=== PATIENT | female | born 1970 | race American Indian/Alaskan Native ===

== ENCOUNTER 2016-09-26 23:04 | Inpatient (IN) | payer SELFPAY ==
[2016-09-26] MEDS ORDERED: NITRO-BID 2% TP ONE ×3 (23:29→23:36)
[2016-09-26] MEDS ORDERED: CATAPRES ONE (23:29)
[2016-09-26] MEDS ORDERED: CATAPRES PO ONE (23:36)
[2016-09-26 23:49] LABS: Basophils % (Auto) 2.1 % (0.0-1.8); Eosinophils % (Auto) 1.7 % (0.0-4.3); Hematocrit 32.4 % (30.3-42.9); Hemoglobin 10.2 gm/dl (10.1-14.3); Mean Corpuscular HGB Conc 32 % (30-34); Platelet Count 264 K/mm3 (140-440); Red Blood Count 4.93 M/mm3 (3.65-5.03); White Blood Count 5.8 K/mm3 (4.5-11.0)
[2016-09-26 23:51] LABS: Mean Corpuscular Volume 66 fl (79-97)
[2016-09-26 23:52] LABS: Mean Corpuscular Hemoglobin 21 pg (28-32); Red Cell Distribution Width 24.7 % (13.2-15.2)
[2016-09-27 00:03] LABS: INR 1.64 (0.87-1.13); Partial Thromboplastin Time 31.9 Sec. (24.2-36.6)
[2016-09-27 00:04] LABS: BUN/Creatinine Ratio 17.14; Blood Urea Nitrogen 12 mg/dL (7-17); Calcium 8.7 mg/dL (8.4-10.2); Carbon Dioxide 22 mmol/L (22-30); Glucose 104 mg/dL (65-100); Potassium 3.5 mmol/L (3.6-5.0); Sodium 136 mmol/L (137-145)
[2016-09-27 00:05] LABS: Anion Gap 19 mmol/L
--- NOTE | 2016-09-27 06:41 | Emergency Department Report ---
HPI - General Chief Complaint: Chest Pain Time Seen by Provider: 09/27/16 06:15 - HPI HPI: Chief complaint: Chest pain and shortness of breath on exertion HPI: Patient is a 46-year-old female with a history of hypertension, elevated cholesterol, diabetes, pulmonary embolism, CVA who ran out of all of her medications on Wednesday. Patient states she's been having pressure-like chest pain since 9:00 last night. Since the patient has been here she has had clonidine and nitroglycerin with some improvement of her blood pressure. Patient states her nitroglycerin helped her chest pain. Patient had one episode of vomiting yesterday but denies coughing, fever or diarrhea. Mode of arrival: [EMS] Source: [Patient] [old chart] Began: Pain started at 9:00 last night Duration: Continuous Context: See above Quality: Pressure Severity: 6 out of 10 Improved with: Nitroglycerin Worsened with: Exertion worsened and shortness of breath Associated signs and symptoms: See above, increased pedal edema ED Past Medical Hx - Past Medical History Previous Medical History?: Yes Hx Hypertension: Yes Hx CVA: Yes (2014) Hx Congestive Heart Failure: Yes Hx Diabetes: Yes Hx Pulmonary Embolism: Yes (January 2015) Hx Kidney Stones: Yes Hx Asthma: Yes Additional medical history: murmur. blood clot removal from brain, hx of CVA ( june,) - Surgical History Past Surgical History?: Yes Hx Cholecystectomy: Yes Additional Surgical History: tubal ligation - Social History Smoking Status: Never Smoker Substance Use Type: None - Medications Home Medications: Home Medications Medication Instructions Recorded Confirmed Last Taken Type Warfarin [Coumadin] 7.5 mg PO DAILY@1700 #30 tablet 08/24/15 09/04/16 06/28/16 Rx traMADol [Ultram 50 MG tab] 50 mg PO Q8HR PRN #12 tablet 01/30/16 09/04/16 Unknown Rx Albuterol Sulfate [Ventolin HFA] 2 puff IH Q4H PRN #1 hfa.aer.ad 06/29/16 Unknown Rx HYDROcodone/APAP 5-325 [[place] 1 each PO Q6H PRN #20 tablet 06/29/16 09/04/16 Unknown Rx 5-325 mg TAB] Lisinopril [Zestril TAB] 40 mg PO QDAY #30 tablet 06/29/16 09/04/16 Unknown Rx Lovastatin [Altoprev] 20 mg PO QPM #30 tab.er.24h 06/29/16 09/04/16 Unknown Rx Metoprolol [Lopressor TAB] 75 mg PO BID #60 tablet 06/29/16 09/04/16 Unknown Rx Ondansetron [Zofran ODT TAB] 4 mg PO Q8HR #20 tab.rapdis 06/29/16 09/04/16 Unknown Rx hydrALAZINE [Apresoline TAB] 50 mg PO BID #60 tablet 06/29/16 09/04/16 Unknown Rx metFORMIN [Glucophage] 500 mg PO BIDDIAB #60 tablet 06/29/16 09/04/16 Unknown Rx Cyclobenzaprine HCl [Flexeril 5 MG 5 mg PO Q8HR PRN #10 tab 07/27/16 09/04/16 Unknown Rx TAB] Torsemide [Demadex] 40 mg PO DAILY 30 Days 09/09/16 Unknown Rx ED Review of Systems ROS: Stated complaint: CHEST PAIN Other details as noted in HPI ROS Constitutional: No fever ENT: No uri symptoms Cardiovascular: chest pain Respiratory: No cough GI: No nausea vomiting or diarrhea : No dysuria frequency or urgency, Skin: No rash Neuro: No focal weakness or numbness Psych: No depression Sahil/lymph: He is pedal edema edema Physical Exam - Physical Exam Vital Signs: Vital Signs 09/26/16 09/26/16 09/27/16 23:14 23:40 02:23 Temperature 98.3 F 98.0 F Pulse Rate 97 H 97 H 79 Respiratory 20 18 Rate Blood Pressure 168/115 168/113 154/111 Blood Pressure [Left] O2 Sat by Pulse 100 100 Oximetry 09/27/16 06:19 Temperature Pulse Rate 80 Respiratory 20 Rate Blood Pressure Blood Pressure 160/110 [Left] O2 Sat by Pulse 100 Oximetry Physical Exam: GENERAL: The patient is well-developed well-nourished . HEENT: Normocephalic. Atraumatic. Extraocular motions are intact. Patient has moist mucous membranes. NECK: Supple. No meningitic signs are noted. There is no adenopathy noted. CHEST/LUNGS: Clear to auscultation. There is no respiratory distress noted. HEART/CARDIOVASCULAR: Regular. There is no tachycardia. There is no gallop rub or murmur. ABDOMEN: Abdomen is soft, nontender. Patient has normal bowel sounds. There is no abdominal distention. SKIN: There is no rash. There is 1+ bilateral pedal edema. There is no diaphoresis. NEURO: The patient is awake, alert, and oriented. The patient is cooperative. The patient has no focal neurologic deficits. The patient has normal speech. MUSCULOSKELETAL: There is no tenderness or deformity. There is no limitation range of motion. There is no evidence of acute injury. ED Course Vital Signs 09/26/16 09/26/16 09/27/16 23:14 23:40 02:23 Temperature 98.3 F 98.0 F Pulse Rate 97 H 97 H 79 Respiratory 20 18 Rate Blood Pressure 168/115 168/113 154/111 Blood Pressure [Left] O2 Sat by Pulse 100 100 Oximetry 09/27/16 06:19 Temperature Pulse Rate 80 Respiratory 20 Rate Blood Pressure Blood Pressure 160/110 [Left] O2 Sat by Pulse 100 Oximetry - Reevaluation(s) Reevaluation #1: 09/27/16 07:11 Patient will be admitted to the hospitalist for persistent chest pain and hypertensive urgency. ED Medical Decision Making - Lab Data Result diagrams: 09/26/16 23:29 09/26/16 23:29 Laboratory Tests 09/26/16 09/26/16 09/27/16 23:29 23:29 02:41 PT 19.4 H INR 1.64 H APTT 31.9 Troponin T < 0.010 < 0.010 HCG, Qual 09/27/16 09/27/16 04:31 04:31 PT INR APTT Troponin T < 0.010 HCG, Qual Negative - EKG Data -: EKG Interpreted by Nv EKG shows normal: sinus rhythm Rate: normal - EKG Data When compared to previous EKG there are: no significant change Interpretation: other (her initial anterior forces.) - Radiology Data interpreted by me: Chest x-ray shows cardiomegaly. Critical care attestation.: If time is entered above; I have spent that time in minutes in the direct care of this critically ill patient, excluding procedure time. ED Disposition Clinical Impression: Hypertensive urgency, Noncompliance w/medication treatment due to intermit use of medication, Acute chest pain Disposition: OP ADMITTED IP TO THIS HOSP Is pt being admited?: Yes Does the pt Need Aspirin: Yes Condition: Fair Instructions: Chest Pain (ED) Time of Disposition: 07:12 (admit to the hospitalist)
[2016-09-27] MEDS ORDERED: SODIUM CHLORIDE FLUSH SYRINGE 10 ML IV PRN (08:00)
[2016-09-27] MEDS ORDERED: NORCO 5/325 PO PRN (08:00)
[2016-09-27] MEDS ORDERED: NON-FORMULARY (Cyclobenzaprine Hcl [Flexeril 5 Mg Tab] 5 MG) PO PRN (08:00)
[2016-09-27] MEDS ORDERED: MORPHINE IV PRN (08:00)
[2016-09-27] MEDS ORDERED: PROAIR IH PRN (08:00)
[2016-09-27] MEDS ORDERED: ULTRAM PO PRN (08:00)
[2016-09-27] MEDS ORDERED: K-DUR PO ONE (08:00)
[2016-09-27] MEDS ORDERED: NITROSTAT SL PRN (08:00)
[2016-09-27] MEDS ORDERED: ZESTRIL ONE (08:05)
[2016-09-27] MEDS ORDERED: PROVENTIL IH PRN (08:11)
[2016-09-27] MEDS: ZOFRAN ODT PO SCH ×3 (08:27→22:50)
[2016-09-27] MEDS: LOPRESSOR PO SCH ×3 (08:27→22:50)
[2016-09-27] MEDS: GLUCOPHAGE PO SCH ×2 (08:27→17:01)
[2016-09-27] MEDS: APRESOLINE PO SCH ×3 (08:27→22:51)
[2016-09-27] MEDS: LOVENOX SUB-Q SCH ×3 (08:28→22:51)
[2016-09-27] MEDS: ZESTRIL PO SCH ×2 (08:28→09:39)
[2016-09-27] MEDS: PEPCID PO SCH ×3 (08:28→22:49)
--- NOTE | 2016-09-27 09:50 | XRay Report ---
AP CHEST History: Shortness of breath. Findings: Moderate cardiomegaly is unchanged since 09/04/16. Normal pulmonary vascularity. Left lower lobe opacity and/or left pleural effusion has resolved. The lungs are clear. No pneumothorax. Normal thoracic cage. Impression: Stable cardiomegaly. Lungs clear.
--- NOTE | 2016-09-27 10:06 | History and Physical Report ---
History of Present Illness Date of examination: 09/27/16 Date of admission: 09/27/16 07:13 Chief complaint: chest pain and sob last night History of present illness: Miss Lyman is a 46 yo F with CHF and known non compliance with medications who presented with chest pain which started last night, central, pressing in nature lasted for about 2 hours. No radiation, no aggravating or relieving factors. She denies cough or fever. She also had some palpitations. She reported that she ran out of medications and Wednesday. At the time of evaluation she had no chest pain. She was noted to have elevated blood pressure in the emergency room. No history of acute [place] in the past. Past History Past Medical History: heart failure, hypertension, other (pulmonary embolism; nonischemic cardiomyopathy; nonobstructive CAD) Past Surgical History: No surgical history Social history: full code. denies: smoking, alcohol abuse, prescription drug abuse Family history: hypertension Medications and Allergies Allergies Allergy/AdvReac Type Severity Reaction Status Date / Time aspirin Allergy Swelling Verified 01/30/16 08:48 Home Medications Medication Instructions Recorded Confirmed Last Taken Type Warfarin [Coumadin] 7.5 mg PO DAILY@1700 #30 tablet 08/24/15 09/27/16 06/28/16 Rx traMADol [Ultram 50 MG tab] 50 mg PO Q8HR PRN #12 tablet 01/30/16 09/27/16 Unknown Rx Albuterol Sulfate [Ventolin HFA] 2 puff IH Q4H PRN #1 hfa.aer.ad 06/29/16 Unknown Rx HYDROcodone/APAP 5-325 [[place] 1 each PO Q6H PRN #20 tablet 06/29/16 09/27/16 Unknown Rx 5-325 mg TAB] Lisinopril [Zestril TAB] 40 mg PO QDAY #30 tablet 06/29/16 09/27/16 Unknown Rx Lovastatin [Altoprev] 20 mg PO QPM #30 tab.er.24h 06/29/16 09/27/16 Unknown Rx Metoprolol [Lopressor TAB] 75 mg PO BID #60 tablet 06/29/16 09/27/16 Unknown Rx Ondansetron [Zofran ODT TAB] 4 mg PO Q8HR #20 tab.rapdis 06/29/16 09/27/16 Unknown Rx hydrALAZINE [Apresoline TAB] 50 mg PO BID #60 tablet 06/29/16 09/27/16 Unknown Rx metFORMIN [Glucophage] 500 mg PO BIDDIAB #60 tablet 06/29/16 09/27/16 Unknown Rx Cyclobenzaprine HCl [Flexeril 5 MG 5 mg PO Q8HR PRN #10 tab 07/27/16 09/27/16 Unknown Rx TAB] Torsemide [Demadex] 40 mg PO DAILY 30 Days 09/09/16 09/27/16 Unknown Rx Active Meds: Active Medications Acetaminophen/Hydrocodone Bitart ([place] 5/325) 1 each PO Q6H PRN PRN Reason: Pain, Moderate (4-6) Albuterol (Proventil) 2.5 mg IH Q4HRT PRN PRN Reason: Shortness Of Breath Cyclobenzaprine HCl (Flexeril) 5 mg PO Q8H PRN PRN Reason: Pain Enoxaparin Sodium (Lovenox) 90 mg SUB-Q Q12HR [facility] Last Admin: 09/27/16 09:39 Dose: Not Given Famotidine (Pepcid) 20 mg PO BID [facility] Last Admin: 09/27/16 09:39 Dose: Not Given Hydralazine HCl (Apresoline) 50 mg PO BID [facility] Last Admin: 09/27/16 09:38 Dose: Not Given Lisinopril (Zestril) 40 mg PO QDAY [facility] Last Admin: 09/27/16 09:39 Dose: Not Given Metformin HCl (Glucophage) 500 mg PO BIDDIAB [facility] Last Admin: 09/27/16 08:27 Dose: 500 mg Metoprolol Tartrate (Lopressor) 75 mg PO BID [facility] Last Admin: 09/27/16 09:39 Dose: Not Given Morphine Sulfate (Morphine) 2 mg IV Q5MIN PRN PRN Reason: Chest Pain Nitroglycerin (Nitrostat) 0.4 mg SL Q5M PRN PRN Reason: Chest Pain Ondansetron HCl (Zofran Odt) 4 mg PO Q8HR [facility] Last Admin: 09/27/16 08:27 Dose: 4 mg Simvastatin (Zocor) 10 mg PO QHS [facility] Sodium Chloride (Sodium Chloride Flush Syringe 10 Ml) 10 ml IV PRN PRN PRN Reason: LINE FLUSH Torsemide (Demadex) 40 mg PO DAILY [facility] Tramadol HCl (Ultram) 50 mg PO Q8HR PRN PRN Reason: Pain Warfarin Sodium (Coumadin) 7.5 mg PO DAILY@1700 [place] PRN Reason: Protocol Review of Systems All systems: negative Constitutional: no weight loss, no weight gain, no fever, no chills Breasts: normal Cardiovascular: other (as in the history of presenting complaint) Respiratory: shortness of breath, no cough, no cough with sputum, no excessive sputum Gastrointestinal: no abdominal pain, no nausea, no vomiting, no diarrhea, no constipation Genitourinary Female: no dyspareunia, no dysmenorrhea, no pelvic pain, no flank pain, no menorrhagia, no urinary frequency Rectal: no pain, no incontinence, no bleeding Musculoskeletal: no neck stiffness, no neck pain, no shooting arm pain Integumentary: no rash, no pruritis, no redness Neurological: no head injury, no transient paralysis, no paralysis, no weakness Psychiatric: no anxiety, no change in sleep habits, no sleep disturbances Endocrine: no cold intolerance, no heat intolerance, no polyphagia, no excessive thirst, no weight change Hematologic/Lymphatic: no easy bruising, no easy bleeding Allergic/Immunologic: no urticaria Exam - Constitutional Vitals: Temp Pulse Resp BP Pulse Ox 98.0 F 74 18 156/104 98 09/27/16 02:23 09/27/16 08:00 09/27/16 09:01 09/27/16 08:00 09/27/16 09:01 General appearance: Present: no acute distress, well-nourished - EENT Eyes: Present: PERRL, EOM intact. Absent: scleral icterus, conjunctival injection ENT: hearing intact, clear oral mucosa, no oropharyngeal erythema, no poor dentition - Neck Neck: Present: supple - Respiratory Respiratory effort: normal Respiratory: bilateral: diminished, negative: rales, rhonchi, wheezing - Cardiovascular Rhythm: regular Heart Sounds: Present: S1 & S2. Absent: gallop - Extremities Extremities: no ischemia, pulses intact, pulses symmetrical, No edema Peripheral Pulses: within normal limits - Abdominal General gastrointestinal: Present: soft, non-tender, non-distended, normal bowel sounds Female genitourinary: Present: deferred - Rectal Rectal Exam: deferred - Integumentary Integumentary: Present: clear - Musculoskeletal Musculoskeletal: strength equal bilaterally - Psychiatric Psychiatric: appropriate mood/affect, intact judgment & insight, cooperative - Neurologic Neurologic: CNII-XII intact, moves all extremities Results - Labs CBC & Chem 7: 09/26/16 23:29 09/26/16 23:29 - Imaging and Cardiology Chest x-ray: report reviewed (Chest [id number] cardiomegaly. Lungs clear) Assessment and Plan 1. Acute exacerbation of chronic systolic heart failure with a background history of nonischemic cardiomyopathy-we'll admit as an inpatient as more than 2 midnights are quite for treatment. We'll start diuresis with IV Lasix. Restart home medications with lisinopril and metoprolol. Troponins are negative 3. We'll consult cardiology. Supplemental oxygen as needed 2. Hypertension with urgency-start antihypertensive medications as per home meds and adjust as needed. Cardiac diet 3. Moderate severe MR/TR-restart home medications as discussed in one above 4. Old pulmonary embolism-INR was subtherapeutic. Will restart Coumadin with Lovenox bridge 5. DVT prophylaxispatient is on full dose Lovenox Patient has been counseled about the need to be compliant with treatment
[2016-09-27] MEDS: FLEXERIL PO PRN (15:05)
[2016-09-27] MEDS ORDERED: COUMADIN PO SCH (17:00)
[2016-09-27] MEDS ORDERED: NON-FORMULARY (Lovastatin [Altoprev] 20 MG) PO SCH (18:00)
[2016-09-27] MEDS: DEMADEX PO SCH (19:53)
[2016-09-27] MEDS ORDERED: ZOCOR PO SCH (22:00)
[2016-09-28] MEDS: FLEXERIL PO PRN (04:37)
[2016-09-28 06:21] LABS: INR 1.53 (0.87-1.13)
[2016-09-28] MEDS: ZOFRAN ODT PO SCH ×2 (06:31→14:01)
--- NOTE | 2016-09-28 09:29 | Discharge Summary ---
Providers - Providers Date of Admission: 09/27/16 07:13 Date of discharge: 09/28/16 Attending physician: KATHLEEN DARLING 09/27/16 08:00 Consult to Cardiac Rehabilitation [CONS] Routine Reason For Exam: Phase I 09/27/16 10:00 Consult to Physician [CONS] Routine Consulting Provider: REYNALDO COYLE Reason For Exam: chest pain; chf Place consult to:: [facility] Notified:: a service Phone number called:: [phone] Was contact made?: Yes If yes, spoke with:: patience Time called:: 10:28 Primary care physician: DETHISTLER OPERATOR Hospitalization Reason for admission: chf exacerbation Condition: Fair Hospital course: Miss Lyman is a 46-year-old female who presented to the emergency room with acute exacerbation of congestive heart failure secondary to noncompliance with medication. She was admitted and started on IV Lasix for diuresis. Her symptoms improved and she returned to baseline prior to discharge. She was counseled about the need to be compliant with treatment. She was also placed on Lovenox bridge as her INR was subtherapeutic and she has history of PE. She was seen by the fitness coach while she was here. Condition at discharge-stable 32 minutes spent preparing discharge Disposition: DISCHARGED TO HOME OR SELFCARE - Discharge Diagnoses (1) Acute systolic CHF (congestive heart failure), NYHA class 3 Status: Acute (2) Hypertensive urgency Status: Acute (3) Diabetes mellitus Status: Chronic Qualifiers: Diabetes mellitus type: type 2 Diabetes mellitus complication status: without complication Qualified Code(s): E11.9 - Type 2 diabetes mellitus without complications Core Measure Documentation - Palliative Care Palliative Care/ Comfort Measures: Not Applicable - Core Measures Any of the following diagnoses?: heart failure - Heart Failure Discharge Requirements OLGA LIDIA/ARB for LVSD if EF <40%: Yes Beta ashley at discharge: Yes Exam - Constitutional Vitals: Temp Pulse Resp BP Pulse Ox 98.3 F 66 20 118/79 98 09/28/16 07:46 09/28/16 07:46 09/28/16 07:46 09/28/16 07:46 09/28/16 07:46 General appearance: Present: no acute distress - EENT Eyes: Present: PERRL, EOM intact. Absent: scleral icterus, conjunctival injection ENT: hearing intact, clear oral mucosa, no oropharyngeal erythema, no poor dentition - Neck Neck: Present: supple, normal ROM. Absent: enlarged thyroid, masses or JVD - Respiratory Respiratory effort: normal Respiratory: negative: diminished, rales, rhonchi, wheezing - Cardiovascular Rhythm: regular Heart Sounds: Present: S1 & S2. Absent: gallop - Extremities Extremities: no ischemia, pulses intact, pulses symmetrical, No edema Peripheral Pulses: within normal limits - Abdominal General gastrointestinal: Present: soft, non-tender, non-distended Female genitourinary: Present: deferred - Rectal Rectal Exam: deferred - Integumentary Integumentary: Present: clear - Musculoskeletal Musculoskeletal: strength equal bilaterally - Psychiatric Psychiatric: appropriate mood/affect, intact judgment & insight - Neurologic Neurologic: CNII-XII intact Plan Activity: advance as tolerated Diet: low salt Additional Instructions: F/U [facility] for INR check in 3 days Follow up with: PRIMARY CARE, [Primary Care Provider] - 3-5 Days Forms: Warfarin Discharge Instruction Prescriptions: Enoxaparin [Lovenox] 90 mg SQ Q12HR 5 Days
[2016-09-28] MEDS: DEMADEX PO SCH (09:43)
[2016-09-28] MEDS: GLUCOPHAGE PO SCH (09:44)
[2016-09-28] MEDS: LOPRESSOR PO SCH (09:44)
[2016-09-28] MEDS: PEPCID PO SCH (09:45)
[2016-09-28] MEDS: ZESTRIL PO SCH (09:45)
[2016-09-28] MEDS: APRESOLINE PO SCH (09:46)
[2016-09-28] MEDS: LOVENOX SUB-Q SCH (09:51)
--- NOTE | 2016-09-28 10:41 | Consultation ---
History of Present Illness Consult date: 09/28/16 Consult reason: chest pain, congestive heart failure History of present illness: This is a 46yr old woman who presented with chest pain and shortness of breath. Noted hypertensive on presentation with CP 168/115. Patient admits to running out of her medications. She has a history multiple medical problems. She is on warfarin therapy for prior history of pulmonary embolus. She has a dilated nonischemic cardiomyopathy. A cardiac catheterization done 2014 reports no significant obstructive coronary disease and a severe dilated cardiomyopathy, ejection fraction 15-20%. Subsequently, she has been poorly compliant with medical therapy for her nonischemic cardiomyopathy and outpatient follow ups. Her presenting ECG shows a sinus rhythm with nonspecific twave abnormality. Patient currently reports chest pain has resolved and her breathing is better. Blood pressure stable at 118/79. Past History Past Medical History: heart failure, hypertension, other (pulmonary embolism; nonischemic cardiomyopathy; nonobstructive CAD) Past Surgical History: No surgical history Social history: full code. denies: smoking, alcohol abuse, prescription drug abuse Family history: hypertension Medications and Allergies Allergies Allergy/AdvReac Type Severity Reaction Status Date / Time aspirin Allergy Swelling Verified 01/30/16 08:48 Home Medications Medication Instructions Recorded Confirmed Last Taken Type Warfarin [Coumadin] 7.5 mg PO DAILY@1700 #30 tablet 08/24/15 09/27/16 06/28/16 Rx traMADol [Ultram 50 MG tab] 50 mg PO Q8HR PRN #12 tablet 01/30/16 09/27/16 Unknown Rx Albuterol Sulfate [Ventolin HFA] 2 puff IH Q4H PRN #1 hfa.aer.ad 06/29/16 Unknown Rx HYDROcodone/APAP 5-325 [[place] 1 each PO Q6H PRN #20 tablet 06/29/16 09/27/16 Unknown Rx 5-325 mg TAB] Lisinopril [Zestril TAB] 40 mg PO QDAY #30 tablet 06/29/16 09/27/16 Unknown Rx Lovastatin [Altoprev] 20 mg PO QPM #30 tab.er.24h 06/29/16 09/27/16 Unknown Rx Metoprolol [Lopressor TAB] 75 mg PO BID #60 tablet 06/29/16 09/27/16 Unknown Rx Ondansetron [Zofran ODT TAB] 4 mg PO Q8HR #20 tab.rapdis 06/29/16 09/27/16 Unknown Rx hydrALAZINE [Apresoline TAB] 50 mg PO BID #60 tablet 06/29/16 09/27/16 Unknown Rx metFORMIN [Glucophage] 500 mg PO BIDDIAB #60 tablet 06/29/16 09/27/16 Unknown Rx Cyclobenzaprine HCl [Flexeril 5 MG 5 mg PO Q8HR PRN #10 tab 07/27/16 09/27/16 Unknown Rx TAB] Torsemide [Demadex] 40 mg PO DAILY 30 Days 09/09/16 09/27/16 Unknown Rx Enoxaparin [Lovenox] 90 mg SQ Q12HR 5 Days 09/28/16 Unknown Rx Active Meds: Active Medications Acetaminophen/Hydrocodone Bitart ([place] 5/325) 1 each PO Q6H PRN PRN Reason: Pain, Moderate (4-6) Albuterol (Proventil) 2.5 mg IH Q4HRT PRN PRN Reason: Shortness Of Breath Cyclobenzaprine HCl (Flexeril) 5 mg PO Q8H PRN PRN Reason: Pain Last Admin: 09/28/16 04:37 Dose: 5 mg Enoxaparin Sodium (Lovenox) 90 mg SUB-Q Q12HR [facility] Last Admin: 09/28/16 09:51 Dose: 90 mg Famotidine (Pepcid) 20 mg PO BID [facility] Last Admin: 09/28/16 09:45 Dose: 20 mg Hydralazine HCl (Apresoline) 50 mg PO BID [facility] Last Admin: 09/28/16 09:46 Dose: 50 mg Lisinopril (Zestril) 40 mg PO QDAY [facility] Last Admin: 09/28/16 09:45 Dose: 40 mg Metformin HCl (Glucophage) 500 mg PO BIDDIAB [facility] Last Admin: 09/28/16 09:44 Dose: 500 mg Metoprolol Tartrate (Lopressor) 75 mg PO BID [facility] Last Admin: 09/28/16 09:44 Dose: 75 mg Morphine Sulfate (Morphine) 2 mg IV Q5MIN PRN PRN Reason: Chest Pain Nitroglycerin (Nitrostat) 0.4 mg SL Q5M PRN PRN Reason: Chest Pain Ondansetron HCl (Zofran Odt) 4 mg PO Q8HR [facility] Last Admin: 09/28/16 06:31 Dose: 4 mg Simvastatin (Zocor) 10 mg PO QHS [facility] Last Admin: 09/27/16 22:50 Dose: 10 mg Sodium Chloride (Sodium Chloride Flush Syringe 10 Ml) 10 ml IV PRN PRN PRN Reason: LINE FLUSH Torsemide (Demadex) 40 mg PO DAILY [facility] Last Admin: 09/28/16 09:43 Dose: 40 mg Tramadol HCl (Ultram) 50 mg PO Q8HR PRN PRN Reason: Pain Warfarin Sodium (Coumadin) 7.5 mg PO DAILY@1700 [facility] PRN Reason: Protocol Last Admin: 09/27/16 17:01 Dose: 7.5 mg Physical Examination Vital Signs Temp Pulse Resp BP Pulse Ox 98.3 F 97 H 20 168/115 100 09/26/16 23:14 09/26/16 23:14 09/26/16 23:14 09/26/16 23:14 09/26/16 23:14 General appearance: no acute distress HEENT: Positive: PERRL Neck: Positive: trachea midline Cardiac: Positive: Reg Rate and Rhythm Lungs: Positive: Decreased Breath Sounds Extremities: Present: +1 Edema Results 09/26/16 23:29 09/26/16 23:29 Coagulation 09/28/16 Range/Units 05:09 PT 18.4 H (12.2-14.9) Sec. INR 1.53 H (0.87-1.13) EKG interpretations - Telemetry EKG Rhythm: Sinus Rhythm Assessment and Plan Chest pain, atypical Chronic systolic heart failure Non-ischemic cardiomyopathy, LVEF 15-20% non-obstructive CAD by [facility] 11/2014 Moderate to severe MR Severe TR Systemic Hypertension History of PE on coumadin therapy Non-compliance with meds, fluid restriction and outpatient follow-ups Recommendations: Medical therapy for chronic systolic heart failure. Advised compliance with salt and fluid restriction. No further cardiac workup indicated. Stable cardiac jean.
--- NOTE | 2016-09-28 13:03 | Progress Note ---
Assessment and Plan Assessment and plan: 1. Acute exacerbation of chronic systolic heart failure with a background history of nonischemic cardiomyopathy-improving; cont current medical manx; cotn diuresis with IV Lasix. Cont lisinopril and metoprolol. Troponins are negative 3. F/U cardiology for further recommendations; Supplemental oxygen as needed 2. Hypertension with urgency-now BP controlled; cont current meds. Cardiac diet 3. Moderate severe MR/TR-manx as discussed in one above 4. 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 Cont Coumadin with Lovenox bridge 5. DVT prophylaxispatient is on full dose Lovenox D/Wed with CM about financial issues and her inability to get medications Will d/c home if cleared by cardiology and social issues sorted out History Interval history: f/u chf exacerbation PAtient seen at the bedside; sob improving; unable to get medications due to financial issues Hospitalist Physical - Constitutional Vitals: Temp Pulse Resp BP Pulse Ox 98.3 F 66 20 118/79 98 09/28/16 07:46 09/28/16 10:05 09/28/16 10:05 09/28/16 07:46 09/28/16 10:05 General appearance: Present: no acute distress - EENT Eyes: Present: PERRL, EOM intact. Absent: scleral icterus, conjunctival injection ENT: hearing intact, clear oral mucosa, no oropharyngeal erythema, no poor dentition - Neck Neck: Present: supple, normal ROM. Absent: enlarged thyroid, masses or JVD - Respiratory Respiratory effort: normal Respiratory: bilateral: diminished, negative: rales, rhonchi, wheezing - Cardiovascular Rhythm: regular Heart Sounds: Present: S1 & S2. Absent: gallop - Extremities Extremities: no ischemia, pulses intact, pulses symmetrical, No edema Peripheral Pulses: within normal limits - Abdominal General gastrointestinal: soft, non-tender, non-distended, normal bowel sounds - Integumentary Integumentary: Present: clear - Psychiatric Psychiatric: appropriate mood/affect, intact judgment & insight, cooperative - Neurologic Neurologic: CNII-XII intact, moves all extremities Results - Labs CBC & Chem 7: 09/26/16 23:29 09/26/16 23:29 Labs: Laboratory Last Values WBC 5.8 K/mm3 (4.5-11.0) 09/26/16 23:29 RBC 4.93 M/mm3 (3.65-5.03) 09/26/16 23: Hgb 10.2 gm/dl (10.1-14.3) 09/26/16 23: Hct 32.4 % (30.3-42.9) 09/26/16 23: MCV 66 fl (79-97) L 09/26/16 23: MCH 21 pg (28-32) L 09/26/16 23: MCHC 32 % (30-34) 09/26/16 23: RDW 24.7 % (13.2-15.2) H 09/26/16 23: Plt Count 264 K/mm3 (140-440) 09/26/16 23: Lymph % (Auto) 39.3 % (13.4-35.0) H 09/26/16 23: [place] % (Auto) 8.3 % (0.0-7.3) H 09/26/16: Eos % (Auto) 1.7 % (0.0-4.3) 09/26/16 23: Baso % (Auto) 2.1 % (0.0-1.8) H 09/26/16 23: Lymph # 2.3 K/mm3 (1.2-5.4) 09/26/16 23: [place] # 0.5 K/mm3 (0.0-0.8) 09/26/16 23: Eos # 0.1 K/mm3 (0.0-0.4) 09/26/16 23: Baso # 0.1 K/mm3 (0.0-0.1) 09/26/16 23: Seg Neutrophils % 48.6 % (40.0-70.0) 09/26/16 23: Seg Neutrophils # 2.8 K/mm3 (1.8-7.7) 09/26/16 23: PT 18.4 Sec. (12.2-14.9) H 09/28/16 05:09 INR 1.53 (0.87-1.13) H 09/28/16 05:09 APTT 31.9 Sec. (24.2-36.6) 09/26/16 23: Sodium 136 mmol/L (137-145) L 01/07/17 23:29 Potassium 3.5 mmol/L (3.6-5.0) L 09/26/16 23:29 Chloride 99.0 mmol/L (98-107) 09/26/16 23:29 Carbon Dioxide 22 mmol/L (22-30) 09/26/16 23:29 Anion Gap 19 mmol/L 09/26/16 23:29 BUN 12 mg/dL (7-17) 09/26/16 23:29 Creatinine 0.7 mg/dL (0.7-1.2) 09/26/16 23:29 Estimated GFR > 60 ml/min 09/26/16 23:29 BUN/Creatinine Ratio 17.14 % 09/26/16 23:29 Glucose 104 mg/dL (65-100) H 09/26/16 23:29 Calcium 8.7 mg/dL (8.4-10.2) 09/26/16 23:29 Troponin T < 0.010 ng/mL (0.00-0.029) 09/27/16 04:31 Triglycerides 56 mg/dL (2-149) 09/27/16 04:31 Cholesterol 84 mg/dL (50-199) 09/27/16 04:31 LDL Cholesterol Direct 52 mg/dL (50-130) 09/27/16 04:31 HDL Cholesterol 21 mg/dL (40-59) L 09/27/16 04:31 Cholesterol/HDL Ratio 4.00 % 09/27/16 04:31 HCG, Qual Negative (Negative) 09/27/16 04:31
[2016-09-28 13:50] VITALS: BP 106/61
== END 2016-09-28 14:53 | disposition home or self-care (01) | DRG 293 ==
LOC: ED 23:04 → 4A 09-27 07:13
PROVIDERS: ADMIT Hospitalist; ATTEND Hospitalist
DX: I11.0 Hypertensive heart disease with heart failure (principal); I50.23 Acute on chronic systolic (congestive) heart failure; I16.0 Hypertensive urgency; I25.10 Atherosclerotic heart disease of native coronary artery without angina pectoris; E11.9 Type 2 diabetes mellitus without complications; I42.0 Dilated cardiomyopathy; I34.0 Nonrheumatic mitral (valve) insufficiency; Z91.14 Patient's other noncompliance with medication regimen; Z88.6 Allergy status to analgesic agent; Z86.711 Personal history of pulmonary embolism; Z87.442 Personal history of urinary calculi; Z98.51 Tubal ligation status; Z82.49 Family history of ischemic heart disease and other diseases of the circulatory system
CPT/HCPCS: 36415; 71010; 80048; 80061; 84484; 84703; 85025; 85610; 85730; 93005; 93010; J1650; Q0162

== ENCOUNTER 2016-10-29 10:03 | Inpatient (IN) | payer OTHER ==
[2016-10-29 10:45] LABS: Hematocrit 34.8 % (30.3-42.9); Hemoglobin 10.7 gm/dl (10.1-14.3); Mean Corpuscular HGB Conc 31 % (30-34); Platelet Count 227 K/mm3 (140-440); White Blood Count 6.3 K/mm3 (4.5-11.0)
[2016-10-29 10:58] LABS: Mean Corpuscular Hemoglobin 21 pg (28-32); Mean Corpuscular Volume 68 fl (79-97); Red Cell Distribution Width 24.7 % (13.2-15.2)
[2016-10-29 11:01] LABS: INR 1.88 (0.87-1.13)
[2016-10-29 11:02] LABS: Partial Thromboplastin Time 31.3 Sec. (24.2-36.6)
[2016-10-29 11:04] LABS: Anion Gap 23 mmol/L; BUN/Creatinine Ratio 16.25; Blood Urea Nitrogen 13 mg/dL (7-17); Calcium 8.6 mg/dL (8.4-10.2); Carbon Dioxide 21 mmol/L (22-30); Chloride 103.1 mmol/L (98-107); Glucose 144 mg/dL (65-100); Potassium 3.6 mmol/L (3.6-5.0); Sodium 143 mmol/L (137-145)
[2016-10-29 11:30] LABS: Albumin/Globulin Ratio 1.1 %; Bilirubin,Direct 1.4 mg/dL (0-0.2); Bilirubin,Indirect 1.7 mg/dL; Bilirubin,Total 3.1 mg/dL (0.1-1.2); Total Protein 7.5 g/dL (6.3-8.2)
[2016-10-29] MEDS ORDERED: CATAPRES PO ONE (17:21)
[2016-10-29] MEDS ORDERED: LASIX IV ONE (17:37)
--- NOTE | 2016-10-29 17:51 | Emergency Department Report ---
ED Neuro Deficit HPI - General Chief Complaint: Pain General Stated Complaint: LT SIDE PAIN Time Seen by Provider: 10/29/16 17:19 Source: patient, old records reviewed Mode of arrival: Ambulatory Limitations: No Limitations - History of Present Illness Initial Comments: 46-year-old female with a past medical history CHF, CVA with residual left- sided deficits, diabetes, hypertension, and pulmonary embolism presents to the hospital complains of left-sided numbness since this morning, left-sided pain since this morning, and shortness of breath with leg edema. Dyspnea primarily with exertion. Patient ran out of all her medications yesterday. She has been compliant with her Lovenox. Patient had a PE diagnosed in January 2015. Patient also had a CVA and a clot removed from her brain in June 2015. Patient denies chest pain, headache, nausea, vomiting, or diaphoresis. She states her left side has been weak since her stroke in the strength is unchanged from her baseline. PMD: None Previous medical record review. Patient has a history of frequent ER visits with a ER visit at least monthly since July 2016. Admissions typically related to CHF exacerbation and medication noncompliance - Related Data Home Medications: Previous Rx's Medication Instructions Recorded Last Taken Type Warfarin [Coumadin] 7.5 mg PO DAILY@1700 #30 tablet 08/24/15 06/28/16 Rx traMADol [Ultram 50 MG tab] 50 mg PO Q8HR PRN #12 tablet 01/30/16 Unknown Rx Albuterol Sulfate [Ventolin HFA] 2 puff IH Q4H PRN #1 hfa.aer.ad 06/29/16 Unknown Rx HYDROcodone/APAP 5-325 [[place] 1 each PO Q6H PRN #20 tablet 06/29/16 Unknown Rx 5-325 mg TAB] Lisinopril [Zestril TAB] 40 mg PO QDAY #30 tablet 06/29/16 Unknown Rx Lovastatin [Altoprev] 20 mg PO QPM #30 tab.er.24h 06/29/16 Unknown Rx Metoprolol [Lopressor TAB] 75 mg PO BID #60 tablet 06/29/16 Unknown Rx Ondansetron [Zofran ODT TAB] 4 mg PO Q8HR #20 tab.rapdis 06/29/16 Unknown Rx hydrALAZINE [Apresoline TAB] 50 mg PO BID #60 tablet 06/29/16 Unknown Rx metFORMIN [Glucophage] 500 mg PO BIDDIAB #60 tablet 06/29/16 Unknown Rx Cyclobenzaprine HCl [Flexeril 5 MG 5 mg PO Q8HR PRN #10 tab 07/27/16 Unknown Rx TAB] Torsemide [Demadex] 40 mg PO DAILY 30 Days 09/09/16 Unknown Rx Enoxaparin [Lovenox] 90 mg SQ Q12HR 5 Days 09/28/16 Unknown Rx Allergies/Adverse Reactions: Allergies Allergy/AdvReac Type Severity Reaction Status Date / Time aspirin Allergy Swelling Verified 01/30/16 08:48 ED Review of Systems ROS: Stated complaint: LT SIDE PAIN Other details as noted in HPI Comment: All other systems reviewed and negative Other: Constitutional: No fevers chills Eyes: No eye pain visual changes ENT: No ear pain or throat pain Neck: Denies pain Respiratory: Denies cough wheezing Cardiovascular: Denies chest pain, palpitations, syncope GI: Denies abdominal pain, nausea, vomiting, diarrhea : Denies dysuria Musculoskeletal: Denies back pain Skin: Denies rash, lesions, erythema Neurologic: Denies headache Psychiatric: Denies suicidal ideation, hallucinations ED Past Medical Hx - Past Medical History Previous Medical History?: Yes Hx Hypertension: Yes Hx CVA: Yes (2014) Hx Heart Attack/AMI: No Hx Congestive Heart Failure: Yes Hx Diabetes: Yes Hx Deep Vein Thrombosis: No Hx Pulmonary Embolism: Yes (January 2015) Hx GERD: No Hx Liver Disease: No Hx Renal Disease: No Hx Sickle Cell Disease: No Hx Arthritis: No Hx Headaches / Migraines: No Hx Seizures: No Hx Kidney Stones: Yes Hx Psychiatric Treatment: No Hx Asthma: Yes Hx COPD: No Hx Tuberculosis: No Hx Dementia: No Hx HIV: No Additional medical history: murmur. blood clot removal from brain, hx of CVA ( june,) - Surgical History Past Surgical History?: Yes Hx Coronary Stent: No Hx Open Heart Surgery: No Hx Pacemaker: No Hx Internal Defibrillator: No Hx Cholecystectomy: Yes Hx Appendectomy: No Hx Breast Surgery: No Additional Surgical History: tubal ligation - Social History Smoking Status: Former Smoker Substance Use Type: None - Medications Home Medications: Home Medications Medication Instructions Recorded Confirmed Last Taken Type Warfarin [Coumadin] 7.5 mg PO DAILY@1700 #30 tablet 08/24/15 10/29/1606/28/16 Rx traMADol [Ultram 50 MG tab] 50 mg PO Q8HR PRN #12 tablet 01/30/16 10/29/16 Unknown Rx Albuterol Sulfate [Ventolin HFA] 2 puff IH Q4H PRN #1 hfa.aer.ad 06/29/16 Unknown Rx HYDROcodone/APAP 5-325 [[place] 1 each PO Q6H PRN #20 tablet 06/29/16 10/29/16 Unknown Rx 5-325 mg TAB] Lisinopril [Zestril TAB] 40 mg PO QDAY #30 tablet 06/29/16 10/29/16 Unknown Rx Lovastatin [Altoprev] 20 mg PO QPM #30 tab.er.24h 06/29/16 10/29/16 Unknown Rx Metoprolol [Lopressor TAB] 75 mg PO BID #60 tablet 06/29/16 10/29/16 Unknown Rx Ondansetron [Zofran ODT TAB] 4 mg PO Q8HR #20 tab.rapdis 06/29/16 10/29/16 Unknown Rx hydrALAZINE [Apresoline TAB] 50 mg PO BID #60 tablet 06/29/16 10/29/16 Unknown Rx metFORMIN [Glucophage] 500 mg PO BIDDIAB #60 tablet 06/29/16 10/29/16 Unknown Rx Cyclobenzaprine HCl [Flexeril 5 MG 5 mg PO Q8HR PRN #10 tab 07/27/16 10/29/16 Unknown Rx TAB] Torsemide [Demadex] 40 mg PO DAILY 30 Days 09/09/16 10/29/16 Unknown Rx Enoxaparin [Lovenox] 90 mg SQ Q12HR 5 Days 09/28/16 10/29/16 Unknown Rx ED Neuro Physical Exam - General Limitations: No Limitations Suspected Stroke: Yes - NIHSS Assessment Interval: Baseline 1a. Level of Consciousness: alert 1b. LOC Questions: answers correctly 1c. LOC Commands: performs tasks correctly 2. Best Gaze: normal 3. Visual: bilateral hemianopia 4. Facial Palsy: normal symmetrical movement 5b. Motor Arm Right: no drift 5a. Motor Arm Left: drift 6a. Motor Leg Left: drift 6b. Motor Leg Right: no drift 7. Limb Ataxia: absent 8. Sensory: mild/moderate sensory loss (left arm and leg) 9. Best Language: no aphasia 10. Dysarthria: normal 11. Extinction/Inattention: no abnormality Total Score: 6 Stroke Severity: Moderate Stroke - Other Other exam information: General: No limitations, patient is alert in no acute distress Head exam: Atraumatic, normocephalic Eyes exam: Icteric sclera ENT: Moist mucous membrane, normal oropharynx Neck exam: Normal inspection Respiratory exam: Clear to auscultation bilateral, no wheezes, rales, crackles Cardiovascular: Normal rate and rhythm, normal heart sounds Abdomen: Soft, nondistended, and nontender, with normal bowel sounds, no rebound, or guarding Extremity: Full range of motion normal inspection no deformity, 1+ lower extremity edema, no leg asymmetry or calf tenderness Back: Normal Inspection, full range of motion, no tenderness Neurologic: Alert, oriented x3, see NIHSS Psychiatric: normal affect, normal mood Skin: Warm, dry, intact ED Course Vital Signs 10/29/16 10/29/16 10/29/16 10:14 17:41 18:05 Temperature 98.5 F 97.5 F L Pulse Rate 117 H 115 H 115 H Respiratory 16 Rate Blood Pressure 161/116 179/123 Blood Pressure 179/123 [Left] O2 Sat by Pulse 100 100 Oximetry 10/29/16 10/29/16 18:35 19:25 Temperature Pulse Rate 107 H Respiratory 16 Rate Blood Pressure 179/123 Blood Pressure 153/110 [Left] O2 Sat by Pulse 100 Oximetry - Reevaluation(s) Reevaluation #1: 10/29/16 20:58 HR and BP improving with ed tx - Consultations Consultation #1: 10/29/16 20:00 case d/w dr. Valentino tele neurologist. Pt needs MRI to r/o new deficit - Lab Data Result diagrams: 10/29/16 10:32 10/29/16 10:32 Lab Results 10/29/16 10/29/16 10/29/16 Range/Units 10:32 10:32 10:32 WBC 6.3 (4.5-11.0) K/mm3 RBC 5.10 H (3.65-5.03) M/mm3 Hgb 10.7 (10.1-14.3) gm/dl Hct 34.8 (30.3-42.9) % MCV 68 L (79-97) fl MCH 21 L (28-32) pg MCHC 31 (30-34) % RDW 24.7 H (13.2-15.2) % Plt Count 227 (140-440) K/mm3 PT 21.6 H (12.2-14.9) Sec. INR 1.88 H (0.87-1.13) APTT 31.3 (24.2-36.6) Sec. Sodium 143 (137-145) mmol/L Potassium 3.6 (3.6-5.0) mmol/L Chloride 103.1 (98-107) mmol/L Carbon Dioxide 21 L (22-30) mmol/L Anion Gap 23 mmol/L BUN 13 (7-17) mg/dL Creatinine 0.8 (0.7-1.2) mg/dL Estimated GFR > 60 ml/min BUN/Creatinine Ratio 16.25 % Glucose 144 H (65-100) mg/dL Calcium 8.6 (8.4-10.2) mg/dL Total Bilirubin (0.1-1.2) mg/dL Direct Bilirubin (0-0.2) mg/dL Indirect Bilirubin mg/dL AST (5-40) units/L ALT (7-56) units/L Alkaline Phosphatase (35-129) units/L Total Protein (6.3-8.2) g/dL Albumin (3.9-5) g/dL Albumin/Globulin Ratio % 10/29/16 Range/Units 10:32 WBC (4.5-11.0) K/mm3 RBC (3.65-5.03) M/mm3 Hgb (10.1-14.3) gm/dl Hct (30.3-42.9) % MCV (79-97) fl MCH (28-32) pg MCHC (30-34) % RDW (13.2-15.2) % Plt Count (140-440) K/mm3 PT (12.2-14.9) Sec. INR (0.87-1.13) APTT (24.2-36.6) Sec. Sodium (137-145) mmol/L Potassium (3.6-5.0) mmol/L Chloride (98-107) mmol/L Carbon Dioxide (22-30) mmol/L Anion Gap mmol/L BUN (7-17) mg/dL Creatinine (0.7-1.2) mg/dL Estimated GFR ml/min BUN/Creatinine Ratio % Glucose (65-100) mg/dL Calcium (8.4-10.2) mg/dL Total Bilirubin 3.1 H (0.1-1.2) mg/dL Direct Bilirubin 1.4 H (0-0.2) mg/dL Indirect Bilirubin 1.7 mg/dL AST 18 (5-40) units/L ALT 15 (7-56) units/L Alkaline Phosphatase 93 (35-129) units/L Total Protein 7.5 (6.3-8.2) g/dL Albumin 4.0 (3.9-5) g/dL Albumin/Globulin Ratio 1.1 % - EKG Data -: EKG Interpreted by Me (sinus 114, lae, lat t wave inv) When compared to previous EKG there are: no significant change - Radiology Data Radiology results: report reviewed (ct head: remote r MCA infarct), image reviewed (cxr: naf, cmg) ct c spine: degenerative disc changes - Medical Decision Making Plan to admit pt for further workup of new neuro deficit - Differential Diagnosis CHF, CVA, TIA, chronic neuro deficit, Critical Care Time: No Critical care attestation.: If time is entered above; I have spent that time in minutes in the direct care of this critically ill patient, excluding procedure time. ED Disposition Clinical Impression: Shortness of breath, Hypertension, Noncompliance w/medication treatment due to intermit use of medication, Left sided numbness, Anticoagulant long-term use, Hx of pulmonary embolus, Diabetes mellitus, Elevated bilirubin Disposition: OP ADMITTED IP TO THIS HOSP Is pt being admited?: Yes Condition: Stable Instructions: Diabetes Mellitus Type 2 in Adults (ED) Time of Disposition: 21:01 (DR Baeza/hosp)
[2016-10-29] MEDS ORDERED: LOPRESSOR PO ONE (18:14)
--- NOTE | 2016-10-29 18:41 | Cat Scan Report ---
FINAL REPORT EXAM: CT HEAD/BRAIN WO CON HISTORY: left sided numbness, chronic weakness TECHNIQUE: CT head without contrast PRIORS: None. FINDINGS: There is encephalomalacia in the MCA distribution right temporal lobe with ex vacuo dilatation of the right lateral ventricle the sylvian fissure No acute intra or extra-axial hemorrhage identified. No acute parenchymal abnormalities are seen. No evidence for midline shift or mass effect. IMPRESSION: Remote right MCA distribution infarct No acute abnormality identified
--- NOTE | 2016-10-29 18:48 | Cat Scan Report ---
FINAL REPORT EXAM: CT CERVICAL SPINE WO CON HISTORY: left arm and leg numbness TECHNIQUE: CT cervical spine with reconstructions PRIORS: None. FINDINGS: Vertebral bodies demonstrate normal height and alignment. Degenerative disc space changes are present C4-C5-C5-C6 there is posterior osteophyte and calcification of the disc at C5-C6. The facet joints demonstrate normal alignment. The spinous processes are intact. Craniocervical junction is unremarkable. C1 and C2 are intact. IMPRESSION: Degenerative disc changes as noted above no acute abnormality seen.
--- NOTE | 2016-10-29 23:15 | History and Physical Report ---
History of Present Illness Date of examination: 10/29/16 Date of admission: 10/29/16 22:05 Chief complaint: Left-sided pain History of present illness: 46-year-old female with a past medical history CHF, CVA with residual minimal left-sided deficits, PE on 2014, diabetes, hypertension presents to the hospital with complains of worsening shortness of breath with leg edema. Patient states that she ran out of all her medications yesterday. Patient denies chest pain, headache, nausea, vomiting, or diaphoresis. She states her left side has been weak since her last CVA, and her weakness is unchanged from her baseline. But since this morning she also had left-sided pain. In the ER her blood pressure noted to be 179/124. Ct head showed old right MCA infract, CT cervical spine showed degenerative change. Past medical History: h/o Hypertension, CVA: 2014, congestive heart failure EF 15% on July 2016, diabetes mellitus type 2, history of pulmonary embolism, history of asthma. Past surgical History: s/p Cholecystectomy and tubal ligation Social History: Lives with family, denies any smoking, drinking and elicit drug abuse. Family History: Denies any hypertension or coronary artery disease Review of System: Constitutional: no fever, no chills, no weight loss Ears, eyes, nose, mouth and throat: no nasal congestion, no nasal discharge, no sinus pressure, no vision change, no red eye. Neck: No neck pain or rigidity. Cardiovascular: No chest pain, no orthopnea, no palpitations, + leg swelling Respiratory: + shortness of breath, no cough, no congestion, no wheezing Gastrointestinal: no abdominal pain, no nausea, no vomiting Genitourinary : no dysuria, no hematuria Musculoskeletal: no joint swelling or muscle ache Integumentary: no rash, no pruritis Neurological: + left sided weakness, Endocrine: no cold or heat intolerance, no polyuria or polydipsia Hematologic/Lymphatic: no easy bruising, no easy bleeding, no gland swelling Allergic/Immunologic: no urticaria, no angioedema. Medications and Allergies Allergies Allergy/AdvReac Type Severity Reaction Status Date / Time aspirin Allergy Swelling Verified 01/30/16 08:48 Home Medications Medication Instructions Recorded Confirmed Last Taken Type Warfarin [Coumadin] 7.5 mg PO DAILY@1700 #30 tablet 08/24/15 10/29/16 06/28/16 Rx traMADol [Ultram 50 MG tab] 50 mg PO Q8HR PRN #12 tablet 01/30/16 10/29/16 Unknown Rx Albuterol Sulfate [Ventolin HFA] 2 puff IH Q4H PRN #1 hfa.aer.ad 06/29/16 Unknown Rx HYDROcodone/APAP 5-325 [[place] 1 each PO Q6H PRN #20 tablet 06/29/16 10/29/16 Unknown Rx 5-325 mg TAB] Lisinopril [Zestril TAB] 40 mg PO QDAY #30 tablet 06/29/16 10/29/16 Unknown Rx Lovastatin [Altoprev] 20 mg PO QPM #30 tab.er.24h 06/29/16 10/29/16 Unknown Rx Metoprolol [Lopressor TAB] 75 mg PO BID #60 tablet 06/29/16 10/29/16 Unknown Rx Ondansetron [Zofran ODT TAB] 4 mg PO Q8HR #20 tab.rapdis 06/29/16 10/29/16 Unknown Rx hydrALAZINE [Apresoline TAB] 50 mg PO BID #60 tablet 06/29/16 10/29/16 Unknown Rx metFORMIN [Glucophage] 500 mg PO BIDDIAB #60 tablet 06/29/16 10/29/16 Unknown Rx Cyclobenzaprine HCl [Flexeril 5 MG 5 mg PO Q8HR PRN #10 tab 07/27/16 10/29/16 Unknown Rx TAB] Torsemide [Demadex] 40 mg PO DAILY 30 Days 09/09/16 10/29/16 Unknown Rx Enoxaparin [Lovenox] 90 mg SQ Q12HR 5 Days 09/28/16 10/29/16 Unknown Rx Exam - Physical Exam Narrative exam: GENERAL: This is elderly female lying on bed appeared to be in no discomfort. HEENT: Normocephalic. Atraumatic. Extraocular motions are intact. No conjunctival congestion or icterus. Patient has moist mucous membranes. External auditory canal and nares patent bilaterally. NECK: Supple. Trachea midline. No JVD, thyromagaly or lymphadenopathy. CHEST/LUNGS: Clear to auscultated bilaterally. There is no respiratory distress noted, breathing nonlabored. No wheezes crackles or rhonchi. HEART/CARDIOVASCULAR: Regular in rate and rhythm. PMI at the apex. There is no gallop rub or murmur. ABDOMEN: Abdomen is soft, nontender. Patient has normal bowel sounds. There is no abdominal distention. No organomagaly or rigidity. SKIN: There is no rash, no erythrema. There is no diaphoresis. Warm and dry. NEUROLOGY: The patient is awake, alert, and oriented. The patient is cooperative. The patient has normal speech. left sided muscle strength 4/5 MUSCULOSKELETAL: No joint effusion or tenderness. Muscle strength equal bilaterally. No muscle wasting. EXTRIMITY: 3+ pedal edema, cyanosis or clubbing. PSYCH: No depression or anxiety noted. Cooperative. - Constitutional Vitals: Temp Pulse Resp BP Pulse Ox 97.5 F L 80 16 127/90 100 10/29/16 17:41 10/29/16 21:57 10/29/16 21:57 10/29/16 21:57 10/29/16 21:57 Results - Labs CBC & Chem 7: 10/29/16 10:32 10/29/16 23:47 Labs: Laboratory Last Values WBC 6.3 K/mm3 (4.5-11.0) 10/29/16 10:32 RBC 5.10 M/mm3 (3.65-5.03) H 10/29/16 10:32 Hgb 10.7 gm/dl (10.1-14.3) 10/29/16 10:32 Hct 34.8 % (30.3-42.9) 10/29/16 10:32 MCV 68 fl (79-97) L 10/29/16 10:32 MCH 21 pg (28-32) L 10/29/16 10:32 MCHC 31 % (30-34) 10/29/16 10:32 RDW 24.7 % (13.2-15.2) H 10/29/16 10:32 Plt Count 227 K/mm3 (140-440) 10/29/16 10:32 PT 21.6 Sec. (12.2-14.9) H 10/29/16 10:32 INR 1.88 (0.87-1.13) H 10/29/16 10:32 APTT 31.3 Sec. (24.2-36.6) 10/29/16 10:32 Sodium 143 mmol/L (137-145) 10/29/16 10:32 Potassium 3.6 mmol/L (3.6-5.0) 10/29/16 10:32 Chloride 103.1 mmol/L (98-107) 10/29/16 10:32 Carbon Dioxide 21 mmol/L (22-30) L 10/29/16 10:32 Anion Gap 23 mmol/L 10/29/16 10:32 BUN 13 mg/dL (7-17) 10/29/16 10:32 Creatinine 0.8 mg/dL (0.7-1.2) 10/29/16 10:32 Estimated GFR > 60 ml/min 10/29/16 10:32 BUN/Creatinine Ratio 16.25 % 10/29/16 10:32 Glucose 144 mg/dL (65-100) H 10/29/16 10:32 Calcium 8.6 mg/dL (8.4-10.2) 10/29/16 10:32 Total Bilirubin 3.1 mg/dL (0.1-1.2) H 10/29/16 10:32 Direct Bilirubin 1.4 mg/dL (0-0.2) H 10/29/16 10:32 Indirect Bilirubin 1.7 mg/dL 10/29/16 10:32 AST 18 units/L (5-40) 10/29/16 10:32 ALT 15 units/L (7-56) 10/29/16 10:32 Alkaline Phosphatase 93 units/L (35-129) 10/29/16 10:32 Total Protein 7.5 g/dL (6.3-8.2) 10/29/16 10:32 Albumin 4.0 g/dL (3.9-5) 10/29/16 10:32 Albumin/Globulin Ratio 1.1 % 10/29/16 10:32 - Imaging and Cardiology EKG: report reviewed Chest x-ray: pending CT Scan - head: report reviewed (remote right MCA infarct) Imaging and Cardiology: CT scan of the cervical spine showed degenerative disease. Assessment and Plan Assessment and plan: Acute exacerbation of chronic systolic heart failure Hypertension with urgency Diabetes mellitus type 2 History of pulmonary embolism History of right MCA infarct with left sided weakness Subtherapeutic INR Noncompliance Chronically Elevated billirubin Left sided pain, without any new deficit h/o asthma, not on any exacerbation Plan: Admit to medicine 2-D echo on 08/05 showed ejection fraction 15% with nonischemic cardiomyopathy We'll start diuresis with IV Lasix. Continue home med torsemide by mouth Restart home medications with lisinopril and metoprolol. Supplemental oxygen as needed INR was subtherapeutic. Will restart Coumadin with Lovenox bridge ADA diet with insulin sliding scale coverage CT head showed no new finding, and CT cervical spine showed only degenerative change Her left sided symptom now at baseline GI prophylaxis Advance Directives: Yes VTE prophylaxis?: Chemical Plan of care discussed with patient/family: Yes
[2016-10-29] MEDS ORDERED: PROAIR IH PRN (23:30)
[2016-10-29] MEDS ORDERED: ULTRAM PO PRN (23:30)
[2016-10-29] MEDS ORDERED: FLEXERIL PO PRN (23:30)
[2016-10-29] MEDS ORDERED: PROVENTIL IH PRN (23:43)
[2016-10-30 00:32] LABS: Anion Gap 19 mmol/L; Blood Urea Nitrogen 12 mg/dL (7-17); Calcium 8.5 mg/dL (8.4-10.2); Carbon Dioxide 23 mmol/L (22-30); Chloride 100.8 mmol/L (98-107); Glucose 143 mg/dL (65-100); Potassium 4.2 mmol/L (3.6-5.0); Sodium 139 mmol/L (137-145)
[2016-10-30] MEDS: NORCO 5/325 PO PRN ×2 (03:19→22:36)
[2016-10-30] MEDS: ZOFRAN ODT PO SCH ×3 (05:54→21:22)
--- NOTE | 2016-10-30 08:50 | Admit Criteria Form ---
Admission Criteria Documentation: HEART FAILURE: COMMON COMPLICATIONS Clinical Indications for Inpatient Care (Place 'X' for any and all applicable criteria): Ongoing inpatient care may be indicated for heart failure with ANY ONE of the following (1)(2)(3)(4)(5): [ ]I. Ongoing need for care for primary condition requiring frequent therapy adjustments because of changes in cardiac function (eg, drug dosage changes for drugs that are renally metabolized) [ ]II. New-onset heart failure [ ]III. Heart failure with decreased urine output not responsive to attempts to optimize volume status [ ]IV. Acute cardiac ischemia causing or associated with failure [X ]V. Complications of heart failure, including ANY ONE of the following: [ ]a) Pericardial effusion [ ]b) Symptomatic pleural effusion [ ]c) O2 saturation <90% or PO2 < 60 mm Hg (8.0 kPa) on room air or require baseline supplemental O2 [ ]d) Tachypnea [X ]e) Dyspnea [ ]f) Syncope [ ]g) Change in mental status [ ]h) Acute renal insufficiency that is severe (reduction of more than 50% in estimated glomerular filtration rate from baseline) or progressive reduction of more than 25% in estimated glomerular filtration rate from baseline, with creatinine continuing to rise) [ ]i) Hemodynamic instability [ ]j) Anasarca [ ]k) Clinically significant metabolic abnormalities due to heart failure (eg, new-onset metabolic acidosis) Extended stay beyond goal length of stay for primary condition may be needed until ALL of the following are present(1)(3): [ ]a) Stable and effective diuretic regimen established (or patient on stable dialysis regimen if in chronic renal failure) [ ]b) Breathing comfortably at rest [ ]c) Saturation of arterial oxygen greater than 90% or at acceptable baseline [ ]d) Pulmonary edema absent or improved [ ]e) Hemodynamic stability [ ]f) Volume status acceptable on oral medication [ ]g) Peripheral or sacral edema absent or improved [ ]h) Renal function stable and manageable at a lower level of care [ ]i) Complications (eg, pleural effusion) resolved or manageable at a lower level of care [ ]j) Patient or caregiver has received written discharge instructions or educational material addressing activity level, diet, discharge medications, follow-up appointment, weight monitoring, and what to do if symptoms worsen The original [facility] content created by [employer] has been revised. The portions of the content which have been revised are identified through the use of italic text or in bold, and [facility] has neither reviewed nor approved the modified material.All other unmodified content is copyright [facility]. Please see references footnoted in the original [facility] edition 2016 Admission Criteria Met: Yes
[2016-10-30] MEDS: GLUCOPHAGE PO SCH ×2 (09:24→16:58)
[2016-10-30] MEDS: LOVENOX SUB-Q SCH ×2 (09:25→21:23)
[2016-10-30] MEDS: ZESTRIL PO SCH (09:25)
[2016-10-30] MEDS ORDERED: DEMADEX PO SCH (10:00)
[2016-10-30] MEDS ORDERED: LOPRESSOR PO SCH ×2 (10:00)
[2016-10-30] MEDS ORDERED: APRESOLINE PO SCH (10:00)
[2016-10-30 10:24] LABS: INR 1.88 (0.87-1.13)
--- NOTE | 2016-10-30 10:32 | XRay Report ---
CHEST 2 VIEWS: Compared to 09/27/16. HISTORY: Shortness of breath. FINDINGS: Marked cardiomegaly. Trachea is midline. No consolidation, pneumothorax or pleural effusion. IMPRESSION: Marked cardiomegaly. No acute lung changes.
--- NOTE | 2016-10-30 11:17 | Consultation ---
History of Present Illness Consult date: 10/30/16 Requesting physician: SANDRA BRANHAM Reason for Consult: ? stroke Chief complaint: left sided pain and headache History of present illness: 46-year-old female with a past medical history CHF, stroke in Jun 2013 with residual left-sided weakness, PE in 2014 on Coumadin, DM2, HTN who p/w L sided pain that started 10/29 @ 8:30. Duration of sx is unclear. There are no clear aggravating factors. sx were relieved by pain meds in the ED and BP reduction. Temporally sx have begun since she ran out of home meds and assoc w/ elevated BP. Severtiy was such to cause her discomfort and concern. She also c/o worsening shortness of breath with leg edema. Her weakness is unchanged from her baseline. In the ER her blood pressure noted to be 179/124. Ct head showed old right MCA infract, CT cervical spine showed degenerative change. Past History Past Medical History: diabetes, hypertension, stroke, other (PE) Past Surgical History: No surgical history Social history: single, lives with family. denies: smoking, alcohol abuse, IV drug use Family history: diabetes Medications and Allergies Allergies Allergy/AdvReac Type Severity Reaction Status Date / Time aspirin Allergy Swelling Verified 01/30/16 08:48 Home Medications Medication Instructions Recorded Confirmed Last Taken Type Warfarin [Coumadin] 7.5 mg PO DAILY@1700 #30 tablet 08/24/15 10/29/16 06/28/16 Rx traMADol [Ultram 50 MG tab] 50 mg PO Q8HR PRN #12 tablet 01/30/16 10/29/16 Unknown Rx Albuterol Sulfate [Ventolin HFA] 2 puff IH Q4H PRN #1 hfa.aer.ad 06/29/16 Unknown Rx HYDROcodone/APAP 5-325 [[place] 1 each PO Q6H PRN #20 tablet 06/29/16 10/29/16 Unknown Rx 5-325 mg TAB] Lisinopril [Zestril TAB] 40 mg PO QDAY #30 tablet 06/29/16 10/29/16 Unknown Rx Lovastatin [Altoprev] 20 mg PO QPM #30 tab.er.24h 06/29/16 10/29/16 Unknown Rx Metoprolol [Lopressor TAB] 75 mg PO BID #60 tablet 06/29/16 10/29/16 Unknown Rx Ondansetron [Zofran ODT TAB] 4 mg PO Q8HR #20 tab.rapdis 06/29/16 10/29/16 Unknown Rx hydrALAZINE [Apresoline TAB] 50 mg PO BID #60 tablet 06/29/16 10/29/16 Unknown Rx metFORMIN [Glucophage] 500 mg PO BIDDIAB #60 tablet 06/29/16 10/29/16 Unknown Rx Cyclobenzaprine HCl [Flexeril 5 MG 5 mg PO Q8HR PRN #10 tab 07/27/16 10/29/16 Unknown Rx TAB] Torsemide [Demadex] 40 mg PO DAILY 30 Days 09/09/16 10/29/16 Unknown Rx Enoxaparin [Lovenox] 90 mg SQ Q12HR 5 Days 09/28/16 10/29/16 Unknown Rx Active Meds: Active Medications Acetaminophen/Hydrocodone Bitart ([place]ison 5/325) 1 each PO Q6H PRN PRN Reason: Pain, Moderate (4-6) Last Admin: 10/30/16 03:19 Dose: 1 each Albuterol (Proventil) 2.5 mg IH Q4HRT PRN PRN Reason: Shortness Of Breath Cyclobenzaprine HCl (Flexeril) 5 mg PO Q8H PRN PRN Reason: Pain Enoxaparin Sodium (Lovenox) 90 mg SUB-Q Q12HR [facility] Last Admin: 10/30/16 09:25 Dose: 90 mg Furosemide (Lasix) 40 mg IV 0600,1800 [facility] Hydralazine HCl (Apresoline) 50 mg PO BID [facility] Last Admin: 10/30/16 09:25 Dose: 50 mg Insulin Human Regular (Novolin R) 0 units SUB-Q ACHS [facility] PRN Reason: Protocol Last Admin: 10/30/16 08:46 Dose: Not Given Lisinopril (Zestril) 40 mg PO QDAY [facility] Last Admin: 10/30/16 09:25 Dose: 40 mg Metformin HCl (Glucophage) 500 mg PO BIDDIAB [facility] Last Admin: 10/30/16 09:24 Dose: 500 mg Metoprolol Tartrate (Lopressor) 50 mg PO BID [facility] Last Admin: 10/30/16 09:24 Dose: 50 mg Ondansetron HCl (Zofran Odt) 4 mg PO Q8HR [facility] Last Admin: 10/30/16 05:54 Dose: 4 mg Simvastatin (Zocor) 10 mg PO QHS [facility] Torsemide (Demadex) 40 mg PO DAILY [facility] Last Admin: 10/30/16 09:24 Dose: 40 mg Tramadol HCl (Ultram) 50 mg PO Q8H PRN PRN Reason: Pain Warfarin Sodium (Coumadin) 7.5 mg PO DAILY@1700 [facility] PRN Reason: Protocol Review of Systems All systems: negative Constitutional: fatigue, weakness, malaise, lethargy Respiratory: shortness of breath Neurological: weakness, headaches, motor disturbance Physical Examination - Vital Signs Vital Signs: Vital Signs Temp Pulse BP Pulse Ox 98.5 F 117 H 161/116 100 10/29/16 10:14 10/29/16 10:14 10/29/16 10:14 10/29/16 10:14 - Constitutional General appearance: comfortable - EENT EENT: Present: ATNC, PERRL, mucous membranes moist, hearing intact, vision intact - Respiratory Respiratory: Present: chest non-tender, normal breath sounds, no respiratory distress - Cardiovascular Cardiovascular: Present: regular rate Extremities: Present: no peripheral edema bilatateraly, no clubbing, cyanosis, no inflammation, no ischemia or petechiae - Gastrointestinal Gastrointestinal: Present: non-tender, non-distended - Integumentary Integumentary: Present: normal - Neurologic Cranial nerve examination: PERRL, EOMI, VFF, V1/V2/V3 grossly intact, tongue midline, intact shoulder shrug, intact cough reflex, Intact Vestibulo-ocular r, intact corneal reflex, facial droop (on L) Speech examination: intact Sensorimotor examination: pronator drift, hemiparesis (on L) Motor examination - right side: 5/5: biceps, triceps, wrist flexion, wrist extension, grinder set up operator thread, hip flexors, knee extensors, dorsiflexion, toe extension (EHL) , plantarflexion Motor examination - left side: 4/5: biceps, triceps, wrist flexion, wrist extension, grinder set up operator thread, hip flexors, knee extensors, dorsiflexion, toe extension (EHL) , plantarflexion Detailed sensory examination: light touch (dec on L), two-point discrimination, temperature, stereognosia, other (decr all on L) Reflex and gait examination: Babinski's sign (on L) Reflexes: 3+: ankle, bicep, knee, tricep - Musculoskeletal Musculoskeletal: Present: no fluid collection, no pain, normal range of motion - Psychiatric Psychiatric: Present: mood/affect appropriate, cooperative Results - Laboratory Findings CBC and BMP: 10/29/16 10:32 10/29/16 23:47 Abnormal Lab Findings: Abnormal Labs 10/29/16 10/30/16 10/30/16 23:47 06:20 08:56 PT 21.6 H INR 1.88 H Creatinine 0.6 L Glucose 143 H POC Glucose 147 H - Diagnostic Findings Additional findings: CTH R MCA stroke chronic Assessment and Plan 46 YO F Hx CHF, R MCA stroke in Jun 2013 with residual left-sided weakness, PE in 2014 on Coumadin INR 1.88, DM2, HTN who p/w L sided pain and KANG denying worsened weakness or numbness assoc w/ elevated BP as pt ran out of home meds. I suspect HTN emergency as etiology but will undertake stroke rule out work up. Plan and Recommendation: 1. No indication for pharmacologic thrombolysis with IV tPA or mechanical thrombectomy due to last known normal > 6 hrs from presentation. Current NIHSS 5 -chronic deficits. 2. Telemetry bed w/ Q4 hour neuro checks 3. Brain imaging: MRI Brain w/o Mathew Stroke Protocol 4. If MRI Brain confirms infarct: A. Vascular Imaging: MRA Head w/o Mathew & MRA Neck w/ Mathew Stroke Protocol OR CTA Head/Neck w/ Contrast OR Bilateral Carotid Duplex U/S B. TTE to eval for possible cardiac source of embolism C. Serum Labs: HgA1c, LDL 5. Permissive HTN for first 24-48 hours: HOB < 30 degrees, isotonic IVF prn and refrain from active Tx of HTN unless BP > 185/105 or pt develops malignant HTN if MRI confirms infarct. Can lower MAPs by 10-15% daily to reach goal SBP 120-160 after permissive HTN period or if MRI neg for infarction. 6. Secondary stroke prevention: Cont Coumadin for goal INR 2-3. Upgrade to full dose statin therapy (Crestor 20mg or 40mg OR Lipitor 40mg or 80mg Daily OR Zocor 40mg QDay) for goal LDL < 70. 7. F/E/N: isotonic IVF prn, prn replete, oral diet as pt passed bedside speech/ swallow eval 8. DVT Prophylaxis 9. Stroke education, PT/OT/Speech Therapy consults, CM evaluation 10. For any changes in neurologic status, pls obtain STAT CTH w/o contrast and call neurology
--- NOTE | 2016-10-30 11:40 | Magnetic Resonance Report ---
MRI scan of brain: History: CVA. Technique: Multiplanar, multisequence images were obtained with and without contrast injection. Findings: Small focal areas of restricted diffusion at the right basal ganglia. Associated chronic ischemia distribution right middle cerebral artery. Hemosiderin staining in the right basal ganglia may be related to hemorrhagic transformation or hemorrhage associated with previous ischemia. Normal brainstem and cerebellum. No extra-axial fluid collection. Normal sinuses and mastoid air cells. Subcortical and periventricular areas of hyperintensity with restricted diffusion. Impression: Chronic ischemia right middle cerebral artery distribution. Acute ischemia right basal ganglia. Small vessel ischemic changes.
--- NOTE | 2016-10-30 12:11 | Consultation ---
History of Present Illness Consult date: 10/30/16 Consult reason: congestive heart failure History of present illness: This is a46yr old woman with a history multiple medical problems. She is on warfarin therapy for prior history of pulmonary embolus. She has a dilated nonischemic cardiomyopathy. A cardiac catheterization done 2014 reports no significant obstructive coronary disease and a severe dilated cardiomyopathy, ejection fraction 15-20%. Subsequently, she has been poorly compliant with medical therapy for her nonischemic cardiomyopathy and outpatient follow ups. She presented with left sided pain. Noted hypertensive in the ED, BP 179/123. Chest x-ray reports cardiomegaly but no acute cardiopulmonary process. Her presenting ECG shows a sinus rhythm with nonspecific twave abnormality. Cardiac consultation requested for CHF. Past History Past Medical History: diabetes, hypertension, stroke, other (PE) Past Surgical History: No surgical history Social history: single, lives with family. denies: smoking, alcohol abuse, IV drug use Family history: diabetes Medications and Allergies Allergies Allergy/AdvReac Type Severity Reaction Status Date / Time aspirin Allergy Swelling Verified 01/30/16 08:48 Home Medications Medication Instructions Recorded Confirmed Last Taken Type Warfarin [Coumadin] 7.5 mg PO DAILY@1700 #30 tablet 08/24/15 10/29/16 06/28/16 Rx traMADol [Ultram 50 MG tab] 50 mg PO Q8HR PRN #12 tablet 01/30/16 10/29/16 Unknown Rx Albuterol Sulfate [Ventolin HFA] 2 puff IH Q4H PRN #1 hfa.aer.ad 06/29/16 Unknown Rx HYDROcodone/APAP 5-325 [[place] 1 each PO Q6H PRN #20 tablet 06/29/16 10/29/16 Unknown Rx 5-325 mg TAB] Lisinopril [Zestril TAB] 40 mg PO QDAY #30 tablet 06/29/16 10/29/16 Unknown Rx Lovastatin [Altoprev] 20 mg PO QPM #30 tab.er.24h 06/29/16 10/29/16 Unknown Rx Metoprolol [Lopressor TAB] 75 mg PO BID #60 tablet 06/29/16 10/29/16 Unknown Rx Ondansetron [Zofran ODT TAB] 4 mg PO Q8HR #20 tab.rapdis 06/29/16 10/29/16 Unknown Rx hydrALAZINE [Apresoline TAB] 50 mg PO BID #60 tablet 06/29/16 10/29/16 Unknown Rx metFORMIN [Glucophage] 500 mg PO BIDDIAB #60 tablet 06/29/16 10/29/16 Unknown Rx Cyclobenzaprine HCl [Flexeril 5 MG 5 mg PO Q8HR PRN #10 tab 07/27/16 10/29/16 Unknown Rx TAB] Torsemide [Demadex] 40 mg PO DAILY 30 Days 09/09/16 10/29/16 Unknown Rx Enoxaparin [Lovenox] 90 mg SQ Q12HR 5 Days 09/28/16 10/29/16 Unknown Rx Active Meds: Active Medications Acetaminophen/Hydrocodone Bitart ([place] 5/325) 1 each PO Q6H PRN PRN Reason: Pain, Moderate (4-6) Last Admin: 10/30/16 03:19 Dose: 1 each Albuterol (Proventil) 2.5 mg IH Q4HRT PRN PRN Reason: Shortness Of Breath Cyclobenzaprine HCl (Flexeril) 5 mg PO Q8H PRN PRN Reason: Pain Enoxaparin Sodium (Lovenox) 90 mg SUB-Q Q12HR [facility] Last Admin: 10/30/16 09:25 Dose: 90 mg Furosemide (Lasix) 40 mg IV 0600,1800 [facility] Hydralazine HCl (Apresoline) 50 mg PO BID [facility] Last Admin: 10/30/16 09:25 Dose: 50 mg Insulin Human Regular (Novolin R) 0 units SUB-Q ACHS [facility] PRN Reason: Protocol Last Admin: 10/30/16 08:46 Dose: Not Given Lisinopril (Zestril) 40 mg PO QDAY [facility] Last Admin: 10/30/16 09:25 Dose: 40 mg Metformin HCl (Glucophage) 500 mg PO BIDDIAB [facility] Last Admin: 10/30/16 09:24 Dose: 500 mg Metoprolol Tartrate (Lopressor) 50 mg PO BID [facility] Last Admin: 10/30/16 09:24 Dose: 50 mg Ondansetron HCl (Zofran Odt) 4 mg PO Q8HR [facility] Last Admin: 10/30/16 05:54 Dose: 4 mg Simvastatin (Zocor) 10 mg PO QHS [facility] Torsemide (Demadex) 40 mg PO DAILY [facility] Last Admin: 10/30/16 09:24 Dose: 40 mg Tramadol HCl (Ultram) 50 mg PO Q8H PRN PRN Reason: Pain Warfarin Sodium (Coumadin) 7.5 mg PO DAILY@1700 [facility] PRN Reason: Protocol Physical Examination Vital Signs Temp Pulse BP Pulse Ox 98.5 F 117 H 161/116 100 10/29/16 10:14 10/29/16 10:14 10/29/16 10:14 10/29/16 10:14 General appearance: no acute distress HEENT: Positive: PERRL Neck: Positive: trachea midline Cardiac: Positive: Reg Rate and Rhythm Lungs: Positive: Decreased Breath Sounds Neuro: Positive: Grossly Intact Extremities: Present: edema Results 10/29/16 10:32 10/29/16 23:47 Coagulation 10/30/16 Range/Units 08:56 PT 21.6 H (12.2-14.9) Sec. INR 1.88 H (0.87-1.13) Comprehensive Metabolic Panel 10/29/16 Range/Units 23:47 Sodium 139 (137-145) mmol/L Potassium 4.2 (3.6-5.0) mmol/L Chloride 100.8 (98-107) mmol/L Carbon Dioxide 23 (22-30) mmol/L BUN 12 (7-17) mg/dL Creatinine 0.6 L (0.7-1.2) mg/dL Glucose 143 H (65-100) mg/dL Calcium 8.5 (8.4-10.2) mg/dL EKG interpretations - EKG Sinus rhythms and dysrhythmias: sinus rhythm Assessment and Plan Left sided pain Chronic systolic heart failure Non-ischemic cardiomyopathy, LVEF 15-20% non-obstructive CAD by [facility] 11/2014 Moderate to severe MR Severe TR Systemic Hypertension History of PE on coumadin therapy Non-compliance with meds, fluid restriction and outpatient follow-ups Recommendations: Medical therapy for chronic systolic heart failure. Advised compliance with salt and fluid restriction.
[2016-10-30] MEDS ORDERED: SODIUM CHLORIDE FLUSH SYRINGE 10 ML IV PRN (15:10)
[2016-10-30] MEDS ORDERED: APRESOLINE IV PRN (15:16)
--- NOTE | 2016-10-30 15:17 | Progress Note ---
Assessment and Plan Assessment and plan: 46-year-old female with a past medical history CHF, CVA with residual minimal left-sided deficits, PE on 2014, diabetes, hypertension presents to the hospital with complains of worsening shortness of breath with leg edema. Patient states that she ran out of all her medications yesterday. Patient denies chest pain, headache, nausea, vomiting, or diaphoresis. She states her left side has been weak since her last CVA, although she informed my colleague that her weakness is unchanged from her baseline. She informs me that she had a sudden onset of left sided weakness and pain the morning of admission. But since this morning she also had left-sided pain. In the ER her blood pressure noted to be 179/124. Ct head showed old right MCA infract, CT cervical spine showed degenerative change. A recommended MRI shows an acute right sided basal ganglia CVA. Patient unfortunately has been remarkably on noncompliance with medications and with follow-ups. She has a significantly nonischemic cardiomyopathy with an EF of 15% on 2-D echo done 2015 * Acute exacerbation of chronic systolic heart failure * Left sided hemiplegia * Right basal ganglia CVA acute-on admission * Hypertensive urgency * Diabetes mellitus type 2 * Subtherapeutic INR * Chronically elevated bilirubin * Asthma * Left shoulder pain * Non-ischemic cardiomyopathy, LVEF 15-20% * non-obstructive CAD by [facility] 11/2014 * Moderate to severe MR * Severe TR * History of PE on coumadin therapy * Non-compliance with meds, fluid restriction and outpatient follow-ups Plan: * Cardiology and neurology input appreciated * Proceed with holding all antihypertensives and allowing for permissive hypertension first 24-48 hours * We'll change Zocor to 40 mg daily * We'll check lipid profile * Request for repeat TTE to rule out cardiac embolic source * Obtain carotid ultrasound * Patient was not a candidate for pharmacologic thrombolysis with IV tPA or mechanical thrombectomy due to last known normal > 6 hrs from presentation. Current NIHSS 5-chronic deficits. * I had extensive discussion with the patient on compliance both follow-up and medication. Case management is also assisting with suction up appointments for the patient. * INR was subtherapeutic. Continue Coumadin, will hold the Lovenox bridge to prevent conversion hemorrhagic stroke * PT OT and rehabilitation assessment * ADA diet with insulin sliding scale coverage * Change Lasix to by mouth * Stroke education * Low salt, daily weights, strict fluids * DVT and GI prophylaxis * Case discussed in detail with the patient and with cardiology group History Interval history: Follow-up left sided hemiplegia with pain shortness of breath Patient seen and examined this morning in no acute distress, although reports persistent left upper extremity weakness and shoulder pain. Also reports dizziness, which she states is chronic and unchanged. Denies any chest pain, nausea, vomiting, diarrhea No fever noted blood pressure controlled No adverse events reported to me by nursing staff Hospitalist Physical - Physical exam Narrative exam: VITAL SIGNS: Reviewed. GENERAL: The patient appeared well nourished and normally developed. In no acute distress Vital signs as documented. HEAD: No signs of head trauma. EYES: Pupils are equal. Extraocular motions intact. EARS: Hearing grossly intact. MOUTH: Mild Left facial droop NECK: No adenopathy, no JVD. CHEST: Chest with clear breath sounds bilaterally. No wheezes, rales, or rhonchi. CARDIAC: Regular rate and rhythm. S1 and S2, without murmurs, gallops, or rubs. VASCULAR: No Edema. Peripheral pulses normal and equal in all extremities. ABDOMEN: Soft, without detectable tenderness. No sign of distention. No rebound or guarding, and no masses palpated. Bowel Sounds normal. MUSCULOSKELETAL: Good range of motion of all major joints except left shoulder joint. Tender at the left joints on palpation. Extremities without clubbing, cyanosis or edema. NEUROLOGIC EXAM: Alert and oriented x 3. 3 over 5 strength left upper extremity. Speech normal. Follows commands. PSYCHIATRIC: Mood normal. SKIN: No rash or lesions. - Constitutional Vitals: Temp Pulse Resp BP Pulse Ox 97.8 F 76 16 136/90 99 10/30/16 07:18 10/30/16 07:18 10/30/16 07:18 10/30/16 09:25 10/30/16 07:18 General appearance: Present: no acute distress Results - Labs CBC & Chem 7: 10/29/16 10:32 10/29/16 23:47 Labs: Laboratory Last Values WBC 6.3 K/mm3 (4.5-11.0) 10/29/16 10:32 RBC 5.10 M/mm3 (3.65-5.03) H 10/29/16 10:32 Hgb 10.7 gm/dl (10.1-14.3) 10/29/16 10:32 Hct 34.8 % (30.3-42.9) 10/29/16 10:32 MCV 68 fl (79-97) L 10/29/16 10:32 MCH 21 pg (28-32) L 10/29/16 10:32 MCHC 31 % (30-34) 10/29/16 10:32 RDW 24.7 % (13.2-15.2) H 10/29/16 10:32 Plt Count 227 K/mm3 (140-440) 10/29/16 10:32 PT 21.6 Sec. (12.2-14.9) H 10/30/16 08:56 INR 1.88 (0.87-1.13) H 10/30/16 08:56 APTT 31.3 Sec. (24.2-36.6) 10/29/16 10:32 Sodium 139 mmol/L (137-145) 10/29/16 23:47 Potassium 4.2 mmol/L (3.6-5.0) 10/29/16 23:47 Chloride 100.8 mmol/L (98-107) 10/29/16 23:47 Carbon Dioxide 23 mmol/L (22-30) 10/29/16 23:47 Anion Gap 19 mmol/L 10/29/16 23:47 BUN 12 mg/dL (7-17) 10/29/16 23:47 Creatinine 0.6 mg/dL (0.7-1.2) L 10/29/16 23:47 Estimated GFR > 60 ml/min 10/29/16 23:47 BUN/Creatinine Ratio 20.00 % 10/29/16 23:47 Glucose 143 mg/dL (65-100) H 10/29/16 23:47 POC Glucose 110 (70-105) H 10/30/16 11:00 Calcium 8.5 mg/dL (8.4-10.2) 10/29/16 23:47 Total Bilirubin 3.1 mg/dL (0.1-1.2) H 10/29/16 10:32 Direct Bilirubin 1.4 mg/dL (0-0.2) H 10/29/16 10:32 Indirect Bilirubin 1.7 mg/dL 10/29/16 10:32 AST 18 units/L (5-40) 10/29/16 10:32 ALT 15 units/L (7-56) 10/29/16 10:32 Alkaline Phosphatase 93 units/L (35-129) 10/29/16 10:32 Total Protein 7.5 g/dL (6.3-8.2) 10/29/16 10:32 Albumin 4.0 g/dL (3.9-5) 10/29/16 10:32 Albumin/Globulin Ratio 1.1 % 10/29/16 10:32 - Imaging and Cardiology MRI - head: image reviewed (right basal ganglia acute CVA, chronic right MCA stroke)
--- NOTE | 2016-10-30 16:10 | XRay Report ---
Left shoulder 2 views: History: Shoulder pain. Findings: No articular abnormality. No fracture or dislocation. Faint calcification near the humeral tuberosity probably related to tendinitis. Impression: Findings as described.
[2016-10-30] MEDS ORDERED: COUMADIN PO SCH (17:00)
[2016-10-30] MEDS: LASIX PO SCH (17:06)
[2016-10-30] MEDS ORDERED: LASIX IV SCH (18:00)
[2016-10-30] MEDS ORDERED: ZOCOR PO SCH ×2 (22:00)
[2016-10-31] MEDS: LASIX PO SCH (06:24)
[2016-10-31] MEDS: ZOFRAN ODT PO SCH (06:24)
[2016-10-31 07:01] LABS: INR 1.78 (0.87-1.13)
[2016-10-31 07:19] LABS: Alanine Aminotransferase 13 units/L (7-56); Albumin 3.6 g/dL (3.9-5); Albumin/Globulin Ratio 1.2 %; Alkaline Phosphatase 75 units/L (35-129); Anion Gap 16 mmol/L; BUN/Creatinine Ratio 12.22; Bilirubin,Total 2.4 mg/dL (0.1-1.2); Blood Urea Nitrogen 11 mg/dL (7-17); Calcium 8.5 mg/dL (8.4-10.2); Carbon Dioxide 27 mmol/L (22-30); Chloride 97.1 mmol/L (98-107); Cholesterol 53 mg/dL (50-199); Glucose 88 mg/dL (65-100); HDL Cholesterol 16 mg/dL (40-59); LDL Cholesterol,Direct 30 mg/dL (50-130); Potassium 3.4 mmol/L (3.6-5.0); Sodium 137 mmol/L (137-145); Total Protein 6.5 g/dL (6.3-8.2)
[2016-10-31 08:15] LABS: Triglycerides 161 mg/dL (2-149)
[2016-10-31] MEDS ORDERED: COUMADIN PO SCH ×2 (08:46→17:00)
--- NOTE | 2016-10-31 09:33 | Progress Note ---
Subjective Date of service: 10/31/16 Interval history: No changes to cardiac care today, no further w/u intended HPI This is a46yr old woman with a history multiple medical problems. She is on warfarin therapy for prior history of pulmonary embolus. She has a dilated nonischemic cardiomyopathy. A cardiac catheterization done 2014 reports no significant obstructive coronary disease and a severe dilated cardiomyopathy, ejection fraction 15-20%. Subsequently, she has been poorly compliant with medical therapy for her nonischemic cardiomyopathy and outpatient follow ups. She presented with left sided pain. Noted hypertensive in the ED, BP 179/123. Chest x-ray reports cardiomegaly but no acute cardiopulmonary process. Her presenting ECG shows a sinus rhythm with nonspecific twave abnormality. Objective Vital Signs Temp Pulse Pulse Resp BP Pulse Ox 10/31/16 04:32 98.6 F 70 18 118/77 98 10/31/16 01:22 98.6 F 70 18 120/77 98 10/30/16 22:00 20 98 10/30/16 20:00 98.5 F 64 18 116/73 98 - Physical Examination General: No Apparent Distress HEENT: Positive: PERRL Neck: Positive: trachea midline Cardiac: Positive: Reg Rate and Rhythm, S1/S2 Lungs: Positive: Normal Exam Neuro: Positive: Grossly Intact Extremities: Present: edema - Labs and Meds Cardiac Enzymes 10/31/16 Range/Units 06:07 AST 17 (5-40) units/L Coagulation 10/30/16 10/31/16 Range/Units 08:56 06:07 PT 21.6 H 20.7 H (12.2-14.9) Sec. INR 1.88 H 1.78 H (0.87-1.13) Lipids 10/31/16 Range/Units 06:07 Triglycerides 161 H (2-149) mg/dL Cholesterol 53 (50-199) mg/dL HDL Cholesterol 16 L (40-59) mg/dL Cholesterol/HDL Ratio 3.31 % Comprehensive Metabolic Panel 10/31/16 Range/Units 06:07 Sodium 137 (137-145) mmol/L Potassium 3.4 L (3.6-5.0) mmol/L Chloride 97.1 L (98-107) mmol/L Carbon Dioxide 27 (22-30) mmol/L BUN 11 (7-17) mg/dL Creatinine 0.9 (0.7-1.2) mg/dL Glucose 88 (65-100) mg/dL Calcium 8.5 (8.4-10.2) mg/dL AST 17 (5-40) units/L ALT 13 (7-56) units/L Alkaline Phosphatase 75 (35-129) units/L Total Protein 6.5 (6.3-8.2) g/dL Albumin 3.6 L (3.9-5) g/dL - Imaging and Cardiology EKG: report reviewed - EKG Sinus rhythms and dysrhythmias: sinus rhythm
[2016-10-31] MEDS: ZESTRIL PO SCH (10:43)
[2016-10-31] MEDS: GLUCOPHAGE PO SCH (10:44)
--- NOTE | 2016-10-31 12:01 | Discharge Summary ---
Providers - Providers Date of Admission: 10/29/16 22:05 Date of discharge: 10/31/16 Attending physician: JENARO ORTIZ MD 10/30/16 08:14 Consult to Physician [CONS] Routine Consulting Provider: JOSEMANUEL ALMEIDA Reason For Exam: left sided numbness Place consult to:: DR. ALMEIDA Notified:: OFFICE Phone number called:: [phone] Was contact made?: Yes If yes, spoke with:: DR. ALMEIDA Time called:: 09:19 Comment:: LAKIA NOTIFIED 10/30/16 08:16 Consult to Physician [CONS] Routine Consulting Provider: REYNALDO COYLE Reason For Exam: chf Place consult to:: Lenka Haskins Notified:: Lenka Lopez Phone number called:: in house Was contact made?: Yes If yes, spoke with:: Lenka Time called:: 08:35 10/30/16 15:10 Occupational Therapy Evaluate and Treat [CONS] Routine Comment: Reason For Exam: Neuro deficits Physical Therapy Evaluation and Treat [CONS] Routine Comment: Reason For Exam: Neuro deficits Speech Therapy Evaluation and Treat [CONS] Routine Reason For Exam: swallow eval 10/30/16 15:11 Consult to Dietitian/Nutrition [CONS] Routine Physician Instructions: Reason For Exam: Reason for Consult: Nutrition Recommendations Reason for Consult: Poor oral intake Primary care physician: FINISH[facility] Hospitalization Reason for admission: shortness of breath, cva Condition: Stable Hospital course: 46-year-old female with a past medical history CHF, CVA with residual minimal left-sided deficits, PE on 2014, diabetes, hypertension presents to the hospital with complains of worsening shortness of breath with leg edema. Patient states that she ran out of all her medications yesterday. Patient denies chest pain, headache, nausea, vomiting, or diaphoresis. She states her left side has been weak since her last CVA, although she informed my colleague that her weakness is unchanged from her baseline. She informs me that she had a sudden onset of left sided weakness and pain the morning of admission. But since this morning she also had left-sided pain. In the ER her blood pressure noted to be 179/124. Ct head showed old right MCA infract, CT cervical spine showed degenerative change. A recommended MRI shows an acute right sided basal ganglia CVA. Patient unfortunately has been remarkably on noncompliance with medications and with follow-ups. She has a significantly nonischemic cardiomyopathy with an EF of 15% on 2-D echo done 2015 patient on admission was started on CHF protocol pathway with good improvement. Cardiology to see the patient and documented on noncompliance. No additional recommendations at this time. He did have extensive discussion with the patient about compliance with medication of follow-ups. She also due to her complaining of left sided pain and worsening hemiplegia she did get a CT of the brain which was unremarkable except for old stroke. An MRI did confirm a basal ganglia CVA. Her INR was nontherapeutic she continued on her bridge. We did increase her INR Coumadin level to 10 mg daily. I did instruct her to make sure she is followed up to ensure good compliance. Patient verbalized understanding. She is unfortunately unable to take aspirin due to allergy. She is on warfarin which therapeutic INR should be enough to prevent CVA. A carotid ultrasound was done was negative. Her statin was increased to 40 mg daily she is to be ambulated with no difficulty. Her left upper and lower extremity about baseline. She still has some decreased strength of that area. Discharge diagnosis * Acute exacerbation of chronic systolic heart failure * Left sided hemiplegia * Right basal ganglia CVA acute-on admission * Hypertensive urgency * Diabetes mellitus type 2 * Subtherapeutic INR * Chronically elevated bilirubin * Asthma * Left shoulder pain * Non-ischemic cardiomyopathy, LVEF 15-20% * non-obstructive CAD by [facility] 11/2014 * Moderate to severe MR * Severe TR * History of PE on coumadin therapy * Non-compliance with meds, fluid restriction and outpatient follow-ups Disposition: DISCHARGED TO HOME OR SELFCARE Time spent for discharge: 35 Core Measure Documentation - Palliative Care Palliative Care/ Comfort Measures: Not Applicable - Core Measures Any of the following diagnoses?: stroke - VTE Discharge Requirements Deep Vein Thrombosis/Pulmonary Embolism Present on Admission: No - Stroke Discharge Requirements Statin for LDL = or >70 mg/dl on DC: Yes Anticoag for atrial fib/atrial flutter: Yes Antithrombotic for ischemic stroke: Yes Exam - Physical Exam Narrative exam: VITAL SIGNS: Reviewed. GENERAL: The patient appeared well nourished and normally developed. In no acute distress Vital signs as documented. HEAD: No signs of head trauma. EYES: Pupils are equal. Extraocular motions intact. EARS: Hearing grossly intact. MOUTH: Mild Left facial droop NECK: No adenopathy, no JVD. CHEST: Chest with clear breath sounds bilaterally. No wheezes, rales, or rhonchi. CARDIAC: Regular rate and rhythm. S1 and S2, without murmurs, gallops, or rubs. VASCULAR: No Edema. Peripheral pulses normal and equal in all extremities. ABDOMEN: Soft, without detectable tenderness. No sign of distention. No rebound or guarding, and no masses palpated. Bowel Sounds normal. MUSCULOSKELETAL: Good range of motion of all major joints except left shoulder joint. Tender at the left joints on palpation. Extremities without clubbing, cyanosis or edema. NEUROLOGIC EXAM: Alert and oriented x 3. 4 over 5 strength left upper extremity. Speech normal. Follows commands. PSYCHIATRIC: Mood normal. SKIN: No rash or lesions. - Constitutional Vitals: Temp Pulse Resp BP Pulse Ox 98.7 F 63 16 124/77 98 10/31/16 08:25 10/31/16 08:25 10/31/16 08:25 10/31/16 08:25 10/31/16 08:25 Plan Diet: low cholesterol Special Instructions: record daily BP diary, record blood sugar diary Additional Instructions: Needs to follow at the [facility]. Must be compliant with meds, including Warfarin. Next INR check 11/02/16 with pcp Follow up with: PRIMARY CAREMD [Primary Care Provider] - 3-5 Days Forms: Warfarin Discharge Instruction Prescriptions: Enoxaparin [Lovenox] 90 mg SQ Q12HR 5 Days HYDROcodone/APAP 5-325 [[place] 5-325 mg TAB] 1 each PO Q6H PRN #20 tablet PRN Reason: Pain, Moderate (4-6) Lovastatin [Altoprev] 40 mg PO QPM #30 tab.er.24h Torsemide [Demadex] 40 mg PO DAILY 30 Days Warfarin [Coumadin] 10 mg PO DAILY@1700 #30 tablet
[2016-10-31 18:50] VITALS: BP 115/79
== END 2016-10-31 18:30 | disposition home or self-care (01) | DRG 64 ==
LOC: ED 10:03 → 3A 22:05
PROVIDERS: ADMIT Internal Medicine; ATTEND Internal Medicine
DX: I63.9 Cerebral infarction, unspecified (principal); I50.23 Acute on chronic systolic (congestive) heart failure; G81.94 Hemiplegia, unspecified affecting left nondominant side; I42.0 Dilated cardiomyopathy; I11.0 Hypertensive heart disease with heart failure; Z91.14 Patient's other noncompliance with medication regimen; Z79.01 Long term (current) use of anticoagulants; I08.1 Rheumatic disorders of both mitral and tricuspid valves; E11.9 Type 2 diabetes mellitus without complications; Z88.8 Allergy status to other drugs, medicaments and biological substances; Z87.442 Personal history of urinary calculi; J45.909 Unspecified asthma, uncomplicated; Z90.49 Acquired absence of other specified parts of digestive tract; Z98.51 Tubal ligation status; I16.0 Hypertensive urgency; Z83.3 Family history of diabetes mellitus; I25.10 Atherosclerotic heart disease of native coronary artery without angina pectoris; Z86.711 Personal history of pulmonary embolism
CPT/HCPCS: 36415; 70450; 70553; 71020; 72125; 80048; 80053; 80061; 80074; 82962; 85027; 85610; 85730; 93005; 93010; 93880; 96374; A9577; J1650; J1940; Q0162

== ENCOUNTER 2017-01-01 14:47 | Inpatient (IN) | payer SELFPAY ==
[2017-01-01 16:00] LABS: Basophils % (Auto) 0.5 % (0.0-1.8); Eosinophils % (Auto) 1.5 % (0.0-4.3); Hematocrit 32.2 % (30.3-42.9); Hemoglobin 10.3 gm/dl (10.1-14.3); Mean Corpuscular HGB Conc 32 % (30-34); Platelet Count 274 K/mm3 (140-440); Red Blood Count 4.87 M/mm3 (3.65-5.03); White Blood Count 6.3 K/mm3 (4.5-11.0)
[2017-01-01 16:01] LABS: Mean Corpuscular Hemoglobin 21 pg (28-32); Mean Corpuscular Volume 66 fl (79-97); Red Cell Distribution Width 21.8 % (13.2-15.2)
[2017-01-01 16:29] LABS: BUN/Creatinine Ratio 13.33; Blood Urea Nitrogen 12 mg/dL (7-17); Calcium 8.7 mg/dL (8.4-10.2); Carbon Dioxide 23 mmol/L (22-30); Glucose 110 mg/dL (65-100)
[2017-01-01 16:30] LABS: Anion Gap 18 mmol/L; Chloride 103.6 mmol/L (98-107); Potassium 4.3 mmol/L (3.6-5.0); Sodium 140 mmol/L (137-145)
[2017-01-01] MEDS ORDERED: LASIX IV ONE (22:35)
[2017-01-01] MEDS ORDERED: LOVENOX SUB-Q ONE (22:41)
--- NOTE | 2017-01-01 22:41 | Emergency Department Report ---
ED Shortness of Breath HPI - General Chief Complaint: Chest Pain Stated Complaint: CHEST PAINS/LEGS ARE SWELLING Time Seen by Provider: 01/01/17 22:08 Source: patient Mode of arrival: Ambulatory Limitations: No Limitations - History of Present Illness Initial Comments: 46 yo female with a past medical history CHF EF 15%, CVA with residual minimal left-sided deficits, PE, diabetes, hypertension since the hospital complaining of worsening shortness of breath, edema, and chest discomfort. Symptoms ongoing for 3 weeks and progressively worsening. Patient also complains of intermittent sternal chest numbness radiating to the right neck also aren't warranted 3 weeks. Positive orthopnea PND reported assault is pitting exertion. Patient has been noncompliant with all medications including diaphoretic and Coumadin for 3 weeks. Patient has a history of noncompliance requiring repeated and frequent hospitalizations. Last admission was from October. Patient recently returned from a trip from [facility]. PMD: none - Related Data Previous Rx's Medication Instructions Recorded Last Taken Type Albuterol Sulfate [Ventolin HFA] 2 puff IH Q4H PRN #1 hfa.aer.ad 06/29/16 Unknown Rx Lisinopril [Zestril TAB] 40 mg PO QDAY #30 tablet 06/29/16 Unknown Rx Metoprolol [Lopressor TAB] 75 mg PO BID #60 tablet 06/29/16 Unknown Rx Ondansetron [Zofran ODT TAB] 4 mg PO Q8HR #20 tab.rapdis 06/29/16 Unknown Rx metFORMIN [Glucophage] 500 mg PO BIDDIAB #60 tablet 06/29/16 Unknown Rx Cyclobenzaprine HCl [Flexeril 5 MG 5 mg PO Q8HR PRN #10 tab 07/27/16 Unknown Rx TAB] Enoxaparin [Lovenox] 90 mg SQ Q12HR 5 Days 10/31/16 Unknown Rx HYDROcodone/APAP 5-325 [[place] 1 each PO Q6H PRN #20 tablet 10/31/16 Unknown Rx 5-325 mg TAB] Lovastatin [Altoprev] 40 mg PO QPM #30 tab.er.24h 10/31/16 Unknown Rx Torsemide [Demadex] 40 mg PO DAILY 30 Days 10/31/16 Unknown Rx Warfarin [Coumadin] 10 mg PO DAILY@1700 #30 tablet 10/31/16 Unknown Rx Allergies Allergy/AdvReac Type Severity Reaction Status Date / Time aspirin Allergy Swelling Verified 01/01/17 15:09 ED Review of Systems ROS: Stated complaint: CHEST PAINS/LEGS ARE SWELLING Other details as noted in HPI Comment: All other systems reviewed and negative Other: Constitutional: No fevers chills Eyes: No eye pain visual changes ENT: No ear pain or throat pain Neck: Denies pain Respiratory: Denies cough wheezing Cardiovascular: Denies chest pain, palpitations GI: Denies a nausea, vomiting, diarrhea : decreased urine output Musculoskeletal: edema Skin: Denies rash, lesions, erythema Neurologic: Denies headache, numbness, weakness Psychiatric: Denies suicidal ideation, hallucinations ED Past Medical Hx - Past Medical History Previous Medical History?: Yes Hx Hypertension: Yes Hx CVA: Yes (2014, acute basal ganglia stroke on mri 10/2016) Hx Heart Attack/AMI: No Hx Congestive Heart Failure: Yes (EF 15% on echo 07/2016) Hx Diabetes: Yes Hx Deep Vein Thrombosis: No Hx Pulmonary Embolism: Yes (January 2015) Hx GERD: No Hx Liver Disease: No Hx Renal Disease: No Hx Sickle Cell Disease: No Hx Arthritis: No Hx Headaches / Migraines: No Hx Seizures: No Hx Kidney Stones: Yes Hx Psychiatric Treatment: No Hx Asthma: Yes Hx COPD: No Hx Tuberculosis: No Hx Dementia: No Hx HIV: No Additional medical history: murmur. blood clot removal from brain, hx of CVA ( june,) - Surgical History Past Surgical History?: Yes Hx Coronary Stent: No Hx Open Heart Surgery: No Hx Pacemaker: No Hx Internal Defibrillator: No Hx Cholecystectomy: Yes Hx Appendectomy: No Hx Breast Surgery: No Additional Surgical History: tubal ligation - Social History Smoking Status: Current Every Day Smoker Substance Use Type: Alcohol - Medications Home Medications: Home Medications Medication Instructions Recorded Confirmed Last Taken Type Albuterol Sulfate [Ventolin HFA] 2 puff IH Q4H PRN #1 hfa.aer.ad 06/29/16 Unknown Rx Lisinopril [Zestril TAB] 40 mg PO QDAY #30 tablet 06/29/16 10/29/16 Unknown Rx Metoprolol [Lopressor TAB] 75 mg PO BID #60 tablet 06/29/16 10/29/16 Unknown Rx Ondansetron [Zofran ODT TAB] 4 mg PO Q8HR #20 tab.rapdis 06/29/16 10/29/16 Unknown Rx metFORMIN [Glucophage] 500 mg PO BIDDIAB #60 tablet 06/29/16 10/29/16 Unknown Rx Cyclobenzaprine HCl [Flexeril 5 MG 5 mg PO Q8HR PRN #10 tab 07/27/16 10/29/16 Unknown Rx TAB] Enoxaparin [Lovenox] 90 mg SQ Q12HR 5 Days 10/31/16 Unknown Rx HYDROcodone/APAP 5-325 [[place] 1 each PO Q6H PRN #20 tablet 10/31/16 Unknown Rx 5-325 mg TAB] Lovastatin [Altoprev] 40 mg PO QPM #30 tab.er.24h 10/31/16 Unknown Rx Torsemide [Demadex] 40 mg PO DAILY 30 Days 10/31/16 Unknown Rx Warfarin [Coumadin] 10 mg PO DAILY@1700 #30 tablet 10/31/16 Unknown Rx ED Physical Exam - General Limitations: No Limitations - Other Other exam information: General: No limitations, patient is alert in no acute distress Head exam: Atraumatic, normocephalic Eyes exam: Normal appearance ENT: Moist mucous membrane, normal oropharynx Neck exam: Normal inspection, full range of motion Respiratory exam: Clear to auscultation bilateral, no wheezes, rales, crackles Cardiovascular: Normal rate and rhythm, normal heart sounds Abdomen: Soft, abdominal wall swelling in the lower abdomen soft tissue, and nontender, with normal bowel sounds, no rebound, or guarding Extremity: Full range of motion normal inspection no deformity, bilateral leg edema extending to the thighs 2+ pitting equal bilaterally no cellulitis, no asymmetry Back: Normal Inspection, full range of motion, no tenderness Neurologic: Alert, oriented x3, cranial nerves intact, no motor or sensory deficit Psychiatric: normal affect, normal mood Skin: Warm, dry, intactam ED Course Vital Signs 01/01/17 15:05 Temperature 98.1 F Pulse Rate 104 H Respiratory 16 Rate Blood Pressure 141/101 O2 Sat by Pulse 100 Oximetry - Reevaluation(s) Reevaluation #1: 01/01/17 22:44 Lasix 60 mg and Lovenox ordered ED Medical Decision Making - Lab Data Result diagrams: 01/01/17 15:32 01/01/17 15:32 Lab Results 01/01/17 01/01/17 01/01/17 Range/Units 15:32 15:32 17:54 WBC 6.3 (4.5-11.0) K/mm3 RBC 4.87 (3.65-5.03) M/mm3 Hgb 10.3 (10.1-14.3) gm/dl Hct 32.2 (30.3-42.9) % MCV 66 L (79-97) fl MCH 21 L (28-32) pg MCHC 32 (30-34) % RDW 21.8 H (13.2-15.2) % Plt Count 274 (140-440) K/mm3 Lymph % (Auto) 25.9 (13.4-35.0) % [place] % (Auto) 12.8 H (0.0-7.3) % Eos % (Auto) 1.5 (0.0-4.3) % Baso % (Auto) 0.5 (0.0-1.8) % Lymph # 1.6 (1.2-5.4) K/mm3 [place] # 0.8 (0.0-0.8) K/mm3 Eos # 0.1 (0.0-0.4) K/mm3 Baso # 0.0 (0.0-0.1) K/mm3 Seg Neutrophils % 59.3 (40.0-70.0) % Seg Neutrophils # 3.8 (1.8-7.7) K/mm3 Sodium 140 (137-145) mmol/L Potassium 4.3 (3.6-5.0) mmol/L Chloride 103.6 (98-107) mmol/L Carbon Dioxide 23 (22-30) mmol/L Anion Gap 18 mmol/L BUN 12 (7-17) mg/dL Creatinine 0.9 (0.7-1.2) mg/dL Estimated GFR > 60 ml/min BUN/Creatinine Ratio 13.33 % Glucose 110 H (65-100) mg/dL Calcium 8.7 (8.4-10.2) mg/dL Troponin T < 0.010 < 0.010 (0.00-0.029) ng/mL 01/01/17 Range/Units 20:55 WBC (4.5-11.0) K/mm3 RBC (3.65-5.03) M/mm3 Hgb (10.1-14.3) gm/dl Hct (30.3-42.9) % MCV (79-97) fl MCH (28-32) pg MCHC (30-34) % RDW (13.2-15.2) % Plt Count (140-440) K/mm3 Lymph % (Auto) (13.4-35.0) % [place] % (Auto) (0.0-7.3) % Eos % (Auto) (0.0-4.3) % Baso % (Auto) (0.0-1.8) % Lymph # (1.2-5.4) K/mm3 [place] # (0.0-0.8) K/mm3 Eos # (0.0-0.4) K/mm3 Baso # (0.0-0.1) K/mm3 Seg Neutrophils % (40.0-70.0) % Seg Neutrophils # (1.8-7.7) K/mm3 Sodium (137-145) mmol/L Potassium (3.6-5.0) mmol/L Chloride (98-107) mmol/L Carbon Dioxide (22-30) mmol/L Anion Gap mmol/L BUN (7-17) mg/dL Creatinine (0.7-1.2) mg/dL Estimated GFR ml/min BUN/Creatinine Ratio % Glucose (65-100) mg/dL Calcium (8.4-10.2) mg/dL Troponin T < 0.010 (0.00-0.029) ng/mL - EKG Data -: EKG Interpreted by Me (nsr rate 104, lae, septal infarct, no stemi) - EKG Data When compared to previous EKG there are: no significant change - Radiology Data Radiology results: image reviewed (cxr: cmg) - Medical Decision Making Plan to admit patient to the hospital for CHF exacerbation likely secondary to medication noncompliance. Patient is also been noncompliant with her Coumadin which has been prescribed secondary to her previous CVA and PE. She has a history of similar admissions in the past - Differential Diagnosis chf, mi, noncompliance, PE, volume overload Critical Care Time: No Critical care attestation.: If time is entered above; I have spent that time in minutes in the direct care of this critically ill patient, excluding procedure time. ED Disposition Clinical Impression: CHF exacerbation, Noncompliance with medication regimen, Anticoagulant long- term use, Hx of pulmonary embolus, History of CVA (cerebrovascular accident), Chest pain at rest Disposition: OP ADMITTED IP TO THIS HOSP Is pt being admited?: Yes Condition: Stable Time of Disposition: 22:47 (Dr Snyder/hosp)
[2017-01-01] MEDS ORDERED: NITROSTAT SL PRN (23:27)
[2017-01-01] MEDS ORDERED: ZOFRAN IV PRN (23:34)
[2017-01-01] MEDS ORDERED: TYLENOL PO PRN (23:35)
[2017-01-01] MEDS ORDERED: PROAIR IH PRN (23:38)
[2017-01-01] MEDS ORDERED: NON-FORMULARY (Cyclobenzaprine Hcl [Flexeril 5 Mg Tab] 5 MG) PO PRN (23:38)
[2017-01-01] MEDS ORDERED: D50W (25GM) IV PRN (23:55)
[2017-01-01] MEDS ORDERED: FLEXERIL PO PRN (23:59)
[2017-01-02] MEDS ORDERED: PROVENTIL IH PRN (00:05)
[2017-01-02] MEDS ORDERED: NITRO-BID 2% TP ONE (00:36)
--- NOTE | 2017-01-02 01:04 | History and Physical Report ---
CHIEF COMPLAINT: Shortness of breath. Other complaint includes chest discomfort. HISTORY OF PRESENT ILLNESS: The patient is a 46-year-old female who said she has been having shortness of breath going on for some days associated with swelling in the lower extremities and some chest discomfort. The patient denied history of fever and chills and denied history of nausea or vomiting and said that she has been out of some of her medications recently and that the chest discomfort did not radiate to any part of the arms or neck also the chest discomfort is intermittent in nature. The patient admitted to having more shortness of breath when she lies down and the patient is known to be noncompliant with home medication. PAST MEDICAL HISTORY: Pertinent for hypertension, cerebrovascular accident, also the patient has past history of congestive heart failure, diabetes mellitus, pulmonary embolism, and kidney stones with asthma. PAST SURGICAL HISTORY: The patient has cholecystectomy, tubal ligation, and removal of blood clots from the brain. FAMILY HISTORY: Noncontributory. SOCIAL HISTORY: The patient smokes cigarettes, drinks alcohol, and does not use illicit drugs. MEDICATIONS: The patient is on albuterol 2 puffs every 4 hours, lisinopril 40 mg by mouth daily, Lopressor 75 mg by mouth twice daily, Zofran 4 mg by mouth every 8 hours for nausea and vomiting, Glucophage 500 mg b.i.d., cyanocobalamin 5 mg p.o. q.8h., Lovenox 90 mg subQ q. 12 hours, [place] 5/325 mg every 6 hours as needed for pain, lovastatin 40 mg every evening, torsemide 40 mg p.o. daily, warfarin 10 mg p.o. daily. ALLERGIES: The patient is allergic to ASPIRIN. REVIEW OF SYSTEMS: CONSTITUTIONAL: There is no fever, no chills, no diaphoresis. HEENT: There is no headache or sore throat. CARDIOVASCULAR SYSTEM: Chest pain present, orthopnea present. RESPIRATORY SYSTEM: Shortness of breath present. No cough. GASTROINTESTINAL: No nausea, no vomiting, no abdominal pain, diarrhea or constipation. NEUROLOGICAL SYSTEM: There is no numbness, no dizziness, no altered mental status. MUSCULOSKELETAL SYSTEM: There is no joint pain or swelling. DERMATOLOGICAL SYSTEM: There is no skin rash or itching. GENITOURINARY SYSTEM: There is no dysuria, hematuria, or flank pain. Rest of system review is normal. PHYSICAL EXAMINATION: GENERAL: At the time of exam, the patient was found to be alert and oriented x 3 and not in acute distress. VITAL SIGNS: Shows temperature of 98.1, pulse of 104, respirations 16, blood pressure 141/101, O2 sat of 100% on room air. HEENT: Show pupils to be equal, round, reactive to light and accommodating. Extraocular muscles are intact. NECK: Supple with no JVD or carotid bruit. CARDIOVASCULAR SYSTEM: Show first and second heart sounds with no gallops or murmur. EXTREMITIES: The patient has 2+ pitting edema. RESPIRATORY SYSTEM: Showed good air entry on both sides of the lung with bibasilar rales. GASTROINTESTINAL SYSTEM: Show abdomen to be full, soft, nontender with no organomegaly or rigidity. NEUROLOGIC: Showed no focal deficit. MUSCULOSKELETAL SYSTEM: Show swelling in the ankles with no joint tenderness. DERMATOLOGICAL SYSTEM: Show no skin rash. GENITOURINARY: Shows no costovertebral angle tenderness. PERTINENT LABORATORY DATA AND IMAGING STUDIES: The patient had chest x-ray done that showed mild pulmonary congestion. The patient's lab results show CBC with normal white count, normal hemoglobin and normal hematocrit with unremarkable CBC differential. The patient's chemistry was unremarkable. Cardiac enzymes came back normal. DIAGNOSES: 1. Congestive heart failure exacerbation. 2. Chest pain. PLAN: The patient will be admitted to medical floor on telemetry and will have cardiac enzymes checked q. 6 hours x 2 more levels. The patient will have PT/INR checked every morning for about 4 days and the patient will have complete echocardiogram in the morning that will be on Lasix 40 mg IV daily. The patient will also be on a cardiac diet as well as consistent carbohydrate diet. They will have Accu-Chek at bedtime. We will have sliding scale coverage using low-dose sliding scale coverage using regular insulin for coverage. The patient will be on nitro paste half inch to anterior chest wall q. 6 hours and will be on IV Zofran 4 mg every 6 hours as needed for nausea and vomiting and Tylenol 650 mg every 4 hours for fever and headache. The patient will be on subQ Lovenox 90 mg q.12h. and will have her home medications that includes warfarin 10 mg daily started to get patient's INR to 2-3. The patient will also be on oxygen by nasal cannula at 2 liter per minute and will be on fluid restriction according to CHF pathway and will have cardiology consult as ordered. JOB# [id number] OCN/NTS MJ
[2017-01-02 01:15] LABS: Creatine Kinase MB 1.2 ng/mL (0.0-4.0)
[2017-01-02 01:17] LABS: Creatine Kinase 52 units/L (30-135)
[2017-01-02] MEDS: NITRO-BID 2% TP SCH ×5 (01:33→19:04)
[2017-01-02 06:42] LABS: Creatine Kinase 43 units/L (30-135)
[2017-01-02] MEDS: GLUCOPHAGE PO SCH ×2 (09:07→17:10)
[2017-01-02] MEDS: LOVENOX SUB-Q SCH ×2 (09:36→20:59)
[2017-01-02] MEDS: LOPRESSOR PO SCH ×2 (09:36→21:00)
[2017-01-02] MEDS: NORCO 5/325 PO PRN ×2 (09:37→21:21)
[2017-01-02] MEDS: ZESTRIL PO SCH (09:38)
[2017-01-02] MEDS ORDERED: LASIX IV SCH (10:00)
--- NOTE | 2017-01-02 10:05 | XRay Report ---
CHEST TWO VIEWS: 01/01/17 22:45 CLINICAL: Shortness of breath. COMPARISON: 10/29/16 FINDINGS: Cardiomegaly and mild redistribution of pulmonary blood flow are unchanged compared to the prior exam. The lungs are normally expanded and clear. The bones and soft tissues are normal. IMPRESSION: Cardiomegaly and pulmonary venous hypertension.No pulmonary edema.
[2017-01-02 11:49] LABS: INR 1.57 (0.87-1.13)
--- NOTE | 2017-01-02 13:45 | Progress Note ---
Assessment and Plan Assessment and plan: CHF exacerbation History Interval history: shortness of breath Hospitalist Physical - Physical exam Narrative exam: Gen: Not in acute distress HEENT: Normocephalic, atraumatic Neck: supple, no JVD Lungs: Bibasilar crackles, no wheeze Heart S1-S2 regular, no murmurs rubs or gallop, Abdomen: soft, non tender,non-distended, normal bowel sounds Ext: Bilateral edema of legs,no clubbing, no cyanosis Neuro: Awake, alert.oriented x 3, no focal neurological signs, Psych: normal mood - Constitutional Vitals: Temp Pulse Resp BP Pulse Ox 98.8 F 99 H 18 147/97 100 01/02/17 09:33 01/02/17 09:38 01/02/17 09:33 01/02/17 09:38 01/02/17 09:33 Results - Labs CBC & Chem 7: 01/01/17 15:32 04 15:32 Labs: Laboratory Last Values WBC 6.3 K/mm3 (4.5-11.0) 01/01/17 15:32 RBC 4.87 M/mm3 (3.65-5.03) 01/01/17 15:32 Hgb 10.3 gm/dl (10.1-14.3) 01/01/17 15:32 Hct 32.2 % (30.3-42.9) 01/01/17 15:32 MCV 66 fl (79-97) L 01/01/17 15:32 MCH 21 pg (28-32) L 01/01/17 15:32 MCHC 32 % (30-34) 01/01/17 15:32 RDW 21.8 % (13.2-15.2) H 01/01/17 15:32 Plt Count 274 K/mm3 (140-440) 01/01/17 15:32 Lymph % (Auto) 25.9 % (13.4-35.0) 01/01/17 15:32 Branch % (Auto) 12.8 % (0.0-7.3) H 01/01/17 15:32 Eos % (Auto) 1.5 % (0.0-4.3) 01/01/17 15:32 Baso % (Auto) 0.5 % (0.0-1.8) 01/01/17 15:32 Lymph # 1.6 K/mm3 (1.2-5.4) 01/01/17 15:32 Branch # 0.8 K/mm3 (0.0-0.8) 01/01/17 15:32 Eos # 0.1 K/mm3 (0.0-0.4) 01/01/17 15:32 Baso # 0.0 K/mm3 (0.0-0.1) 01/01/17 15:32 Seg Neutrophils % 59.3 % (40.0-70.0) 01/01/17 15:32 Seg Neutrophils # 3.8 K/mm3 (1.8-7.7) 01/01/17 15:32 PT 18.7 Sec. (12.2-14.9) H 01/02/17 10:51 INR 1.57 (0.87-1.13) H 01/02/17 10:51 Sodium 140 mmol/L (137-145) 01/01/17 15:32 Potassium 4.3 mmol/L (3.6-5.0) 01/01/17 15:32 Chloride 103.6 mmol/L (98-107) 01/01/17 15:32 Carbon Dioxide 23 mmol/L (22-30) 01/01/17 15:32 Anion Gap 18 mmol/L 01/01/17 15:32 BUN 12 mg/dL (7-17) 01/01/17 15:32 Creatinine 0.9 mg/dL (0.7-1.2) 01/01/17 15:32 Estimated GFR > 60 ml/min 01/01/17 15:32 BUN/Creatinine Ratio 13.33 % 01/01/17 15:32 Glucose 110 mg/dL (65-100) H 01/01/17 15:32 POC Glucose 115 (70-105) H 01/02/17 12:18 Calcium 8.7 mg/dL (8.4-10.2) 01/01/17 15:32 Total Creatine Kinase 43 units/L (30-135) 01/02/17 06:02 CK-MB (CK-2) 1.0 ng/mL (0.0-4.0) 01/02/17 06:02 CK-MB (CK-2) Rel Index 2.3 (0-4) 01/02/17 06:02 Troponin T < 0.010 ng/mL (0.00-0.029) 01/02/17 06:02
[2017-01-02] MEDS ORDERED: COUMADIN PO SCH (17:00)
[2017-01-02] MEDS ORDERED: NON-FORMULARY (Lovastatin [Altoprev] 40 MG) PO SCH (18:00)
[2017-01-02] MEDS: LASIX IV SCH (20:59)
[2017-01-02] MEDS ORDERED: ZOCOR PO SCH (22:00)
--- NOTE | 2017-01-03 01:47 | Admit Criteria Form ---
Admission Criteria Documentation: HEART FAILURE: COMMON COMPLICATIONS Clinical Indications for Inpatient Care (Place 'X' for any and all applicable criteria): Ongoing inpatient care may be indicated for heart failure with ANY ONE of the following (1)(2)(3)(4)(5): [ ]I. Ongoing need for care for primary condition requiring frequent therapy adjustments because of changes in cardiac function (eg, drug dosage changes for drugs that are renally metabolized) [ ]II. New-onset heart failure [ ]III. Heart failure with decreased urine output not responsive to attempts to optimize volume status [ ]IV. Acute cardiac ischemia causing or associated with failure [ X]V. Complications of heart failure, including ANY ONE of the following: [ ]a) Pericardial effusion [ ]b) Symptomatic pleural effusion [ ]c) O2 saturation <90% or PO2 < 60 mm Hg (8.0 kPa) on room air or require baseline supplemental O2 [ ]d) Tachypnea [ X]e) Dyspnea [ ]f) Syncope [ ]g) Change in mental status [ ]h) Acute renal insufficiency that is severe (reduction of more than 50% in estimated glomerular filtration rate from baseline) or progressive reduction of more than 25% in estimated glomerular filtration rate from baseline, with creatinine continuing to rise) [ ]i) Hemodynamic instability [ ]j) Anasarca [ ]k) Clinically significant metabolic abnormalities due to heart failure (eg, new-onset metabolic acidosis) Extended stay beyond goal length of stay for primary condition may be needed until ALL of the following are present(1)(3): [ ]a) Stable and effective diuretic regimen established (or patient on stable dialysis regimen if in chronic renal failure) [ ]b) Breathing comfortably at rest [ ]c) Saturation of arterial oxygen greater than 90% or at acceptable baseline [ ]d) Pulmonary edema absent or improved [ ]e) Hemodynamic stability [ ]f) Volume status acceptable on oral medication [ ]g) Peripheral or sacral edema absent or improved [ ]h) Renal function stable and manageable at a lower level of care [ ]i) Complications (eg, pleural effusion) resolved or manageable at a lower level of care [ ]j) Patient or caregiver has received written discharge instructions or educational material addressing activity level, diet, discharge medications, follow-up appointment, weight monitoring, and what to do if symptoms worsen The original [facility] content created by [employer] has been revised. The portions of the content which have been revised are identified through the use of italic text or in bold, and [facility] has neither reviewed nor approved the modified material.All other unmodified content is copyright [facility]. Please see references footnoted in the original [facility] edition 2016 Admission Criteria Met: Yes
[2017-01-03] MEDS: NITRO-BID 2% TP SCH ×3 (05:07→14:18)
[2017-01-03 06:59] LABS: INR 1.73 (0.87-1.13)
[2017-01-03] MEDS: GLUCOPHAGE PO SCH (08:32)
[2017-01-03] MEDS: LASIX IV SCH (08:36)
--- NOTE | 2017-01-03 10:16 | Discharge Summary ---
Providers - Providers Date of Admission: 01/01/17 23:24 Date of discharge: 01/03/17 Attending physician: BONIFACIO HAMLIN 01/02/17 06:36 Consult to Physician [CONS] Routine Consulting Provider: ERIC HERRON Reason For Exam: chf with chest pain Place consult to:: [facility] Notified:: a service Phone number called:: [phone] Was contact made?: Yes If yes, spoke with:: kuldeep Time called:: 17:03 Comment:: [facility] pt per Dr Reynolds Primary care physician: GUM MIXER Hospitalization Condition: Stable Exam - Constitutional Vitals: Temp Pulse Resp BP Pulse Ox 97.8 F 52 L 20 105/68 99 01/03/17 07:26 01/03/17 07:26 01/03/17 07:26 01/03/17 07:26 01/03/17 07:26 Plan Activity: advance as tolerated Diet: low fat, low cholesterol, low salt Additional Instructions: 1.Follow up with PCP or [facility] in 1 week. 2.Follow up with Dr. Herron, cardiology in 1 week. 3.Check PT/INR on Wednesday01/06/17 at [facility] or PCP Follow up with: PRIMARY CARE, [Primary Care Provider] - 7 Days Forms: Warfarin Discharge Instruction Prescriptions: Enoxaparin [Lovenox] 100 mg SQ Q12HR #10 syringe Lisinopril [Zestril TAB] 40 mg PO QDAY #30 tablet Lovastatin [Altoprev] 40 mg PO QPM #30 tab.er.24h metFORMIN [Glucophage] 500 mg PO BIDDIAB #60 tablet Metoprolol [Lopressor TAB] 75 mg PO BID #60 tablet Torsemide [Demadex] 40 mg PO DAILY 30 Days Warfarin [Coumadin] 10 mg PO DAILY@1700 #30 tablet
[2017-01-03] MEDS: LOVENOX SUB-Q SCH (10:33)
[2017-01-03] MEDS: LOPRESSOR PO SCH (10:34)
[2017-01-03] MEDS: ZESTRIL PO SCH (10:34)
--- NOTE | 2017-01-03 11:38 | Consultation ---
History of Present Illness Consult date: 01/03/17 Consult reason: congestive heart failure History of present illness: This is a 46 year old -[place] female who is well known to us on the original hospital presented with shortness of breath. Patient was admitted for further evaluation and management. Past History Past Medical History: hypertension, pulmonary embolism, stroke Past Surgical History: No surgical history Social history: lives with family, smoking. denies: alcohol abuse Family history: no significant family history Medications and Allergies Allergies Allergy/AdvReac Type Severity Reaction Status Date / Time aspirin Allergy Swelling Verified 01/01/17 15:09 Home Medications Medication Instructions Recorded Confirmed Last Taken Type Albuterol Sulfate [Ventolin HFA] 2 puff IH Q4H PRN #1 hfa.aer.ad 06/29/16 Unknown Rx Ondansetron [Zofran ODT TAB] 4 mg PO Q8HR #20 tab.rapdis 06/29/16 10/29/16 Unknown Rx Cyclobenzaprine HCl [Flexeril 5 MG 5 mg PO Q8HR PRN #10 tab 07/27/16 10/29/16 Unknown Rx TAB] HYDROcodone/APAP 5-325 [Volant 1 each PO Q6H PRN #20 tablet 10/31/16 Unknown Rx 5-325 mg TAB] Enoxaparin [Lovenox] 100 mg SQ Q12HR #10 syringe 01/03/17 Unknown Rx Lisinopril [Zestril TAB] 40 mg PO QDAY #30 tablet 01/03/17 Unknown Rx Lovastatin [Altoprev] 40 mg PO QPM #30 tab.er.24h 01/03/17 Unknown Rx Metoprolol [Lopressor TAB] 75 mg PO BID #60 tablet 01/03/17 Unknown Rx Torsemide [Demadex] 40 mg PO DAILY 30 Days 01/03/17 Unknown Rx Warfarin [Coumadin] 10 mg PO DAILY@1700 #30 tablet 01/03/17 Unknown Rx metFORMIN [Glucophage] 500 mg PO BIDDIAB #60 tablet 01/03/17 Unknown Rx Active Meds: Active Medications Acetaminophen (Tylenol) 650 mg PO Q4H PRN PRN Reason: For Pain/Fever/Headache Acetaminophen/Hydrocodone Bitart (Volant 5/325) 1 each PO Q6H PRN PRN Reason: Pain, Moderate (4-6) Last Admin: 01/02/17 21:21 Dose: 1 each Albuterol (Proventil) 2.5 mg IH Q4HRT PRN PRN Reason: Shortness Of Breath Cyclobenzaprine HCl (Flexeril) 5 mg PO Q8H PRN PRN Reason: Pain Dextrose (D50w (25gm)) 50 ml IV PRN PRN PRN Reason: Hypoglycemia Enoxaparin Sodium (Lovenox) 90 mg 1 mg/kg (90 mg) SUB-Q Q12HR [facility] Last Admin: 01/03/17 10:33 Dose: 90 mg Furosemide (Lasix) 40 mg IV Q12H [facility] Last Admin: 01/03/17 08:36 Dose: 40 mg Insulin Human Regular (Novolin R) 0 units SUB-Q [facility] PRN Reason: Protocol Last Admin: 01/02/17 17:02 Dose: Not Given Insulin Human Regular (Novolin R) 0 units SUB-Q QHS [facility] PRN Reason: Protocol Last Admin: 01/02/17 21:22 Dose: Not Given Lisinopril (Zestril) 40 mg PO QDAY [facility] Last Admin: 01/03/17 10:34 Dose: 40 mg Metformin HCl (Glucophage) 500 mg PO BIDDIAB [facility] Last Admin: 01/03/17 08:32 Dose: 500 mg Metoprolol Tartrate (Lopressor) 75 mg PO BID [facility] Last Admin: 01/03/17 10:34 Dose: 75 mg Nitroglycerin (Nitrostat) 0.4 mg SL .Q5MIN PRN PRN Reason: Chest Pain Nitroglycerin (Nitro-Bid 2%) 0.5 inch TP QIDNTG [facility] PRN Reason: Protocol Last Admin: 01/03/17 10:36 Dose: Not Given Ondansetron HCl (Zofran) 4 mg IV Q6H PRN PRN Reason: Nausea And Vomiting Simvastatin (Zocor) 20 mg PO QHS [facility] Last Admin: 01/02/17 21:00 Dose: 20 mg Warfarin Sodium (Coumadin) 10 mg PO DAILY@1700 [facility] PRN Reason: Protocol Last Admin: 01/02/17 17:10 Dose: 10 mg Review of Systems Constitutional: fatigue, weakness, no weight loss, no weight gain Cardiovascular: palpitations, shortness of breath, dyspnea on exertion Respiratory: dyspnea on exertion, no cough, no wheezing Gastrointestinal: no abdominal pain, no nausea Musculoskeletal: no neck stiffness, no neck pain, no low back pain Integumentary: no rash Neurological: paralysis, weakness, no head injury Endocrine: no cold intolerance, no polyphagia, no excessive thirst Physical Examination Vital Signs Temp Pulse Resp BP Pulse Ox 98.1 F 104 H 16 141/101 100 01/01/17 15:05 01/01/17 15:05 01/01/17 15:05 01/01/17 15:05 01/01/17 15:05 General appearance: no acute distress, well-nourished HEENT: Positive: PERRL, Normocephaly, Sinus Tenderness Neck: Positive: neck supple, trachea midline. Negative: JVD/HJR Cardiac: Positive: Regular Rate, S1/S2, S3, Gallop, PMI, Laterally Displaced Lungs: Positive: clear to auscultation, No Wheeze, Rales, Rhonchi Neuro: Positive: Grossly Intact Abdomen: Positive: Unremarkable, Soft Skin: Positive: Clear Extremities: Absent: edema Results 01/01/17 15:32 01/01/17 15:32 Coagulation 01/02/17 01/03/17 Range/Units 10:51 06:31 PT 18.7 H 20.2 H (12.2-14.9) Sec. INR 1.57 H 1.73 H (0.87-1.13) EKG interpretations - Telemetry EKG Rhythm: Sinus Rhythm Assessment and Plan 1. Chronic combined systolic and diastolic heart failure 2. Dilated nonischemic cardiomyopathy with ejection fraction 15% 3. Hypertension 4. Type 2 Diabetes mellitus. Chest x-ray does not show any overt signs of pulmonary edema. Patient does not have any significant pedal edema I'll recommend resuming medication for patient as she was on at home and follow-up with a sales representative printing paper on discharge Plan. Continue home medication currently stable and okay to discharge
[2017-01-03 13:20] VITALS: BP 123/75
== END 2017-01-03 14:37 | disposition home or self-care (01) | DRG 293 ==
LOC: ED 14:47 → 4A 23:24
PROVIDERS: ADMIT Internal Medicine; ATTEND Internal Medicine
DX: I11.0 Hypertensive heart disease with heart failure (principal); I50.43 Acute on chronic combined systolic (congestive) and diastolic (congestive) heart failure; E11.9 Type 2 diabetes mellitus without complications; F17.210 Nicotine dependence, cigarettes, uncomplicated; I42.0 Dilated cardiomyopathy; Z86.73 Personal history of transient ischemic attack (TIA), and cerebral infarction without residual deficits; Z88.6 Allergy status to analgesic agent; Z86.711 Personal history of pulmonary embolism; Z87.442 Personal history of urinary calculi; Z90.49 Acquired absence of other specified parts of digestive tract; Z98.51 Tubal ligation status; Z91.14 Patient's other noncompliance with medication regimen
CPT/HCPCS: 36415; 71020; 80048; 82550; 82553; 82962; 84484; 85025; 85610; 93005; 93010; 93306; 96372; 96374; 99406; J1650; J1940

== ENCOUNTER 2017-02-27 06:01 | Emergency (ER) | payer SELFPAY ==
[2017-02-27 06:50] LABS: Basophils % (Auto) 0.5 % (0.0-1.8); Eosinophils % (Auto) 0.8 % (0.0-4.3); Hematocrit 33.1 % (30.3-42.9); Hemoglobin 10.7 gm/dl (10.1-14.3); Mean Corpuscular HGB Conc 32 % (30-34); Platelet Count 253 K/mm3 (140-440); Red Blood Count 4.77 M/mm3 (3.65-5.03)
[2017-02-27 06:56] LABS: Mean Corpuscular Hemoglobin 22 pg (28-32); Mean Corpuscular Volume 69 fl (79-97); Red Cell Distribution Width 24.8 % (13.2-15.2)
[2017-02-27 07:02] LABS: INR 1.61 (0.87-1.13); Partial Thromboplastin Time 32.7 Sec. (24.2-36.6)
[2017-02-27 07:10] LABS: Anion Gap 18 mmol/L; BUN/Creatinine Ratio 18.57; Blood Urea Nitrogen 13 mg/dL (7-17); Carbon Dioxide 26 mmol/L (22-30); Chloride 100.7 mmol/L (98-107); Glucose 110 mg/dL (65-100); Potassium 4.6 mmol/L (3.6-5.0); Sodium 140 mmol/L (137-145)
[2017-02-27 08:48] VITALS: BP 155/100
--- NOTE | 2017-02-27 09:51 | XRay Report ---
CHEST TWO VIEWS: 02/27/17 06:01:00 CLINICAL: Shortness of breath. COMPARISON: 01/01/17 FINDINGS: Stable cardiomegaly. Mild redistribution of pulmonary blood flow to the upper lobes. The lungs are normally expanded and clear. The bones and soft tissues are normal. IMPRESSION: Cardiomegaly and pulmonary venous hypertension.No pulmonary edema.
== END 2017-02-27 16:23 | disposition left against medical advice (07) ==
LOC: ED 06:01
DX: R07.9 Chest pain, unspecified (principal); R11.11 Vomiting without nausea; Z53.21 Procedure and treatment not carried out due to patient leaving prior to being seen by health care provider
CPT/HCPCS: 36415; 71020; 80048; 84484; 85025; 85379; 85610; 85730; 93005; 93010

== ENCOUNTER 2017-04-09 03:17 | Emergency (ER) | payer SELFPAY ==
[2017-04-09 04:11] LABS: Basophils % (Auto) 0.4 % (0.0-1.8); Eosinophils % (Auto) 0.9 % (0.0-4.3); Hematocrit 32.3 % (30.3-42.9); Hemoglobin 10.4 gm/dl (10.1-14.3); Mean Corpuscular HGB Conc 32 % (30-34); Platelet Count 222 K/mm3 (140-440); Red Blood Count 4.74 M/mm3 (3.65-5.03); White Blood Count 5.5 K/mm3 (4.5-11.0)
[2017-04-09 04:13] LABS: Mean Corpuscular Hemoglobin 22 pg (28-32); Mean Corpuscular Volume 68 fl (79-97); Red Cell Distribution Width 21.7 % (13.2-15.2)
[2017-04-09 04:18] LABS: Anion Gap 17 mmol/L; BUN/Creatinine Ratio 18.57; Blood Urea Nitrogen 13 mg/dL (7-17); Calcium 8.5 mg/dL (8.4-10.2); Carbon Dioxide 22 mmol/L (22-30); Chloride 100.4 mmol/L (98-107); Glucose 121 mg/dL (65-100); Potassium 3.7 mmol/L (3.6-5.0); Sodium 136 mmol/L (137-145)
[2017-04-09] MEDS ORDERED: DUONEB *Not for PRN Use IH ONE (08:18)
[2017-04-09] MEDS ORDERED: MORPHINE IV ONE (08:18)
--- NOTE | 2017-04-09 08:21 | Emergency Department Report ---
ED Chest Pain HPI - General Chief Complaint: Chest Pain Stated Complaint: LOW BLOOD GLUCOSE/CHEST PAIN Time Seen by Provider: 04/09/17 08:01 Source: patient Mode of arrival: Ambulatory Limitations: No Limitations - History of Present Illness Initial Comments: This is a 47-year-old Afro-Maur[place] female presents to the emergency department , dropped off by her nephew to be seen, with complaint of left-sided chest pain , nausea and vomiting and shortness of breath at been going on since last night. She has a past medical history of asthma, congestive heart failure, CVA 2, diabetes, hypertension, PE. She recently had an echocardiogram that showed dilated nonischemic cardiomyopathy with an ejection fraction 30%. She does not have a primary care physician or oncology nurse. She has not taken anything specifically to treat her symptoms prior to presentation. She allegedly is on Coumadin and compliant with her medication. She has a past surgical history of cholecystectomy and tubal ligation. - Related Data Home Medications Medication Instructions Recorded Confirmed Last Taken Furosemide [Lasix] 20 mg PO QDAY 04/09/17 04/09/17 04/08/17 Metoprolol [Lopressor TAB] 50 mg PO BID 04/09/17 04/09/17 04/08/17 Warfarin [Coumadin] 10 mg PO DAILY 04/09/17 04/09/17 04/08/17 Previous Rx's Medication Instructions Recorded Last Taken Type Lisinopril [Zestril TAB] 40 mg PO QDAY #30 tablet 01/03/17 04/08/17 Rx Lovastatin [Altoprev] 40 mg PO QPM #30 tab.er.24h 01/03/17 04/08/17 Rx metFORMIN [Glucophage] 500 mg PO BIDDIAB #60 tablet 01/03/17 04/08/17 Rx Allergies Allergy/AdvReac Type Severity Reaction Status Date / Time aspirin Allergy Swelling Verified 01/01/17 15:09 Heart Score - HEART Score History: Moderately suspicious EKG: Non-specific Age: 45-65 Risk factors: > 3 risk factors or hx of atherosclerotic disease Troponin: < normal limit HEART Score: 5 - Critical Actions Critical Actions: 4-6 pts:12-16.6% risk of adverse cardiac event. Should be admitted ED Review of Systems ROS: Stated complaint: LOW BLOOD GLUCOSE/CHEST PAIN Other details as noted in HPI Comment: All other systems reviewed and negative Constitutional: denies: chills, fever Eyes: denies: eye pain, eye discharge, vision change ENT: denies: ear pain, throat pain Respiratory: shortness of breath. denies: cough Cardiovascular: chest pain. denies: palpitations Gastrointestinal: nausea, vomiting Genitourinary: denies: urgency, dysuria, discharge Musculoskeletal: denies: back pain, joint swelling, arthralgia Skin: denies: rash, lesions Neurological: denies: headache, weakness, paresthesias ED Past Medical Hx - Past Medical History Previous Medical History?: Yes Hx Hypertension: Yes Hx CVA: Yes (2014, acute basal ganglia stroke on mri 10/2016) Hx Heart Attack/AMI: No Hx Congestive Heart Failure: Yes (EF 15% on echo 07/2016) Hx Diabetes: Yes Hx Deep Vein Thrombosis: No Hx Pulmonary Embolism: Yes (January 2015) Hx GERD: No Hx Liver Disease: No Hx Renal Disease: No Hx Sickle Cell Disease: No Hx Arthritis: No Hx Headaches / Migraines: No Hx Seizures: No Hx Kidney Stones: Yes Hx Psychiatric Treatment: No Hx Asthma: Yes Hx COPD: No Hx Tuberculosis: No Hx Dementia: No Hx HIV: No Additional medical history: murmur. blood clot removal from brain, hx of CVA ( june,) - Surgical History Past Surgical History?: Yes Hx Coronary Stent: No Hx Open Heart Surgery: No Hx Pacemaker: No Hx Internal Defibrillator: No Hx Cholecystectomy: Yes Hx Appendectomy: No Hx Breast Surgery: No Additional Surgical History: tubal ligation - Social History Smoking Status: Never Smoker Substance Use Type: None - Medications Home Medications: Home Medications Medication Instructions Recorded Confirmed Last Taken Type Lisinopril [Zestril TAB] 40 mg PO QDAY #30 tablet 01/03/17 04/09/17 04/08/17 Rx Lovastatin [Altoprev] 40 mg PO QPM #30 tab.er.24h 01/03/17 04/09/17 04/08/17 Rx metFORMIN [Glucophage] 500 mg PO BIDDIAB #60 tablet 01/03/17 04/09/17 04/08/17 Rx Furosemide [Lasix] 20 mg PO QDAY 04/09/17 04/09/17 04/08/17 History Metoprolol [Lopressor TAB] 50 mg PO BID 04/09/17 04/09/1717 History Warfarin [Coumadin] 10 mg PO DAILY 04/09/17 04/09/17 04/08/17 History ED Physical Exam - General Limitations: No Limitations - Other Other exam information: GENERAL: The patient is well-developed well-nourished. HEENT: Normocephalic. Atraumatic. Extraocular motions are intact. Patient has moist mucous membranes. Pupils equal reactive to light bilaterally. NECK: Supple. Trachea is midline. CHEST/LUNGS: Coarse breath sounds throughout the chest. There is tachypnea but no accessory muscle use. There is no respiratory distress noted. HEART/CARDIOVASCULAR: Regular. There is mild tachycardia. There is no gallop rub or murmur. ABDOMEN: Abdomen is soft, nontender. Patient has normal bowel sounds. There is no abdominal distention. SKIN: Skin is warm and dry. Mild pitting edema of the bilateral lower extremity. NEURO: The patient is awake, alert, and oriented. The patient is cooperative. The patient has no focal neurologic deficits. The patient has normal speech. MUSCULOSKELETAL: There is no tenderness or deformity. There is no limitation range of motion. There is no evidence of acute injury. ED Course Vital Signs 04/09/17 04/09/17 04/09/17 03:25 08:46 09:36 Temperature 97.6 F 97.4 F L Pulse Rate 114 H 102 H Pulse Rate [ 95 H Bilateral Upper Lobe] Respiratory 24 24 Rate Respiratory 18 Rate [Bilateral Upper Lobe] Blood Pressure 164/114 Blood Pressure 159/113 [Left] O2 Sat by Pulse 100 100 Oximetry 04/09/17 04/09/17 09:42 11:20 Temperature 97.7 F Pulse Rate 94 H Pulse Rate [ 94 H Bilateral Upper Lobe] Respiratory 20 Rate Respiratory 18 Rate [Bilateral Upper Lobe] Blood Pressure Blood Pressure 171/110 [Left] O2 Sat by Pulse 100 Oximetry SAMANTA score - Samanta Score Age > 65: (0) No Aspirin use within the Past 7 Days: (0) No 3 or more CAD Risk Factors: (1) Yes 2 or more Angina events in past 24 hrs: (1) Yes Known CAD with more than 50% Stenosis: (0) No Elevated Cardiac Markers: (0) No ST Deviation Greater than 0.5mm: (0) No SAMANTA Score: 2 ED Medical Decision Making - Lab Data Result diagrams: 04/09/17 03:41 04/09/17 03:41 - EKG Data -: EKG Interpreted by Me EKG shows normal: sinus rhythm, axis, intervals, QRS complexes (Q waves to the septal leads), ST-T waves Rate: tachycardia (100 bpm) - EKG Data When compared to previous EKG there are: previous EKG unavailable Interpretation: other (sinus rhythm, nonspecific ST-T changes, Q waves in the septal leads) - Radiology Data Radiology results: report reviewed, image reviewed interpreted by me: Chest x-ray shows some mild cardiomegaly and some pulmonary vascular congestion. No obvious pneumonia, overt pleural effusions and no pneumothorax. CT angiography of the chest does not show any pulmonary embolism. There is discoid atelectasis of the left lower lobe. Incidentally noted abdominal ascites. - Medical Decision Making 47-year-old female presents with chest pain and shortness of breath. She has a history of dilated nonischemic cardiomyopathy, CHF. She has elevated d-dimer so CT angiography. Was done that did not show any pulmonary embolism. There is incidentally noted ascites. EKG does not show any ST elevation SC. Negative troponins 3. Patient had a echocardiogram done back in December but does not appear to have had a stress test and a while and continues to have chest discomfort. She's got a elevated SAMANTA score and a elevated heart score. For these reasons the patient will be admitted to the hospital for further evaluation and will be presented for admission to the hospitalist, Dr. Smith. - Differential Diagnosis CHF, pneumonia, PE, SC Critical Care Time: No Critical care attestation.: If time is entered above; I have spent that time in minutes in the direct care of this critically ill patient, excluding procedure time. ED Disposition Clinical Impression: Shortness of breath, Hypertensive urgency, Chest pain, Systolic and diastolic CHF, acute on chronic, Nonischemic cardiomyopathy Disposition: OP ADMIT IP TO THIS HOSP Is pt being admited?: Yes Does the pt Need Aspirin: No Condition: Stable Instructions: Chest Pain (ED) Referrals: PRIMARY CARE, [Primary Care Provider] - 3-5 Days Time of Disposition: 12:51
--- NOTE | 2017-04-09 08:46 | XRay Report ---
Single view chest: Compared to 02/27/17. History: Chest pain. Findings: Marked cardiomegaly. Trachea is midline. No consolidation, pneumothorax or pleural effusion. Impression: Megaly. No acute lung changes.
[2017-04-09 09:08] LABS: INR 1.76 (0.87-1.13)
[2017-04-09 09:09] LABS: Partial Thromboplastin Time 34.3 Sec. (24.2-36.6)
--- NOTE | 2017-04-09 11:45 | Cat Scan Report ---
CTA chest: History: Shortness of breath and elevated d-dimer. Findings: No evidence of aortic aneurysm or pulmonary embolism. No obvious mediastinal mass or adenopathy. No pleural or pericardial effusion. Minimal pleural thickening left lower chest. Linear densities left lower lobe suggestive of discoid atelectasis. Impression: No evidence of acute pulmonary embolism. Discoid atelectasis left lower lobe. Incidentally noted ascitic fluid in the abdomen.
--- NOTE | 2017-04-09 11:51 | Admit Criteria Form ---
Admission Criteria Documentation: CHEST PAIN Clinical Indications for Admission to Inpatient Care (Place 'X' for any and all applicable criteria): Admission is indicated for chest pain and ANY ONE of the following(1)(2)(3)(4)(5 ): [ ]I. Angina with acute coronary syndrome (Also use Myocardial Infarction or Angina guideline) [ ]II. Hemodynamic instability [ X]III. Angina needing acute intervention as indicated by ALL of the following (11)(12): [ X]a) Unstable angina is present as indicated by angina that is ANY ONE of the following: [ ]i) New onset [ X]ii) Nocturnal [ ]iii) Prolonged at rest [ ]iv) Progressive [X ]b) Angina warrants acute intervention as indicated by ANY ONE of the following: [ ]i) Recurrent angina (e.g, not responding as previously to treatment) [ ]ii) Angina at rest or with low-level activities despite initial medical therapy [ ]iii) New or presumably new ST-segment depression on ECG [ ]iv) Signs or symptoms of heart failure (eg, dyspnea, pulmonary edema) [ ]v) New or worsening mitral regurgitation [ ]vi) Hemodynamic instability [ ]vii) Dangerous arrhythmia (eg, sustained ventricular tachycardia) [ ]viii) History of percutaneous coronary intervention within 6 months [ ]ix) History of coronary artery bypass graft surgery [X ]x) SAMANTA risk score of 2 or greater[A] [ ]xi) History of Diabetes(14) [ ]xii) High-risk cardiac ischemia findings on noninvasive testing (e.g, echocardiogram, treadmill testing, nuclear scan) [ ]xiii) Chronic renal insufficiency (ie, estimated GFR less than 60 mL/min/1.732m) [ ]xiv) Left ventricular ejection fraction less than 40% [ ]IV. Evidence of [place] (eg, cardiac biomarkers positive, ST-segment elevation on ECG) also use Myocardial Infarction Criteria Form. [ ]V. Pulmonary edema [ ]. Respiratory distress [ ]VII. Chest pain indicative of serious diagnosis other than coronary artery disease (eg, aortic dissection) [ ]VIII. Contraindications and/or Inappropriate clinical situations for Observational Care in patients with Chest Pain, when ANY ONE of the following is required: [ ]a) Patient with risk factor for pulmonary embolism, acute coronary syndrome and myocardial infarction (18) [ ]b) Patient with Pulmonary embolism require an average LOS of 4.3 days, therefore emergency department observation management is inappropriate 18,23 [ ]c) Painful condition/s in the elderly, have the highest rate of recidivism after emergency department observation management (10.8%) 20,21,22 [ ]d) Elevated cardiac biomarker requires intensive and exhaustive care (19) [ ]IX. General contraindications and/or Inappropriate clinical situations for Observational Care in patients with Chest Pain, when ANY ONE of the following is required: [ ]a) Prediction of prolongation of LOS based on ANY ONE of the following may be considered as a contraindication for observational care 2, 3, 4, 5, 6, 7, 8, 9, 10, 11 [ ]i) Age > 65 yrs. [ ]ii) Patient arriving by ambulance [ ]iii) Patient with high acuity [ ]iv) Patient requiring vital sign monitoring [ ]v) Patient on IV medication [ ]b) Systolic blood pressures 180mmHg 3,12 [ ]c) Patient with altered mental status including delirium and other alteration of consciousness, (3) [ ]d) Patient whose discharge disposition will be to a halfway home or rehabilitation home should not be managed in Emergency Department Observation Unit. CMS rule requires 3 days hospital stay before such placement. 3,13 [ ]e) Patient with failure to thrive due to broad array of etiologies 3,16,17 [ ]f) Inability to ambulate 3,14 Extended stay beyond goal length of stay may be needed for (1)(28): [ ]a) Specific condition diagnosed after evaluation (eg, pulmonary embolism, aortic dissection) [ ]b) Unstable angina [ ]c) Continued suspicion of acute coronary syndrome with inability to complete needed cardiac evaluation (eg, patient clinically unable to undergo stress testing) [ ]d) Myocardial infarction (Contents from ANGINA and CHEST PAIN clinical indications for admission to inpatient care have been integrated in this form) The original [employer] content created by [employer] has been revised. The portions of the content which have been revised are identified through the use of italic text or in bold, and [facility] [employer] has neither reviewed nor approved the modified material. All other unmodified content is copyright [employer]. Please see references footnoted in the original [facility] edition 2016 Admission Criteria Met: Yes
--- NOTE | 2017-04-09 13:09 | History and Physical Report ---
Medications and Allergies Allergies Allergy/AdvReac Type Severity Reaction Status Date / Time aspirin Allergy Swelling Verified 01/01/17 15:09 Home Medications Medication Instructions Recorded Confirmed Last Taken Type Lisinopril [Zestril TAB] 40 mg PO QDAY #30 tablet 01/03/17 04/09/17 04/08/17 Rx Lovastatin [Altoprev] 40 mg PO QPM #30 tab.er.24h 01/03/17 04/09/17 04/08/17 Rx metFORMIN [Glucophage] 500 mg PO BIDDIAB #60 tablet 01/03/17 04/09/17 04/08/17 Rx Furosemide [Lasix] 20 mg PO QDAY 04/09/17 04/09/17 04/08/17 History Metoprolol [Lopressor TAB] 50 mg PO BID 04/09/17 04/09/17 04/08/17 History Warfarin [Coumadin] 10 mg PO DAILY 04/09/17 04/09/17 04/08/17 History Exam - Constitutional Vitals: Temp Pulse Resp BP Pulse Ox 97.7 F 94 H 20 171/110 100 04/09/17 11:20 04/09/17 11:20 04/09/17 11:20 04/09/17 11:20 04/09/17 11:20 Results - Labs CBC & Chem 7: 04/09/17 03:41 04/09/17 03:41 Labs: Abnormal lab results 04/09/17 04/09/17 04/09/17 Range/Units 03:30 03:41 03:41 MCV 68 L (79-97) fl MCH 22 L (28-32) pg RDW 21.7 H (13.2-15.2) % [place] % (Auto) 11.5 H (0.0-7.3) % PT (12.2-14.9) Sec. INR (0.87-1.13) D-Dimer (0-234) ng/mlDDU Sodium 136 L (137-145) mmol/L Glucose 121 H (65-100) mg/dL POC Glucose 131 H (70-105) NT-Pro-B Natriuret Pep (0-450) pg/mL 04/09/17 04/09/17 Range/Units 08:33 08:33 MCV (79-97) fl MCH (28-32) pg RDW (13.2-15.2) % [place] % (Auto) (0.0-7.3) % PT 21.5 H (12.2-14.9) Sec. INR 1.76 H (0.87-1.13) D-Dimer 2332.13 H (0-234) ng/mlDDU Sodium (137-145) mmol/L Glucose (65-100) mg/dL POC Glucose (70-105) NT-Pro-B Natriuret Pep 2019 H (0-450) pg/mL
[2017-04-09] MEDS ORDERED: APRESOLINE IV ONE (14:00)
[2017-04-10 05:30] VITALS: BP 166/113
== END 2017-04-10 06:18 | disposition admitted as inpatient to this hospital (09) ==
LOC: ED 03:17
DX: I10 Essential (primary) hypertension (principal); I50.9 Heart failure, unspecified; I42.9 Cardiomyopathy, unspecified; E11.9 Type 2 diabetes mellitus without complications; J45.909 Unspecified asthma, uncomplicated
CPT/HCPCS: 36415; 71010; 71275; 80048; 82962; 83880; 84484; 85025; 85379; 85610; 85730; 93005; 93010; 94640; 96374; 96375; 99285; J0360; J2270; Q9967

== ENCOUNTER 2017-06-23 14:34 | Inpatient (IN) | payer SELFPAY ==
[2017-06-23 15:50] LABS: Basophils % (Auto) 0.5 % (0.0-1.8); Eosinophils % (Auto) 0.6 % (0.0-4.3); Hematocrit 35.4 % (30.3-42.9); Hemoglobin 11.2 gm/dl (10.1-14.3); Mean Corpuscular HGB Conc 32 % (30-34); Platelet Count 252 K/mm3 (140-440); Red Blood Count 5.06 M/mm3 (3.65-5.03)
[2017-06-23 15:51] LABS: Mean Corpuscular Hemoglobin 22 pg (28-32); Mean Corpuscular Volume 70 fl (79-97); Red Cell Distribution Width 24.8 % (13.2-15.2)
--- NOTE | 2017-06-23 15:51 | XRay Report ---
Chest 2 views. History: Shortness of breath. Findings: Stable cardiomegaly is present. The pulmonary vessels are normal. The lungs are clear. There is no pleural fluid. Impression: Cardiomegaly with no acute findings or interval changes since April 09, 2017.
[2017-06-23 19:23] LABS: Alanine Aminotransferase 8 units/L (7-56); Albumin 3.9 g/dL (3.9-5); Albumin/Globulin Ratio 1.3 %; Alkaline Phosphatase 97 units/L (35-129); Anion Gap 16 mmol/L; BUN/Creatinine Ratio 17; Blood Urea Nitrogen 12 mg/dL (7-17); Calcium 8.9 mg/dL (8.4-10.2); Carbon Dioxide 25 mmol/L (22-30); Chloride 99.8 mmol/L (98-107); Glucose 105 mg/dL (65-100); Potassium 4.2 mmol/L (3.6-5.0); Sodium 137 mmol/L (137-145)
[2017-06-23] MEDS ORDERED: MORPHINE IV ONE (20:18)
[2017-06-23] MEDS ORDERED: ZOFRAN IV ONE (20:18)
--- NOTE | 2017-06-23 20:28 | Emergency Department Report ---
HPI - General Chief Complaint: Chest Pain Time Seen by Provider: 06/23/17 20:10 - HPI HPI: Room 25 The patient is a 47-year-old female presenting with chief complaint chest pain and vaginal bleeding. The patient states she is nausea and vomiting for one week. The patient states yesterday she felt as though her abdomen began swelling. Patient states this morning she developed constant left-sided chest pain described as pushing in nature. The patient states the pain associated with shortness of breath, nausea/vomiting and diaphoresis. The patient currently gives her pain score of 9/10. The patient states she's never had a stress test or cardiac catheterization. Of note the patient states she had vaginal bleeding 4 days ago which required 3 pads but then she developed vaginal spotting for the days following up until yesterday when all bleeding stopped. The patient states she ran out of her Coumadin 5 days ago Location: Left chest, pelvis Duration: [see above] Quality: Pushing Severity: 9/10 Modifying factors: [see above] Context: [see above] Mode of transportation: Unknown ED Past Medical Hx - Past Medical History Previous Medical History?: Yes Hx Hypertension: Yes Hx CVA: Yes (2014, acute basal ganglia stroke on mri 10/2016) Hx Congestive Heart Failure: Yes (EF 15% on echo 07/2016) Hx Diabetes: Yes Hx Pulmonary Embolism: Yes (January 2015) Hx Kidney Stones: Yes Hx Asthma: Yes Additional medical history: murmur. blood clot removal from brain, hx of CVA ( june,) - Surgical History Hx Cholecystectomy: Yes Additional Surgical History: tubal ligation - Family History Family history: no significant - Social History Smoking Status: Never Smoker Substance Use Type: None - Medications Home Medications: Home Medications Medication Instructions Recorded Confirmed Last Taken Type Furosemide [Lasix] 20 mg PO BID #60 tablet 04/09/17 Unknown Rx Lisinopril [Zestril TAB] 40 mg PO QDAY #30 tablet 04/09/17 Unknown Rx Lovastatin [Altoprev] 40 mg PO QPM #30 tab.er.24h 04/09/17 Unknown Rx Metoprolol [Lopressor TAB] 50 mg PO BID #60 tablet 04/09/17 Unknown Rx Warfarin [Coumadin] 10 mg PO DAILY #30 tablet 04/09/17 Unknown Rx Warfarin [Coumadin] 10 mg PO QDAY #30 tablet 04/09/17 Unknown Rx metFORMIN [Glucophage] 500 mg PO BIDDIAB #60 tablet 04/09/17 Unknown Rx ED Review of Systems ROS: Stated complaint: CP & ABD. PAIN, VAG BLEED Other details as noted in HPI Comment: All other systems reviewed and negative Constitutional: diaphoresis Eyes: denies: eye pain, eye discharge, vision change ENT: denies: ear pain, throat pain Respiratory: shortness of breath Cardiovascular: chest pain Endocrine: no symptoms reported Gastrointestinal: nausea, vomiting Genitourinary: abnormal menses. denies: urgency, dysuria, discharge Musculoskeletal: denies: back pain, joint swelling, arthralgia Skin: denies: rash, lesions Neurological: denies: headache, weakness, paresthesias Psychiatric: denies: anxiety, depression Hematological/Lymphatic: denies: easy bleeding, easy bruising Physical Exam - Physical Exam Vital Signs: Vital Signs 06/23/17 06/23/17 15:06 18:43 Temperature 98.2 F 97.7 F Pulse Rate 116 H 113 H Respiratory 16 18 Rate Blood Pressure 155/106 Blood Pressure 157/123 [Right] O2 Sat by Pulse 98 100 Oximetry Physical Exam: GENERAL: The patient is well-developed well-nourished female lying on stretcher not appearing to be in acute distress. [] HEENT: Normocephalic. Atraumatic. Extraocular motions are intact. Patient has moist mucous membranes. NECK: Supple. Trachea midline CHEST/LUNGS: Clear to auscultation. There is no respiratory distress noted. HEART/CARDIOVASCULAR: Regular. There is no tachycardia. There is no gallop rub or murmur. ABDOMEN: Abdomen is soft, nontender. Patient has normal bowel sounds. There is no abdominal distention. SKIN: There is no rash. There is no edema. There is no diaphoresis. NEURO: The patient is awake, alert, and oriented. The patient is cooperative. The patient has normal speech MUSCULOSKELETAL: There is no evidence of acute injury. ED Course Vital Signs 06/23/17 06/23/17 15:06 18:43 Temperature 98.2 F 97.7 F Pulse Rate 116 H 113 H Respiratory 16 18 Rate Blood Pressure 155/106 Blood Pressure 157/123 [Right] O2 Sat by Pulse 98 100 Oximetry ED Medical Decision Making - Lab Data Result diagrams: 06/23/17 15:20 06/23/17 15:20 Laboratory Tests 06/23/17 06/23/17 06/23/17 15:20 15:20 15:20 WBC 6.0 RBC 5.06 H Hgb 11.2 Hct 35.4 MCV 70 L MCH 22 L MCHC 32 RDW 24.8 H Plt Count 252 Lymph % (Auto) 30.9 [place] % (Auto) 13.8 H Eos % (Auto) 0.6 Baso % (Auto) 0.5 Lymph # 1.8 [place] # 0.8 Eos # 0.0 Baso # 0.0 Seg Neutrophils % 54.2 Seg Neutrophils # 3.2 PT INR APTT Sodium 137 Potassium 4.2 Chloride 99.8 Carbon Dioxide 25 Anion Gap 16 BUN 12 Creatinine 0.7 Estimated GFR > 60 BUN/Creatinine Ratio 17 Glucose 105 H Calcium 8.9 Total Bilirubin 2.90 H AST 14 ALT 8 Alkaline Phosphatase 97 Troponin T < 0.010 NT-Pro-B Natriuret Pep 2281 H Total Protein 7.0 Albumin 3.9 Albumin/Globulin Ratio 1.3 HCG, Qual 06/23/17 06/23/17 20:18 20:18 WBC RBC Hgb Hct MCV MCH MCHC RDW Plt Count Lymph % (Auto) [place] % (Auto) Eos % (Auto) Baso % (Auto) Lymph # [place] # Eos # Baso # Seg Neutrophils % Seg Neutrophils # PT 19.9 H INR 1.61 H APTT 33.1 Sodium Potassium Chloride Carbon Dioxide Anion Gap BUN Creatinine Estimated GFR BUN/Creatinine Ratio Glucose Calcium Total Bilirubin AST ALT Alkaline Phosphatase Troponin T NT-Pro-B Natriuret Pep Total Protein Albumin Albumin/Globulin Ratio HCG, Qual Negative - EKG Data -: EKG Interpreted by Me EKG shows normal: sinus rhythm Rate: tachycardia (112 bpm) - EKG Data When compared to previous EKG there are: no significant change Interpretation: unchanged when compared t (04/09/2017), nonspecific ST-T wave vy (T-wave inversions in leads V5, V6) - Radiology Data Radiology results: pending (pelvic ultrasound), report reviewed (CT chest), image reviewed (chest x-ray, CT chest) interpreted by me: Chest x-ray- cardiomegaly. No focal infiltrate, no pneumothorax CT chest (read by radiologist)-no definite acute pulmonary embolism is identified. Moderate left-sided pleural effusion. Cardiomegaly. There is reflux of contrast into the hepatic veins. This is a nonspecific finding. It may be related to relative contrast injection that can be seen associated with right heart failure. Low-density ascites is seen in the visualized portion of the abdomen. There is body wall edema. This may indicate anasarca - Differential Diagnosis ACS, GERD, pericarditis, postmenopausal bleeding, uterine cancer Critical care attestation.: If time is entered above; I have spent that time in minutes in the direct care of this critically ill patient, excluding procedure time. ED Disposition Clinical Impression: Chest pain, Postmenopausal vaginal bleeding, Shortness of breath Disposition: OP ADMIT IP TO THIS HOSP Is pt being admited?: Yes Does the pt Need Aspirin: No Condition: Fair Instructions: Chest Pain (ED) Referrals: PRIMARY CARE, [Primary Care Provider] - 3-5 Days Time of Disposition: 23:30 (hospitalist notified)
[2017-06-23 20:42] LABS: INR 1.61 (0.87-1.13)
[2017-06-23 20:43] LABS: Partial Thromboplastin Time 33.1 Sec. (24.2-36.6)
--- NOTE | 2017-06-23 21:30 | Cat Scan Report ---
FINAL REPORT EXAM: CT ANGIO CHEST HISTORY: chest pain, shortness of breath TECHNIQUE: Serial axial images through the chest during intravenous administration of 100 milliliters Omni 350 contrast with coronal, sagittal and oblique MIP reconstruction PRIORS: CT scan of the chest from 04/09/2017 FINDINGS: There is atelectasis in left lung base. No pleural effusion is seen. There is a moderate size left pleural effusion. The heart measures approximately 17.4 centimeters in length. No mediastinal adenopathy is identified. No abnormal filling defects are identified in the pulmonary arteries. There is reflux of contrast into the hepatic veins. There is low-density ascites in the upper abdomen. There is stranding in the subcutaneous fat of the body wall suggesting edema. No acute osseous abnormality is identified. There are degenerative changes in the spine. IMPRESSION: 1. No definite acute pulmonary embolism is identified. 2. Moderate size left pleural effusion. 3. Cardiomegaly. 4. There is reflux of contrast into the hepatic veins. This is a nonspecific finding. It may be related to rate of contrast injection, but can be seen associated with right heart failure. 5. Low-density ascites is seen in the visualized portion of the abdomen. There is body wall edema noted. This may indicate anasarca.
--- NOTE | 2017-06-23 23:43 | History and Physical Report ---
History of Present Illness Date of examination: 06/23/17 History of present illness: 45 -year-old woman in a history of hypertension, CHF, hyperlipidemia, history of PE on Coumadin comes emergency room with complaints of chest pain. She has been having chest pain which she stated as a sharp pain, intermittent for an hour t, intensity 7/10, no radiation. Patient states she ran out of her medication one week ago. Denies nausea vomiting, shortness of breath, diaphoresis palpitation Review Of Systems: Constitutional: no weight loss Ears, eyes, nose, mouth and throat: no nasal congestion, no nasal discharge, no sinus pressure, blurry vision, diplopia Neck: No neck pain or rigidity. Cardiovascular: no orthopnea, palpitations Respiratory: No shortness of breath, cough Gastrointestinal: abdominal pain, hematochezia Genitourinary : no dysuria, frequency , hematuria Musculoskeletal: no muscle ache Integumentary: no rash, no pruritis Neurological: no parathesias, focal weakness Endocrine: no cold or heat intolerance, no polyuria or polydipsia Hematologic/Lymphatic: no easy bruising, no easy bleeding, no gland swelling Allergic/Immunologic: no urticaria, no angioedema. PAST SURGICAL HISTORY: Tubal ligation SOCIAL HISTORY: Denies alcohol, tobacco, drugs FAMILY HISTORY: Coronary artery disease Medications and Allergies Allergies Allergy/AdvReac Type Severity Reaction Status Date / Time aspirin Allergy Swelling Verified 01/01/17 15:09 Home Medications Medication Instructions Recorded Confirmed Last Taken Type Furosemide [Lasix] 20 mg PO BID #60 tablet 04/09/17 Unknown Rx Lisinopril [Zestril TAB] 40 mg PO QDAY #30 tablet 04/09/17 Unknown Rx Lovastatin [Altoprev] 40 mg PO QPM #30 tab.er.24h 04/09/17 Unknown Rx Metoprolol [Lopressor TAB] 50 mg PO BID #60 tablet 04/09/17 Unknown Rx Warfarin [Coumadin] 10 mg PO DAILY #30 tablet 04/09/17 Unknown Rx Warfarin [Coumadin] 10 mg PO QDAY #30 tablet 04/09/17 Unknown Rx metFORMIN [Glucophage] 500 mg PO BIDDIAB #60 tablet 04/09/17 Unknown Rx Exam - Physical Exam Narrative exam: Gen. appearance: Patient lying in bed in no acute distress HEENT: Normocephalic/atraumatic, pupils equal round reactive to light, extra alkaline movement intact, no scleral icterus, no JVD or thyromegaly or nodule, neck is supple, mucous membrane moist, no erythema or exudate Heart: S1-S2, regular rate and rhythm Lungs: Clear to auscultation bilateral breathing comfortable Abdomen: Positive bowel sounds, nontender, nondistended, no organomegaly Extremities: +edema, cyanosis, clubbing Neuro:: Oriented 3 , cranial nerves II-12 intact, speech, motor intact Skin: No rash, nodules, warm dry - Constitutional Vitals: Temp Pulse Resp BP Pulse Ox 97.7 F 91 H 18 161/112 100 06/23/17 18:43 06/23/17 20:47 06/23/17 20:48 06/23/17 20:47 06/23/17 20:47 Results - Labs CBC & Chem 7: 06/23/17 15:20 06/23/17 15:20 Labs: Abnormal lab results 06/23/17 06/23/17 06/23/17 Range/Units 15:20 15:20 20:18 RBC 5.06 H (3.65-5.03) M/mm3 MCV 70 L (79-97) fl MCH 22 L (28-32) pg RDW 24.8 H (13.2-15.2) % [place] % (Auto) 13.8 H (0.0-7.3) % PT 19.9 H (12.2-14.9) Sec. INR 1.61 H (0.87-1.13) Glucose 105 H (65-100) mg/dL Total Bilirubin 2.90 H (0.1-1.2) mg/dL NT-Pro-B Natriuret Pep 2281 H (0-450) pg/mL - Imaging and Cardiology EKG: image reviewed Chest x-ray: image reviewed CT scan - chest: report reviewed Assessment and Plan Assessment Hypertensive urgency Chest pain, rule out ACS History of PE with subtherapeutic INR CHF, stable Diabetes type 2 Hyperlipidemia Plan Admit to medicine Check cardiac enzymes, obtain stress test Restart outpatient medications, give a dose of IV Lasix for lower extremity edema Check fingersticks and initiate insulin sliding scale DVT prophylaxis initiated
--- NOTE | 2017-06-24 00:12 | Ultrasound Report ---
FINAL REPORT EXAM: US PELVIC COMPLETE HISTORY: postmenopausal vaginal bleeding TECHNIQUE: Transabdominal pelvic ultrasound was performed in multiple grayscale sonographic images were obtained of the uterus and adnexa PRIORS: Transabdominal pelvic ultrasound from 06/23/2017 FINDINGS: Uterus measures approximately 9.4 x 5.3 x 4.8 centimeters. Endometrial stripe thickness is estimated at 3.4 millimeters. Right ovary is not well seen. Left ovary measures approximately 2.9 x 2.6 x 2.8 centimeters. There is a 2.2 centimeter cyst in the left ovary. Large volume ascites is noted. IMPRESSION: 1. Nonvisualization of the right ovary. 2. Endometrial stripe thickness appears within normal limits. The patient can be further assessed with MRI or sonohysterography if indicated. 3. Ascites is noted. This can be further assessed with percutaneous sampling if indicated.
--- NOTE | 2017-06-24 00:14 | Ultrasound Report ---
FINAL REPORT EXAM: US TRANSVAGINAL HISTORY: postmenopausal vaginal bleeding TECHNIQUE: Endovaginal ultrasound was performed in multiple grayscale sonographic images were obtained of uterus and adnexa PRIORS: Transabdominal pelvic ultrasound from 06/23/2017 FINDINGS: Uterus measures approximately 8 x 4.5 x 4.9 centimeters. Endometrial stripe thickness is estimated at 8.8 millimeters. Ovaries are not well seen. IMPRESSION: 1. Ovaries are incompletely evaluated in this study. 2. Endometrial stripe thickness is estimated 8.8 millimeters. In the endovaginal exam, endometrial stripe thickness appears within normal limits. The patient can be further assessed with MRI or sonohysterography. 3. Large volume ascites. This can be further characterized with percutaneous sampling.
[2017-06-24] MEDS ORDERED: COUMADIN PO ONE ×2 (01:00→02:00)
[2017-06-24] MEDS ORDERED: ZOFRAN IV PRN (05:50)
[2017-06-24] MEDS ORDERED: TYLENOL PO PRN (05:50)
[2017-06-24] MEDS ORDERED: MORPHINE IV PRN (05:50)
[2017-06-24] MEDS ORDERED: MILK OF MAGNESIA PO PRN (05:50)
[2017-06-24] MEDS ORDERED: DULCOLAX PR PRN (05:50)
[2017-06-24] MEDS ORDERED: LASIX IV ONE (05:59)
[2017-06-24 07:03] LABS: Creatine Kinase MB 1.1 ng/mL (0.0-4.0)
[2017-06-24 07:07] LABS: Creatine Kinase 41 units/L (30-135)
[2017-06-24] MEDS ORDERED: APRESOLINE IV PRN (08:30)
[2017-06-24] MEDS ORDERED: LEXISCAN IV ONE ×2 (09:08→09:18)
[2017-06-24] MEDS ORDERED: LOPRESSOR PO SCH (10:00)
[2017-06-24] MEDS ORDERED: LASIX PO SCH (10:00)
[2017-06-24] MEDS ORDERED: ZESTRIL PO SCH (10:00)
--- NOTE | 2017-06-24 11:28 | Discharge Summary ---
Providers - Providers Date of Admission: 06/23/17 23:52 Attending physician: JENARO ORTIZ MD 06/24/17 11:23 Consult to Physician [CONS] Routine Reason For Exam: chest pain Consulting Provider: REYNALDO COYLE Primary care physician: AUTUMN MANN MD Hospitalization Condition: Stable Disposition: DC-01 TO HOME OR SELFCARE Time spent for discharge: 35 mins Core Measure Documentation - Core Measures Any of the following diagnoses?: heart failure - Heart Failure Discharge Requirements OLGA LIDIA/ARB for LVSD if EF <40%: Yes Beta ashley at discharge: Yes Exam - Constitutional Vitals: Temp Pulse Resp BP Pulse Ox 97.7 F 127 H 18 165/118 100 06/24/17 01:38 06/24/17 04:43 06/24/17 04:43 06/24/17 04:43 06/24/17 04:43 Plan Activity: advance as tolerated, fall precautions Diet: low cholesterol Special Instructions: record daily weights, record daily BP diary, record blood sugar diary Follow up with: AUTUMN MANN MD [Primary Care Provider] - 3-5 Days REYNALDO COYLE MD [Staff Physician] - 7 Days Forms: Warfarin Discharge Instruction Prescriptions: Furosemide [Lasix TAB] 20 mg PO BID #30 tablet Lisinopril [Zestril TAB] 40 mg PO QDAY #15 tablet Lovastatin [Altoprev] 40 mg PO QPM #30 tab.er.24h Metoprolol [Lopressor TAB] 50 mg PO BID #30 tablet Warfarin [Coumadin] 10 mg PO DAILY #30 tablet Warfarin [Coumadin] 5 mg PO DAILY@1700 #30 tablet
[2017-06-24 11:42] LABS: Creatine Kinase MB 1.5 ng/mL (0.0-4.0)
[2017-06-24 11:45] LABS: Creatine Kinase 64 units/L (30-135)
[2017-06-24 13:41] VITALS: BP 122/86
--- NOTE | 2017-06-24 16:01 | Treadmill Report ---
NUCLEAR PERFUSION SCAN STRESS TEST REFERRING PHYSICIAN: Evy Wiggins MD. PROTOCOL: The patient was brought to the stress lab in a postabsorptive state, given 10 mCi of technetium 99m at rest. The patient underwent rest imaging. The patient underwent Lexiscan stress test. At peak stress, the patient was given 28 mCi of technetium 99m. Shortly thereafter, the patient underwent stress imaging. Raw imaging reveals mild GI artifact. No significant motion artifact. SPECT imaging examined carefully in the horizontal long axis, vertical long axis, and short axis views. Technically somewhat difficult study, but grossly no significant fixed or reversible perfusion defects suggestive of prior infarction or ischemia. Gated wall motion revealed severe global left ventricular hypokinesis with a calculated ejection fraction of 31%. CONCLUSIONS: 1. Normal myocardial perfusion scan without evidence of active ischemia or prior infarction. 2. Severe global left ventricular dysfunction with a calculated ejection fraction of 31%. JOB# [id number] LEONARDO/DAVID
[2017-06-24] MEDS ORDERED: COUMADIN PO SCH (17:00)
[2017-06-24] MEDS ORDERED: ZOCOR PO SCH (22:00)
== END 2017-06-24 17:00 | disposition home or self-care (01) | DRG 305 ==
LOC: ED 14:34 → 4A 23:52
PROVIDERS: ADMIT Internal Medicine; ATTEND Internal Medicine
DX: I16.0 Hypertensive urgency (principal); I50.9 Heart failure, unspecified; N95.0 Postmenopausal bleeding; E78.5 Hyperlipidemia, unspecified; J45.909 Unspecified asthma, uncomplicated; I11.0 Hypertensive heart disease with heart failure; E11.9 Type 2 diabetes mellitus without complications; Z86.73 Personal history of transient ischemic attack (TIA), and cerebral infarction without residual deficits; Z86.711 Personal history of pulmonary embolism; Z87.442 Personal history of urinary calculi; Z98.51 Tubal ligation status; Z90.49 Acquired absence of other specified parts of digestive tract; Z79.01 Long term (current) use of anticoagulants; Z82.49 Family history of ischemic heart disease and other diseases of the circulatory system; Z88.6 Allergy status to analgesic agent; Z79.84 Long term (current) use of oral hypoglycemic drugs; Z79.899 Other long term (current) drug therapy
CPT/HCPCS: 36415; 71020; 71275; 76830; 76856; 78452; 80053; 82550; 82553; 83880; 84484; 84703; 85025; 85610; 85730; 93005; 93010; 93017; 96374; 96375; A9502; J1940; J2270; J2405; J2785; Q9967

== ENCOUNTER 2017-06-26 01:42 | Inpatient (IN) | payer OTHER ==
--- NOTE | 2017-06-26 01:49 | Emergency Department Report ---
ED Neuro Deficit HPI - General Chief Complaint: Neuro Symptoms/Deficit Stated Complaint: POSSIBLE STROKE Time Seen by Provider: 06/26/17 01:48 Source: family, EMS Mode of arrival: Stretcher Limitations: Altered Mental Status - History of Present Illness Initial Comments: Patient is a 47-year-old female past medical history of stroke, hypertension and diabetes who presents with left-sided weakness. Patient history is limited due to patient not able to verbalize. History obtained by the patient's son patient's son noticed patient was having difficulty moving her left side of her body and have left facial droop. He states that he noticed that at 11 PM however he doesn't know the exact time this occurred. Patient has had a history of a stroke before. Patient is on warfarin for her PE. - Related Data Home Medications: Previous Rx's Medication Instructions Recorded Last Taken Type metFORMIN [Glucophage] 500 mg PO BIDDIAB #60 tablet 04/09/17 1 Day Ago Rx Furosemide [Lasix TAB] 20 mg PO BID #30 tablet 06/24/17 Unknown Rx Lisinopril [Zestril TAB] 40 mg PO QDAY #15 tablet 06/24/17 Unknown Rx Lovastatin [Altoprev] 40 mg PO QPM #30 tab.er.24h 06/24/17 Unknown Rx Metoprolol [Lopressor TAB] 50 mg PO BID #30 tablet 06/24/17 Unknown Rx Warfarin [Coumadin] 5 mg PO DAILY@1700 #30 tablet 06/24/17 Unknown Rx Warfarin [Coumadin] 10 mg PO DAILY #30 tablet 06/24/17 Unknown Rx Allergies/Adverse Reactions: Allergies Allergy/AdvReac Type Severity Reaction Status Date / Time aspirin Allergy Swelling Verified 01/01/17 15:09 ED Review of Systems ROS: Stated complaint: POSSIBLE STROKE Other details as noted in HPI ED Past Medical Hx - Past Medical History Hx Hypertension: Yes Hx CVA: Yes (2014, acute basal ganglia stroke on mri 10/2016) Hx Heart Attack/AMI: No Hx Congestive Heart Failure: Yes (EF 15% on echo 07/2016) Hx Diabetes: Yes Hx Deep Vein Thrombosis: No Hx Pulmonary Embolism: Yes (January 2015) Hx GERD: No Hx Liver Disease: No Hx Renal Disease: No Hx Sickle Cell Disease: No Hx Arthritis: No Hx Headaches / Migraines: No Hx Seizures: No Hx Kidney Stones: Yes Hx Psychiatric Treatment: No Hx Asthma: Yes Hx COPD: No Hx Tuberculosis: No Hx Dementia: No Hx HIV: No Additional medical history: murmur. blood clot removal from brain, hx of CVA ( june,) - Surgical History Hx Coronary Stent: No Hx Open Heart Surgery: No Hx Pacemaker: No Hx Internal Defibrillator: No Hx Cholecystectomy: Yes Hx Appendectomy: No Hx Breast Surgery: No Additional Surgical History: tubal ligation - Social History Smoking Status: Former Smoker - Medications Home Medications: Home Medications Medication Instructions Recorded Confirmed Last Taken Type metFORMIN [Glucophage] 500 mg PO BIDDIAB #60 tablet 04/09/17 06/24/17 1 Day Ago Rx Furosemide [Lasix TAB] 20 mg PO BID #30 tablet 06/24/17 Unknown Rx Lisinopril [Zestril TAB] 40 mg PO QDAY #15 tablet 06/24/17 Unknown Rx Lovastatin [Altoprev] 40 mg PO QPM #30 tab.er.24h 06/24/17 Unknown Rx Metoprolol [Lopressor TAB] 50 mg PO BID #30 tablet 06/24/17 Unknown Rx Warfarin [Coumadin] 5 mg PO DAILY@1700 #30 tablet 06/24/17 Unknown Rx Warfarin [Coumadin] 10 mg PO DAILY #30 tablet 06/24/17 Unknown Rx ED Neuro Physical Exam - General Limitations: Altered Mental Status General appearance: alert Suspected Stroke: Yes - Head Head exam: Present: atraumatic - Eye Eye exam: Present: EOMI, other (left sided facial droop ) - ENT ENT exam: Present: other (right lymphadenopathy ttp ) - Neck Neck exam: Present: tenderness, lymphadenopathy - Respiratory Respiratory exam: Present: rhonchi - Cardiovascular Cardiovascular Exam: Present: regular rate, normal rhythm. Absent: systolic murmur, diastolic murmur, rubs, gallop - GI/Abdominal GI/Abdominal exam: Present: soft, normal bowel sounds - Extremities Exam Extremities exam: Present: other (patient is not moving her left arm and leg ) - Neurological Exam Neurological exam: Present: alert - NIHSS Assessment Interval: 24 hours post onset of symptoms +-20 minutes 1a. Level of Consciousness: alert 1b. LOC Questions: answers 1 question correctly 1c. LOC Commands: performs 1 task correctly 2. Best Gaze: normal 3. Visual: no visual loss 4. Facial Palsy: minor paralysis 5b. Motor Arm Right: no drift 5a. Motor Arm Left: no drift 6a. Motor Leg Left: no movement 6b. Motor Leg Right: no movement 7. Limb Ataxia: absent 8. Sensory: mild/moderate sensory loss 9. Best Language: mild/moderate aphasia 10. Dysarthria: mild/moderate dysarthria 11. Extinction/Inattention: no abnormality Total Score: 14 Stroke Severity: Moderate Stroke - Psychiatric Psychiatric exam: Present: normal affect - Skin Skin exam: Present: warm ED Course Vital Signs 06/26/17 06/26/17 06/26/17 03:06 03:15 03:43 Pulse Rate 76 Respiratory 24 Rate Blood Pressure 149/100 149/100 O2 Sat by Pulse 100 100 100 Oximetry 06/26/17 06/26/17 06/26/17 03:45 03:58 03:59 Pulse Rate 82 79 Respiratory 15 18 Rate Blood Pressure 155/114 O2 Sat by Pulse 99 100 Oximetry 06/26/17 06/26/17 04:00 04:15 Pulse Rate 80 82 Respiratory 16 32 H Rate Blood Pressure 161/107 157/109 O2 Sat by Pulse 100 95 Oximetry - Consultations Consultation #1: 06/26/17 05:10 Consulted on tele neurology. Due to patient not having a known onset of symptoms patient is not a TPA candidate as she falls outside the window. I will order a CT angiogram and patient will be admitted to the hospitalist service. - Lab Data Result diagrams: 06/26/17 01:50 06/26/17 01:50 Lab Results 06/26/17 06/26/17 06/26/17 Range/Units 01:50 01:50 01:50 WBC 6.6 (4.5-11.0) K/mm3 RBC 4.83 (3.65-5.03) M/mm3 Hgb 11.0 (10.1-14.3) gm/dl Hct 33.0 (30.3-42.9) % MCV 69 L (79-97) fl MCH 23 L (28-32) pg MCHC 33 (30-34) % RDW 24.2 H (13.2-15.2) % Plt Count 235 (140-440) K/mm3 Lymph % (Auto) 25.8 (13.4-35.0) % [place] % (Auto) 9.1 H (0.0-7.3) % Eos % (Auto) 0.7 (0.0-4.3) % Baso % (Auto) 0.4 (0.0-1.8) % Lymph # 1.7 (1.2-5.4) K/mm3 [place] # 0.6 (0.0-0.8) K/mm3 Eos # 0.0 (0.0-0.4) K/mm3 Baso # 0.0 (0.0-0.1) K/mm3 Seg Neutrophils % 64.0 (40.0-70.0) % Seg Neutrophils # 4.2 (1.8-7.7) K/mm3 PT (12.2-14.9) Sec. INR (0.87-1.13) Sodium 139 (137-145) mmol/L Potassium 3.9 (3.6-5.0) mmol/L Chloride 99.9 (98-107) mmol/L Carbon Dioxide 26 (22-30) mmol/L Anion Gap 17 mmol/L BUN 15 (7-17) mg/dL Creatinine 0.7 (0.7-1.2) mg/dL Estimated GFR > 60 ml/min BUN/Creatinine Ratio 21 % Glucose 181 H (65-100) mg/dL Lactic Acid (0.7-2.0) mmol/L Calcium 8.7 (8.4-10.2) mg/dL Magnesium 1.60 L (1.7-2.3) mg/dL Total Bilirubin 2.20 H (0.1-1.2) mg/dL AST 15 (5-40) units/L ALT 10 (7-56) units/L Alkaline Phosphatase 98 (35-129) units/L Total Protein 7.0 (6.3-8.2) g/dL Albumin 3.6 L (3.9-5) g/dL Albumin/Globulin Ratio 1.1 % TSH 7.600 H (0.270-4.200) mlU/mL Urine Color (Yellow) Urine Turbidity (Clear) Urine pH (5.0-7.0) Ur Specific [place] (1.003-1.030) Urine Protein (Negative) mg/dL Urine Glucose (UA) (Negative) mg/dL Urine Ketones (Negative) mg/dL Urine Blood (Negative) Urine Nitrite (Negative) Urine Bilirubin (Negative) Urine Urobilinogen (<2.0) mg/dL Ur Leukocyte Esterase (Negative) Urine WBC (Auto) (0.0-6.0) /HPF Urine RBC (Auto) (0.0-6.0) /HPF U Epithel Cells (Auto) (0-13.0) /HPF Urine Bacteria (Auto) (Negative) /HPF Hyaline Casts /LPF Urine Mucus /HPF Salicylates (2.8-20.0) mg/dL Urine Opiates Screen Urine Methadone Screen Acetaminophen (10.0-30.0) ug/mL Ur Barbiturates Screen Ur Phencyclidine Scrn Ur Amphetamines Screen U Benzodiazepines Scrn Urine Cocaine Screen U Marijuana (THC) Screen Drugs of Abuse Note Plasma/Serum Alcohol (0-0.07) gm% 06/26/17 06/26/17 06/26/17 Range/Units 01:50 01:50 01:50 WBC (4.5-11.0) K/mm3 RBC (3.65-5.03) M/mm3 Hgb (10.1-14.3) gm/dl Hct (30.3-42.9) % MCV (79-97) fl MCH (28-32) pg MCHC (30-34) % RDW (13.2-15.2) % Plt Count (140-440) K/mm3 Lymph % (Auto) (13.4-35.0) % [place] % (Auto) (0.0-7.3) % Eos % (Auto) (0.0-4.3) % Baso % (Auto) (0.0-1.8) % Lymph # (1.2-5.4) K/mm3 [place] # (0.0-0.8) K/mm3 Eos # (0.0-0.4) K/mm3 Baso # (0.0-0.1) K/mm3 Seg Neutrophils % (40.0-70.0) % Seg Neutrophils # (1.8-7.7) K/mm3 PT (12.2-14.9) Sec. INR (0.87-1.13) Sodium (137-145) mmol/L Potassium (3.6-5.0) mmol/L Chloride (98-107) mmol/L Carbon Dioxide (22-30) mmol/L Anion Gap mmol/L BUN (7-17) mg/dL Creatinine (0.7-1.2) mg/dL Estimated GFR ml/min BUN/Creatinine Ratio % Glucose (65-100) mg/dL Lactic Acid (0.7-2.0) mmol/L Calcium (8.4-10.2) mg/dL Magnesium (1.7-2.3) mg/dL Total Bilirubin (0.1-1.2) mg/dL AST (5-40) units/L ALT (7-56) units/L Alkaline Phosphatase (35-129) units/L Total Protein (6.3-8.2) g/dL Albumin (3.9-5) g/dL Albumin/Globulin Ratio % TSH (0.270-4.200) mlU/mL Urine Color (Yellow) Urine Turbidity (Clear) Urine pH (5.0-7.0) Ur Specific [place] (1.003-1.030) Urine Protein (Negative) mg/dL Urine Glucose (UA) (Negative) mg/dL Urine Ketones (Negative) mg/dL Urine Blood (Negative) Urine Nitrite (Negative) Urine Bilirubin (Negative) Urine Urobilinogen (<2.0) mg/dL Ur Leukocyte Esterase (Negative) Urine WBC (Auto) (0.0-6.0) /HPF Urine RBC (Auto) (0.0-6.0) /HPF U Epithel Cells (Auto) (0-13.0) /HPF Urine Bacteria (Auto) (Negative) /HPF Hyaline Casts /LPF Urine Mucus /HPF Salicylates < 0.3 L (2.8-20.0) mg/dL Urine Opiates Screen Urine Methadone Screen Acetaminophen < 15.0 (10.0-30.0) ug/mL Ur Barbiturates Screen Ur Phencyclidine Scrn Ur Amphetamines Screen U Benzodiazepines Scrn Urine Cocaine Screen U Marijuana (THC) Screen Drugs of Abuse Note Plasma/Serum Alcohol < 0.01 (0-0.07) gm% 06/26/17 06/26/17 06/26/17 Range/Units 02:09 02:59 Unknown WBC (4.5-11.0) K/mm3 RBC (3.65-5.03) M/mm3 Hgb (10.1-14.3) gm/dl Hct (30.3-42.9) % MCV (79-97) fl MCH (28-32) pg MCHC (30-34) % RDW (13.2-15.2) % Plt Count (140-440) K/mm3 Lymph % (Auto) (13.4-35.0) % [place] % (Auto) (0.0-7.3) % Eos % (Auto) (0.0-4.3) % Baso % (Auto) (0.0-1.8) % Lymph # (1.2-5.4) K/mm3 [place] # (0.0-0.8) K/mm3 Eos # (0.0-0.4) K/mm3 Baso # (0.0-0.1) K/mm3 Seg Neutrophils % (40.0-70.0) % Seg Neutrophils # (1.8-7.7) K/mm3 PT 27.0 H (12.2-14.9) Sec. INR 2.37 H (0.87-1.13) Sodium (137-145) mmol/L Potassium (3.6-5.0) mmol/L Chloride (98-107) mmol/L Carbon Dioxide (22-30) mmol/L Anion Gap mmol/L BUN (7-17) mg/dL Creatinine (0.7-1.2) mg/dL Estimated GFR ml/min BUN/Creatinine Ratio % Glucose (65-100) mg/dL Lactic Acid 1.50 (0.7-2.0) mmol/L Calcium (8.4-10.2) mg/dL Magnesium (1.7-2.3) mg/dL Total Bilirubin (0.1-1.2) mg/dL AST (5-40) units/L ALT (7-56) units/L Alkaline Phosphatase (35-129) units/L Total Protein (6.3-8.2) g/dL Albumin (3.9-5) g/dL Albumin/Globulin Ratio % TSH (0.270-4.200) mlU/mL Urine Color [place] (Yellow) Urine Turbidity Clear (Clear) Urine pH 5.0 (5.0-7.0) Ur Specific [place] 1.018 (1.003-1.030) Urine Protein 100 mg/dl (Negative) mg/dL Urine Glucose (UA) Neg (Negative) mg/dL Urine Ketones Neg (Negative) mg/dL Urine Blood Sm (Negative) Urine Nitrite Pos (Negative) Urine Bilirubin Neg (Negative) Urine Urobilinogen 4.0 (<2.0) mg/dL Ur Leukocyte Esterase Lg (Negative) Urine WBC (Auto) 12.0 H (0.0-6.0) /HPF Urine RBC (Auto) 3.0 (0.0-6.0) /HPF U Epithel Cells (Auto) 6.0 (0-13.0) /HPF Urine Bacteria (Auto) 2+ (Negative) /HPF Hyaline Casts 1 /LPF Urine Mucus 1+ /HPF Salicylates (2.8-20.0) mg/dL Urine Opiates Screen Urine Methadone Screen Acetaminophen (10.0-30.0) ug/mL Ur Barbiturates Screen Ur Phencyclidine Scrn Ur Amphetamines Screen U Benzodiazepines Scrn Urine Cocaine Screen U Marijuana (THC) Screen Drugs of Abuse Note Plasma/Serum Alcohol (0-0.07) gm% 06/26/17 Range/Units Unknown WBC (4.5-11.0) K/mm3 RBC (3.65-5.03) M/mm3 Hgb (10.1-14.3) gm/dl Hct (30.3-42.9) % MCV (79-97) fl MCH (28-32) pg MCHC (30-34) % RDW (13.2-15.2) % Plt Count (140-440) K/mm3 Lymph % (Auto) (13.4-35.0) % [place] % (Auto) (0.0-7.3) % Eos % (Auto) (0.0-4.3) % Baso % (Auto) (0.0-1.8) % Lymph # (1.2-5.4) K/mm3 [place] # (0.0-0.8) K/mm3 Eos # (0.0-0.4) K/mm3 Baso # (0.0-0.1) K/mm3 Seg Neutrophils % (40.0-70.0) % Seg Neutrophils # (1.8-7.7) K/mm3 PT (12.2-14.9) Sec. INR (0.87-1.13) Sodium (137-145) mmol/L Potassium (3.6-5.0) mmol/L Chloride (98-107) mmol/L Carbon Dioxide (22-30) mmol/L Anion Gap mmol/L BUN (7-17) mg/dL Creatinine (0.7-1.2) mg/dL Estimated GFR ml/min BUN/Creatinine Ratio % Glucose (65-100) mg/dL Lactic Acid (0.7-2.0) mmol/L Calcium (8.4-10.2) mg/dL Magnesium (1.7-2.3) mg/dL Total Bilirubin (0.1-1.2) mg/dL AST (5-40) units/L ALT (7-56) units/L Alkaline Phosphatase (35-129) units/L Total Protein (6.3-8.2) g/dL Albumin (3.9-5) g/dL Albumin/Globulin Ratio % TSH (0.270-4.200) mlU/mL Urine Color (Yellow) Urine Turbidity (Clear) Urine pH (5.0-7.0) Ur Specific [place] (1.003-1.030) Urine Protein (Negative) mg/dL Urine Glucose (UA) (Negative) mg/dL Urine Ketones (Negative) mg/dL Urine Blood (Negative) Urine Nitrite (Negative) Urine Bilirubin (Negative) Urine Urobilinogen (<2.0) mg/dL Ur Leukocyte Esterase (Negative) Urine WBC (Auto) (0.0-6.0) /HPF Urine RBC (Auto) (0.0-6.0) /HPF U Epithel Cells (Auto) (0-13.0) /HPF Urine Bacteria (Auto) (Negative) /HPF Hyaline Casts /LPF Urine Mucus /HPF Salicylates (2.8-20.0) mg/dL Urine Opiates Screen Presumptive negative Urine Methadone Screen Presumptive negative Acetaminophen (10.0-30.0) ug/mL Ur Barbiturates Screen Presumptive negative Ur Phencyclidine Scrn Presumptive negative Ur Amphetamines Screen Presumptive negative U Benzodiazepines Scrn Presumptive negative Urine Cocaine Screen Presumptive negative U Marijuana (THC) Screen Presumptive negative Drugs of Abuse Note Disclamer Plasma/Serum Alcohol (0-0.07) gm% - EKG Data -: EKG Interpreted by Me 06/26/17 05:12 EKG shows sinus rhythm atrial premature complexes prolonged QT interval no ST segment elevation. - Radiology Data Radiology results: report reviewed, image reviewed CT head: No evidence of any acute ischemic stroke or hemorrhage CT angiogram head: Failed study no acute process. - Medical Decision Making Medical diagnosis: Stroke Differential medical diagnosis: Hemorrhagic stroke, hypoglycemia, UTI CBC, CMP, EKG, chest x-ray, troponin, CT head, neurology consult and iv pain medication Due to patient's the having left-sided weakness patient will be admitted to hospital service patient is outside the window for TPA per daniel and Dr. Valentino medical judgment. Discussed plan with patient's son he refused the plan for admission. Critical care attestation.: If time is entered above; I have spent that time in minutes in the direct care of this critically ill patient, excluding procedure time. ED Disposition Clinical Impression: Left-sided weakness CVA (cerebral vascular accident) Qualifiers: CVA mechanism: unspecified Qualified Code(s): I63.9 - Cerebral infarction, unspecified Disposition: DC-09 OP ADMIT IP TO THIS HOSP Is pt being admited?: Yes Does the pt Need Aspirin: No Condition: Stable
[2017-06-26 02:04] LABS: Basophils % (Auto) 0.4 % (0.0-1.8); Eosinophils % (Auto) 0.7 % (0.0-4.3); Mean Corpuscular HGB Conc 33 % (30-34); Platelet Count 235 K/mm3 (140-440); Red Blood Count 4.83 M/mm3 (3.65-5.03); White Blood Count 6.6 K/mm3 (4.5-11.0)
[2017-06-26 02:11] LABS: Mean Corpuscular Hemoglobin 23 pg (28-32); Mean Corpuscular Volume 69 fl (79-97); Red Cell Distribution Width 24.2 % (13.2-15.2)
[2017-06-26] MEDS ORDERED: SUBLIMAZE IV ONE (02:15)
--- NOTE | 2017-06-26 02:26 | Cat Scan Report ---
FINAL REPORT PROCEDURE: CT HEAD/BRAIN WO CON TECHNIQUE: Computerized tomography of the head was performed without contrast material. HISTORY: code stroke COMPARISON: 10/29/2016 FINDINGS: Skull and scalp: Normal. Paranasal sinuses: There is mucosal thickening in the left maxillary sinus.. Ventricles and subarachnoid spaces: There is central and cortical atrophy. There is ex vacuo dilatation of the right lateral ventricle.. Cerebrum: No evidence of hemorrhage, acute infarction or mass. There is encephalomalacia in the right frontal and temporal lobes unchanged from prior study consistent with old infarction. There is chronic periventricular deep white matter ischemic gliosis. Cerebellum and brainstem: No evidence of hemorrhage, acute infarction or mass. Vasculature: Normal. Comments: None. IMPRESSION: There are chronic changes as described. There is no evidence of acute ischemic event or hemorrhage. Nurse Cari was notified by telephone at 1:24 a[place]. [email or web address]
[2017-06-26 02:33] LABS: Alanine Aminotransferase 10 units/L (7-56); Albumin 3.6 g/dL (3.9-5); Albumin/Globulin Ratio 1.1 %; Alkaline Phosphatase 98 units/L (35-129); Anion Gap 17 mmol/L; BUN/Creatinine Ratio 21; Blood Urea Nitrogen 15 mg/dL (7-17); Calcium 8.7 mg/dL (8.4-10.2); Carbon Dioxide 26 mmol/L (22-30); Chloride 99.9 mmol/L (98-107); Glucose 181 mg/dL (65-100); Potassium 3.9 mmol/L (3.6-5.0); Sodium 139 mmol/L (137-145)
[2017-06-26] MEDS ORDERED: NACL ONE (03:01)
[2017-06-26 03:38] LABS: Urine Drugs of Abuse Note Disclamer
[2017-06-26 03:51] LABS: Bacteria,Urine 2+ /HPF (Negative); Bilirubin,Urine NEG (Negative); Blood,Urine SM (Negative); Ketones,Urine NEG (Negative); Leukocyte Esterase,Urine LG (Negative); Mucus,Urine 1+ /HPF; Nitrite,Urine POS (Negative)
[2017-06-26 03:58] LABS: INR 2.37 (0.87-1.13)
[2017-06-26] MEDS ORDERED: SUBLIMAZE ONE (04:18)
--- NOTE | 2017-06-26 04:42 | Cat Scan Report ---
FINAL REPORT PROCEDURE: CT ANGIO HEAD TECHNIQUE: Computerized tomography of the head was performed following the IV injection of iodinated nonionic contrast. HISTORY: stroke symptoms left sided droop COMPARISON: No prior studies are available for comparison. TECHNICAL QUALITY: Failed attempted CT angiogram.. FINDINGS: Skull base, calvarium, and scalp: Normal . Paranasal sinuses: There is mucosal thickening in the left maxillary sinus. Paranasal sinuses are otherwise clear.. Cerebellum and brainstem: No evidence of hemorrhage, ischemia or mass . Cerebrum: There is focal encephalomalacia in the right temporal lobe. There is no acute infarction. There is no hemorrhage, edema, mass, mass effect or midline shift.. Ventricles: Normal in size and morphology for the patient's age . Vasculature: There is faint contrast enhanced opacification of the intracranial arteries and dural sinuses. No thrombosis is identified.. Other: None . IMPRESSION: Failed attempted CT angiogram. Examination is not diagnostic for aneurysm. There is faint intravascular contrast enhancement. There is no specific evidence of acute thrombosis. There is an old right hemispheric infarct. No acute infarction is identified..
[2017-06-26] MEDS ORDERED: DULCOLAX PR PRN (06:24)
[2017-06-26] MEDS ORDERED: SODIUM CHLORIDE FLUSH SYRINGE 10 ML IV PRN (06:24)
[2017-06-26] MEDS ORDERED: MILK OF MAGNESIA PO PRN (06:24)
--- NOTE | 2017-06-26 06:28 | History and Physical Report ---
History of Present Illness Date of examination: 06/26/17 History of present illness: 45 -year-old woman in a history of hypertension, CHF, hyperlipidemia, history of PE on Coumadin comes emergency room with complaints of chest pain. She has been having chest pain which she stated as a sharp pain, intermittent for an hour t, intensity 7/10, no radiation. Patient states she ran out of her medication one week ago. Denies nausea vomiting, shortness of breath, diaphoresis palpitation Review Of Systems: Constitutional: no weight loss Ears, eyes, nose, mouth and throat: no nasal congestion, no nasal discharge, no sinus pressure, blurry vision, diplopia Neck: No neck pain or rigidity. Cardiovascular: no orthopnea, palpitations Respiratory: No shortness of breath, cough Gastrointestinal: abdominal pain, hematochezia Genitourinary : no dysuria, frequency , hematuria Musculoskeletal: no muscle ache Integumentary: no rash, no pruritis Neurological: no parathesias, focal weakness Endocrine: no cold or heat intolerance, no polyuria or polydipsia Hematologic/Lymphatic: no easy bruising, no easy bleeding, no gland swelling Allergic/Immunologic: no urticaria, no angioedema. PAST SURGICAL HISTORY: Tubal ligation SOCIAL HISTORY: Denies alcohol, tobacco, drugs FAMILY HISTORY: Coronary artery disease Medications and Allergies Allergies Allergy/AdvReac Type Severity Reaction Status Date / Time aspirin Allergy Swelling Verified 01/01/17 15:09 Home Medications Medication Instructions Recorded Confirmed Last Taken Type metFORMIN [Glucophage] 500 mg PO BIDDIAB #60 tablet 04/09/17 06/24/17 1 Day Ago Rx Furosemide [Lasix TAB] 20 mg PO BID #30 tablet 06/24/17 Unknown Rx Lisinopril [Zestril TAB] 40 mg PO QDAY #15 tablet 06/24/17 Unknown Rx Lovastatin [Altoprev] 40 mg PO QPM #30 tab.er.24h 06/24/17 Unknown Rx Metoprolol [Lopressor TAB] 50 mg PO BID #30 tablet 06/24/17 Unknown Rx Warfarin [Coumadin] 5 mg PO DAILY@1700 #30 tablet 06/24/17 Unknown Rx Warfarin [Coumadin] 10 mg PO DAILY #30 tablet 06/24/17 Unknown Rx Exam - Physical Exam Narrative exam: Gen. appearance: Patient lying in bed in no acute distress HEENT: Normocephalic/atraumatic, pupils equal round reactive to light, extra alkaline movement intact, no scleral icterus, no JVD or thyromegaly or nodule, neck is supple, mucous membrane moist, no erythema or exudate Heart: S1-S2, regular rate and rhythm Lungs: Clear to auscultation bilateral breathing comfortable Abdomen: Positive bowel sounds, nontender, nondistended, no organomegaly Extremities: +edema, cyanosis, clubbing Neuro:: Oriented 3 , cranial nerves II-12 intact,slurred speech, left hemiparesis Skin: No rash, nodules, warm dry - Constitutional Vitals: Temp Pulse Resp BP Pulse Ox 82 32 H 157/109 95 06/26/17 04:15 06/26/17 04:15 06/26/17 04:15 06/26/17 04:15 Results - Labs CBC & Chem 7: 06/27/17 03:40 06/27/17 03:40 Labs: Abnormal lab results 06/26/17 06/26/17 06/26/17 Range/Units 01:50 01:50 01:50 MCV 69 L (79-97) fl MCH 23 L (28-32) pg RDW 24.2 H (13.2-15.2) % [place] % (Auto) 9.1 H (0.0-7.3) % PT (12.2-14.9) Sec. INR (0.87-1.13) Glucose 181 H (65-100) mg/dL Magnesium 1.60 L (1.7-2.3) mg/dL Total Bilirubin 2.20 H (0.1-1.2) mg/dL Albumin 3.6 L (3.9-5) g/dL TSH 7.600 H (0.270-4.200) mlU/mL Urine WBC (Auto) (0.0-6.0) /HPF Salicylates (2.8-20.0) mg/dL 06/26/17 06/26/17 06/26/17 Range/Units 01:50 02:59 Unknown MCV (79-97) fl MCH (28-32) pg RDW (13.2-15.2) % [place] % (Auto) (0.0-7.3) % PT 27.0 H (12.2-14.9) Sec. INR 2.37 H (0.87-1.13) Glucose (65-100) mg/dL Magnesium (1.7-2.3) mg/dL Total Bilirubin (0.1-1.2) mg/dL Albumin (3.9-5) g/dL TSH (0.270-4.200) mlU/mL Urine WBC (Auto) 12.0 H (0.0-6.0) /HPF Salicylates < 0.3 L (2.8-20.0) mg/dL - Imaging and Cardiology CT Scan - head: report reviewed Assessment and Plan CTA reviewed Assessment Acute CVA Hypertension History of PE with therapeutic INR CHF, stable Diabetes type 2 Hyperlipidemia Plan Admit to medicine Check MR head, echo Do neuro checks, swallow screen Consult physical, occupational therapy, and urology Restart outpatient medications Check fingersticks and initiate insulin sliding scale DVT prophylaxis initiated Replete magnesium
[2017-06-26] MEDS ORDERED: MAGNESIUM SULFATE 1 GM in NACL 0.9% 50 ML IV ONE (08:00)
[2017-06-26] MEDS: MORPHINE IV PRN ×2 (09:07→13:22)
[2017-06-26] MEDS ORDERED: LOVENOX SUB-Q SCH (10:00)
[2017-06-26] MEDS: PLAVIX PO SCH (10:34)
--- NOTE | 2017-06-26 12:10 | Consultation ---
History of Present Illness - Reason for Consult Consult date: 06/26/17 stroke - History of Present Illness I have checked the CT of the head from this AM and there is large old stroke in the right MCA territory noyed very/ large/ chronic doubt she has had new stroke but await the MRI as this is the telling matter on the diffusion weighted images patient is fully alert/ with dense left sided weakness limited speech she could be aphasic or have had " seizure" Medications and Allergies Allergies Allergy/AdvReac Type Severity Reaction Status Date / Time aspirin Allergy Swelling Verified 01/01/17 15:09 Home Medications Medication Instructions Recorded Confirmed Last Taken Type metFORMIN [Glucophage] 500 mg PO BIDDIAB #60 tablet 04/09/17 06/24/17 1 Day Ago Rx Furosemide [Lasix TAB] 20 mg PO BID #30 tablet 06/24/17 Unknown Rx Lisinopril [Zestril TAB] 40 mg PO QDAY #15 tablet 06/24/17 Unknown Rx Lovastatin [Altoprev] 40 mg PO QPM #30 tab.er.24h 06/24/17 Unknown Rx Metoprolol [Lopressor TAB] 50 mg PO BID #30 tablet 06/24/17 Unknown Rx Warfarin [Coumadin] 5 mg PO DAILY@1700 #30 tablet 06/24/17 Unknown Rx Warfarin [Coumadin] 10 mg PO DAILY #30 tablet 06/24/17 Unknown Rx Active Meds: Active Medications Acetaminophen (Tylenol) 650 mg PO Q4H PRN PRN Reason: Pain, Mild (1-3) Bisacodyl (Dulcolax) 10 mg SD QDAY PRN PRN Reason: Constipation Clopidogrel Bisulfate (Plavix) 75 mg PO DAILY [facility] Last Admin: 06/26/17 10:34 Dose: Not Given Magnesium Hydroxide (Milk Of Magnesia) 30 ml PO Q4H PRN PRN Reason: Constipation Morphine Sulfate (Morphine) 2 mg IV Q4H PRN PRN Reason: Pain, Moderate (4-6) Last Admin: 06/26/17 09:07 Dose: 2 mg Ondansetron HCl (Zofran) 4 mg IV Q8H PRN PRN Reason: N/V unrelieved by Reglan Simvastatin (Zocor) 20 mg PO QHS [facility] Sodium Chloride (Sodium Chloride Flush Syringe 10 Ml) 10 ml IV PRN PRN PRN Reason: LINE FLUSH Exam - Constitutional Vitals: Temp Pulse Resp BP Pulse Ox 83 22 154/108 99 06/26/17 10:30 06/26/17 10:30 06/26/17 10:30 06/26/17 10:30 Results - Labs CBC & Chem 7: 06/26/17 01:50 06/26/17 01:50 Labs: Abnormal lab results 06/26/17 Range/Units Unknown Urine WBC (Auto) 12.0 H (0.0-6.0) /HPF
--- NOTE | 2017-06-26 12:26 | Event Note ---
Date: 06/26/17 Patient with left sided weakness. I have seen and examined him. For MRI Brain. Dr. Chen consulted.
[2017-06-26] MEDS: LEVAQUIN 500MG/100ML 500 MG/100 ML BAG IV SCH ×2 (17:56→20:40)
[2017-06-26] MEDS: LASIX IV SCH (17:56)
[2017-06-26] MEDS ORDERED: NON-FORMULARY (Lovastatin [Altoprev] 40 MG) PO SCH (18:00)
[2017-06-26] MEDS: LOPRESSOR PO SCH (23:33)
[2017-06-26] MEDS: ZOCOR PO SCH (23:33)
[2017-06-26] MEDS: ZESTRIL PO SCH (23:33)
[2017-06-27 04:33] LABS: Hematocrit 35.2 % (30.3-42.9); Hemoglobin 11.5 gm/dl (10.1-14.3); Mean Corpuscular HGB Conc 33 % (30-34); Platelet Count 216 K/mm3 (140-440); Red Blood Count 5.08 M/mm3 (3.65-5.03); White Blood Count 6.8 K/mm3 (4.5-11.0)
[2017-06-27 04:34] LABS: Mean Corpuscular Hemoglobin 23 pg (28-32); Mean Corpuscular Volume 69 fl (79-97); Red Cell Distribution Width 23.9 % (13.2-15.2)
[2017-06-27 04:36] LABS: Alanine Aminotransferase 8 units/L (7-56); Albumin 3.2 g/dL (3.9-5); Albumin/Globulin Ratio 1.1 %; Alkaline Phosphatase 77 units/L (35-129); Anion Gap 18 mmol/L; BUN/Creatinine Ratio 22; Blood Urea Nitrogen 13 mg/dL (7-17); Calcium 8.3 mg/dL (8.4-10.2); Carbon Dioxide 25 mmol/L (22-30); Chloride 103.6 mmol/L (98-107); Glucose 78 mg/dL (65-100); Potassium 4.1 mmol/L (3.6-5.0); Sodium 142 mmol/L (137-145); Total Protein 6.2 g/dL (6.3-8.2)
[2017-06-27 04:39] LABS: INR 3.63 (0.87-1.13)
[2017-06-27] MEDS: MORPHINE IV PRN (05:21)
[2017-06-27] MEDS ORDERED: GLUCOPHAGE PO SCH (08:00)
--- NOTE | 2017-06-27 11:33 | Progress Note ---
Assessment and Plan - Patient Problems (1) CVA (cerebral vascular accident) Current Visit: Yes Status: Acute Qualifiers: CVA mechanism: unspecified Precerebral and cerebral artery: P Laterality of affected vessel: L Qualified Code(s): I63.9 - Cerebral infarction, unspecified Plan to address problem: Agree with neurology unlikely new CVA. Patient still has some left sided weakness. I do agree patient needs further workup to rule out stroke. Could not obtain MRI today secondary to inability to contact family and get clearance. O2 sat to contact family. Until then we'll treat as if underlying CVA with anticoagulation. Think we can be a little more aggressive with blood pressure controlled today. (2) Left-sided weakness Current Visit: Yes Status: Acute Plan to address problem: See above. MRI pending. (3) Accelerated hypertension with NYHA class 4 systolic heart failure Current Visit: No Status: Acute Plan to address problem: Patient blood pressure remains elevated. We'll be more aggressive and add 5 of amlodipine today. History Interval history: Patient hospital course complicated today by inability to get MRI. Unable to contact family for clearance for MRI. Hospitalist Physical - Constitutional Vitals: Temp Pulse Resp BP Pulse Ox 97.7 F 65 18 155/98 100 06/27/17 09:03 06/27/17 09:03 06/27/17 09:03 06/27/17 09:03 06/27/17 09:03 General appearance: Present: no acute distress - EENT Eyes: Present: PERRL, EOM intact ENT: hearing intact - Neck Neck: Present: supple, normal ROM - Respiratory Respiratory: bilateral: CTA - Cardiovascular Rhythm: regular Heart Sounds: Present: S1 & S2 - Extremities Extremities: no ischemia, pulses intact, pulses symmetrical, No edema, normal temperature Extremity abnormal: other ( left-sided weakness.) Peripheral Pulses: within normal limits - Abdominal General gastrointestinal: soft, non-tender, non-distended - Psychiatric Psychiatric: appropriate mood/affect - Neurologic Neurologic: focal deficits Results - Labs CBC & Chem 7: 06/27/17 03:40 06/27/17 03:40 Labs: Laboratory Last Values WBC 6.8 K/mm3 (4.5-11.0) 06/27/17 03:40 RBC 5.08 M/mm3 (3.65-5.03) H 06/27/17 03:40 Hgb 11.5 gm/dl (10.1-14.3) 06/27/17 03:40 Hct 35.2 % (30.3-42.9) 06/27/17 03:40 MCV 69 fl (79-97) L 06/27/17 03:40 MCH 23 pg (28-32) L 06/27/17 03:40 MCHC 33 % (30-34) 06/27/17 03:40 RDW 23.9 % (13.2-15.2) H 06/27/17 03:40 Plt Count 216 K/mm3 (140-440) 06/27/17 03:40 Lymph % (Auto) 25.8 % (13.4-35.0) 06/26/17 01:50 [place] % (Auto) 9.1 % (0.0-7.3) H 06/26/17 01:50 Eos % (Auto) 0.7 % (0.0-4.3) 06/26/17 01:50 Baso % (Auto) 0.4 % (0.0-1.8) 06/26/17 01:50 Lymph # 1.7 K/mm3 (1.2-5.4) 06/26/17 01:50 [place] # 0.6 K/mm3 (0.0-0.8) 06/26/17 01:50 Eos # 0.0 K/mm3 (0.0-0.4) 06/26/17 01:50 Baso # 0.0 K/mm3 (0.0-0.1) 06/26/17 01:50 Seg Neutrophils % 64.0 % (40.0-70.0) 06/26/17 01:50 Seg Neutrophils # 4.2 K/mm3 (1.8-7.7) 06/26/17 01:50 PT 37.8 Sec. (12.2-14.9) H 06/27/17 03:40 INR 3.63 (0.87-1.13) H 06/27/17 03:40 Sodium 142 mmol/L (137-145) 06/27/17 03:40 Potassium 4.1 mmol/L (3.6-5.0) 06/27/17 03:40 Chloride 103.6 mmol/L (98-107) 06/27/17 03:40 Carbon Dioxide 25 mmol/L (22-30) 06/27/17 03:40 Anion Gap 18 mmol/L 06/27/17 03:40 BUN 13 mg/dL (7-17) 06/27/17 03:40 Creatinine 0.6 mg/dL (0.7-1.2) L 06/27/17 03:40 Estimated GFR > 60 ml/min 06/27/17 03:40 BUN/Creatinine Ratio 22 % 06/27/17 03:40 Glucose 78 mg/dL (65-100) 06/27/17 03:40 POC Glucose 84 (70-105) 06/26/17 23:27 Lactic Acid 1.40 mmol/L (0.7-2.0) 06/26/17 04:41 Calcium 8.3 mg/dL (8.4-10.2) L 06/27/17 03:40 Magnesium 1.60 mg/dL (1.7-2.3) L 06/26/17 01:50 Total Bilirubin 2.40 mg/dL (0.1-1.2) H 06/27/17 03:40 AST 14 units/L (5-40) 06/27/17 03:40 ALT 8 units/L (7-56) 06/27/17 03:40 Alkaline Phosphatase 77 units/L (35-129) 06/27/17 03:40 NT-Pro-B Natriuret Pep 2505 pg/mL (0-450) H 06/26/17 17:32 Total Protein 6.2 g/dL (6.3-8.2) L 06/27/17 03:40 Albumin 3.2 g/dL (3.9-5) L 06/27/17 03:40 Albumin/Globulin Ratio 1.1 % 06/27/17 03:40 Triglycerides 52 mg/dL (2-149) 06/27/17 03:40 Cholesterol 58 mg/dL (50-199) 06/27/17 03:40 LDL Cholesterol Direct 33 mg/dL (50-130) L 06/27/17 03:40 HDL Cholesterol 15 mg/dL (40-59) L 06/27/17 03:40 Cholesterol/HDL Ratio 3.86 % 06/27/17 03:40 TSH 7.600 mlU/mL (0.270-4.200) H 06/26/17 01:50 Urine Color [place]ora (Yellow) 06/26/17 Unknown Urine Turbidity Clear (Clear) 06/26/17 Unknown Urine pH 5.0 (5.0-7.0) 06/26/17 Unknown Ur Specific [place] 1.018 (1.003-1.030) 06/26/17 Unknown Urine Protein 100 mg/dl mg/dL (Negative) 06/26/17 Unknown Urine Glucose (UA) Neg mg/dL (Negative) 06/26/17 Unknown Urine Ketones Neg mg/dL (Negative) 06/26/17 Unknown Urine Blood Sm (Negative) 06/26/17 Unknown Urine Nitrite Pos (Negative) 06/26/17 Unknown Urine Bilirubin Neg (Negative) 06/26/17 Unknown Urine Urobilinogen 4.0 mg/dL (<2.0) 06/26/17 Unknown Ur Leukocyte Esterase Lg (Negative) 06/26/17 Unknown Urine WBC (Auto) 12.0 /HPF (0.0-6.0) H 06/26/17 Unknown Urine RBC (Auto) 3.0 /HPF (0.0-6.0) 06/26/17 Unknown U Epithel Cells (Auto) 6.0 /HPF (0-13.0) 06/26/17 Unknown Urine Bacteria (Auto) 2+ /HPF (Negative) 06/26/17 Unknown Hyaline Casts 1 /LPF 06/26/17 Unknown Urine Mucus 1+ /HPF 06/26/17 Unknown Salicylates < 0.3 mg/dL (2.8-20.0) L 06/26/17 01:50 Urine Opiates Screen Presumptive negative 06/26/17 Unknown Urine Methadone Screen Presumptive negative 06/26/17 Unknown Acetaminophen < 15.0 ug/mL (10.0-30.0) 06/26/17 01:50 Ur Barbiturates Screen Presumptive negative 06/26/17 Unknown Ur Phencyclidine Scrn Presumptive negative 06/26/17 Unknown Ur Amphetamines Screen Presumptive negative 06/26/17 Unknown U Benzodiazepines Scrn Presumptive negative 06/26/17 Unknown Urine Cocaine Screen Presumptive negative 06/26/17 Unknown U Marijuana (THC) Screen Presumptive negative 06/26/17 Unknown Drugs of Abuse Note Disclamer 06/26/17 Unknown Plasma/Serum Alcohol < 0.01 gm% (0-0.07) 06/26/17 01:50
[2017-06-27] MEDS ORDERED: PNEUMOVAX 23 IM ONE (12:00)
[2017-06-27] MEDS ORDERED: NORVASC PO ONE (12:33)
[2017-06-27] MEDS: LASIX IV SCH (12:59)
[2017-06-27] MEDS: ZESTRIL PO SCH (13:00)
[2017-06-27] MEDS: PLAVIX PO SCH (13:00)
[2017-06-27] MEDS: LOPRESSOR PO SCH (13:00)
[2017-06-27] MEDS ORDERED: D50W (25GM) Syringe IV ONE ×2 (14:39→16:17)
--- NOTE | 2017-06-27 16:43 | Event Note ---
Date: 06/27/17 Pt also no longer tolerate po will change bp meds to IV
[2017-06-27] MEDS ORDERED: COUMADIN PO SCH (17:00)
[2017-06-27] MEDS ORDERED: VASOTEC IV ONE (17:00)
[2017-06-27] MEDS: APRESOLINE IV SCH (17:42)
[2017-06-27] MEDS: ZOCOR PO SCH (22:00)
[2017-06-28] MEDS: APRESOLINE IV SCH ×4 (05:00→17:29)
[2017-06-28] MEDS: LEVAQUIN 500MG/100ML 500 MG/100 ML BAG IV SCH ×2 (09:06→18:04)
[2017-06-28 11:38] LABS: INR 2.58 (0.87-1.13)
[2017-06-28] MEDS: PLAVIX PO SCH (12:16)
[2017-06-28] MEDS: LASIX IV SCH (12:16)
--- NOTE | 2017-06-28 17:21 | Progress Note ---
Assessment and Plan - Patient Problems (1) CVA (cerebral vascular accident) Current Visit: Yes Status: Acute Qualifiers: CVA mechanism: unspecified Precerebral and cerebral artery: P Laterality of affected vessel: L Plan to address problem: CT head is significant for right-sided old infarction MRI still pending because we couldn't get family consent Continue the current management (2) Left-sided weakness Current Visit: Yes Status: Acute Plan to address problem: Likely to stroke new versus old Physical therapy (3) Cardiomyopathy Current Visit: No Status: Chronic Qualifiers: Cardiomyopathy type: C Plan to address problem: Patient is asymptomatic Infection fraction is 15-20% Has been evaluated by [place] [facility]ology before and recommended to continue the medical management Continue current management (4) Diabetes mellitus Current Visit: No Status: Chronic Qualifiers: Diabetes mellitus type: D Diabetes mellitus complication status: D Diabetes mellitus complication detail: D Diabetic retinopathy severity: D Proliferative retinopathy type: P Diabetes mellitus macular edema: D Diabetes mellitus supervisor intermediates insulin use: D Laterality: L Chronic kidney disease stage: C Plan to address problem: Blood glucose level is not very high Will do Accu-Chek and start sliding scale insulin as needed (5) Hypertension Current Visit: No Status: Chronic Qualifiers: Hypertension type: H (6) Pulmonary embolus Current Visit: No Status: Chronic Qualifiers: Pulmonary embolism type: P Chronicity: C Acute cor pulmonale presence: A Plan to address problem: History of pulmonary embolism, and patient is on warfarin and INR is therapeutic. History Interval history: She was seen and evaluated this morning, she has left-sided weakness, patient has difficulty of speaking. He gave us the name for next of kin to contact for MRI consent, but couldn't get in contact with her. Hospitalist Physical - Physical exam Narrative exam: Not in cardiopulmonary distress. The patient appeared well nourished and normally developed. Vital signs as documented. Head exam is unremarkable. No scleral icterus . Neck is without jugular venous distension, thyromegaly, or carotid bruits. Lungs are clear to auscultation. Cardiac exam reveals regular rate and Rhythm. First and second heart sounds normal. No murmurs, rubs or gallops. Abdominal exam reveals normal bowel sounds, no masses, no organomegaly and no aortic enlargement. Extremities are nonedematous and both femoral and pedal pulses are normal. 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 - Constitutional Vitals: Temp Pulse Resp BP Pulse Ox 97.2 F L 108 H 20 150/102 99 06/28/17 15:35 06/28/17 15:38 06/28/17 15:35 06/28/17 15:35 06/28/17 15:38 General appearance: Present: no acute distress Results - Labs CBC & Chem 7: 06/27/17 03:40 06/27/17 03:40 Labs: Laboratory Last Values WBC 6.8 K/mm3 (4.5-11.0) 06/27/17 03:40 RBC 5.08 M/mm3 (3.65-5.03) H 06/27/17 03:40 Hgb 11.5 gm/dl (10.1-14.3) 06/27/17 03:40 Hct 35.2 % (30.3-42.9) 06/27/17 03:40 MCV 69 fl (79-97) L 06/27/17 03:40 MCH 23 pg (28-32) L 06/27/17 03:40 MCHC 33 % (30-34) 06/27/17 03:40 RDW 23.9 % (13.2-15.2) H 06/27/17 03:40 Plt Count 216 K/mm3 (140-440) 06/27/17 03:40 Lymph % (Auto) 25.8 % (13.4-35.0) 06/26/17 01:50 [place] % (Auto) 9.1 % (0.0-7.3) H 06/26/17 01:50 Eos % (Auto) 0.7 % (0.0-4.3) 06/26/17 01:50 Baso % (Auto) 0.4 % (0.0-1.8) 06/26/17 01:50 Lymph # 1.7 K/mm3 (1.2-5.4) 06/26/17 01:50 [place] # 0.6 K/mm3 (0.0-0.8) 06/26/17 01:50 Eos # 0.0 K/mm3 (0.0-0.4) 06/26/17 01:50 Baso # 0.0 K/mm3 (0.0-0.1) 06/26/17 01:50 Seg Neutrophils % 64.0 % (40.0-70.0) 06/26/17 01:50 Seg Neutrophils # 4.2 K/mm3 (1.8-7.7) 06/26/17 01:50 PT 28.9 Sec. (12.2-14.9) H 06/28/17 11:07 INR 2.58 (0.87-1.13) H 06/28/17 11:07 Sodium 142 mmol/L (137-145) 06/27/17 03:40 Potassium 4.1 mmol/L (3.6-5.0) 06/27/17 03:40 Chloride 103.6 mmol/L (98-107) 06/27/17 03:40 Carbon Dioxide 25 mmol/L (22-30) 06/27/17 03:40 Anion Gap 18 mmol/L 06/27/17 03:40 BUN 13 mg/dL (7-17) 06/27/17 03:40 Creatinine 0.6 mg/dL (0.7-1.2) L 06/27/17 03:40 Estimated GFR > 60 ml/min 06/27/17 03:40 BUN/Creatinine Ratio 22 % 06/27/17 03:40 Glucose 78 mg/dL (65-100) 06/27/17 03:40 POC Glucose 154 (70-105) H 06/28/17 16:51 Lactic Acid 1.40 mmol/L (0.7-2.0) 06/26/17 04:41 Calcium 8.3 mg/dL (8.4-10.2) L 06/27/17 03:40 Magnesium 1.60 mg/dL (1.7-2.3) L 06/26/17 01:50 Total Bilirubin 2.40 mg/dL (0.1-1.2) H 06/27/17 03:40 AST 14 units/L (5-40) 06/27/17 03:40 ALT 8 units/L (7-56) 06/27/17 03:40 Alkaline Phosphatase 77 units/L (35-129) 06/27/17 03:40 NT-Pro-B Natriuret Pep 2505 pg/mL (0-450) H 06/26/17 17:32 Total Protein 6.2 g/dL (6.3-8.2) L 06/27/17 03:40 Albumin 3.2 g/dL (3.9-5) L 06/27/17 03:40 Albumin/Globulin Ratio 1.1 % 06/27/17 03:40 Triglycerides 52 mg/dL (2-149) 06/27/17 03:40 Cholesterol 58 mg/dL (50-199) 06/27/17 03:40 LDL Cholesterol Direct 33 mg/dL (50-130) L 06/27/17 03:40 HDL Cholesterol 15 mg/dL (40-59) L 06/27/17 03:40 Cholesterol/HDL Ratio 3.86 % 06/27/17 03:40 TSH 7.600 mlU/mL (0.270-4.200) H 06/26/17 01:50 Urine Color [place] (Yellow) 06/26/17 Unknown Urine Turbidity Clear (Clear) 06/26/17 Unknown Urine pH 5.0 (5.0-7.0) 06/26/17 Unknown Ur Specific [place] 1.018 (1.003-1.030) 06/26/17 Unknown Urine Protein 100 mg/dl mg/dL (Negative) 06/26/17 Unknown Urine Glucose (UA) Neg mg/dL (Negative) 06/26/17 Unknown Urine Ketones Neg mg/dL (Negative) 06/26/17 Unknown Urine Blood Sm (Negative) 06/26/17 Unknown Urine Nitrite Pos (Negative) 06/26/17 Unknown Urine Bilirubin Neg (Negative) 06/26/17 Unknown Urine Urobilinogen 4.0 mg/dL (<2.0) 06/26/17 Unknown Ur Leukocyte Esterase Lg (Negative) 06/26/17 Unknown Urine WBC (Auto) 12.0 /HPF (0.0-6.0) H 06/26/17 Unknown Urine RBC (Auto) 3.0 /HPF (0.0-6.0) 06/26/17 Unknown U Epithel Cells (Auto) 6.0 /HPF (0-13.0) 06/26/17 Unknown Urine Bacteria (Auto) 2+ /HPF (Negative) 06/26/17 Unknown Hyaline Casts 1 /LPF 06/26/17 Unknown Urine Mucus 1+ /HPF 06/26/17 Unknown Salicylates < 0.3 mg/dL (2.8-20.0) L 06/26/17 01:50 Urine Opiates Screen Presumptive negative 06/26/17 Unknown Urine Methadone Screen Presumptive negative 06/26/17 Unknown Acetaminophen < 15.0 ug/mL (10.0-30.0) 06/26/17 01:50 Ur Barbiturates Screen Presumptive negative 06/26/17 Unknown Ur Phencyclidine Scrn Presumptive negative 06/26/17 Unknown Ur Amphetamines Screen Presumptive negative 06/26/17 Unknown U Benzodiazepines Scrn Presumptive negative 06/26/17 Unknown Urine Cocaine Screen Presumptive negative 06/26/17 Unknown U Marijuana (THC) Screen Presumptive negative 06/26/17 Unknown Drugs of Abuse Note Disclamer 06/26/17 Unknown Plasma/Serum Alcohol < 0.01 gm% (0-0.07) 06/26/17 01:50
[2017-06-28] MEDS: ZOCOR PO SCH (21:19)
[2017-06-28] MEDS: TYLENOL PO PRN (21:20)
[2017-06-28] MEDS: MORPHINE IV PRN (22:31)
[2017-06-29] MEDS: APRESOLINE IV SCH ×4 (06:00→18:50)
[2017-06-29 07:06] LABS: Basophils % (Auto) 0.5 % (0.0-1.8); Eosinophils % (Auto) 1.2 % (0.0-4.3); Hematocrit 34.3 % (30.3-42.9); Hemoglobin 11.3 gm/dl (10.1-14.3); Mean Corpuscular HGB Conc 33 % (30-34); Platelet Count 230 K/mm3 (140-440); Red Blood Count 5.04 M/mm3 (3.65-5.03); White Blood Count 5.4 K/mm3 (4.5-11.0)
[2017-06-29 07:11] LABS: Mean Corpuscular Hemoglobin 23 pg (28-32); Mean Corpuscular Volume 68 fl (79-97)
[2017-06-29 07:12] LABS: Red Cell Distribution Width 23.5 % (13.2-15.2)
[2017-06-29 07:14] LABS: INR 2.68 (0.87-1.13)
[2017-06-29 07:24] LABS: Anion Gap 18 mmol/L; BUN/Creatinine Ratio 15; Blood Urea Nitrogen 9 mg/dL (7-17); Calcium 8.2 mg/dL (8.4-10.2); Carbon Dioxide 25 mmol/L (22-30); Chloride 97.7 mmol/L (98-107); Glucose 89 mg/dL (65-100); Potassium 3.5 mmol/L (3.6-5.0); Sodium 137 mmol/L (137-145)
[2017-06-29] MEDS: LASIX IV SCH (11:12)
[2017-06-29] MEDS: PLAVIX PO SCH (11:12)
--- NOTE | 2017-06-29 13:26 | Magnetic Resonance Report ---
MRI of the brain without contrast. History: Stroke. Procedure: Routine brain protocol without contrast. Findings: Comparison is made to the previous MRI of the brain on October 30, 2016 and the recent cranial CT performed on June 26, 2017. Findings: Multiple areas of restricted diffusion are seen surrounding the previously described right MCA territory infarct. These extend over a distance of approximately 7.5 cm in the AP plane and are patchy in distribution. There is ventriculomegaly ex vacuo of the right lateral ventricle related to chronic infarcts as previously noted. The posterior fossa is unremarkable. There are no masses or extra-axial collections. There is no shift of the midline structures. Scattered areas of hyperintense T2 and flair signal in the periventricular white matter are consistent with microangiopathic ischemic changes. There is evidence of chronic left maxillary and ethmoid sinusitis. Impression: Acute extension of right MCA territory infarct with associated chronic changes as detailed above. The acute infarct involves the right parietal and frontal lobes. 2. Chronic sinus disease. Comment: Code purple. These findings were given by telephone to the patient's nurse Kaitlynn at 1:25 PM on June 29, 2017.
--- NOTE | 2017-06-29 13:32 | Magnetic Resonance Report ---
MRA of the [place]. History: Stroke. Procedure: 3-D [id number] technique was used. Findings: The visualized distal internal carotid arteries are normal. In the left middle cerebral and both anterior cerebral arteries appear normal. There is irregularity and high grade stenosis of the distal M2 segment of the right MCA with patent but diminished distal branches compared to the left as expected. The distal branches also could represent collateral reconstitution. The left vertebral artery is patent. The right vertebral is atretic or occluded. The basilar artery and posterior cerebral arteries are unremarkable. Both superior cerebellar arteries are visualized. Impression: High-grade stenosis versus occlusion of the distal M2 segment of the right MCA.
--- NOTE | 2017-06-29 16:51 | Progress Note ---
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 (2) Left-sided weakness Current Visit: Yes Status: Acute (3) Cardiomyopathy Current Visit: No Status: Chronic Qualifiers: Cardiomyopathy type: C Plan to address problem: Patient is asymptomatic Infection fraction is 15-20% Has been evaluated by [place] [facility]ology before and recommended to continue the medical management Continue current medical management (4) Diabetes mellitus Current Visit: No Status: Chronic Qualifiers: Diabetes mellitus type: D Diabetes mellitus complication status: D Diabetes mellitus complication detail: D Diabetic retinopathy severity: D Proliferative retinopathy type: P Diabetes mellitus macular edema: D Diabetes mellitus prison insulin use: D Laterality: L Chronic kidney disease stage: C Plan to address problem: Blood glucose level is not very high Will do Accu-Chek and start sliding scale insulin as needed (5) Hypertension Current Visit: No Status: Chronic Qualifiers: Hypertension type: H Plan to address problem: permissive hypertension (6) Pulmonary embolus Current Visit: No Status: Chronic Qualifiers: Pulmonary embolism type: P Chronicity: C Acute cor pulmonale presence: A Plan to address problem: History of pulmonary embolism, and patient was on warfarin and INR is therapeutic. I have called neurology because of the acute extension of the middle cerebral artery infarction, he recommended to hold the warfarin History Interval history: She was seen and evaluated this morning, she has left-sided weakness, patient has difficulty of speaking. MRI was done this morning. Hospitalist Physical - Physical exam Narrative exam: Not in cardiopulmonary distress. The patient appeared well nourished and normally developed. Vital signs as documented. Head exam is unremarkable. No scleral icterus . Neck is without jugular venous distension, thyromegaly, or carotid bruits. Lungs are clear to auscultation. Cardiac exam reveals regular rate and Rhythm. First and second heart sounds normal. No murmurs, rubs or gallops. Abdominal exam reveals normal bowel sounds, no masses, no organomegaly and no aortic enlargement. Extremities are nonedematous and both femoral and pedal pulses are normal. 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 - Constitutional Vitals: Temp Pulse Resp BP Pulse Ox 98.6 F 108 H 20 165/102 95 06/29/17 16:00 06/29/17 16:00 06/29/17 16:00 06/29/17 16:00 06/29/17 16:00 General appearance: Present: no acute distress Results - Labs CBC & Chem 7: 06/29/17 06:42 06/29/17 06:42 Labs: Laboratory Last Values WBC 5.4 K/mm3 (4.5-11.0) 06/29/17 06:42 RBC 5.04 M/mm3 (3.65-5.03) H 06/29/17 06:42 Hgb 11.3 gm/dl (10.1-14.3) 06/29/17 06:42 Hct 34.3 % (30.3-42.9) 06/29/17 06:42 MCV 68 fl (79-97) L 06/29/17 06:42 MCH 23 pg (28-32) L 06/29/17 06:42 MCHC 33 % (30-34) 06/29/17 06:42 RDW 23.5 % (13.2-15.2) H 06/29/17 06:42 Plt Count 230 K/mm3 (140-440) 06/29/17 06:42 Lymph % (Auto) 32.5 % (13.4-35.0) 06/29/17 06:42 [place] % (Auto) 11.6 % (0.0-7.3) H 06/29/17 06:42 Eos % (Auto) 1.2 % (0.0-4.3) 06/29/17 06:42 Baso % (Auto) 0.5 % (0.0-1.8) 06/29/17 06:42 Lymph # 1.8 K/mm3 (1.2-5.4) 06/29/17 06:42 [place] # 0.6 K/mm3 (0.0-0.8) 06/29/17 06:42 Eos # 0.1 K/mm3 (0.0-0.4) 06/29/17 06:42 Baso # 0.0 K/mm3 (0.0-0.1) 06/29/17 06:42 Seg Neutrophils % 54.2 % (40.0-70.0) 06/29/17 06:42 Seg Neutrophils # 2.9 K/mm3 (1.8-7.7) 06/29/17 06:42 PT 29.8 Sec. (12.2-14.9) H 06/29/17 06:42 INR 2.68 (0.87-1.13) H 06/29/17 06:42 Sodium 137 mmol/L (137-145) 06/29/17 06:42 Potassium 3.5 mmol/L (3.6-5.0) L 06/29/17 06:42 Chloride 97.7 mmol/L (98-107) L 06/29/17 06:42 Carbon Dioxide 25 mmol/L (22-30) 06/29/17 06:42 Anion Gap 18 mmol/L 06/29/17 06:42 BUN 9 mg/dL (7-17) 06/29/17 06:42 Creatinine 0.6 mg/dL (0.7-1.2) L 06/29/17 06:42 Estimated GFR > 60 ml/min 06/29/17 06:42 BUN/Creatinine Ratio 15 % 06/29/17 06:42 Glucose 89 mg/dL (65-100) 06/29/17 06:42 POC Glucose 140 (70-105) H 06/28/17 21:10 Lactic Acid 1.40 mmol/L (0.7-2.0) 06/26/17 04:41 Calcium 8.2 mg/dL (8.4-10.2) L 06/29/17 06:42 Magnesium 1.60 mg/dL (1.7-2.3) L 06/26/17 01:50 Total Bilirubin 2.40 mg/dL (0.1-1.2) H 06/27/17 03:40 AST 14 units/L (5-40) 06/27/17 03:40 ALT 8 units/L (7-56) 06/27/17 03:40 Alkaline Phosphatase 77 units/L (35-129) 06/27/17 03:40 NT-Pro-B Natriuret Pep 2505 pg/mL (0-450) H 06/26/17 17:32 Total Protein 6.2 g/dL (6.3-8.2) L 06/27/17 03:40 Albumin 3.2 g/dL (3.9-5) L 06/27/17 03:40 Albumin/Globulin Ratio 1.1 % 06/27/17 03:40 Triglycerides 52 mg/dL (2-149) 06/27/17 03:40 Cholesterol 58 mg/dL (50-199) 06/27/17 03:40 LDL Cholesterol Direct 33 mg/dL (50-130) L 06/27/17 03:40 HDL Cholesterol 15 mg/dL (40-59) L 06/27/17 03:40 Cholesterol/HDL Ratio 3.86 % 06/27/17 03:40 TSH 7.600 mlU/mL (0.270-4.200) H 06/26/17 01:50 Urine Color [place] (Yellow) 06/26/17 Unknown Urine Turbidity Clear (Clear) 06/26/17 Unknown Urine pH 5.0 (5.0-7.0) 06/26/17 Unknown Ur Specific [place] 1.018 (1.003-1.030) 06/26/17 Unknown Urine Protein 100 mg/dl mg/dL (Negative) 06/26/17 Unknown Urine Glucose (UA) Neg mg/dL (Negative) 06/26/17 Unknown Urine Ketones Neg mg/dL (Negative) 06/26/17 Unknown Urine Blood Sm (Negative) 06/26/17 Unknown Urine Nitrite Pos (Negative) 06/26/17 Unknown Urine Bilirubin Neg (Negative) 06/26/17 Unknown Urine Urobilinogen 4.0 mg/dL (<2.0) 06/26/17 Unknown Ur Leukocyte Esterase Lg (Negative) 06/26/17 Unknown Urine WBC (Auto) 12.0 /HPF (0.0-6.0) H 06/26/17 Unknown Urine RBC (Auto) 3.0 /HPF (0.0-6.0) 06/26/17 Unknown U Epithel Cells (Auto) 6.0 /HPF (0-13.0) 06/26/17 Unknown Urine Bacteria (Auto) 2+ /HPF (Negative) 06/26/17 Unknown Hyaline Casts 1 /LPF 06/26/17 Unknown Urine Mucus 1+ /HPF 06/26/17 Unknown Salicylates < 0.3 mg/dL (2.8-20.0) L 06/26/17 01:50 Urine Opiates Screen Presumptive negative 06/26/17 Unknown Urine Methadone Screen Presumptive negative 06/26/17 Unknown Acetaminophen < 15.0 ug/mL (10.0-30.0) 06/26/17 01:50 Ur Barbiturates Screen Presumptive negative 06/26/17 Unknown Ur Phencyclidine Scrn Presumptive negative 06/26/17 Unknown Ur Amphetamines Screen Presumptive negative 06/26/17 Unknown U Benzodiazepines Scrn Presumptive negative 06/26/17 Unknown Urine Cocaine Screen Presumptive negative 06/26/17 Unknown U Marijuana (THC) Screen Presumptive negative 06/26/17 Unknown Drugs of Abuse Note Disclamer 06/26/17 Unknown Plasma/Serum Alcohol < 0.01 gm% (0-0.07) 06/26/17 01:50
[2017-06-29] MEDS: LEVAQUIN PO SCH (21:30)
[2017-06-29] MEDS: ZOCOR PO SCH (21:30)
[2017-06-29] MEDS: MORPHINE IV PRN (21:30)
[2017-06-30] MEDS: APRESOLINE IV SCH ×4 (00:38→18:13)
[2017-06-30] MEDS: MORPHINE IV PRN (01:10)
[2017-06-30 06:37] LABS: INR 2.42 (0.87-1.13)
[2017-06-30 06:51] LABS: Anion Gap 18 mmol/L; BUN/Creatinine Ratio 15; Blood Urea Nitrogen 9 mg/dL (7-17); Calcium 8.1 mg/dL (8.4-10.2); Carbon Dioxide 25 mmol/L (22-30); Chloride 99.4 mmol/L (98-107); Glucose 101 mg/dL (65-100); Potassium 3.8 mmol/L (3.6-5.0); Sodium 139 mmol/L (137-145)
[2017-06-30] MEDS ORDERED: MORPHINE IV ONE (09:30)
[2017-06-30] MEDS: LASIX IV SCH (11:09)
[2017-06-30] MEDS: PLAVIX PO SCH (11:18)
--- NOTE | 2017-06-30 15:40 | Progress Note ---
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 Physical Therapy was consulted 4 days ago and didn't saw him, i put repeat consult. (2) Left-sided weakness Current Visit: Yes Status: Acute Plan to address problem: Likely to stroke new versus old Physical therapy didn't saw him and repeat consult placed. (3) Cardiomyopathy Current Visit: No Status: Chronic Qualifiers: Cardiomyopathy type: C Plan to address problem: Patient is asymptomatic Ejection fraction is 15-20% Has been evaluated by [place] cardiology on the previous admission and recommended to continue the medical management Continue current medical management (4) Diabetes mellitus Current Visit: No Status: Chronic Qualifiers: Diabetes mellitus type: D Diabetes mellitus complication status: D Diabetes mellitus complication detail: D Diabetic retinopathy severity: D Proliferative retinopathy type: P Diabetes mellitus macular edema: D Diabetes mellitus senior living insulin use: D Laterality: L Chronic kidney disease stage: C Plan to address problem: Blood glucose level is not very high Will do Accu-Chek and start sliding scale insulin as needed (5) Hypertension Current Visit: No Status: Chronic Qualifiers: Hypertension type: H Plan to address problem: will monitor and control blood pressure. (6) Pulmonary embolus Current Visit: No Status: Chronic Qualifiers: Pulmonary embolism type: P Chronicity: C Acute cor pulmonale presence: A Plan to address problem: History of pulmonary embolism, and patient was on warfarin and INR is therapeutic. I have called neurology because of the acute extension of the middle cerebral artery infarction, he recommended to hold the warfarin History Interval history: She was seen and evaluated this morning, she has left-sided weakness, patient has difficulty of speaking. Hospitalist Physical - Constitutional Vitals: Temp Pulse Resp BP Pulse Ox 98.1 F 115 H 18 160/107 93 06/30/17 03:40 06/30/17 06:14 06/30/17 03:40 06/30/17 06:14 06/30/17 03:40 General appearance: Present: no acute distress Results - Labs CBC & Chem 7: 06/29/17 06:42 06/30/17 05:56 Labs: Laboratory Last Values WBC 5.4 K/mm3 (4.5-11.0) 06/29/17 06:42 RBC 5.04 M/mm3 (3.65-5.03) H 06/29/17 06:42 Hgb 11.3 gm/dl (10.1-14.3) 06/29/17 06:42 Hct 34.3 % (30.3-42.9) 06/29/17 06:42 MCV 68 fl (79-97) L 06/29/17 06:42 MCH 23 pg (28-32) L 06/29/17 06:42 MCHC 33 % (30-34) 06/29/17 06:42 RDW 23.5 % (13.2-15.2) H 06/29/17 06:42 Plt Count 230 K/mm3 (140-440) 06/29/17 06:42 Lymph % (Auto) 32.5 % (13.4-35.0) 06/29/17 06:42 [place] % (Auto) 11.6 % (0.0-7.3) H 06/29/17 06:42 Eos % (Auto) 1.2 % (0.0-4.3) 06/29/17 06:42 Baso % (Auto) 0.5 % (0.0-1.8) 06/29/17 06:42 Lymph # 1.8 K/mm3 (1.2-5.4) 06/29/17 06:42 [place] # 0.6 K/mm3 (0.0-0.8) 06/29/17 06:42 Eos # 0.1 K/mm3 (0.0-0.4) 06/29/17 06:42 Baso # 0.0 K/mm3 (0.0-0.1) 06/29/17 06:42 Seg Neutrophils % 54.2 % (40.0-70.0) 06/29/17 06:42 Seg Neutrophils # 2.9 K/mm3 (1.8-7.7) 06/29/17 06:42 PT 27.5 Sec. (12.2-14.9) H 06/30/17 05:56 INR 2.42 (0.87-1.13) H 06/30/17 05:56 Sodium 139 mmol/L (137-145) 06/30/17 05:56 Potassium 3.8 mmol/L (3.6-5.0) 06/30/17 05:56 Chloride 99.4 mmol/L (98-107) 06/30/17 05:56 Carbon Dioxide 25 mmol/L (22-30) 06/30/17 05:56 Anion Gap 18 mmol/L 06/30/17 05:56 BUN 9 mg/dL (7-17) 06/30/17 05:56 Creatinine 0.6 mg/dL (0.7-1.2) L 06/30/17 05:56 Estimated GFR > 60 ml/min 06/30/17 05:56 BUN/Creatinine Ratio 15 % 06/30/17 05:56 Glucose 101 mg/dL (65-100) H 06/30/17 05:56 POC Glucose 145 (70-105) H 06/29/17 21:23 Lactic Acid 1.40 mmol/L (0.7-2.0) 06/26/17 04:41 Calcium 8.1 mg/dL (8.4-10.2) L 06/30/17 05:56 Magnesium 1.60 mg/dL (1.7-2.3) L 06/26/17 01:50 Total Bilirubin 2.40 mg/dL (0.1-1.2) H 06/27/17 03:40 AST 14 units/L (5-40) 06/27/17 03:40 ALT 8 units/L (7-56) 06/27/17 03:40 Alkaline Phosphatase 77 units/L (35-129) 06/27/17 03:40 NT-Pro-B Natriuret Pep 2505 pg/mL (0-450) H 06/26/17 17:32 Total Protein 6.2 g/dL (6.3-8.2) L 06/27/17 03:40 Albumin 3.2 g/dL (3.9-5) L 06/27/17 03:40 Albumin/Globulin Ratio 1.1 % 06/27/17 03:40 Triglycerides 52 mg/dL (2-149) 06/27/17 03:40 Cholesterol 58 mg/dL (50-199) 06/27/17 03:40 LDL Cholesterol Direct 33 mg/dL (50-130) L 06/27/17 03:40 HDL Cholesterol 15 mg/dL (40-59) L 06/27/17 03:40 Cholesterol/HDL Ratio 3.86 % 06/27/17 03:40 TSH 7.600 mlU/mL (0.270-4.200) H 06/26/17 01:50 Urine Color Lora (Yellow) 06/26/17 Unknown Urine Turbidity Clear (Clear) 06/26/17 Unknown Urine pH 5.0 (5.0-7.0) 06/26/17 Unknown Ur Specific [place] 1.018 (1.003-1.030) 06/26/17 Unknown Urine Protein 100 mg/dl mg/dL (Negative) 06/26/17 Unknown Urine Glucose (UA) Neg mg/dL (Negative) 06/26/17 Unknown Urine Ketones Neg mg/dL (Negative) 06/26/17 Unknown Urine Blood Sm (Negative) 06/26/17 Unknown Urine Nitrite Pos (Negative) 06/26/17 Unknown Urine Bilirubin Neg (Negative) 06/26/17 Unknown Urine Urobilinogen 4.0 mg/dL (<2.0) 06/26/17 Unknown Ur Leukocyte Esterase Lg (Negative) 06/26/17 Unknown Urine WBC (Auto) 12.0 /HPF (0.0-6.0) H 06/26/17 Unknown Urine RBC (Auto) 3.0 /HPF (0.0-6.0) 06/26/17 Unknown U Epithel Cells (Auto) 6.0 /HPF (0-13.0) 06/26/17 Unknown Urine Bacteria (Auto) 2+ /HPF (Negative) 06/26/17 Unknown Hyaline Casts 1 /LPF 06/26/17 Unknown Urine Mucus 1+ /HPF 06/26/17 Unknown Salicylates < 0.3 mg/dL (2.8-20.0) L 06/26/17 01:50 Urine Opiates Screen Presumptive negative 06/26/17 Unknown Urine Methadone Screen Presumptive negative 06/26/17 Unknown Acetaminophen < 15.0 ug/mL (10.0-30.0) 06/26/17 01:50 Ur Barbiturates Screen Presumptive negative 06/26/17 Unknown Ur Phencyclidine Scrn Presumptive negative 06/26/17 Unknown Ur Amphetamines Screen Presumptive negative 06/26/17 Unknown U Benzodiazepines Scrn Presumptive negative 06/26/17 Unknown Urine Cocaine Screen Presumptive negative 06/26/17 Unknown U Marijuana (THC) Screen Presumptive negative 06/26/17 Unknown Drugs of Abuse Note Disclamer 06/26/17 Unknown Plasma/Serum Alcohol < 0.01 gm% (0-0.07) 06/26/17 01:50
[2017-06-30] MEDS ORDERED: NORVASC PO SCH (17:00)
[2017-06-30] MEDS: ZESTRIL PO SCH (19:43)
[2017-06-30] MEDS: LOPRESSOR PO SCH (22:03)
[2017-06-30] MEDS: LEVAQUIN PO SCH (22:05)
[2017-07-01] MEDS: APRESOLINE IV SCH ×3 (00:42→13:52)
[2017-07-01 05:52] LABS: INR 1.95 (0.87-1.13)
[2017-07-01] MEDS: PLAVIX PO SCH (09:34)
[2017-07-01] MEDS: TYLENOL PO PRN (09:34)
[2017-07-01] MEDS: ZESTRIL PO SCH (09:35)
[2017-07-01] MEDS: LOPRESSOR PO SCH ×2 (09:35→22:46)
[2017-07-01] MEDS: LASIX IV SCH (09:36)
--- NOTE | 2017-07-01 12:53 | Progress Note ---
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 Physical Therapy was consulted 4 days ago and didn't saw him, i put repeat consult. (2) Left-sided weakness Current Visit: Yes Status: Acute Plan to address problem: Likely to stroke new versus old Physical therapy didn't saw him and repeat consult placed. (3) Cardiomyopathy Current Visit: No Status: Chronic Qualifiers: Cardiomyopathy type: C Plan to address problem: Patient is asymptomatic Ejection fraction is 15-20% Has been evaluated by [place] cardiology on the previous admission and recommended to continue the medical management Continue current medical management (4) Diabetes mellitus Current Visit: No Status: Chronic Qualifiers: Diabetes mellitus type: D Diabetes mellitus complication status: D Diabetes mellitus complication detail: D Diabetic retinopathy severity: D Proliferative retinopathy type: P Diabetes mellitus macular edema: D Diabetes mellitus halfway insulin use: D Laterality: L Chronic kidney disease stage: C Plan to address problem: Blood glucose level is not very high Will do Accu-Chek and start sliding scale insulin as needed (5) Hypertension Current Visit: No Status: Chronic Qualifiers: Hypertension type: H Plan to address problem: will monitor and control blood pressure. (6) Pulmonary embolus Current Visit: No Status: Chronic Qualifiers: Pulmonary embolism type: P Chronicity: C Acute cor pulmonale presence: A Plan to address problem: History of pulmonary embolism, and patient was on warfarin and INR is therapeutic. I have called neurology because of the acute extension of the middle cerebral artery infarction, he recommended to hold the warfarin History Interval history: She was seen and evaluated this morning, she has left-sided weakness, patient has difficulty of speaking. Hospitalist Physical - Physical exam Narrative exam: Not in cardiopulmonary distress. The patient appeared well nourished and normally developed. Vital signs as documented. Head exam is unremarkable. No scleral icterus . Neck is without jugular venous distension, thyromegaly, or carotid bruits. Lungs are clear to auscultation. Cardiac exam reveals regular rate and Rhythm. First and second heart sounds normal. No murmurs, rubs or gallops. Abdominal exam reveals normal bowel sounds, no masses, no organomegaly and no aortic enlargement. Extremities are nonedematous and both femoral and pedal pulses are normal. [employer]: Left-sided hemiparesis and aphasia. - Constitutional Vitals: Temp Pulse Resp BP Pulse Ox 97.5 F L 76 18 123/80 96 07/01/17 00:18 07/01/17 10:00 07/01/17 05:11 07/01/17 09:35 07/01/17 05:11 General appearance: Present: no acute distress Results - Labs CBC & Chem 7: 06/29/17 06:42 06/30/17 05:56 Labs: Laboratory Last Values WBC 5.4 K/mm3 (4.5-11.0) 06/29/17 06:42 RBC 5.04 M/mm3 (3.65-5.03) H 06/29/17 06:42 Hgb 11.3 gm/dl (10.1-14.3) 06/29/17 06:42 Hct 34.3 % (30.3-42.9) 06/29/17 06:42 MCV 68 fl (79-97) L 06/29/17 06:42 MCH 23 pg (28-32) L 06/29/17 06:42 MCHC 33 % (30-34) 06/29/17 06:42 RDW 23.5 % (13.2-15.2) H 06/29/17 06:42 Plt Count 230 K/mm3 (140-440) 06/29/17 06:42 Lymph % (Auto) 32.5 % (13.4-35.0) 06/29/17 06:42 [place] % (Auto) 11.6 % (0.0-7.3) H 06/29/17 06:42 Eos % (Auto) 1.2 % (0.0-4.3) 06/29/17 06:42 Baso % (Auto) 0.5 % (0.0-1.8) 06/29/17 06:42 Lymph # 1.8 K/mm3 (1.2-5.4) 06/29/17 06:42 [place] # 0.6 K/mm3 (0.0-0.8) 06/29/17 06:42 Eos # 0.1 K/mm3 (0.0-0.4) 06/29/17 06:42 Baso # 0.0 K/mm3 (0.0-0.1) 06/29/17 06:42 Seg Neutrophils % 54.2 % (40.0-70.0) 06/29/17 06:42 Seg Neutrophils # 2.9 K/mm3 (1.8-7.7) 06/29/17 06:42 PT 23.2 Sec. (12.2-14.9) H 07/01/17 05:23 INR 1.95 (0.87-1.13) H 07/01/17 05:23 Sodium 139 mmol/L (137-145) 06/30/17 05:56 Potassium 3.8 mmol/L (3.6-5.0) 06/30/17 05:56 Chloride 99.4 mmol/L (98-107) 06/30/17 05:56 Carbon Dioxide 25 mmol/L (22-30) 06/30/17 05:56 Anion Gap 18 mmol/L 06/30/17 05:56 BUN 9 mg/dL (7-17) 06/30/17 05:56 Creatinine 0.6 mg/dL (0.7-1.2) L 06/30/17 05:56 Estimated GFR > 60 ml/min 06/30/17 05:56 BUN/Creatinine Ratio 15 % 06/30/17 05:56 Glucose 101 mg/dL (65-100) H 06/30/17 05:56 POC Glucose 139 (70-105) H 07/01/17 11:54 Lactic Acid 1.40 mmol/L (0.7-2.0) 06/26/17 04:41 Calcium 8.1 mg/dL (8.4-10.2) L 06/30/17 05:56 Magnesium 1.60 mg/dL (1.7-2.3) L 06/26/17 01:50 Total Bilirubin 2.40 mg/dL (0.1-1.2) H 06/27/17 03:40 AST 14 units/L (5-40) 06/27/17 03:40 ALT 8 units/L (7-56) 06/27/17 03:40 Alkaline Phosphatase 77 units/L (35-129) 06/27/17 03:40 NT-Pro-B Natriuret Pep 2505 pg/mL (0-450) H 06/26/17 17:32 Total Protein 6.2 g/dL (6.3-8.2) L 06/27/17 03:40 Albumin 3.2 g/dL (3.9-5) L 06/27/17 03:40 Albumin/Globulin Ratio 1.1 % 06/27/17 03:40 Triglycerides 52 mg/dL (2-149) 06/27/17 03:40 Cholesterol 58 mg/dL (50-199) 06/27/17 03:40 LDL Cholesterol Direct 33 mg/dL (50-130) L 06/27/17 03:40 HDL Cholesterol 15 mg/dL (40-59) L 06/27/17 03:40 Cholesterol/HDL Ratio 3.86 % 06/27/17 03:40 TSH 7.600 mlU/mL (0.270-4.200) H 06/26/17 01:50 Urine Color [place]ora (Yellow) 06/26/17 Unknown Urine Turbidity Clear (Clear) 06/26/17 Unknown Urine pH 5.0 (5.0-7.0) 06/26/17 Unknown Ur Specific [place] 1.018 (1.003-1.030) 06/26/17 Unknown Urine Protein 100 mg/dl mg/dL (Negative) 06/26/17 Unknown Urine Glucose (UA) Neg mg/dL (Negative) 06/26/17 Unknown Urine Ketones Neg mg/dL (Negative) 06/26/17 Unknown Urine Blood Sm (Negative) 06/26/17 Unknown Urine Nitrite Pos (Negative) 06/26/17 Unknown Urine Bilirubin Neg (Negative) 06/26/17 Unknown Urine Urobilinogen 4.0 mg/dL (<2.0) 06/26/17 Unknown Ur Leukocyte Esterase Lg (Negative) 06/26/17 Unknown Urine WBC (Auto) 12.0 /HPF (0.0-6.0) H 06/26/17 Unknown Urine RBC (Auto) 3.0 /HPF (0.0-6.0) 06/26/17 Unknown U Epithel Cells (Auto) 6.0 /HPF (0-13.0) 06/26/17 Unknown Urine Bacteria (Auto) 2+ /HPF (Negative) 06/26/17 Unknown Hyaline Casts 1 /LPF 06/26/17 Unknown Urine Mucus 1+ /HPF 06/26/17 Unknown Salicylates < 0.3 mg/dL (2.8-20.0) L 06/26/17 01:50 Urine Opiates Screen Presumptive negative 06/26/17 Unknown Urine Methadone Screen Presumptive negative 06/26/17 Unknown Acetaminophen < 15.0 ug/mL (10.0-30.0) 06/26/17 01:50 Ur Barbiturates Screen Presumptive negative 06/26/17 Unknown Ur Phencyclidine Scrn Presumptive negative 06/26/17 Unknown Ur Amphetamines Screen Presumptive negative 06/26/17 Unknown U Benzodiazepines Scrn Presumptive negative 06/26/17 Unknown Urine Cocaine Screen Presumptive negative 06/26/17 Unknown U Marijuana (THC) Screen Presumptive negative 06/26/17 Unknown Drugs of Abuse Note Disclamer 06/26/17 Unknown Plasma/Serum Alcohol < 0.01 gm% (0-0.07) 06/26/17 01:50
[2017-07-01] MEDS: LEVAQUIN PO SCH (22:46)
[2017-07-02 08:15] LABS: INR 1.87 (0.87-1.13)
[2017-07-02] MEDS: ZESTRIL PO SCH (09:34)
[2017-07-02] MEDS: LASIX IV SCH (09:34)
[2017-07-02] MEDS: LOPRESSOR PO SCH ×2 (09:34→21:46)
[2017-07-02] MEDS: PLAVIX PO SCH (09:34)
--- NOTE | 2017-07-02 12:48 | Progress Note ---
Assessment and Plan Disposition Plan: Pending Acute rehab Placement. 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 (4) Diabetes mellitus Current Visit: No Status: Chronic Qualifiers: Diabetes mellitus type: D Diabetes mellitus complication status: D Diabetes mellitus complication detail: D Diabetic retinopathy severity: D Proliferative retinopathy type: P Diabetes mellitus macular edema: D Diabetes mellitus retirement insulin use: D Laterality: L Chronic kidney disease stage: C Plan to address problem: Blood glucose level is not very high Will do Accu-Chek and start sliding scale insulin as needed (5) Hypertension Current Visit: No Status: Chronic Qualifiers: Hypertension type: H (6) Pulmonary embolus Current Visit: No Status: Chronic Qualifiers: Pulmonary embolism type: P Chronicity: C Acute cor pulmonale presence: A Plan to address problem: History of pulmonary embolism, and patient was on warfarin and INR is therapeutic. I have called neurology because of the acute extension of the middle cerebral artery infarction, he recommended to hold the warfarin History Interval history: She was seen and evaluated this morning, she has left-sided weakness, patient has difficulty of speaking, improving. Hospitalist Physical - Physical exam Narrative exam: Not in cardiopulmonary distress. The patient appeared well nourished and normally developed. Vital signs as documented. Head exam is unremarkable. No scleral icterus . Neck is without jugular venous distension, thyromegaly, or carotid bruits. Lungs are clear to auscultation. Cardiac exam reveals regular rate and Rhythm. First and second heart sounds normal. No murmurs, rubs or gallops. Abdominal exam reveals normal bowel sounds, no masses, no organomegaly and no aortic enlargement. Extremities are nonedematous and both femoral and pedal pulses are normal. [employer]OL SM[employer]: Left-sided hemiparesis and aphasia. - Constitutional Vitals: Temp Pulse Resp BP Pulse Ox 98.5 F 75 20 141/93 100 07/02/17 05:00 07/02/17 09:34 07/02/17 05:00 07/02/17 09:34 07/02/17 05:00 General appearance: Present: no acute distress Results - Labs CBC & Chem 7: 06/29/17 06:42 06/30/17 05:56 Labs: Laboratory Last Values WBC 5.4 K/mm3 (4.5-11.0) 06/29/17 06:42 RBC 5.04 M/mm3 (3.65-5.03) H 06/29/17 06:42 Hgb 11.3 gm/dl (10.1-14.3) 06/29/17 06:42 Hct 34.3 % (30.3-42.9) 06/29/17 06:42 MCV 68 fl (79-97) L 06/29/17 06:42 MCH 23 pg (28-32) L 06/29/17 06:42 MCHC 33 % (30-34) 06/29/17 06:42 RDW 23.5 % (13.2-15.2) H 06/29/17 06:42 Plt Count 230 K/mm3 (140-440) 06/29/17 06:42 Lymph % (Auto) 32.5 % (13.4-35.0) 06/29/17 06:42 [place] % (Auto) 11.6 % (0.0-7.3) H 06/29/17 06:42 Eos % (Auto) 1.2 % (0.0-4.3) 06/29/17 06:42 Baso % (Auto) 0.5 % (0.0-1.8) 06/29/17 06:42 Lymph # 1.8 K/mm3 (1.2-5.4) 06/29/17 06:42 [place] # 0.6 K/mm3 (0.0-0.8) 06/29/17 06:42 Eos # 0.1 K/mm3 (0.0-0.4) 06/29/17 06:42 Baso # 0.0 K/mm3 (0.0-0.1) 06/29/17 06:42 Seg Neutrophils % 54.2 % (40.0-70.0) 06/29/17 06:42 Seg Neutrophils # 2.9 K/mm3 (1.8-7.7) 06/29/17 06:42 PT 22.4 Sec. (12.2-14.9) H 07/02/17 06:30 INR 1.87 (0.87-1.13) H 07/02/17 06:30 Sodium 139 mmol/L (137-145) 06/30/17 05:56 Potassium 3.8 mmol/L (3.6-5.0) 06/30/17 05:56 Chloride 99.4 mmol/L (98-107) 06/30/17 05:56 Carbon Dioxide 25 mmol/L (22-30) 06/30/17 05:56 Anion Gap 18 mmol/L 06/30/17 05:56 BUN 9 mg/dL (7-17) 06/30/17 05:56 Creatinine 0.6 mg/dL (0.7-1.2) L 06/30/17 05:56 Estimated GFR > 60 ml/min 06/30/17 05:56 BUN/Creatinine Ratio 15 % 06/30/17 05:56 Glucose 101 mg/dL (65-100) H 06/30/17 05:56 POC Glucose 80 (70-105) 07/02/17 07:42 Lactic Acid 1.40 mmol/L (0.7-2.0) 06/26/17 04:41 Calcium 8.1 mg/dL (8.4-10.2) L 06/30/17 05:56 Magnesium 1.60 mg/dL (1.7-2.3) L 06/26/17 01:50 Total Bilirubin 2.40 mg/dL (0.1-1.2) H 06/27/17 03:40 AST 14 units/L (5-40) 06/27/17 03:40 ALT 8 units/L (7-56) 06/27/17 03:40 Alkaline Phosphatase 77 units/L (35-129) 06/27/17 03:40 NT-Pro-B Natriuret Pep 2505 pg/mL (0-450) H 06/26/17 17:32 Total Protein 6.2 g/dL (6.3-8.2) L 06/27/17 03:40 Albumin 3.2 g/dL (3.9-5) L 06/27/17 03:40 Albumin/Globulin Ratio 1.1 % 06/27/17 03:40 Triglycerides 52 mg/dL (2-149) 06/27/17 03:40 Cholesterol 58 mg/dL (50-199) 06/27/17 03:40 LDL Cholesterol Direct 33 mg/dL (50-130) L 06/27/17 03:40 HDL Cholesterol 15 mg/dL (40-59) L 06/27/17 03:40 Cholesterol/HDL Ratio 3.86 % 06/27/17 03:40 TSH 7.600 mlU/mL (0.270-4.200) H 06/26/17 01:50 Urine Color [place] (Yellow) 06/26/17 Unknown Urine Turbidity Clear (Clear) 06/26/17 Unknown Urine pH 5.0 (5.0-7.0) 06/26/17 Unknown Ur Specific [place] 1.018 (1.003-1.030) 06/26/17 Unknown Urine Protein 100 mg/dl mg/dL (Negative) 06/26/17 Unknown Urine Glucose (UA) Neg mg/dL (Negative) 06/26/17 Unknown Urine Ketones Neg mg/dL (Negative) 06/26/17 Unknown Urine Blood Sm (Negative) 06/26/17 Unknown Urine Nitrite Pos (Negative) 06/26/17 Unknown Urine Bilirubin Neg (Negative) 06/26/17 Unknown Urine Urobilinogen 4.0 mg/dL (<2.0) 06/26/17 Unknown Ur Leukocyte Esterase Lg (Negative) 06/26/17 Unknown Urine WBC (Auto) 12.0 /HPF (0.0-6.0) H 06/26/17 Unknown Urine RBC (Auto) 3.0 /HPF (0.0-6.0) 06/26/17 Unknown U Epithel Cells (Auto) 6.0 /HPF (0-13.0) 06/26/17 Unknown Urine Bacteria (Auto) 2+ /HPF (Negative) 06/26/17 Unknown Hyaline Casts 1 /LPF 06/26/17 Unknown Urine Mucus 1+ /HPF 06/26/17 Unknown Salicylates < 0.3 mg/dL (2.8-20.0) L 06/26/17 01:50 Urine Opiates Screen Presumptive negative 06/26/17 Unknown Urine Methadone Screen Presumptive negative 06/26/17 Unknown Acetaminophen < 15.0 ug/mL (10.0-30.0) 06/26/17 01:50 Ur Barbiturates Screen Presumptive negative 06/26/17 Unknown Ur Phencyclidine Scrn Presumptive negative 06/26/17 Unknown Ur Amphetamines Screen Presumptive negative 06/26/17 Unknown U Benzodiazepines Scrn Presumptive negative 06/26/17 Unknown Urine Cocaine Screen Presumptive negative 06/26/17 Unknown U Marijuana (THC) Screen Presumptive negative 06/26/17 Unknown Drugs of Abuse Note Disclamer 06/26/17 Unknown Plasma/Serum Alcohol < 0.01 gm% (0-0.07) 06/26/17 01:50
[2017-07-02] MEDS: ZOFRAN IV PRN (17:56)
[2017-07-02] MEDS: LEVAQUIN PO SCH (21:46)
[2017-07-03 08:32] LABS: INR 1.81 (0.87-1.13)
[2017-07-03] MEDS: LASIX IV SCH (09:07)
[2017-07-03] MEDS: PLAVIX PO SCH (09:08)
[2017-07-03] MEDS: ZESTRIL PO SCH (10:54)
[2017-07-03] MEDS: LOPRESSOR PO SCH ×2 (10:55→22:54)
--- NOTE | 2017-07-03 15:44 | Progress Note ---
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 (4) Diabetes mellitus Current Visit: No Status: Chronic Qualifiers: Diabetes mellitus type: D Diabetes mellitus complication status: D Diabetes mellitus complication detail: D Diabetic retinopathy severity: D Proliferative retinopathy type: P Diabetes mellitus macular edema: D Diabetes mellitus terminal press operator insulin use: D Laterality: L Chronic kidney disease stage: C Plan to address problem: Blood glucose level is not very high Will do Accu-Chek and start sliding scale insulin as needed (5) Hypertension Current Visit: No Status: Chronic Qualifiers: Hypertension type: H Plan to address problem: will monitor and control blood pressure. (6) Pulmonary embolus Current Visit: No Status: Chronic Qualifiers: Pulmonary embolism type: P Chronicity: C Acute cor pulmonale presence: A Plan to address problem: History of pulmonary embolism, and patient was on warfarin and INR is therapeutic. I have called neurology because of the acute extension of the middle cerebral artery infarction, he recommended to hold the warfarin History Interval history: She was seen and evaluated this morning, she has left-sided weakness, patient has difficulty of speaking, improving. Hospitalist Physical - Physical exam Narrative exam: Not in cardiopulmonary distress. The patient appeared well nourished and normally developed. Vital signs as documented. Head exam is unremarkable. No scleral icterus . Neck is without jugular venous distension, thyromegaly, or carotid bruits. Lungs are clear to auscultation. Cardiac exam reveals regular rate and Rhythm. First and second heart sounds normal. No murmurs, rubs or gallops. Abdominal exam reveals normal bowel sounds, no masses, no organomegaly and no aortic enlargement. Extremities are nonedematous and both femoral and pedal pulses are normal. 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 - Constitutional Vitals: Temp Pulse Resp BP Pulse Ox 98.2 F 71 16 143/100 100 07/03/17 08:00 07/03/17 12:29 07/03/17 08:00 07/03/17 13:00 07/03/17 12:29 General appearance: Present: no acute distress Results - Labs CBC & Chem 7: 06/29/17 06:42 06/30/17 05:56 Labs: Laboratory Last Values WBC 5.4 K/mm3 (4.5-11.0) 06/29/17 06:42 RBC 5.04 M/mm3 (3.65-5.03) H 06/29/17 06:42 Hgb 11.3 gm/dl (10.1-14.3) 06/29/17 06:42 Hct 34.3 % (30.3-42.9) 06/29/17 06:42 MCV 68 fl (79-97) L 06/29/17 06:42 MCH 23 pg (28-32) L 06/29/17 06:42 MCHC 33 % (30-34) 06/29/17 06:42 RDW 23.5 % (13.2-15.2) H 06/29/17 06:42 Plt Count 230 K/mm3 (140-440) 06/29/17 06:42 Lymph % (Auto) 32.5 % (13.4-35.0) 06/29/17 06:42 [place] % (Auto) 11.6 % (0.0-7.3) H 06/29/17 06:42 Eos % (Auto) 1.2 % (0.0-4.3) 06/29/17 06:42 Baso % (Auto) 0.5 % (0.0-1.8) 06/29/17 06:42 Lymph # 1.8 K/mm3 (1.2-5.4) 06/29/17 06:42 [place] # 0.6 K/mm3 (0.0-0.8) 06/29/17 06:42 Eos # 0.1 K/mm3 (0.0-0.4) 06/29/17 06:42 Baso # 0.0 K/mm3 (0.0-0.1) 06/29/17 06:42 Seg Neutrophils % 54.2 % (40.0-70.0) 06/29/17 06:42 Seg Neutrophils # 2.9 K/mm3 (1.8-7.7) 06/29/17 06:42 PT 21.9 Sec. (12.2-14.9) H 07/03/17 07:21 INR 1.81 (0.87-1.13) H 07/03/17 07:21 Sodium 139 mmol/L (137-145) 06/30/17 05:56 Potassium 3.8 mmol/L (3.6-5.0) 06/30/17 05:56 Chloride 99.4 mmol/L (98-107) 06/30/17 05:56 Carbon Dioxide 25 mmol/L (22-30) 06/30/17 05:56 Anion Gap 18 mmol/L 06/30/17 05:56 BUN 9 mg/dL (7-17) 06/30/17 05:56 Creatinine 0.6 mg/dL (0.7-1.2) L 06/30/17 05:56 Estimated GFR > 60 ml/min 06/30/17 05:56 BUN/Creatinine Ratio 15 % 06/30/17 05:56 Glucose 101 mg/dL (65-100) H 06/30/17 05:56 POC Glucose 119 (70-105) H 07/03/17 11:45 Lactic Acid 1.40 mmol/L (0.7-2.0) 06/26/17 04:41 Calcium 8.1 mg/dL (8.4-10.2) L 06/30/17 05:56 Magnesium 1.60 mg/dL (1.7-2.3) L 06/26/17 01:50 Total Bilirubin 2.40 mg/dL (0.1-1.2) H 06/27/17 03:40 AST 14 units/L (5-40) 06/27/17 03:40 ALT 8 units/L (7-56) 06/27/17 03:40 Alkaline Phosphatase 77 units/L (35-129) 06/27/17 03:40 NT-Pro-B Natriuret Pep 2505 pg/mL (0-450) H 06/26/17 17:32 Total Protein 6.2 g/dL (6.3-8.2) L 06/27/17 03:40 Albumin 3.2 g/dL (3.9-5) L 06/27/17 03:40 Albumin/Globulin Ratio 1.1 % 06/27/17 03:40 Triglycerides 52 mg/dL (2-149) 06/27/17 03:40 Cholesterol 58 mg/dL (50-199) 06/27/17 03:40 LDL Cholesterol Direct 33 mg/dL (50-130) L 06/27/17 03:40 HDL Cholesterol 15 mg/dL (40-59) L 06/27/17 03:40 Cholesterol/HDL Ratio 3.86 % 06/27/17 03:40 TSH 7.600 mlU/mL (0.270-4.200) H 06/26/17 01:50 Urine Color [place] (Yellow) 06/26/17 Unknown Urine Turbidity Clear (Clear) 06/26/17 Unknown Urine pH 5.0 (5.0-7.0) 06/26/17 Unknown Ur Specific [place] 1.018 (1.003-1.030) 06/26/17 Unknown Urine Protein 100 mg/dl mg/dL (Negative) 06/26/17 Unknown Urine Glucose (UA) Neg mg/dL (Negative) 06/26/17 Unknown Urine Ketones Neg mg/dL (Negative) 06/26/17 Unknown Urine Blood Sm (Negative) 06/26/17 Unknown Urine Nitrite Pos (Negative) 06/26/17 Unknown Urine Bilirubin Neg (Negative) 06/26/17 Unknown Urine Urobilinogen 4.0 mg/dL (<2.0) 06/26/17 Unknown Ur Leukocyte Esterase Lg (Negative) 06/26/17 Unknown Urine WBC (Auto) 12.0 /HPF (0.0-6.0) H 06/26/17 Unknown Urine RBC (Auto) 3.0 /HPF (0.0-6.0) 06/26/17 Unknown U Epithel Cells (Auto) 6.0 /HPF (0-13.0) 06/26/17 Unknown Urine Bacteria (Auto) 2+ /HPF (Negative) 06/26/17 Unknown Hyaline Casts 1 /LPF 06/26/17 Unknown Urine Mucus 1+ /HPF 06/26/17 Unknown Salicylates < 0.3 mg/dL (2.8-20.0) L 06/26/17 01:50 Urine Opiates Screen Presumptive negative 06/26/17 Unknown Urine Methadone Screen Presumptive negative 06/26/17 Unknown Acetaminophen < 15.0 ug/mL (10.0-30.0) 06/26/17 01:50 Ur Barbiturates Screen Presumptive negative 06/26/17 Unknown Ur Phencyclidine Scrn Presumptive negative 06/26/17 Unknown Ur Amphetamines Screen Presumptive negative 06/26/17 Unknown U Benzodiazepines Scrn Presumptive negative 06/26/17 Unknown Urine Cocaine Screen Presumptive negative 06/26/17 Unknown U Marijuana (THC) Screen Presumptive negative 06/26/17 Unknown Drugs of Abuse Note Disclamer 06/26/17 Unknown Plasma/Serum Alcohol < 0.01 gm% (0-0.07) 06/26/17 01:50
[2017-07-03] MEDS: TYLENOL PO PRN (22:52)
[2017-07-03] MEDS: LEVAQUIN PO SCH (22:55)
[2017-07-04 06:50] LABS: INR 1.78 (0.87-1.13)
[2017-07-04] MEDS: ZESTRIL PO SCH (11:54)
[2017-07-04] MEDS: PLAVIX PO SCH (11:54)
[2017-07-04] MEDS: LASIX IV SCH (11:56)
[2017-07-04] MEDS: LOPRESSOR PO SCH ×2 (11:56→21:27)
--- NOTE | 2017-07-04 13:58 | Progress Note ---
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 (6) Pulmonary embolus Current Visit: No Status: Chronic Qualifiers: Pulmonary embolism type: P Chronicity: C Acute cor pulmonale presence: A Plan to address problem: History of pulmonary embolism, and patient was on warfarin and INR is therapeutic. I have called neurology because of the acute extension of the middle cerebral artery infarction, he recommended to hold the warfarin History Interval history: She was seen and evaluated this morning, she has left-sided weakness, patient has difficulty of speaking, improving. Hospitalist Physical - Physical exam Narrative exam: Not in cardiopulmonary distress. The patient appeared well nourished and normally developed. Vital signs as documented. Head exam is unremarkable. No scleral icterus . Neck is without jugular venous distension, thyromegaly, or carotid bruits. Lungs are clear to auscultation. Cardiac exam reveals regular rate and Rhythm. First and second heart sounds normal. No murmurs, rubs or gallops. Abdominal exam reveals normal bowel sounds, no masses, no organomegaly and no aortic enlargement. Extremities are nonedematous and both femoral and pedal pulses are normal. HOSIERY BAGGER: Left-sided hemiparesis and aphasia. - Constitutional Vitals: Temp Pulse Resp BP Pulse Ox 98.2 F 55 L 16 133/87 98 07/04/17 11:54 07/04/17 11:55 07/04/17 11:54 07/04/17 11:56 07/04/17 11:55 General appearance: Present: no acute distress Results - Labs CBC & Chem 7: 06/29/17 06:42 06/30/17 05:56 Labs: Laboratory Last Values WBC 5.4 K/mm3 (4.5-11.0) 06/29/17 06:42 RBC 5.04 M/mm3 (3.65-5.03) H 06/29/17 06:42 Hgb 11.3 gm/dl (10.1-14.3) 06/29/17 06:42 Hct 34.3 % (30.3-42.9) 06/29/17 06:42 MCV 68 fl (79-97) L 06/29/17 06:42 MCH 23 pg (28-32) L 06/29/17 06:42 MCHC 33 % (30-34) 06/29/17 06:42 RDW 23.5 % (13.2-15.2) H 06/29/17 06:42 Plt Count 230 K/mm3 (140-440) 06/29/17 06:42 Lymph % (Auto) 32.5 % (13.4-35.0) 06/29/17 06:42 [place] % (Auto) 11.6 % (0.0-7.3) H 06/29/17 06:42 Eos % (Auto) 1.2 % (0.0-4.3) 06/29/17 06:42 Baso % (Auto) 0.5 % (0.0-1.8) 06/29/17 06:42 Lymph # 1.8 K/mm3 (1.2-5.4) 06/29/17 06:42 [place] # 0.6 K/mm3 (0.0-0.8) 06/29/17 06:42 Eos # 0.1 K/mm3 (0.0-0.4) 06/29/17 06:42 Baso # 0.0 K/mm3 (0.0-0.1) 06/29/17 06:42 Seg Neutrophils % 54.2 % (40.0-70.0) 06/29/17 06:42 Seg Neutrophils # 2.9 K/mm3 (1.8-7.7) 06/29/17 06:42 PT 21.6 Sec. (12.2-14.9) H 07/04/17 05:33 INR 1.78 (0.87-1.13) H 07/04/17 05:33 Sodium 139 mmol/L (137-145) 06/30/17 05:56 Potassium 3.8 mmol/L (3.6-5.0) 06/30/17 05:56 Chloride 99.4 mmol/L (98-107) 06/30/17 05:56 Carbon Dioxide 25 mmol/L (22-30) 06/30/17 05:56 Anion Gap 18 mmol/L 06/30/17 05:56 BUN 9 mg/dL (7-17) 06/30/17 05:56 Creatinine 0.6 mg/dL (0.7-1.2) L 06/30/17 05:56 Estimated GFR > 60 ml/min 06/30/17 05:56 BUN/Creatinine Ratio 15 % 06/30/17 05:56 Glucose 101 mg/dL (65-100) H 06/30/17 05:56 POC Glucose 153 (70-105) H 07/04/17 11:54 Lactic Acid 1.40 mmol/L (0.7-2.0) 06/26/17 04:41 Calcium 8.1 mg/dL (8.4-10.2) L 06/30/17 05:56 Magnesium 1.60 mg/dL (1.7-2.3) L 06/26/17 01:50 Total Bilirubin 2.40 mg/dL (0.1-1.2) H 06/27/17 03:40 AST 14 units/L (5-40) 06/27/17 03:40 ALT 8 units/L (7-56) 06/27/17 03:40 Alkaline Phosphatase 77 units/L (35-129) 06/27/17 03:40 NT-Pro-B Natriuret Pep 2505 pg/mL (0-450) H 06/26/17 17:32 Total Protein 6.2 g/dL (6.3-8.2) L 06/27/17 03:40 Albumin 3.2 g/dL (3.9-5) L 06/27/17 03:40 Albumin/Globulin Ratio 1.1 % 06/27/17 03:40 Triglycerides 52 mg/dL (2-149) 06/27/17 03:40 Cholesterol 58 mg/dL (50-199) 06/27/17 03:40 LDL Cholesterol Direct 33 mg/dL (50-130) L 06/27/17 03:40 HDL Cholesterol 15 mg/dL (40-59) L 06/27/17 03:40 Cholesterol/HDL Ratio 3.86 % 06/27/17 03:40 TSH 7.600 mlU/mL (0.270-4.200) H 06/26/17 01:50 Urine Color [place] (Yellow) 06/26/17 Unknown Urine Turbidity Clear (Clear) 06/26/17 Unknown Urine pH 5.0 (5.0-7.0) 06/26/17 Unknown Ur Specific [place] 1.018 (1.003-1.030) 06/26/17 Unknown Urine Protein 100 mg/dl mg/dL (Negative) 06/26/17 Unknown Urine Glucose (UA) Neg mg/dL (Negative) 06/26/17 Unknown Urine Ketones Neg mg/dL (Negative) 06/26/17 Unknown Urine Blood Sm (Negative) 06/26/17 Unknown Urine Nitrite Pos (Negative) 06/26/17 Unknown Urine Bilirubin Neg (Negative) 06/26/17 Unknown Urine Urobilinogen 4.0 mg/dL (<2.0) 06/26/17 Unknown Ur Leukocyte Esterase Lg (Negative) 06/26/17 Unknown Urine WBC (Auto) 12.0 /HPF (0.0-6.0) H 06/26/17 Unknown Urine RBC (Auto) 3.0 /HPF (0.0-6.0) 06/26/17 Unknown U Epithel Cells (Auto) 6.0 /HPF (0-13.0) 06/26/17 Unknown Urine Bacteria (Auto) 2+ /HPF (Negative) 06/26/17 Unknown Hyaline Casts 1 /LPF 06/26/17 Unknown Urine Mucus 1+ /HPF 06/26/17 Unknown Salicylates < 0.3 mg/dL (2.8-20.0) L 06/26/17 01:50 Urine Opiates Screen Presumptive negative 06/26/17 Unknown Urine Methadone Screen Presumptive negative 06/26/17 Unknown Acetaminophen < 15.0 ug/mL (10.0-30.0) 06/26/17 01:50 Ur Barbiturates Screen Presumptive negative 06/26/17 Unknown Ur Phencyclidine Scrn Presumptive negative 06/26/17 Unknown Ur Amphetamines Screen Presumptive negative 06/26/17 Unknown U Benzodiazepines Scrn Presumptive negative 06/26/17 Unknown Urine Cocaine Screen Presumptive negative 06/26/17 Unknown U Marijuana (THC) Screen Presumptive negative 06/26/17 Unknown Drugs of Abuse Note Disclamer 06/26/17 Unknown Plasma/Serum Alcohol < 0.01 gm% (0-0.07) 06/26/17 01:50
[2017-07-04] MEDS: MORPHINE IV PRN (23:07)
[2017-07-05 07:24] LABS: INR 1.62 (0.87-1.13)
[2017-07-05] MEDS: LOPRESSOR PO SCH ×2 (11:34→21:23)
[2017-07-05] MEDS: LASIX IV SCH (11:34)
[2017-07-05] MEDS: ZESTRIL PO SCH (11:35)
[2017-07-05] MEDS: PLAVIX PO SCH (11:36)
--- NOTE | 2017-07-05 16:56 | Progress Note ---
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 (4) Diabetes mellitus Current Visit: No Status: Chronic Qualifiers: Diabetes mellitus type: D Diabetes mellitus complication status: D Diabetes mellitus complication detail: D Diabetic retinopathy severity: D Proliferative retinopathy type: P Diabetes mellitus macular edema: D Diabetes mellitus terminal superintendent insulin use: D Laterality: L Chronic kidney disease stage: C Plan to address problem: Blood glucose level is not very high Will do Accu-Chek and start sliding scale insulin as needed (5) Hypertension Current Visit: No Status: Chronic Qualifiers: Hypertension type: H Plan to address problem: will monitor and control blood pressure. (6) Pulmonary embolus Current Visit: No Status: Chronic Qualifiers: Pulmonary embolism type: P Chronicity: C Acute cor pulmonale presence: A History Interval history: She was seen and evaluated this morning, she has left-sided weakness, patient has difficulty of speaking, improving. Hospitalist Physical - Physical exam Narrative exam: Not in cardiopulmonary distress. The patient appeared well nourished and normally developed. Vital signs as documented. Head exam is unremarkable. No scleral icterus . Neck is without jugular venous distension, thyromegaly, or carotid bruits. Lungs are clear to auscultation. Cardiac exam reveals regular rate and Rhythm. First and second heart sounds normal. No murmurs, rubs or gallops. Abdominal exam reveals normal bowel sounds, no masses, no organomegaly and no aortic enlargement. Extremities are nonedematous and both femoral and pedal pulses are normal. 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 - Constitutional Vitals: Temp Pulse Resp BP Pulse Ox 98.6 F 55 L 20 95/51 96 07/05/17 16:03 07/05/17 16:03 07/05/17 16:03 07/05/17 16:03 07/05/17 16:03 General appearance: Present: no acute distress Results - Labs CBC & Chem 7: 06/29/17 06:42 06/30/17 05:56 Labs: Laboratory Last Values WBC 5.4 K/mm3 (4.5-11.0) 06/29/17 06:42 RBC 5.04 M/mm3 (3.65-5.03) H 06/29/17 06:42 Hgb 11.3 gm/dl (10.1-14.3) 06/29/17 06:42 Hct 34.3 % (30.3-42.9) 06/29/17 06:42 MCV 68 fl (79-97) L 06/29/17 06:42 MCH 23 pg (28-32) L 06/29/17 06:42 MCHC 33 % (30-34) 06/29/17 06:42 RDW 23.5 % (13.2-15.2) H 06/29/17 06:42 Plt Count 230 K/mm3 (140-440) 06/29/17 06:42 Lymph % (Auto) 32.5 % (13.4-35.0) 06/29/17 06:42 [place] % (Auto) 11.6 % (0.0-7.3) H 06/29/17 06:42 Eos % (Auto) 1.2 % (0.0-4.3) 06/29/17 06:42 Baso % (Auto) 0.5 % (0.0-1.8) 06/29/17 06:42 Lymph # 1.8 K/mm3 (1.2-5.4) 06/29/17 06:42 [place] # 0.6 K/mm3 (0.0-0.8) 06/29/17 06:42 Eos # 0.1 K/mm3 (0.0-0.4) 06/29/17 06:42 Baso # 0.0 K/mm3 (0.0-0.1) 06/29/17 06:42 Seg Neutrophils % 54.2 % (40.0-70.0) 06/29/17 06:42 Seg Neutrophils # 2.9 K/mm3 (1.8-7.7) 06/29/17 06:42 PT 20.0 Sec. (12.2-14.9) H 07/05/17 05:57 INR 1.62 (0.87-1.13) H 07/05/17 05:57 Sodium 139 mmol/L (137-145) 06/30/17 05:56 Potassium 3.8 mmol/L (3.6-5.0) 06/30/17 05:56 Chloride 99.4 mmol/L (98-107) 06/30/17 05:56 Carbon Dioxide 25 mmol/L (22-30) 06/30/17 05:56 Anion Gap 18 mmol/L 06/30/17 05:56 BUN 9 mg/dL (7-17) 06/30/17 05:56 Creatinine 0.6 mg/dL (0.7-1.2) L 06/30/17 05:56 Estimated GFR > 60 ml/min 06/30/17 05:56 BUN/Creatinine Ratio 15 % 06/30/17 05:56 Glucose 101 mg/dL (65-100) H 06/30/17 05:56 POC Glucose 148 (70-105) H 07/05/17 11:26 Lactic Acid 1.40 mmol/L (0.7-2.0) 06/26/17 04:41 Calcium 8.1 mg/dL (8.4-10.2) L 06/30/17 05:56 Magnesium 1.60 mg/dL (1.7-2.3) L 06/26/17 01:50 Total Bilirubin 2.40 mg/dL (0.1-1.2) H 06/27/17 03:40 AST 14 units/L (5-40) 06/27/17 03:40 ALT 8 units/L (7-56) 06/27/17 03:40 Alkaline Phosphatase 77 units/L (35-129) 06/27/17 03:40 NT-Pro-B Natriuret Pep 2505 pg/mL (0-450) H 06/26/17 17:32 Total Protein 6.2 g/dL (6.3-8.2) L 06/27/17 03:40 Albumin 3.2 g/dL (3.9-5) L 06/27/17 03:40 Albumin/Globulin Ratio 1.1 % 06/27/17 03:40 Triglycerides 52 mg/dL (2-149) 06/27/17 03:40 Cholesterol 58 mg/dL (50-199) 06/27/17 03:40 LDL Cholesterol Direct 33 mg/dL (50-130) L 06/27/17 03:40 HDL Cholesterol 15 mg/dL (40-59) L 06/27/17 03:40 Cholesterol/HDL Ratio 3.86 % 06/27/17 03:40 TSH 7.600 mlU/mL (0.270-4.200) H 06/26/17 01:50 Urine Color [place] (Yellow) 06/26/17 Unknown Urine Turbidity Clear (Clear) 06/26/17 Unknown Urine pH 5.0 (5.0-7.0) 06/26/17 Unknown Ur Specific [place] 1.018 (1.003-1.030) 06/26/17 Unknown Urine Protein 100 mg/dl mg/dL (Negative) 06/26/17 Unknown Urine Glucose (UA) Neg mg/dL (Negative) 06/26/17 Unknown Urine Ketones Neg mg/dL (Negative) 06/26/17 Unknown Urine Blood Sm (Negative) 06/26/17 Unknown Urine Nitrite Pos (Negative) 06/26/17 Unknown Urine Bilirubin Neg (Negative) 06/26/17 Unknown Urine Urobilinogen 4.0 mg/dL (<2.0) 06/26/17 Unknown Ur Leukocyte Esterase Lg (Negative) 06/26/17 Unknown Urine WBC (Auto) 12.0 /HPF (0.0-6.0) H 06/26/17 Unknown Urine RBC (Auto) 3.0 /HPF (0.0-6.0) 06/26/17 Unknown U Epithel Cells (Auto) 6.0 /HPF (0-13.0) 06/26/17 Unknown Urine Bacteria (Auto) 2+ /HPF (Negative) 06/26/17 Unknown Hyaline Casts 1 /LPF 06/26/17 Unknown Urine Mucus 1+ /HPF 06/26/17 Unknown Salicylates < 0.3 mg/dL (2.8-20.0) L 06/26/17 01:50 Urine Opiates Screen Presumptive negative 06/26/17 Unknown Urine Methadone Screen Presumptive negative 06/26/17 Unknown Acetaminophen < 15.0 ug/mL (10.0-30.0) 06/26/17 01:50 Ur Barbiturates Screen Presumptive negative 06/26/17 Unknown Ur Phencyclidine Scrn Presumptive negative 06/26/17 Unknown Ur Amphetamines Screen Presumptive negative 06/26/17 Unknown U Benzodiazepines Scrn Presumptive negative 06/26/17 Unknown Urine Cocaine Screen Presumptive negative 06/26/17 Unknown U Marijuana (THC) Screen Presumptive negative 06/26/17 Unknown Drugs of Abuse Note Disclamer 06/26/17 Unknown Plasma/Serum Alcohol < 0.01 gm% (0-0.07) 06/26/17 01:50
[2017-07-06 06:53] LABS: Basophils % (Auto) 0.6 % (0.0-1.8); Eosinophils % (Auto) 0.9 % (0.0-4.3); Hematocrit 37.2 % (30.3-42.9); Mean Corpuscular HGB Conc 32 % (30-34); Platelet Count 248 K/mm3 (140-440); Red Blood Count 5.39 M/mm3 (3.65-5.03); White Blood Count 5.7 K/mm3 (4.5-11.0)
[2017-07-06 06:56] LABS: Mean Corpuscular Hemoglobin 22 pg (28-32); Mean Corpuscular Volume 69 fl (79-97); Red Cell Distribution Width 24.1 % (13.2-15.2)
[2017-07-06 07:41] LABS: Anion Gap 13 mmol/L; BUN/Creatinine Ratio 22; Blood Urea Nitrogen 13 mg/dL (7-17); Calcium 8.4 mg/dL (8.4-10.2); Carbon Dioxide 30 mmol/L (22-30); Chloride 97.3 mmol/L (98-107); Glucose 109 mg/dL (65-100); INR 1.45 (0.87-1.13); Potassium 3.3 mmol/L (3.6-5.0); Sodium 137 mmol/L (137-145)
[2017-07-06] MEDS: LASIX IV SCH (09:27)
[2017-07-06] MEDS: ZESTRIL PO SCH (09:28)
[2017-07-06] MEDS: PLAVIX PO SCH (09:28)
[2017-07-06] MEDS: LOPRESSOR PO SCH ×2 (09:29→21:24)
--- NOTE | 2017-07-06 11:19 | Progress Note ---
Assessment and Plan Assessment and plan: Acute CVA with left hemiparesis. -CT head is significant for right-sided old infarction -MRI showed acute extension of infarction of the middle cerebral artery -Neurolgy consult appreciated, held warfarin -Physical Therapy Consulted Cardiomyopathy -Ejection fraction is 15-20% -Has been evaluated by [place] cardiology on the previous admission and recommended to continue the medical management -Continue current medical management. Diabetes mellitus. -Continue Accu-Cheks and sliding scale illness. Hypertension. -Continue antihypertensive medications. Pulmonary embolus History of pulmonary embolism, and patient was on warfarin and INR was therapeutic. Neurology consultation because of the acute extension of the middle cerebral artery infarction and recommendation was to hold the warfarin History Interval history: No new issues overnight. Hospitalist Physical - Constitutional Vitals: Temp Pulse Resp BP Pulse Ox 97.7 F 69 18 118/67 97 07/06/17 08:06 07/06/17 09:29 07/06/17 08:06 07/06/17 09:29 07/06/17 08:06 General appearance: Present: no acute distress - EENT Eyes: Present: PERRL, EOM intact ENT: hearing intact, clear oral mucosa, dentition normal - Neck Neck: Present: supple, normal ROM - Respiratory Respiratory effort: normal Respiratory: bilateral: CTA - Cardiovascular Rhythm: regular Heart Sounds: Present: S1 & S2. Absent: gallop, rub - Extremities Extremities: no ischemia, No edema, Full ROM - Abdominal General gastrointestinal: soft, non-tender, non-distended, normal bowel sounds - Integumentary Integumentary: Present: clear, warm, dry - Neurologic Neurologic: CNII-XII intact, moves all extremities Results - Labs CBC & Chem 7: 07/06/17 06:01 07/06/17 06:01 Labs: Laboratory Last Values WBC 5.7 K/mm3 (4.5-11.0) 07/06/17 06:01 RBC 5.39 M/mm3 (3.65-5.03) H 07/06/17 06:01 Hgb 12.0 gm/dl (10.1-14.3) 07/06/17 06:01 Hct 37.2 % (30.3-42.9) 07/06/17 06:01 MCV 69 fl (79-97) L 07/06/17 06:01 MCH 22 pg (28-32) L 07/06/17 06:01 MCHC 32 % (30-34) 07/06/17 06:01 RDW 24.1 % (13.2-15.2) H 07/06/17 06:01 Plt Count 248 K/mm3 (140-440) 07/06/17 06:01 Lymph % (Auto) 31.7 % (13.4-35.0) 07/06/17 06:01 [place] % (Auto) 10.9 % (0.0-7.3) H 07/06/17 06:01 Eos % (Auto) 0.9 % (0.0-4.3) 07/06/17 06:01 Baso % (Auto) 0.6 % (0.0-1.8) 07/06/17 06:01 Lymph # 1.8 K/mm3 (1.2-5.4) 07/06/17 06:01 [place] # 0.6 K/mm3 (0.0-0.8) 07/06/17 06:01 Eos # 0.1 K/mm3 (0.0-0.4) 07/06/17 06:01 Baso # 0.0 K/mm3 (0.0-0.1) 07/06/17 06:01 Seg Neutrophils % 55.9 % (40.0-70.0) 07/06/17 06:01 Seg Neutrophils # 3.2 K/mm3 (1.8-7.7) 07/06/17 06:01 PT 18.4 Sec. (12.2-14.9) H 07/06/17 06:01 INR 1.45 (0.87-1.13) H 07/06/17 06:01 Sodium 137 mmol/L (137-145) 07/06/17 06:01 Potassium 3.3 mmol/L (3.6-5.0) L 07/06/17 06:01 Chloride 97.3 mmol/L (98-107) L 07/06/17 06:01 Carbon Dioxide 30 mmol/L (22-30) 07/06/17 06:01 Anion Gap 13 mmol/L 07/06/17 06:01 BUN 13 mg/dL (7-17) 07/06/17 06:01 Creatinine 0.6 mg/dL (0.7-1.2) L 07/06/17 06:01 Estimated GFR > 60 ml/min 07/06/17 06:01 BUN/Creatinine Ratio 22 % 07/06/17 06:01 Glucose 109 mg/dL (65-100) H 07/06/17 06:01 POC Glucose 137 (70-105) H 07/05/17 20:03 Lactic Acid 1.40 mmol/L (0.7-2.0) 06/26/17 04:41 Calcium 8.4 mg/dL (8.4-10.2) 07/06/17 06:01 Magnesium 1.60 mg/dL (1.7-2.3) L 06/26/17 01:50 Total Bilirubin 2.40 mg/dL (0.1-1.2) H 06/27/17 03:40 AST 14 units/L (5-40) 06/27/17 03:40 ALT 8 units/L (7-56) 06/27/17 03:40 Alkaline Phosphatase 77 units/L (35-129) 06/27/17 03:40 NT-Pro-B Natriuret Pep 2505 pg/mL (0-450) H 06/26/17 17:32 Total Protein 6.2 g/dL (6.3-8.2) L 06/27/17 03:40 Albumin 3.2 g/dL (3.9-5) L 06/27/17 03:40 Albumin/Globulin Ratio 1.1 % 06/27/17 03:40 Triglycerides 52 mg/dL (2-149) 06/27/17 03:40 Cholesterol 58 mg/dL (50-199) 06/27/17 03:40 LDL Cholesterol Direct 33 mg/dL (50-130) L 06/27/17 03:40 HDL Cholesterol 15 mg/dL (40-59) L 06/27/17 03:40 Cholesterol/HDL Ratio 3.86 % 06/27/17 03:40 TSH 7.600 mlU/mL (0.270-4.200) H 06/26/17 01:50 Urine Color [place]ora (Yellow) 06/26/17 Unknown Urine Turbidity Clear (Clear) 06/26/17 Unknown Urine pH 5.0 (5.0-7.0) 06/26/17 Unknown Ur Specific [place] 1.018 (1.003-1.030) 06/26/17 Unknown Urine Protein 100 mg/dl mg/dL (Negative) 06/26/17 Unknown Urine Glucose (UA) Neg mg/dL (Negative) 06/26/17 Unknown Urine Ketones Neg mg/dL (Negative) 06/26/17 Unknown Urine Blood Sm (Negative) 06/26/17 Unknown Urine Nitrite Pos (Negative) 06/26/17 Unknown Urine Bilirubin Neg (Negative) 06/26/17 Unknown Urine Urobilinogen 4.0 mg/dL (<2.0) 06/26/17 Unknown Ur Leukocyte Esterase Lg (Negative) 06/26/17 Unknown Urine WBC (Auto) 12.0 /HPF (0.0-6.0) H 06/26/17 Unknown Urine RBC (Auto) 3.0 /HPF (0.0-6.0) 06/26/17 Unknown U Epithel Cells (Auto) 6.0 /HPF (0-13.0) 06/26/17 Unknown Urine Bacteria (Auto) 2+ /HPF (Negative) 06/26/17 Unknown Hyaline Casts 1 /LPF 06/26/17 Unknown Urine Mucus 1+ /HPF 06/26/17 Unknown Salicylates < 0.3 mg/dL (2.8-20.0) L 06/26/17 01:50 Urine Opiates Screen Presumptive negative 06/26/17 Unknown Urine Methadone Screen Presumptive negative 06/26/17 Unknown Acetaminophen < 15.0 ug/mL (10.0-30.0) 06/26/17 01:50 Ur Barbiturates Screen Presumptive negative 06/26/17 Unknown Ur Phencyclidine Scrn Presumptive negative 06/26/17 Unknown Ur Amphetamines Screen Presumptive negative 06/26/17 Unknown U Benzodiazepines Scrn Presumptive negative 06/26/17 Unknown Urine Cocaine Screen Presumptive negative 06/26/17 Unknown U Marijuana (THC) Screen Presumptive negative 06/26/17 Unknown Drugs of Abuse Note Disclamer 06/26/17 Unknown Plasma/Serum Alcohol < 0.01 gm% (0-0.07) 06/26/17 01:50
[2017-07-07] MEDS: MORPHINE IV PRN (04:03)
[2017-07-07] MEDS: ZOFRAN IV PRN (04:03)
[2017-07-07 06:27] LABS: Basophils % (Auto) 0.5 % (0.0-1.8); Hematocrit 36.5 % (30.3-42.9); Hemoglobin 12.1 gm/dl (10.1-14.3); Mean Corpuscular HGB Conc 33 % (30-34); Platelet Count 251 K/mm3 (140-440); Red Blood Count 5.37 M/mm3 (3.65-5.03); White Blood Count 5.2 K/mm3 (4.5-11.0)
[2017-07-07 06:33] LABS: Mean Corpuscular Hemoglobin 23 pg (28-32); Mean Corpuscular Volume 68 fl (79-97); Red Cell Distribution Width 23.4 % (13.2-15.2)
[2017-07-07 06:50] LABS: Anion Gap 16 mmol/L; BUN/Creatinine Ratio 20; Blood Urea Nitrogen 12 mg/dL (7-17); Calcium 8.5 mg/dL (8.4-10.2); Carbon Dioxide 29 mmol/L (22-30); Chloride 98.7 mmol/L (98-107); Glucose 96 mg/dL (65-100); Potassium 3.5 mmol/L (3.6-5.0); Sodium 140 mmol/L (137-145)
[2017-07-07] MEDS: LASIX IV SCH (09:41)
[2017-07-07] MEDS: ZESTRIL PO SCH (09:41)
[2017-07-07] MEDS: LOPRESSOR PO SCH ×2 (09:41→22:27)
[2017-07-07] MEDS: PLAVIX PO SCH (09:42)
--- NOTE | 2017-07-07 11:16 | Progress Note ---
Assessment and Plan Assessment and plan: Acute CVA with left hemiparesis. -CT head is significant for right-sided old infarction -MRI showed acute extension of infarction of the middle cerebral artery -Neurolgy consult appreciated, warfarin, on hold secondary to -Physical Therapy following Cardiomyopathy -Ejection fraction is 15-20% -Has been evaluated by [place] cardiology on the previous admission and recommended to continue the medical management -Continue current medical management. Diabetes mellitus. -Continue Accu-Cheks and sliding scale illness. Hypertension. -Continue antihypertensive medications. Pulmonary embolus History of pulmonary embolism, and patient was on warfarin and INR was therapeutic. Neurology consultation because of the acute extension of the middle cerebral artery infarction and recommendation was to hold the warfarin History Interval history: No new issues overnight. Hospitalist Physical - Constitutional Vitals: Temp Pulse Resp BP Pulse Ox 98.2 F 46 L 20 123/70 100 07/07/17 03:36 07/07/17 03:36 07/07/17 04:33 07/07/17 09:41 07/07/17 03:36 General appearance: Present: no acute distress - EENT Eyes: Present: PERRL, EOM intact ENT: hearing intact, clear oral mucosa, dentition normal - Neck Neck: Present: supple, normal ROM - Respiratory Respiratory effort: normal Respiratory: bilateral: CTA - Cardiovascular Rhythm: regular Heart Sounds: Present: S1 & S2. Absent: gallop, rub - Extremities Extremities: no ischemia, No edema, Full ROM - Abdominal General gastrointestinal: soft, non-tender, non-distended, normal bowel sounds - Integumentary Integumentary: Present: clear, warm, dry - Neurologic Neurologic: CNII-XII intact, moves all extremities Results - Labs CBC & Chem 7: 07/07/17 05:41 07/07/17 05:41 Labs: Laboratory Last Values WBC 5.2 K/mm3 (4.5-11.0) 07/07/17 05:41 RBC 5.37 M/mm3 (3.65-5.03) H 07/07/17 05:41 Hgb 12.1 gm/dl (10.1-14.3) 07/07/17 05:41 Hct 36.5 % (30.3-42.9) 07/07/17 05:41 MCV 68 fl (79-97) L 07/07/17 05:41 MCH 23 pg (28-32) L 07/07/17 05:41 MCHC 33 % (30-34) 07/07/17 05:41 RDW 23.4 % (13.2-15.2) H 07/07/17 05:41 Plt Count 251 K/mm3 (140-440) 07/07/17 05:41 Lymph % (Auto) 37.2 % (13.4-35.0) H 07/07/17 05:41 [place] % (Auto) 12.5 % (0.0-7.3) H 07/07/17 05:41 Eos % (Auto) 1.0 % (0.0-4.3) 07/07/17 05:41 Baso % (Auto) 0.5 % (0.0-1.8) 07/07/17 05:41 Lymph # 1.9 K/mm3 (1.2-5.4) 07/07/17 05:41 [place] # 0.7 K/mm3 (0.0-0.8) 07/07/17 05:41 Eos # 0.0 K/mm3 (0.0-0.4) 07/07/17 05:41 Baso # 0.0 K/mm3 (0.0-0.1) 07/07/17 05:41 Seg Neutrophils % 48.8 % (40.0-70.0) 07/07/17 05:41 Seg Neutrophils # 2.5 K/mm3 (1.8-7.7) 07/07/17 05:41 PT 18.4 Sec. (12.2-14.9) H 07/06/17 06:01 INR 1.45 (0.87-1.13) H 07/06/17 06:01 Sodium 140 mmol/L (137-145) 07/07/17 05:41 Potassium 3.5 mmol/L (3.6-5.0) L 07/07/17 05:41 Chloride 97.3 mmol/L (98-107) L 07/06/17 06:01 Carbon Dioxide 29 mmol/L (22-30) 07/07/17 05:41 Anion Gap 13 mmol/L 07/06/17 06:01 BUN 12 mg/dL (7-17) 07/07/17 05:41 Creatinine 0.6 mg/dL (0.7-1.2) L 07/07/17 05:41 Estimated GFR > 60 ml/min 07/07/17 05:41 BUN/Creatinine Ratio 20 % 07/07/17 05:41 Glucose 96 mg/dL (65-100) 07/07/17 05:41 POC Glucose 95 (70-105) 07/07/17 08:30 Lactic Acid 1.40 mmol/L (0.7-2.0) 06/26/17 04:41 Calcium 8.5 mg/dL (8.4-10.2) 07/07/17 05:41 Magnesium 1.60 mg/dL (1.7-2.3) L 06/26/17 01:50 Total Bilirubin 2.40 mg/dL (0.1-1.2) H 06/27/17 03:40 AST 14 units/L (5-40) 06/27/17 03:40 ALT 8 units/L (7-56) 06/27/17 03:40 Alkaline Phosphatase 77 units/L (35-129) 06/27/17 03:40 NT-Pro-B Natriuret Pep 2505 pg/mL (0-450) H 06/26/17 17:32 Total Protein 6.2 g/dL (6.3-8.2) L 06/27/17 03:40 Albumin 3.2 g/dL (3.9-5) L 06/27/17 03:40 Albumin/Globulin Ratio 1.1 % 06/27/17 03:40 Triglycerides 52 mg/dL (2-149) 06/27/17 03:40 Cholesterol 58 mg/dL (50-199) 06/27/17 03:40 LDL Cholesterol Direct 33 mg/dL (50-130) L 06/27/17 03:40 HDL Cholesterol 15 mg/dL (40-59) L 06/27/17 03:40 Cholesterol/HDL Ratio 3.86 % 06/27/17 03:40 TSH 7.600 mlU/mL (0.270-4.200) H 06/26/17 01:50 Urine Color [place]ora (Yellow) 06/26/17 Unknown Urine Turbidity Clear (Clear) 06/26/17 Unknown Urine pH 5.0 (5.0-7.0) 06/26/17 Unknown Ur Specific [place] 1.018 (1.003-1.030) 06/26/17 Unknown Urine Protein 100 mg/dl mg/dL (Negative) 06/26/17 Unknown Urine Glucose (UA) Neg mg/dL (Negative) 06/26/17 Unknown Urine Ketones Neg mg/dL (Negative) 06/26/17 Unknown Urine Blood Sm (Negative) 06/26/17 Unknown Urine Nitrite Pos (Negative) 06/26/17 Unknown Urine Bilirubin Neg (Negative) 06/26/17 Unknown Urine Urobilinogen 4.0 mg/dL (<2.0) 06/26/17 Unknown Ur Leukocyte Esterase Lg (Negative) 06/26/17 Unknown Urine WBC (Auto) 12.0 /HPF (0.0-6.0) H 06/26/17 Unknown Urine RBC (Auto) 3.0 /HPF (0.0-6.0) 06/26/17 Unknown U Epithel Cells (Auto) 6.0 /HPF (0-13.0) 06/26/17 Unknown Urine Bacteria (Auto) 2+ /HPF (Negative) 06/26/17 Unknown Hyaline Casts 1 /LPF 06/26/17 Unknown Urine Mucus 1+ /HPF 06/26/17 Unknown Salicylates < 0.3 mg/dL (2.8-20.0) L 06/26/17 01:50 Urine Opiates Screen Presumptive negative 06/26/17 Unknown Urine Methadone Screen Presumptive negative 06/26/17 Unknown Acetaminophen < 15.0 ug/mL (10.0-30.0) 06/26/17 01:50 Ur Barbiturates Screen Presumptive negative 06/26/17 Unknown Ur Phencyclidine Scrn Presumptive negative 06/26/17 Unknown Ur Amphetamines Screen Presumptive negative 06/26/17 Unknown U Benzodiazepines Scrn Presumptive negative 06/26/17 Unknown Urine Cocaine Screen Presumptive negative 06/26/17 Unknown U Marijuana (THC) Screen Presumptive negative 06/26/17 Unknown Drugs of Abuse Note Disclamer 06/26/17 Unknown Plasma/Serum Alcohol < 0.01 gm% (0-0.07) 06/26/17 01:50
[2017-07-07] MEDS: TYLENOL PO PRN (22:27)
[2017-07-08] MEDS: ZESTRIL PO SCH (10:00)
[2017-07-08] MEDS: LASIX IV SCH (11:14)
[2017-07-08] MEDS: PLAVIX PO SCH (11:15)
[2017-07-08] MEDS: LOPRESSOR PO SCH ×2 (11:15→22:10)
--- NOTE | 2017-07-08 11:23 | Progress Note ---
Assessment and Plan Assessment and plan: Acute CVA with left hemiparesis. -CT head is significant for right-sided old infarction -MRI showed acute extension of infarction of the middle cerebral artery -Neurolgy consult appreciated, warfarin, on hold secondary to CVA extension -Physical Therapy following Cardiomyopathy -Ejection fraction is 15-20% -Has been evaluated by [place] cardiology on the previous admission and recommended to continue the medical management -Continue current medical management. Diabetes mellitus. -Continue Accu-Cheks and sliding scale illness. Hypertension. -Continue antihypertensive medications. Pulmonary embolus -History of pulmonary embolism, and patient was on warfarin and INR was therapeutic. -Neurology consultation because of the acute extension of the middle cerebral artery infarction and recommendation was to hold the warfarin Disposition. -PT recommended subacute rehabilitation. Await placement. History Interval history: No new issues overnight. Hospitalist Physical - Constitutional Vitals: Temp Pulse Resp BP Pulse Ox 97.8 F 44 L 16 109/58 100 07/08/17 08:40 07/08/17 11:15 07/08/17 08:40 07/08/17 11:15 07/08/17 08:40 General appearance: Present: no acute distress - EENT Eyes: Present: PERRL, EOM intact ENT: hearing intact, clear oral mucosa, dentition normal - Neck Neck: Present: supple, normal ROM - Respiratory Respiratory effort: normal Respiratory: bilateral: CTA - Cardiovascular Rhythm: regular Heart Sounds: Present: S1 & S2. Absent: gallop, rub - Extremities Extremities: no ischemia, No edema, Full ROM - Abdominal General gastrointestinal: soft, non-tender, non-distended, normal bowel sounds - Integumentary Integumentary: Present: clear, warm, dry - Neurologic Neurologic: CNII-XII intact, moves all extremities Results - Labs CBC & Chem 7: 07/07/17 05:41 07/07/17 05:41 Labs: Laboratory Last Values WBC 5.2 K/mm3 (4.5-11.0) 07/07/17 05:41 RBC 5.37 M/mm3 (3.65-5.03) H 07/07/17 05:41 Hgb 12.1 gm/dl (10.1-14.3) 07/07/17 05:41 Hct 36.5 % (30.3-42.9) 07/07/17 05:41 MCV 68 fl (79-97) L 07/07/17 05:41 MCH 23 pg (28-32) L 07/07/17 05:41 MCHC 33 % (30-34) 07/07/17 05:41 RDW 23.4 % (13.2-15.2) H 07/07/17 05:41 Plt Count 251 K/mm3 (140-440) 07/07/17 05:41 Lymph % (Auto) 37.2 % (13.4-35.0) H 07/07/17 05:41 [place] % (Auto) 12.5 % (0.0-7.3) H 07/07/17 05:41 Eos % (Auto) 1.0 % (0.0-4.3) 07/07/17 05:41 Baso % (Auto) 0.5 % (0.0-1.8) 07/07/17 05:41 Lymph # 1.9 K/mm3 (1.2-5.4) 07/07/17 05:41 [place] # 0.7 K/mm3 (0.0-0.8) 07/07/17 05:41 Eos # 0.0 K/mm3 (0.0-0.4) 07/07/17 05:41 Baso # 0.0 K/mm3 (0.0-0.1) 07/07/17 05:41 Seg Neutrophils % 48.8 % (40.0-70.0) 07/07/17 05:41 Seg Neutrophils # 2.5 K/mm3 (1.8-7.7) 07/07/17 05:41 PT 18.4 Sec. (12.2-14.9) H 07/06/17 06:01 INR 1.45 (0.87-1.13) H 07/06/17 06:01 Sodium 140 mmol/L (137-145) 07/07/17 05:41 Potassium 3.5 mmol/L (3.6-5.0) L 07/07/17 05:41 Chloride 97.3 mmol/L (98-107) L 07/06/17 06:01 Carbon Dioxide 29 mmol/L (22-30) 07/07/17 05:41 Anion Gap 13 mmol/L 07/06/17 06:01 BUN 12 mg/dL (7-17) 07/07/17 05:41 Creatinine 0.6 mg/dL (0.7-1.2) L 07/07/17 05:41 Estimated GFR > 60 ml/min 07/07/17 05:41 BUN/Creatinine Ratio 20 % 07/07/17 05:41 Glucose 96 mg/dL (65-100) 07/07/17 05:41 POC Glucose 97 (70-105) 07/08/17 09:13 Lactic Acid 1.40 mmol/L (0.7-2.0) 06/26/17 04:41 Calcium 8.5 mg/dL (8.4-10.2) 07/07/17 05:41 Magnesium 1.60 mg/dL (1.7-2.3) L 06/26/17 01:50 Total Bilirubin 2.40 mg/dL (0.1-1.2) H 06/27/17 03:40 AST 14 units/L (5-40) 06/27/17 03:40 ALT 8 units/L (7-56) 06/27/17 03:40 Alkaline Phosphatase 77 units/L (35-129) 06/27/17 03:40 NT-Pro-B Natriuret Pep 2505 pg/mL (0-450) H 06/26/17 17:32 Total Protein 6.2 g/dL (6.3-8.2) L 06/27/17 03:40 Albumin 3.2 g/dL (3.9-5) L 06/27/17 03:40 Albumin/Globulin Ratio 1.1 % 06/27/17 03:40 Triglycerides 52 mg/dL (2-149) 06/27/17 03:40 Cholesterol 58 mg/dL (50-199) 06/27/17 03:40 LDL Cholesterol Direct 33 mg/dL (50-130) L 06/27/17 03:40 HDL Cholesterol 15 mg/dL (40-59) L 06/27/17 03:40 Cholesterol/HDL Ratio 3.86 % 06/27/17 03:40 TSH 7.600 mlU/mL (0.270-4.200) H 06/26/17 01:50 Urine Color [place] (Yellow) 06/26/17 Unknown Urine Turbidity Clear (Clear) 06/26/17 Unknown Urine pH 5.0 (5.0-7.0) 06/26/17 Unknown Ur Specific [place] 1.018 (1.003-1.030) 06/26/17 Unknown Urine Protein 100 mg/dl mg/dL (Negative) 06/26/17 Unknown Urine Glucose (UA) Neg mg/dL (Negative) 06/26/17 Unknown Urine Ketones Neg mg/dL (Negative) 06/26/17 Unknown Urine Blood Sm (Negative) 06/26/17 Unknown Urine Nitrite Pos (Negative) 06/26/17 Unknown Urine Bilirubin Neg (Negative) 06/26/17 Unknown Urine Urobilinogen 4.0 mg/dL (<2.0) 06/26/17 Unknown Ur Leukocyte Esterase Lg (Negative) 06/26/17 Unknown Urine WBC (Auto) 12.0 /HPF (0.0-6.0) H 06/26/17 Unknown Urine RBC (Auto) 3.0 /HPF (0.0-6.0) 06/26/17 Unknown U Epithel Cells (Auto) 6.0 /HPF (0-13.0) 06/26/17 Unknown Urine Bacteria (Auto) 2+ /HPF (Negative) 06/26/17 Unknown Hyaline Casts 1 /LPF 06/26/17 Unknown Urine Mucus 1+ /HPF 06/26/17 Unknown Salicylates < 0.3 mg/dL (2.8-20.0) L 06/26/17 01:50 Urine Opiates Screen Presumptive negative 06/26/17 Unknown Urine Methadone Screen Presumptive negative 06/26/17 Unknown Acetaminophen < 15.0 ug/mL (10.0-30.0) 06/26/17 01:50 Ur Barbiturates Screen Presumptive negative 06/26/17 Unknown Ur Phencyclidine Scrn Presumptive negative 06/26/17 Unknown Ur Amphetamines Screen Presumptive negative 06/26/17 Unknown U Benzodiazepines Scrn Presumptive negative 06/26/17 Unknown Urine Cocaine Screen Presumptive negative 06/26/17 Unknown U Marijuana (THC) Screen Presumptive negative 06/26/17 Unknown Drugs of Abuse Note Disclamer 06/26/17 Unknown Plasma/Serum Alcohol < 0.01 gm% (0-0.07) 06/26/17 01:50
[2017-07-08] MEDS ORDERED: Fluarix Quad 2017-2018(36 MOS+) IM ONE (12:00)
[2017-07-08] MEDS: TYLENOL PO PRN (22:07)
[2017-07-09] MEDS: TYLENOL PO PRN ×2 (04:38→21:42)
[2017-07-09 07:44] LABS: Basophils % (Auto) 0.4 % (0.0-1.8); Eosinophils % (Auto) 1.7 % (0.0-4.3); Hematocrit 38.8 % (30.3-42.9); Hemoglobin 12.7 gm/dl (10.1-14.3); Mean Corpuscular HGB Conc 33 % (30-34); Platelet Count 247 K/mm3 (140-440); Red Blood Count 5.71 M/mm3 (3.65-5.03); White Blood Count 5.3 K/mm3 (4.5-11.0)
[2017-07-09 07:51] LABS: Anion Gap 14 mmol/L; BUN/Creatinine Ratio 22; Blood Urea Nitrogen 11 mg/dL (7-17); Calcium 8.4 mg/dL (8.4-10.2); Carbon Dioxide 28 mmol/L (22-30); Chloride 98.5 mmol/L (98-107); Glucose 86 mg/dL (65-100); Potassium 3.4 mmol/L (3.6-5.0); Sodium 137 mmol/L (137-145)
[2017-07-09 07:54] LABS: Mean Corpuscular Hemoglobin 22 pg (28-32); Mean Corpuscular Volume 68 fl (79-97); Red Cell Distribution Width 23.2 % (13.2-15.2)
[2017-07-09] MEDS: PLAVIX PO SCH (11:41)
[2017-07-09] MEDS: LASIX IV SCH (11:41)
[2017-07-09] MEDS: ZESTRIL PO SCH (11:41)
[2017-07-09] MEDS: LOPRESSOR PO SCH ×2 (11:41→21:36)
--- NOTE | 2017-07-09 12:31 | Progress Note ---
Assessment and Plan Assessment and plan: Acute CVA with left hemiparesis. -CT head is significant for right-sided old infarction -MRI showed acute extension of infarction of the middle cerebral artery -Neurolgy consult appreciated, warfarin, on hold secondary to CVA extension -Physical Therapy following Cardiomyopathy -Ejection fraction is 15-20% -Has been evaluated by [place] cardiology on the previous admission and recommended to continue the medical management -Continue current medical management. Diabetes mellitus. -Continue Accu-Cheks and sliding scale illness. Hypertension. -Continue antihypertensive medications. Pulmonary embolus -History of pulmonary embolism, and patient was on warfarin and INR was therapeutic. -Neurology consultation because of the acute extension of the middle cerebral artery infarction and recommendation was to hold the warfarin Disposition. -PT recommended subacute rehabilitation. Await placement. History Interval history: No new issues overnight. Hospitalist Physical - Constitutional Vitals: Temp Pulse Resp BP Pulse Ox 98.4 F 47 L 20 116/63 100 07/09/17 05:17 07/09/17 05:17 07/09/17 05:17 07/09/17 05:17 07/09/17 05:17 General appearance: Present: no acute distress - EENT Eyes: Present: PERRL, EOM intact ENT: hearing intact, clear oral mucosa, dentition normal - Neck Neck: Present: supple, normal ROM - Respiratory Respiratory effort: normal Respiratory: bilateral: CTA - Cardiovascular Rhythm: regular Heart Sounds: Present: S1 & S2. Absent: gallop, rub - Extremities Extremities: no ischemia, No edema, Full ROM - Abdominal General gastrointestinal: soft, non-tender, non-distended, normal bowel sounds - Integumentary Integumentary: Present: clear, warm, dry - Neurologic Neurologic: CNII-XII intact, moves all extremities Results - Labs CBC & Chem 7: 07/09/17 07:05 07/09/17 07:05 Labs: Laboratory Last Values WBC 5.3 K/mm3 (4.5-11.0) 07/09/17 07:05 RBC 5.71 M/mm3 (3.65-5.03) H 07/09/17 07:05 Hgb 12.7 gm/dl (10.1-14.3) 07/09/17 07:05 Hct 38.8 % (30.3-42.9) 07/09/17 07:05 MCV 68 fl (79-97) L 07/09/17 07:05 MCH 22 pg (28-32) L 07/09/17 07:05 MCHC 33 % (30-34) 07/09/17 07:05 RDW 23.2 % (13.2-15.2) H 07/09/17 07:05 Plt Count 247 K/mm3 (140-440) 07/09/17 07:05 Lymph % (Auto) 28.5 % (13.4-35.0) 07/09/17 07:05 [place] % (Auto) 11.3 % (0.0-7.3) H 07/09/17 07:05 Eos % (Auto) 1.7 % (0.0-4.3) 07/09/17 07:05 Baso % (Auto) 0.4 % (0.0-1.8) 07/09/17 07:05 Lymph # 1.5 K/mm3 (1.2-5.4) 07/09/17 07:05 [place] # 0.6 K/mm3 (0.0-0.8) 07/09/17 07:05 Eos # 0.1 K/mm3 (0.0-0.4) 07/09/17 07:05 Baso # 0.0 K/mm3 (0.0-0.1) 07/09/17 07:05 Seg Neutrophils % 58.1 % (40.0-70.0) 07/09/17 07:05 Seg Neutrophils # 3.1 K/mm3 (1.8-7.7) 07/09/17 07:05 PT 18.4 Sec. (12.2-14.9) H 07/06/17 06:01 INR 1.45 (0.87-1.13) H 07/06/17 06:01 Sodium 137 mmol/L (137-145) 07/09/17 07:05 Potassium 3.4 mmol/L (3.6-5.0) L 07/09/17 07:05 Chloride 98.5 mmol/L (98-107) 07/09/17 07:05 Carbon Dioxide 28 mmol/L (22-30) 07/09/17 07:05 Anion Gap 14 mmol/L 07/09/17 07:05 BUN 11 mg/dL (7-17) 07/09/17 07:05 Creatinine 0.5 mg/dL (0.7-1.2) L 07/09/17 07:05 Estimated GFR > 60 ml/min 07/09/17 07:05 BUN/Creatinine Ratio 22 % 07/09/17 07:05 Glucose 86 mg/dL (65-100) 07/09/17 07:05 POC Glucose 119 (70-105) H 07/09/17 11:51 Lactic Acid 1.40 mmol/L (0.7-2.0) 06/26/17 04:41 Calcium 8.4 mg/dL (8.4-10.2) 07/09/17 07:05 Magnesium 1.60 mg/dL (1.7-2.3) L 06/26/17 01:50 Total Bilirubin 2.40 mg/dL (0.1-1.2) H 06/27/17 03:40 AST 14 units/L (5-40) 06/27/17 03:40 ALT 8 units/L (7-56) 06/27/17 03:40 Alkaline Phosphatase 77 units/L (35-129) 06/27/17 03:40 NT-Pro-B Natriuret Pep 2505 pg/mL (0-450) H 06/26/17 17:32 Total Protein 6.2 g/dL (6.3-8.2) L 06/27/17 03:40 Albumin 3.2 g/dL (3.9-5) L 06/27/17 03:40 Albumin/Globulin Ratio 1.1 % 06/27/17 03:40 Triglycerides 52 mg/dL (2-149) 06/27/17 03:40 Cholesterol 58 mg/dL (50-199) 06/27/17 03:40 LDL Cholesterol Direct 33 mg/dL (50-130) L 06/27/17 03:40 HDL Cholesterol 15 mg/dL (40-59) L 06/27/17 03:40 Cholesterol/HDL Ratio 3.86 % 06/27/17 03:40 TSH 7.600 mlU/mL (0.270-4.200) H 06/26/17 01:50 Urine Color Lora (Yellow) 06/26/17 Unknown Urine Turbidity Clear (Clear) 06/26/17 Unknown Urine pH 5.0 (5.0-7.0) 06/26/17 Unknown Ur Specific [place] 1.018 (1.003-1.030) 06/26/17 Unknown Urine Protein 100 mg/dl mg/dL (Negative) 06/26/17 Unknown Urine Glucose (UA) Neg mg/dL (Negative) 06/26/17 Unknown Urine Ketones Neg mg/dL (Negative) 06/26/17 Unknown Urine Blood Sm (Negative) 06/26/17 Unknown Urine Nitrite Pos (Negative) 06/26/17 Unknown Urine Bilirubin Neg (Negative) 06/26/17 Unknown Urine Urobilinogen 4.0 mg/dL (<2.0) 06/26/17 Unknown Ur Leukocyte Esterase Lg (Negative) 06/26/17 Unknown Urine WBC (Auto) 12.0 /HPF (0.0-6.0) H 06/26/17 Unknown Urine RBC (Auto) 3.0 /HPF (0.0-6.0) 06/26/17 Unknown U Epithel Cells (Auto) 6.0 /HPF (0-13.0) 06/26/17 Unknown Urine Bacteria (Auto) 2+ /HPF (Negative) 06/26/17 Unknown Hyaline Casts 1 /LPF 06/26/17 Unknown Urine Mucus 1+ /HPF 06/26/17 Unknown Salicylates < 0.3 mg/dL (2.8-20.0) L 06/26/17 01:50 Urine Opiates Screen Presumptive negative 06/26/17 Unknown Urine Methadone Screen Presumptive negative 06/26/17 Unknown Acetaminophen < 15.0 ug/mL (10.0-30.0) 06/26/17 01:50 Ur Barbiturates Screen Presumptive negative 06/26/17 Unknown Ur Phencyclidine Scrn Presumptive negative 06/26/17 Unknown Ur Amphetamines Screen Presumptive negative 06/26/17 Unknown U Benzodiazepines Scrn Presumptive negative 06/26/17 Unknown Urine Cocaine Screen Presumptive negative 06/26/17 Unknown U Marijuana (THC) Screen Presumptive negative 06/26/17 Unknown Drugs of Abuse Note Disclamer 06/26/17 Unknown Plasma/Serum Alcohol < 0.01 gm% (0-0.07) 06/26/17 01:50
[2017-07-09] MEDS: MORPHINE IV PRN (23:12)
[2017-07-10 06:22] LABS: Basophils % (Auto) 0.5 % (0.0-1.8); Eosinophils % (Auto) 1.4 % (0.0-4.3); Hematocrit 37.8 % (30.3-42.9); Hemoglobin 12.3 gm/dl (10.1-14.3); Mean Corpuscular HGB Conc 33 % (30-34); Platelet Count 230 K/mm3 (140-440); Red Blood Count 5.43 M/mm3 (3.65-5.03); White Blood Count 5.5 K/mm3 (4.5-11.0)
[2017-07-10 06:28] LABS: Mean Corpuscular Hemoglobin 23 pg (28-32); Mean Corpuscular Volume 70 fl (79-97); Red Cell Distribution Width 23.7 % (13.2-15.2)
[2017-07-10 06:43] LABS: Anion Gap 18 mmol/L; BUN/Creatinine Ratio 26; Blood Urea Nitrogen 13 mg/dL (7-17); Calcium 8.6 mg/dL (8.4-10.2); Carbon Dioxide 26 mmol/L (22-30); Chloride 99.5 mmol/L (98-107); Glucose 92 mg/dL (65-100); Potassium 3.9 mmol/L (3.6-5.0); Sodium 140 mmol/L (137-145)
[2017-07-10] MEDS: ZESTRIL PO SCH (10:56)
[2017-07-10] MEDS: PLAVIX PO SCH (10:56)
[2017-07-10] MEDS: LASIX IV SCH (10:57)
[2017-07-10] MEDS: LOPRESSOR PO SCH ×2 (10:57→22:49)
--- NOTE | 2017-07-10 13:22 | Progress Note ---
Assessment and Plan Assessment and plan: Acute CVA with left hemiparesis. -CT head is significant for right-sided old infarction -MRI showed acute extension of infarction of the middle cerebral artery -Neurolgy consult appreciated, warfarin, on hold secondary to CVA extension -Physical Therapy following Cardiomyopathy -Ejection fraction is 15-20% -Has been evaluated by [place] cardiology on the previous admission and recommended to continue the medical management -Continue current medical management. Diabetes mellitus. -Continue Accu-Cheks and sliding scale illness. Hypertension. -Continue antihypertensive medications. Pulmonary embolus -History of pulmonary embolism, and patient was on warfarin and INR was therapeutic. -Neurology consultation because of the acute extension of the middle cerebral artery infarction and recommendation was to hold the warfarin Disposition. -PT recommended subacute rehabilitation. Await placement. History Interval history: No new issues overnight. Hospitalist Physical - Constitutional Vitals: Temp Pulse Resp BP Pulse Ox 98.0 F 46 L 18 130/61 99 07/10/17 04:00 07/10/17 04:00 07/10/17 04:00 07/10/17 04:00 07/10/17 04:00 General appearance: Present: no acute distress - EENT Eyes: Present: PERRL, EOM intact ENT: hearing intact, clear oral mucosa, dentition normal - Neck Neck: Present: supple, normal ROM - Respiratory Respiratory effort: normal Respiratory: bilateral: CTA - Cardiovascular Rhythm: regular Heart Sounds: Present: S1 & S2. Absent: gallop, rub - Extremities Extremities: no ischemia, No edema, Full ROM - Abdominal General gastrointestinal: soft, non-tender, non-distended, normal bowel sounds - Integumentary Integumentary: Present: clear, warm, dry - Neurologic Neurologic: CNII-XII intact, moves all extremities Results - Labs CBC & Chem 7: 07/10/17 05:24 07/10/17 05:24 Labs: Laboratory Last Values WBC 5.5 K/mm3 (4.5-11.0) 07/10/17 05:24 RBC 5.43 M/mm3 (3.65-5.03) H 07/10/17 05:24 Hgb 12.3 gm/dl (10.1-14.3) 07/10/17 05:24 Hct 37.8 % (30.3-42.9) 07/10/17 05:24 MCV 70 fl (79-97) L 07/10/17 05:24 MCH 23 pg (28-32) L 07/10/17 05:24 MCHC 33 % (30-34) 07/10/17 05:24 RDW 23.7 % (13.2-15.2) H 07/10/17 05:24 Plt Count 230 K/mm3 (140-440) 07/10/17 05:24 Lymph % (Auto) 30.2 % (13.4-35.0) 07/10/17 05:24 [place] % (Auto) 12.5 % (0.0-7.3) H 07/10/17 05:24 Eos % (Auto) 1.4 % (0.0-4.3) 07/10/17 05:24 Baso % (Auto) 0.5 % (0.0-1.8) 07/10/17 05:24 Lymph # 1.7 K/mm3 (1.2-5.4) 07/10/17 05:24 [place] # 0.7 K/mm3 (0.0-0.8) 07/10/17 05:24 Eos # 0.1 K/mm3 (0.0-0.4) 07/10/17 05:24 Baso # 0.0 K/mm3 (0.0-0.1) 07/10/17 05:24 Seg Neutrophils % 55.4 % (40.0-70.0) 07/10/17 05:24 Seg Neutrophils # 3.1 K/mm3 (1.8-7.7) 07/10/17 05:24 PT 18.4 Sec. (12.2-14.9) H 07/06/17 06:01 INR 1.45 (0.87-1.13) H 07/06/17 06:01 Sodium 140 mmol/L (137-145) 07/10/17 05:24 Potassium 3.9 mmol/L (3.6-5.0) 07/10/17 05:24 Chloride 99.5 mmol/L (98-107) 07/10/17 05:24 Carbon Dioxide 26 mmol/L (22-30) 07/10/17 05:24 Anion Gap 18 mmol/L 07/10/17 05:24 BUN 13 mg/dL (7-17) 07/10/17 05:24 Creatinine 0.5 mg/dL (0.7-1.2) L 07/10/17 05:24 Estimated GFR > 60 ml/min 07/10/17 05:24 BUN/Creatinine Ratio 26 % 07/10/17 05:24 Glucose 92 mg/dL (65-100) 07/10/17 05:24 POC Glucose 71 (70-105) 07/10/17 08:26 Lactic Acid 1.40 mmol/L (0.7-2.0) 06/26/17 04:41 Calcium 8.6 mg/dL (8.4-10.2) 07/10/17 05:24 Magnesium 1.60 mg/dL (1.7-2.3) L 06/26/17 01:50 Total Bilirubin 2.40 mg/dL (0.1-1.2) H 06/27/17 03:40 AST 14 units/L (5-40) 06/27/17 03:40 ALT 8 units/L (7-56) 06/27/17 03:40 Alkaline Phosphatase 77 units/L (35-129) 06/27/17 03:40 NT-Pro-B Natriuret Pep 2505 pg/mL (0-450) H 06/26/17 17:32 Total Protein 6.2 g/dL (6.3-8.2) L 06/27/17 03:40 Albumin 3.2 g/dL (3.9-5) L 06/27/17 03:40 Albumin/Globulin Ratio 1.1 % 06/27/17 03:40 Triglycerides 52 mg/dL (2-149) 06/27/17 03:40 Cholesterol 58 mg/dL (50-199) 06/27/17 03:40 LDL Cholesterol Direct 33 mg/dL (50-130) L 06/27/17 03:40 HDL Cholesterol 15 mg/dL (40-59) L 06/27/17 03:40 Cholesterol/HDL Ratio 3.86 % 06/27/17 03:40 TSH 7.600 mlU/mL (0.270-4.200) H 06/26/17 01:50 Urine Color [place] (Yellow) 06/26/17 Unknown Urine Turbidity Clear (Clear) 06/26/17 Unknown Urine pH 5.0 (5.0-7.0) 06/26/17 Unknown Ur Specific [place] 1.018 (1.003-1.030) 06/26/17 Unknown Urine Protein 100 mg/dl mg/dL (Negative) 06/26/17 Unknown Urine Glucose (UA) Neg mg/dL (Negative) 06/26/17 Unknown Urine Ketones Neg mg/dL (Negative) 06/26/17 Unknown Urine Blood Sm (Negative) 06/26/17 Unknown Urine Nitrite Pos (Negative) 06/26/17 Unknown Urine Bilirubin Neg (Negative) 06/26/17 Unknown Urine Urobilinogen 4.0 mg/dL (<2.0) 06/26/17 Unknown Ur Leukocyte Esterase Lg (Negative) 06/26/17 Unknown Urine WBC (Auto) 12.0 /HPF (0.0-6.0) H 06/26/17 Unknown Urine RBC (Auto) 3.0 /HPF (0.0-6.0) 06/26/17 Unknown U Epithel Cells (Auto) 6.0 /HPF (0-13.0) 06/26/17 Unknown Urine Bacteria (Auto) 2+ /HPF (Negative) 06/26/17 Unknown Hyaline Casts 1 /LPF 06/26/17 Unknown Urine Mucus 1+ /HPF 06/26/17 Unknown Salicylates < 0.3 mg/dL (2.8-20.0) L 06/26/17 01:50 Urine Opiates Screen Presumptive negative 06/26/17 Unknown Urine Methadone Screen Presumptive negative 06/26/17 Unknown Acetaminophen < 15.0 ug/mL (10.0-30.0) 06/26/17 01:50 Ur Barbiturates Screen Presumptive negative 06/26/17 Unknown Ur Phencyclidine Scrn Presumptive negative 06/26/17 Unknown Ur Amphetamines Screen Presumptive negative 06/26/17 Unknown U Benzodiazepines Scrn Presumptive negative 06/26/17 Unknown Urine Cocaine Screen Presumptive negative 06/26/17 Unknown U Marijuana (THC) Screen Presumptive negative 06/26/17 Unknown Drugs of Abuse Note Disclamer 06/26/17 Unknown Plasma/Serum Alcohol < 0.01 gm% (0-0.07) 06/26/17 01:50
[2017-07-10] MEDS: MORPHINE IV PRN ×2 (13:49→20:52)
[2017-07-11 08:45] LABS: Basophils % (Auto) 0.7 % (0.0-1.8); Eosinophils % (Auto) 1.6 % (0.0-4.3); Hemoglobin 12.6 gm/dl (10.1-14.3); Mean Corpuscular HGB Conc 33 % (30-34); Platelet Count 223 K/mm3 (140-440); Red Blood Count 5.51 M/mm3 (3.65-5.03); White Blood Count 5.7 K/mm3 (4.5-11.0)
[2017-07-11 08:48] LABS: Mean Corpuscular Hemoglobin 23 pg (28-32); Mean Corpuscular Volume 69 fl (79-97); Red Cell Distribution Width 22.9 % (13.2-15.2)
[2017-07-11 08:58] LABS: Anion Gap 15 mmol/L; BUN/Creatinine Ratio 26; Blood Urea Nitrogen 13 mg/dL (7-17); Calcium 8.8 mg/dL (8.4-10.2); Carbon Dioxide 29 mmol/L (22-30); Chloride 96.1 mmol/L (98-107); Glucose 95 mg/dL (65-100); Potassium 3.4 mmol/L (3.6-5.0); Sodium 137 mmol/L (137-145)
[2017-07-11] MEDS: MORPHINE IV PRN (09:10)
[2017-07-11] MEDS: LASIX IV SCH (09:57)
[2017-07-11] MEDS: LOPRESSOR PO SCH ×2 (09:58→21:41)
[2017-07-11] MEDS: PLAVIX PO SCH (09:58)
[2017-07-11] MEDS: ZESTRIL PO SCH (09:59)
[2017-07-11] MEDS ORDERED: K-DUR PO ONE ×2 (11:30→19:00)
--- NOTE | 2017-07-11 11:31 | Progress Note ---
Assessment and Plan Assessment and plan: Acute CVA with left hemiparesis. -CT head is significant for right-sided old infarction -MRI showed acute extension of infarction of the middle cerebral artery -Neurolgy consult appreciated, warfarin, on hold secondary to CVA extension -Physical Therapy following Cardiomyopathy -Ejection fraction is 15-20% -Has been evaluated by [place] cardiology on the previous admission and recommended to continue the medical management -Continue current medical management. Diabetes mellitus. -Continue Accu-Cheks and sliding scale illness. Hypertension. -Continue antihypertensive medications. Hypokalemia. -Replete potassium. Pulmonary embolus -History of pulmonary embolism, and patient was on warfarin and INR was therapeutic. -Neurology consultation because of the acute extension of the middle cerebral artery infarction and recommendation was to hold the warfarin Disposition. -PT recommended subacute rehabilitation. Await placement. History Interval history: No new issues overnight. Hospitalist Physical - Constitutional Vitals: Temp Pulse Resp BP Pulse Ox 98.4 F 47 L 18 131/74 99 07/11/17 04:00 07/11/17 04:00 07/11/17 04:00 07/11/17 04:00 07/11/17 04:00 General appearance: Present: no acute distress - EENT Eyes: Present: PERRL, EOM intact ENT: hearing intact, clear oral mucosa, dentition normal - Neck Neck: Present: supple, normal ROM - Respiratory Respiratory effort: normal Respiratory: bilateral: CTA - Cardiovascular Rhythm: regular Heart Sounds: Present: S1 & S2. Absent: gallop, rub - Extremities Extremities: no ischemia, No edema, Full ROM - Abdominal General gastrointestinal: soft, non-tender, non-distended, normal bowel sounds - Integumentary Integumentary: Present: clear, warm, dry - Neurologic Neurologic: CNII-XII intact, moves all extremities Results - Labs CBC & Chem 7: 07/11/17 08:23 07/11/17 07:29 Labs: Laboratory Last Values WBC 5.7 K/mm3 (4.5-11.0) 07/11/17 08:23 RBC 5.51 M/mm3 (3.65-5.03) H 07/11/17 08:23 Hgb 12.6 gm/dl (10.1-14.3) 07/11/17 08:23 Hct 38.0 % (30.3-42.9) 07/11/17 08:23 MCV 69 fl (79-97) L 07/11/17 08:23 MCH 23 pg (28-32) L 07/11/17 08:23 MCHC 33 % (30-34) 07/11/17 08:23 RDW 22.9 % (13.2-15.2) H 07/11/17 08:23 Plt Count 223 K/mm3 (140-440) 07/11/17 08:23 Lymph % (Auto) 25.7 % (13.4-35.0) 07/11/17 08:23 [place] % (Auto) 10.6 % (0.0-7.3) H 07/11/17 08:23 Eos % (Auto) 1.6 % (0.0-4.3) 07/11/17 08: Baso % (Auto) 0.7 % (0.0-1.8) 07/11/17 08: Lymph # 1.5 K/mm3 (1.2-5.4) 07/11/17 08:23 [place] # 0.6 K/mm3 (0.0-0.8) 07/11/17 08:23 Eos # 0.1 K/mm3 (0.0-0.4) 07/11/17 08:23 Baso # 0.0 K/mm3 (0.0-0.1) 07/11/17 08:23 Seg Neutrophils % 61.4 % (40.0-70.0) 07/11/17 08:23 Seg Neutrophils # 3.5 K/mm3 (1.8-7.7) 07/11/17 08:23 PT 18.4 Sec. (12.2-14.9) H 07/06/17 06:01 INR 1.45 (0.87-1.13) H 07/06/17 06:01 Sodium 137 mmol/L (137-145) 07/11/17 07:29 Potassium 3.4 mmol/L (3.6-5.0) L 07/11/17 07:29 Chloride 96.1 mmol/L (98-107) L 07/11/17 07:29 Carbon Dioxide 29 mmol/L (22-30) 07/11/17 07:29 Anion Gap 15 mmol/L 07/11/17 07:29 BUN 13 mg/dL (7-17) 07/11/17 07:29 Creatinine 0.5 mg/dL (0.7-1.2) L 07/11/17 07:29 Estimated GFR > 60 ml/min 07/11/17 07:29 BUN/Creatinine Ratio 26 % 07/11/17 07:29 Glucose 95 mg/dL (65-100) 07/11/17 07:29 POC Glucose 126 (70-105) H 07/11/17 08:56 Lactic Acid 1.40 mmol/L (0.7-2.0) 06/26/17 04:41 Calcium 8.8 mg/dL (8.4-10.2) 07/11/17 07:29 Magnesium 1.60 mg/dL (1.7-2.3) L 06/26/17 01:50 Total Bilirubin 2.40 mg/dL (0.1-1.2) H 06/27/17 03:40 AST 14 units/L (5-40) 06/27/17 03:40 ALT 8 units/L (7-56) 06/27/17 03:40 Alkaline Phosphatase 77 units/L (35-129) 06/27/17 03:40 NT-Pro-B Natriuret Pep 2505 pg/mL (0-450) H 06/26/17 17:32 Total Protein 6.2 g/dL (6.3-8.2) L 06/27/17 03:40 Albumin 3.2 g/dL (3.9-5) L 06/27/17 03:40 Albumin/Globulin Ratio 1.1 % 06/27/17 03:40 Triglycerides 52 mg/dL (2-149) 06/27/17 03:40 Cholesterol 58 mg/dL (50-199) 06/27/17 03:40 LDL Cholesterol Direct 33 mg/dL (50-130) L 06/27/17 03:40 HDL Cholesterol 15 mg/dL (40-59) L 06/27/17 03:40 Cholesterol/HDL Ratio 3.86 % 06/27/17 03:40 TSH 7.600 mlU/mL (0.270-4.200) H 06/26/17 01:50 Urine Color [place] (Yellow) 06/26/17 Unknown Urine Turbidity Clear (Clear) 06/26/17 Unknown Urine pH 5.0 (5.0-7.0) 06/26/17 Unknown Ur Specific [place] 1.018 (1.003-1.030) 06/26/17 Unknown Urine Protein 100 mg/dl mg/dL (Negative) 06/26/17 Unknown Urine Glucose (UA) Neg mg/dL (Negative) 06/26/17 Unknown Urine Ketones Neg mg/dL (Negative) 06/26/17 Unknown Urine Blood Sm (Negative) 06/26/17 Unknown Urine Nitrite Pos (Negative) 06/26/17 Unknown Urine Bilirubin Neg (Negative) 06/26/17 Unknown Urine Urobilinogen 4.0 mg/dL (<2.0) 06/26/17 Unknown Ur Leukocyte Esterase Lg (Negative) 06/26/17 Unknown Urine WBC (Auto) 12.0 /HPF (0.0-6.0) H 06/26/17 Unknown Urine RBC (Auto) 3.0 /HPF (0.0-6.0) 06/26/17 Unknown U Epithel Cells (Auto) 6.0 /HPF (0-13.0) 06/26/17 Unknown Urine Bacteria (Auto) 2+ /HPF (Negative) 06/26/17 Unknown Hyaline Casts 1 /LPF 06/26/17 Unknown Urine Mucus 1+ /HPF 06/26/17 Unknown Salicylates < 0.3 mg/dL (2.8-20.0) L 06/26/17 01:50 Urine Opiates Screen Presumptive negative 06/26/17 Unknown Urine Methadone Screen Presumptive negative 06/26/17 Unknown Acetaminophen < 15.0 ug/mL (10.0-30.0) 06/26/17 01:50 Ur Barbiturates Screen Presumptive negative 06/26/17 Unknown Ur Phencyclidine Scrn Presumptive negative 06/26/17 Unknown Ur Amphetamines Screen Presumptive negative 06/26/17 Unknown U Benzodiazepines Scrn Presumptive negative 06/26/17 Unknown Urine Cocaine Screen Presumptive negative 06/26/17 Unknown U Marijuana (THC) Screen Presumptive negative 06/26/17 Unknown Drugs of Abuse Note Disclamer 06/26/17 Unknown Plasma/Serum Alcohol < 0.01 gm% (0-0.07) 06/26/17 01:50
[2017-07-11] MEDS: TYLENOL PO PRN (20:20)
[2017-07-12 06:22] LABS: Basophils % (Auto) 0.4 % (0.0-1.8); Hematocrit 38.2 % (30.3-42.9); Hemoglobin 12.8 gm/dl (10.1-14.3); Mean Corpuscular HGB Conc 34 % (30-34); Platelet Count 211 K/mm3 (140-440); Red Blood Count 5.59 M/mm3 (3.65-5.03); White Blood Count 5.1 K/mm3 (4.5-11.0)
[2017-07-12 06:25] LABS: Mean Corpuscular Hemoglobin 23 pg (28-32); Mean Corpuscular Volume 68 fl (79-97); Red Cell Distribution Width 23.3 % (13.2-15.2)
[2017-07-12 06:41] LABS: Anion Gap 16 mmol/L; BUN/Creatinine Ratio 30; Blood Urea Nitrogen 15 mg/dL (7-17); Calcium 8.7 mg/dL (8.4-10.2); Carbon Dioxide 29 mmol/L (22-30); Chloride 99.6 mmol/L (98-107); Glucose 91 mg/dL (65-100); Potassium 3.7 mmol/L (3.6-5.0); Sodium 141 mmol/L (137-145)
[2017-07-12] MEDS: ZESTRIL PO SCH (09:26)
[2017-07-12] MEDS: PLAVIX PO SCH (09:26)
[2017-07-12] MEDS: LOPRESSOR PO SCH ×2 (09:29→21:30)
[2017-07-12] MEDS: LASIX IV SCH (09:33)
--- NOTE | 2017-07-12 10:21 | Progress Note ---
Assessment and Plan Assessment and plan: Acute CVA with left hemiparesis. -CT head is significant for right-sided old infarction -MRI showed acute extension of infarction of the middle cerebral artery -Neurolgy consult appreciated, warfarin, on hold secondary to CVA extension -Physical Therapy following Cardiomyopathy -Ejection fraction is 15-20% -Has been evaluated by [place] cardiology on the previous admission and recommended to continue the medical management -Continue current medical management. Diabetes mellitus. -Continue Accu-Cheks and sliding scale illness. Hypertension. -Continue antihypertensive medications. Hypokalemia. -Replete potassium. Pulmonary embolus -History of pulmonary embolism, and patient was on warfarin and INR was therapeutic. -Neurology consultation because of the acute extension of the middle cerebral artery infarction and recommendation was to hold the warfarin Disposition. -PT recommended subacute rehabilitation. Await placement. History Interval history: No new issues overnight. Hospitalist Physical - Constitutional Vitals: Temp Pulse Resp BP Pulse Ox 97.3 F L 49 L 20 115/57 99 07/12/17 04:30 07/12/17 09:29 07/12/17 04:30 07/12/17 09:26 07/12/17 04:30 General appearance: Present: no acute distress - EENT Eyes: Present: PERRL, EOM intact ENT: hearing intact, clear oral mucosa, dentition normal - Neck Neck: Present: supple, normal ROM - Respiratory Respiratory effort: normal Respiratory: bilateral: CTA - Cardiovascular Rhythm: regular Heart Sounds: Present: S1 & S2. Absent: gallop, rub - Extremities Extremities: no ischemia, No edema, Full ROM - Abdominal General gastrointestinal: soft, non-tender, non-distended, normal bowel sounds - Integumentary Integumentary: Present: clear, warm, dry - Neurologic Neurologic: CNII-XII intact, moves all extremities Results - Labs CBC & Chem 7: 07/12/17 05:19 07/12/17 05:19 Labs: Laboratory Last Values WBC 5.1 K/mm3 (4.5-11.0) 07/12/17 05:19 RBC 5.59 M/mm3 (3.65-5.03) H 07/12/17 05:19 Hgb 12.8 gm/dl (10.1-14.3) 07/12/17 05:19 Hct 38.2 % (30.3-42.9) 07/12/17 05:19 MCV 68 fl (79-97) L 07/12/17 05:19 MCH 23 pg (28-32) L 07/12/17 05:19 MCHC 34 % (30-34) 07/12/17 05:19 RDW 23.3 % (13.2-15.2) H 07/12/17 05:19 Plt Count 211 K/mm3 (140-440) 07/12/17 05:19 Lymph % (Auto) 38.1 % (13.4-35.0) H 07/12/17 05:19 [place] % (Auto) 13.6 % (0.0-7.3) H 07/12/17 05:19 Eos % (Auto) 2.0 % (0.0-4.3) 07/12/17 05:19 Baso % (Auto) 0.4 % (0.0-1.8) 07/12/17 05:19 Lymph # 1.9 K/mm3 (1.2-5.4) 07/12/17 05:19 [place] # 0.7 K/mm3 (0.0-0.8) 07/12/17 05:19 Eos # 0.1 K/mm3 (0.0-0.4) 07/12/17 05:19 Baso # 0.0 K/mm3 (0.0-0.1) 07/12/17 05:19 Seg Neutrophils % 45.9 % (40.0-70.0) 07/12/17 05:19 Seg Neutrophils # 2.3 K/mm3 (1.8-7.7) 07/12/17 05:19 PT 18.4 Sec. (12.2-14.9) H 07/06/17 06:01 INR 1.45 (0.87-1.13) H 07/06/17 06:01 Sodium 141 mmol/L (137-145) 07/12/17 05:19 Potassium 3.7 mmol/L (3.6-5.0) 07/12/17 05:19 Chloride 99.6 mmol/L (98-107) 07/12/17 05:19 Carbon Dioxide 29 mmol/L (22-30) 07/12/17 05:19 Anion Gap 16 mmol/L 07/12/17 05:19 BUN 15 mg/dL (7-17) 07/12/17 05:19 Creatinine 0.5 mg/dL (0.7-1.2) L 07/12/17 05:19 Estimated GFR > 60 ml/min 07/12/17 05:19 BUN/Creatinine Ratio 30 % 07/12/17 05:19 Glucose 91 mg/dL (65-100) 07/12/17 05:19 POC Glucose 92 (70-105) 07/12/17 08:42 Lactic Acid 1.40 mmol/L (0.7-2.0) 06/26/17 04:41 Calcium 8.7 mg/dL (8.4-10.2) 07/12/17 05:19 Magnesium 1.60 mg/dL (1.7-2.3) L 06/26/17 01:50 Total Bilirubin 2.40 mg/dL (0.1-1.2) H 06/27/17 03:40 AST 14 units/L (5-40) 06/27/17 03:40 ALT 8 units/L (7-56) 06/27/17 03:40 Alkaline Phosphatase 77 units/L (35-129) 06/27/17 03:40 NT-Pro-B Natriuret Pep 2505 pg/mL (0-450) H 06/26/17 17:32 Total Protein 6.2 g/dL (6.3-8.2) L 06/27/17 03:40 Albumin 3.2 g/dL (3.9-5) L 06/27/17 03:40 Albumin/Globulin Ratio 1.1 % 06/27/17 03:40 Triglycerides 52 mg/dL (2-149) 06/27/17 03:40 Cholesterol 58 mg/dL (50-199) 06/27/17 03:40 LDL Cholesterol Direct 33 mg/dL (50-130) L 06/27/17 03:40 HDL Cholesterol 15 mg/dL (40-59) L 06/27/17 03:40 Cholesterol/HDL Ratio 3.86 % 06/27/17 03:40 TSH 7.600 mlU/mL (0.270-4.200) H 06/26/17 01:50 Urine Color [place] (Yellow) 06/26/17 Unknown Urine Turbidity Clear (Clear) 06/26/17 Unknown Urine pH 5.0 (5.0-7.0) 06/26/17 Unknown Ur Specific [place] 1.018 (1.003-1.030) 06/26/17 Unknown Urine Protein 100 mg/dl mg/dL (Negative) 06/26/17 Unknown Urine Glucose (UA) Neg mg/dL (Negative) 06/26/17 Unknown Urine Ketones Neg mg/dL (Negative) 06/26/17 Unknown Urine Blood Sm (Negative) 06/26/17 Unknown Urine Nitrite Pos (Negative) 06/26/17 Unknown Urine Bilirubin Neg (Negative) 06/26/17 Unknown Urine Urobilinogen 4.0 mg/dL (<2.0) 06/26/17 Unknown Ur Leukocyte Esterase Lg (Negative) 06/26/17 Unknown Urine WBC (Auto) 12.0 /HPF (0.0-6.0) H 06/26/17 Unknown Urine RBC (Auto) 3.0 /HPF (0.0-6.0) 06/26/17 Unknown U Epithel Cells (Auto) 6.0 /HPF (0-13.0) 06/26/17 Unknown Urine Bacteria (Auto) 2+ /HPF (Negative) 06/26/17 Unknown Hyaline Casts 1 /LPF 06/26/17 Unknown Urine Mucus 1+ /HPF 06/26/17 Unknown Salicylates < 0.3 mg/dL (2.8-20.0) L 06/26/17 01:50 Urine Opiates Screen Presumptive negative 06/26/17 Unknown Urine Methadone Screen Presumptive negative 06/26/17 Unknown Acetaminophen < 15.0 ug/mL (10.0-30.0) 06/26/17 01:50 Ur Barbiturates Screen Presumptive negative 06/26/17 Unknown Ur Phencyclidine Scrn Presumptive negative 06/26/17 Unknown Ur Amphetamines Screen Presumptive negative 06/26/17 Unknown U Benzodiazepines Scrn Presumptive negative 06/26/17 Unknown Urine Cocaine Screen Presumptive negative 06/26/17 Unknown U Marijuana (THC) Screen Presumptive negative 06/26/17 Unknown Drugs of Abuse Note Disclamer 06/26/17 Unknown Plasma/Serum Alcohol < 0.01 gm% (0-0.07) 06/26/17 01:50
[2017-07-12] MEDS: TYLENOL PO PRN (17:10)
[2017-07-12] MEDS ORDERED: PROCTOSOL-HC PR PRN (23:35)
[2017-07-13 08:10] LABS: Hematocrit 38.3 % (30.3-42.9); Hemoglobin 13.1 gm/dl (10.1-14.3); Mean Corpuscular HGB Conc 34 % (30-34); Platelet Count 210 K/mm3 (140-440); Red Blood Count 5.62 M/mm3 (3.65-5.03); White Blood Count 5.6 K/mm3 (4.5-11.0)
[2017-07-13 08:14] LABS: Mean Corpuscular Hemoglobin 23 pg (28-32); Mean Corpuscular Volume 68 fl (79-97); Red Cell Distribution Width 23.4 % (13.2-15.2)
--- NOTE | 2017-07-13 08:24 | Discharge Summary ---
Providers - Providers Date of Admission: 06/26/17 06:24 Date of discharge: 07/13/17 Attending physician: KULDEEP SCHULTE 06/26/17 08:58 Consult to Physician [CONS] Routine Consulting Provider: SANTO ROGERS Reason For Exam: left sided weakness Place consult to:: answering service Notified:: yes Phone number called:: [phone] Was contact made?: Yes If yes, spoke with:: Yeimy Time called:: 11:31 06/26/17 11:28 Speech Therapy Evaluation and Treat [CONS] Stat Reason For Exam: failed swallow screen 06/30/17 15:34 Physical Therapy Evaluation and Treat [CONS] Routine Comment: this is the 2nd consult, first was on 06/30/2017 Reason For Exam: CVA Primary care physician: SALES INTERN Hospitalization Reason for admission: cva Condition: Stable Exam - Constitutional Vitals: Temp Pulse Resp BP Pulse Ox 98.4 F 54 L 18 129/59 98 07/13/17 04:30 07/13/17 04:30 07/13/17 04:30 07/13/17 04:30 07/13/17 04:30 Plan Follow up with: PRIMARY CAREMD [Primary Care Provider] - 3-5 Days Forms: Warfarin Discharge Instruction
[2017-07-13 08:27] LABS: Anion Gap 15 mmol/L; BUN/Creatinine Ratio 30; Blood Urea Nitrogen 12 mg/dL (7-17); Calcium 9.1 mg/dL (8.4-10.2); Carbon Dioxide 29 mmol/L (22-30); Chloride 99.8 mmol/L (98-107); Glucose 95 mg/dL (65-100); Potassium 4.1 mmol/L (3.6-5.0); Sodium 140 mmol/L (137-145)
[2017-07-13] MEDS: PLAVIX PO SCH (09:19)
[2017-07-13] MEDS: ZESTRIL PO SCH (09:19)
[2017-07-13 09:20] VITALS: BP 148/74
[2017-07-13] MEDS: LASIX IV SCH (09:20)
[2017-07-13] MEDS: LOPRESSOR PO SCH (09:20)
--- NOTE | 2017-07-13 09:21 | Discharge Summary ---
Providers - Providers Date of Admission: 06/26/17 06:24 Date of discharge: 07/13/17 Attending physician: KULDEEP SCHULTE 06/26/17 08:58 Consult to Physician [CONS] Routine Consulting Provider: SANTO ROGERS Reason For Exam: left sided weakness Place consult to:: answering service Notified:: yes Phone number called:: [phone] Was contact made?: Yes If yes, spoke with:: Yeimy Time called:: 11:31 06/26/17 11:28 Speech Therapy Evaluation and Treat [CONS] Stat Reason For Exam: failed swallow screen 06/30/17 15:34 Physical Therapy Evaluation and Treat [CONS] Routine Comment: this is the 2nd consult, first was on 06/30/2017 Reason For Exam: CVA Primary care physician: INTERNET ARCHITECT Hospitalization Reason for admission: cva Condition: Stable Hospital course: 45 -year-old woman in a history of hypertension, CHF, hyperlipidemia, history of PE on Coumadin comes emergency room with complaints of chest pain. She was having chest pain which she stated was a sharp pain, intermittent for an hour , intensity 7/10, no radiation prior to admission. The patient has had previous cardiac workup on hospital admission earlier this month by Dr. Farias with stress test that revealed normal myocardial perfusion scan without evidence of active ischemia. However, patient has severe global left ventricular dysfunction with an EF of 31%. Patient also was noted to have left sided weakness. CT scan of the head was significant for right sided infarction that was felt to be old. MRI was completed which show acute extension of infarction of the middle cerebral artery. Neurology was consulted. Neurology recommended discontinuing warfarin. Given the CVA extension. Patient was on Coumadin for previous PE. However, this was diagnosed several years ago. Physical therapy evaluate the patient and initially recommended subacute rehabilitation. Unfortunately, patient is unfunded and without insurance. Therefore, case management made for arrangements to have equipment at home through [facility] regarding wheelchair. Patient also has family support at home. Patient is felt to receive maximal hospital benefit. Dedicated discharge time 35 minutes. Time spent for discharge: 35 - Discharge Diagnoses (1) Chronic systolic (congestive) heart failure Status: Acute (2) CVA (cerebral vascular accident) Status: Acute Qualifiers: CVA mechanism: embolism Precerebral and cerebral artery: P Laterality of affected vessel: L (3) Left-sided weakness Status: Acute (4) Accelerated hypertension with NYHA class 4 systolic heart failure Status: Acute (5) Noncompliance Status: Acute (6) Noncompliance with medication regimen Status: Acute (7) Nonischemic cardiomyopathy Status: Acute Core Measure Documentation - Palliative Care Palliative Care/ Comfort Measures: Not Applicable - Core Measures Any of the following diagnoses?: stroke - Stroke Discharge Requirements Statin for LDL = or >70 mg/dl on DC: Yes Anticoag for atrial fib/atrial flutter: Not Applicable Antithrombotic for ischemic stroke: Yes Exam - Constitutional Vitals: Temp Pulse Resp BP Pulse Ox 98.4 F 54 L 18 129/59 98 07/13/17 04:30 07/13/17 04:30 07/13/17 04:30 07/13/17 04:30 07/13/17 04:30 General appearance: Present: no acute distress, well-nourished - EENT Eyes: Present: PERRL ENT: hearing intact, clear oral mucosa - Neck Neck: Present: supple, normal ROM - Respiratory Respiratory effort: normal Respiratory: bilateral: CTA - Cardiovascular Heart Sounds: Present: S1 & S2. Absent: rub, click - Extremities Extremities: pulses symmetrical, No edema Peripheral Pulses: within normal limits - Abdominal General gastrointestinal: Present: soft, non-tender, non-distended, normal bowel sounds Female genitourinary: Present: normal - Integumentary Integumentary: Present: clear, warm, dry - Musculoskeletal Musculoskeletal: gait normal, strength equal bilaterally - Psychiatric Psychiatric: appropriate mood/affect, intact judgment & insight - Neurologic Neurologic: CNII-XII intact, moves all extremities, other (left sided weakness) Plan Activity: no restrictions Weight Bearing Status: Weight Bear as Tolerated Diet: low fat, low cholesterol, low salt Follow up with: PRIMARY CARE, [Primary Care Provider] - 3-5 Days JERROD FARIAS MD [Staff Physician] - 7 Days SANTO ROGERS MD [Staff Physician] - 7 Days Forms: Warfarin Discharge Instruction Prescriptions: AtorvaSTATin [Lipitor] 40 mg PO QHS #30 tablet Clopidogrel [Plavix] 75 mg PO DAILY #30 tablet Furosemide [Lasix TAB] 20 mg PO BID #30 tablet Lisinopril [Zestril TAB] 40 mg PO QDAY #30 tablet metFORMIN [Glucophage] 500 mg PO BIDDIAB #60 tablet Metoprolol [Lopressor TAB] 50 mg PO BID #60 tablet Metoprolol [Lopressor TAB] 50 mg PO BID #30 tablet
[2017-07-13 09:30] LABS: Basophils % (Manual) 0 % (0.0-1.8); Blastocytes % (Manual) 0 %; Eosinophils % (Manual) 0 % (0.0-4.3)
[2017-07-13 09:31] LABS: Anisocytosis 2+; Hypochromasia 3+; Microcytosis 1+; Target Cells 1+
[2017-07-13 09:32] LABS: Diff Status Complete; Large Platelets Few; Platelet Estimate Cons; Schistocytes Rare
== END 2017-07-13 12:50 | disposition home or self-care (01) | DRG 65 ==
LOC: ED 01:42 → 4A 06:24
PROVIDERS: ADMIT Internal Medicine; ATTEND Hospitalist
DX: I63.411 Cerebral infarction due to embolism of right middle cerebral artery (principal); I50.22 Chronic systolic (congestive) heart failure; I42.8 Other cardiomyopathies; G81.94 Hemiplegia, unspecified affecting left nondominant side; Z91.14 Patient's other noncompliance with medication regimen; I11.0 Hypertensive heart disease with heart failure; E78.5 Hyperlipidemia, unspecified; E11.9 Type 2 diabetes mellitus without complications; E87.6 Hypokalemia; J45.909 Unspecified asthma, uncomplicated; Z88.6 Allergy status to analgesic agent; Z82.49 Family history of ischemic heart disease and other diseases of the circulatory system; Z98.51 Tubal ligation status; Z79.84 Long term (current) use of oral hypoglycemic drugs; Z79.01 Long term (current) use of anticoagulants; Z79.899 Other long term (current) drug therapy; Z90.49 Acquired absence of other specified parts of digestive tract; Z86.711 Personal history of pulmonary embolism; Z87.891 Personal history of nicotine dependence
CPT/HCPCS: 36415; 70450; 70496; 70544; 70551; 80048; 80053; 80061; 80307; 80320; 81001; 82140; 82962; 83735; 83880; 84443; 85007; 85025; 85027; 85610; 87086; 90686; 90732; 93005; 93010; 93306; 96374; 96375; A9270-GY; G0480; J0360; J1940; J1956; J2270; J2405; J3010; J3475; Q9967

== ENCOUNTER 2017-08-14 05:37 | Emergency (ER) | payer SELFPAY ==
[2017-08-14 07:06] LABS: Anion Gap 15 mmol/L; BUN/Creatinine Ratio 13; Blood Urea Nitrogen 8 mg/dL (7-17); Calcium 8.8 mg/dL (8.4-10.2); Carbon Dioxide 27 mmol/L (22-30); Chloride 103.4 mmol/L (98-107); Glucose 114 mg/dL (65-100); Potassium 4.4 mmol/L (3.6-5.0); Sodium 141 mmol/L (137-145)
[2017-08-14 07:09] LABS: Hematocrit 33.5 % (30.3-42.9); Hemoglobin 11.2 gm/dl (10.1-14.3); Mean Corpuscular HGB Conc 34 % (30-34); Mean Corpuscular Volume 73 fl (79-97); Platelet Count 214 K/mm3 (140-440); Red Blood Count 4.58 M/mm3 (3.65-5.03)
[2017-08-14 07:18] LABS: Mean Corpuscular Hemoglobin 25 pg (28-32); Red Cell Distribution Width 26.2 % (13.2-15.2)
[2017-08-14 08:08] LABS: Blastocytes % (Manual) 0 %
[2017-08-14 08:09] LABS: Basophils % (Manual) 0 % (0.0-1.8); Hypochromasia 2+
[2017-08-14 08:10] LABS: Anisocytosis 2+; Target Cells 1+
[2017-08-14 08:11] LABS: Acanthocytes Rare; Diff Status Complete; Ovalocytes Few; Platelet Estimate Appe
[2017-08-14] MEDS ORDERED: MORPHINE IV ONE (10:54)
[2017-08-14] MEDS ORDERED: LASIX IV ONE ×2 (10:54→14:08)
[2017-08-14] MEDS ORDERED: ZOFRAN IV ONE (10:54)
--- NOTE | 2017-08-14 10:59 | Emergency Department Report ---
ED Chest Pain HPI - General Chief Complaint: Chest Pain Stated Complaint: CP Time Seen by Provider: 08/14/17 09:24 Source: patient Mode of arrival: Stretcher Limitations: No Limitations - History of Present Illness Initial Comments: Patient is 47 years old female with history of hypertension, diabetes, CVA, pulmonary embolism, CHF with ejection fraction of 15%. Presented today with left-sided chest pain started yesterday getting worse this morning. Patient described her pain as sharp and associated with shortness of breath. She denies cough and fever. No nausea no vomiting. MD Complaint: chest pain -: days(s) Pain Location: left chest Severity scale (0 -10): 7 Quality: sharp - Related Data Previous Rx's Medication Instructions Recorded Last Taken Type Lisinopril [Zestril TAB] 40 mg PO QDAY #15 tablet 06/24/17 1 Day Ago Rx ~06/27/17 Lovastatin [Altoprev] 40 mg PO QPM #30 tab.er.24h 06/24/17 1 Day Ago Rx ~06/27/17 AtorvaSTATin [Lipitor] 40 mg PO QHS #30 tablet 07/13/17 Unknown Rx Clopidogrel [Plavix] 75 mg PO DAILY #30 tablet 07/13/17 Unknown Rx Furosemide [Lasix TAB] 20 mg PO BID #30 tablet 07/13/17 Unknown Rx Lisinopril [Zestril TAB] 40 mg PO QDAY #30 tablet 07/13/17 Unknown Rx Metoprolol [Lopressor TAB] 50 mg PO BID #30 tablet 07/13/17 Unknown Rx Metoprolol [Lopressor TAB] 50 mg PO BID #60 tablet 07/13/17 Unknown Rx metFORMIN [Glucophage] 500 mg PO BIDDIAB #60 tablet 07/13/17 Unknown Rx Allergies Allergy/AdvReac Type Severity Reaction Status Date / Time aspirin Allergy Swelling Verified 01/01/17 15:09 Heart Score - HEART Score History: Moderately suspicious EKG: Non-specific Age: 45-65 Risk factors: > 3 risk factors or hx of atherosclerotic disease Troponin: < normal limit HEART Score: 5 - Critical Actions Critical Actions: 4-6 pts:12-16.6% risk of adverse cardiac event. Should be admitted ED Review of Systems ROS: Stated complaint: CP Other details as noted in HPI Comment: All other systems reviewed and negative Constitutional: denies: chills, fever ENT: denies: throat pain Respiratory: orthopnea, shortness of breath, SOB with exertion, SOB at rest. denies: wheezing Cardiovascular: chest pain, palpitations. denies: dyspnea on exertion Gastrointestinal: denies: abdominal pain, nausea, vomiting, diarrhea, constipation, hematemesis, melena, hematochezia Genitourinary: denies: urgency, dysuria, frequency, hematuria Musculoskeletal: denies: back pain, joint swelling Neurological: denies: headache, weakness, numbness, paresthesias, confusion ED Past Medical Hx - Past Medical History Previous Medical History?: Yes Hx Hypertension: Yes Hx CVA: Yes (2014, acute basal ganglia stroke on mri 10/2016) Hx Heart Attack/AMI: No Hx Congestive Heart Failure: Yes (EF 15% on echo 07/2016) Hx Diabetes: Yes Hx Deep Vein Thrombosis: No Hx Pulmonary Embolism: Yes (January 2015) Hx GERD: No Hx Liver Disease: No Hx Renal Disease: No Hx Sickle Cell Disease: No Hx Arthritis: No Hx Headaches / Migraines: No Hx Seizures: No Hx Kidney Stones: Yes Hx Psychiatric Treatment: No Hx Asthma: Yes Hx COPD: No Hx Tuberculosis: No Hx Dementia: No Hx HIV: No Additional medical history: murmur. blood clot removal from brain, hx of CVA ( june,) - Surgical History Past Surgical History?: Yes Hx Coronary Stent: No Hx Open Heart Surgery: No Hx Pacemaker: No Hx Internal Defibrillator: No Hx Cholecystectomy: Yes Hx Appendectomy: No Hx Breast Surgery: No Additional Surgical History: tubal ligation - Social History Smoking Status: Current Every Day Smoker Substance Use Type: None - Medications Home Medications: Home Medications Medication Instructions Recorded Confirmed Last Taken Type Lisinopril [Zestril TAB] 40 mg PO QDAY #15 tablet 06/24/17 06/28/17 1 Day Ago Rx ~06/27/17 Lovastatin [Altoprev] 40 mg PO QPM #30 tab.er.24h 06/24/17 06/28/17 1 Day Ago Rx ~06/27/17 AtorvaSTATin [Lipitor] 40 mg PO QHS #30 tablet 07/13/17 Unknown Rx Clopidogrel [Plavix] 75 mg PO DAILY #30 tablet 07/13/17 Unknown Rx Furosemide [Lasix TAB] 20 mg PO BID #30 tablet 07/13/17 Unknown Rx Lisinopril [Zestril TAB] 40 mg PO QDAY #30 tablet 07/13/17 Unknown Rx Metoprolol [Lopressor TAB] 50 mg PO BID #30 tablet 07/13/17 Unknown Rx Metoprolol [Lopressor TAB] 50 mg PO BID #60 tablet 07/13/17 Unknown Rx metFORMIN [Glucophage] 500 mg PO BIDDIAB #60 tablet 07/13/17 Unknown Rx ED Physical Exam - General Limitations: No Limitations General appearance: alert, in no apparent distress - Head Head exam: Present: atraumatic, normocephalic, normal inspection - Eye Eye exam: Present: normal appearance, PERRL - ENT ENT exam: Present: normal exam, normal orophraynx, mucous membranes moist - Neck Neck exam: Present: normal inspection, full ROM. Absent: tenderness, meningismus, lymphadenopathy, thyromegaly - Respiratory Respiratory exam: Present: normal lung sounds bilaterally. Absent: respiratory distress, wheezes, rales, rhonchi, stridor, chest wall tenderness, accessory muscle use, decreased breath sounds, prolonged expiratory - Cardiovascular Cardiovascular Exam: Present: regular rate, normal rhythm, normal heart sounds - GI/Abdominal GI/Abdominal exam: Present: soft, normal bowel sounds. Absent: distended, tenderness, guarding, rebound, rigid, organomegaly, mass, bruit, pulsatile mass , hernia - Extremities Exam Extremities exam: Present: normal inspection, full ROM. Absent: tenderness, normal capillary refill, pedal edema, joint swelling, calf tenderness - Back Exam Back exam: Present: normal inspection, full ROM. Absent: CVA tenderness (R), CVA tenderness (L), muscle spasm, paraspinal tenderness, vertebral tenderness - Neurological Exam Neurological exam: Present: alert, oriented X3, CN II-XII intact, normal gait, reflexes normal. Absent: abnormal gait, motor sensory deficit - Skin Skin exam: Present: warm, intact, normal color. Absent: cyanosis ED Course Vital Signs 08/14/17 08/14/17 08/14/17 05:23 05:30 05:45 Temperature Pulse Rate 108 H 107 H Respiratory 36 H 28 H Rate Blood Pressure 182/122 172/118 Blood Pressure [Left] O2 Sat by Pulse Oximetry 08/14/17 08/14/17 08/14/17 05:49 06:09 06:15 Temperature 98.8 F Pulse Rate 102 H 114 H 102 H Respiratory 17 18 13 Rate Blood Pressure 178/116 178/116 178/116 Blood Pressure [Left] O2 Sat by Pulse 99 Oximetry 08/14/17 08/14/17 08/14/17 06:31 06:45 07:30 Temperature 98.4 F Pulse Rate 105 H 105 H 110 H Respiratory 32 H 33 H 25 H Rate Blood Pressure 178/116 178/116 Blood Pressure 184/130 [Left] O2 Sat by Pulse 97 Oximetry SAMANTA score - Samanta Score Age > 65: (0) No Aspirin use within the Past 7 Days: (0) No 3 or more CAD Risk Factors: (1) Yes 2 or more Angina events in past 24 hrs: (1) Yes Known CAD with more than 50% Stenosis: (0) No Elevated Cardiac Markers: (0) No ST Deviation Greater than 0.5mm: (0) No SAMANTA Score: 2 ED Medical Decision Making - Lab Data Result diagrams: 08/14/17 06:40 08/14/17 06:40 - EKG Data -: EKG Interpreted by Tn EKG shows normal: sinus rhythm Rate: tachycardia - EKG Data Interpretation: no acute changes - Radiology Data Radiology results: report reviewed X-ray showed acute pulmonary edema. - Medical Decision Making Discussed with Dr. Smith presented the patient to him he agrees to admit the patient to his service. Critical care attestation.: If time is entered above; I have spent that time in minutes in the direct care of this critically ill patient, excluding procedure time. ED Disposition Clinical Impression: Chest pain not due to acute coronary syndrome, Acute exacerbation of congestive heart failure Disposition: OP ADMIT IP TO THIS HOSP Is pt being admited?: Yes Condition: Stable Instructions: Chest Pain (ED) Referrals: PRIMARY CARE, [Primary Care Provider] - 3-5 Days
--- NOTE | 2017-08-14 11:14 | XRay Report ---
AP CHEST : 08/14/17 10:55 CLINICAL: Chest pain. COMPARISON:06/23/17 FINDINGS: Stable cardiomegaly.Increased central vascular congestion with redistribution of pulmonary blood flow to the upper lobes. New right perihilar reticular interstitial opacities. The lungs are otherwise clear. No tubes or lines. The bones and soft tissues are unremarkable. IMPRESSION: Mild CHF with mild right perihilar interstitial pulmonary edema.
[2017-08-14] MEDS ORDERED: NACL ONE (12:06)
--- NOTE | 2017-08-14 13:20 | Cat Scan Report ---
CT CHEST WITH CONTRAST: 08/14/17 11:59:00 CLINICAL: Chest pain with syncope. TECHNIQUE: PE protocol with volumetric acquisition and 1.25 mm scan reconstructions after the uneventful intravenous injection of 100 cc Omnipaque 350. Consent was obtained prior to the administration of contrast. FINDINGS: Satisfactory opacification of the pulmonary arteries and no pulmonary artery thrombus identified. The heart is large. Small pericardial effusion and small bilateral pleural effusions. The lungs are normally expanded and clear. No air space disease or mass. Mediastinal fluid but no mediastinal lymphadenopathy. Normal thyroid, trachea and esophagus. The upper abdomen is remarkable for moderate ascites. Diffuse subcutaneous edema. The bones are normal. IMPRESSION: No pulmonary embolus. Anasarca.
[2017-08-14] MEDS ORDERED: ZESTRIL PO ONE (13:48)
[2017-08-14] MEDS ORDERED: LOPRESSOR PO ONE (13:48)
--- NOTE | 2017-08-14 14:02 | History and Physical Report ---
History of Present Illness Chief complaint: chest pain History of present illness: 47 YO Female with HTN, Systolic CHF EF 15-30%, History of PE not on anticoagulation, DM, Asthma, Nicotine Dependence presents to ED for evaluation. Pt initially states that she experienced pain in her chest, but upon further questioning patient states that she ran out of all of her medication several days before Thanksgiving. Pt also acknowledges noncompliance with low sodium diet. Pt states that she has experienced shortness of breath for the past 2 days. Pt denies fever, chills, CP, Palpitations, NVD, Syncope, prolonged travel/ immobility, leg swelling, calf pain, hemoptysis, skin rash, productive cough, sore throat, or recent ill contacts. Pt seen and evaluated in ED and found to have systolic BP elevated to 180's. Pt treated with resumption of all her home medication with improvement in symptoms. Home dose of lisinopril, metoprolol, and lasix ordered with resolution of symptoms and normalization of blood pressure. . Pt monitored for response to therapy. Pt medically optimized and back to usual state of health. Pt discharged home and instructed to f/u pcp 1wk , cardiology prn. Pt counseled regarding medication noncompliance. Past History Past Medical History: heart failure, hypertension, pulmonary embolism, other ( Nicotine Dependence) Past Surgical History: CABG, Other (stent) Social history: single, smoking. denies: alcohol abuse, prescription drug abuse Family history: diabetes, hypertension Medications and Allergies Allergies Allergy/AdvReac Type Severity Reaction Status Date / Time aspirin Allergy Swelling Verified 01/01/17 15:09 Home Medications Medication Instructions Recorded Confirmed Last Taken Type Lovastatin [Altoprev] 40 mg PO QPM #30 tab.er.24h 06/24/17 06/28/17 1 Day Ago Rx ~06/27/17 Lisinopril [Zestril TAB] 40 mg PO QDAY #30 tablet 07/13/17 Unknown Rx Metoprolol [Lopressor TAB] 50 mg PO BID #30 tablet 07/13/17 Unknown Rx metFORMIN [Glucophage] 500 mg PO BIDDIAB #60 tablet 07/13/17 Unknown Rx AtorvaSTATin [Lipitor] 40 mg PO QHS #30 tablet 08/14/17 Unknown Rx Clopidogrel [Plavix] 75 mg PO DAILY #30 tablet 08/14/17 Unknown Rx Furosemide [Lasix TAB] 20 mg PO BID #30 tablet 08/14/17 Unknown Rx Lisinopril [Zestril TAB] 40 mg PO QDAY #15 tablet 08/14/17 Unknown Rx Metoprolol [Lopressor TAB] 50 mg PO BID #60 tablet 08/14/17 Unknown Rx Review of Systems Constitutional: other Ears, nose, mouth and throat: no ear pain, no ear discharge, no tinnitis, no decreased hearing, no nose pain, no nasal congestion, no nasal discharge Breasts: no change in shape, no swelling, no mass Cardiovascular: no chest pain, no orthopnea, no palpitations, no rapid/ irregular heart beat, no edema, no syncope Respiratory: no cough, no cough with sputum, no excessive sputum, no hemoptysis , no shortness of breath Gastrointestinal: no abdominal pain, no nausea, no vomiting, no diarrhea, no constipation Rectal: no pain, no incontinence, no bleeding Musculoskeletal: no neck stiffness, no neck pain, no shooting arm pain, no arm numbness/tingling Integumentary: no rash, no pruritis, no redness, no sores, no wounds Neurological: no head injury, no transient paralysis, no paralysis, no weakness , no parathesias, no numbness, no tingling Psychiatric: no anxiety, no memory loss, no change in sleep habits, no sleep disturbances, no insomnia, no hypersomnia, no change in appetite Endocrine: no cold intolerance, no heat intolerance, no polyphagia, no excessive thirst, no polydipsia Hematologic/Lymphatic: no easy bruising, no easy bleeding Allergic/Immunologic: no urticaria, no allergic rhinitis, no wheezing Exam - Constitutional Vitals: Temp Pulse Resp BP Pulse Ox 98.4 F 110 H 25 H 184/130 97 08/14/17 07:30 08/14/17 07:30 08/14/17 07:30 08/14/17 07:30 08/14/17 07:30 General appearance: Present: no acute distress, well-nourished - EENT Eyes: Present: PERRL ENT: hearing intact, clear oral mucosa - Neck Neck: Present: supple, normal ROM - Respiratory Respiratory effort: normal Respiratory: bilateral: CTA - Cardiovascular Heart Sounds: Present: S1 & S2. Absent: rub, click - Extremities Extremities: pulses symmetrical, No edema Peripheral Pulses: within normal limits - Abdominal General gastrointestinal: Present: soft, non-tender, non-distended, normal bowel sounds Female genitourinary: Present: normal - Integumentary Integumentary: Present: clear, warm, dry - Musculoskeletal Musculoskeletal: gait normal, strength equal bilaterally - Psychiatric Psychiatric: appropriate mood/affect, intact judgment & insight - Neurologic Neurologic: CNII-XII intact, moves all extremities Results - Labs CBC & Chem 7: 08/14/17 06:40 08/14/17 06:40 Labs: Abnormal lab results 08/14/17 08/14/17 08/14/17 Range/Units 06:40 06:40 08:46 MCV 73 L (79-97) fl MCH 25 L (28-32) pg RDW 26.2 H (13.2-15.2) % D-Dimer (0-234) ng/mlDDU Creatinine 0.6 L (0.7-1.2) mg/dL Glucose 114 H (65-100) mg/dL POC Glucose 125 H (70-105) NT-Pro-B Natriuret Pep (0-450) pg/mL 08/14/17 08/14/17 Range/Units 10:59 10:59 MCV (79-97) fl MCH (28-32) pg RDW (13.2-15.2) % D-Dimer 2505.78 H (0-234) ng/mlDDU Creatinine (0.7-1.2) mg/dL Glucose (65-100) mg/dL POC Glucose (70-105) NT-Pro-B Natriuret Pep 4013 H (0-450) pg/mL Assessment and Plan - Patient Problems (1) Noncompliance with medication regimen Current Visit: Yes Status: Acute Plan to address problem: Pt counseled, Pt acknowledges understanding instructions. (2) Uncontrolled hypertension Current Visit: Yes Status: Acute Plan to address problem: Pt home medication resumed, with resolution of symptoms. Pt discharged home and instructed to f/u pcp 1wk, cardiology prn.
[2017-08-14 22:23] VITALS: BP 132/93
== END 2017-08-14 22:40 | disposition admitted as inpatient to this hospital (09) ==
LOC: ED 05:37
DX: I11.0 Hypertensive heart disease with heart failure (principal); I50.9 Heart failure, unspecified; E11.9 Type 2 diabetes mellitus without complications; F17.200 Nicotine dependence, unspecified, uncomplicated; Z79.84 Long term (current) use of oral hypoglycemic drugs; Z88.4 Allergy status to anesthetic agent; Z86.73 Personal history of transient ischemic attack (TIA), and cerebral infarction without residual deficits; Z79.02 Long term (current) use of antithrombotics/antiplatelets
CPT/HCPCS: 36415; 71010; 71275; 80048; 82962; 83880; 84484; 85007; 85025; 85379; 93005; 93010; 96374; 96375; 96376; 99285; J1940; J2270; J2405; Q9967

== ENCOUNTER 2017-09-02 00:29 | Inpatient (IN) | payer OTHER ==
[~2017-09-02 00:29] MED LIST: HEPARIN 10,000 UNITS/10 ML ONE; HEPARIN/ 0.45% NACL-25,000 UNIT/500 ML ONE; LOPRESSOR IV ONE; NACL 0.9% 1000 ML ONE; NITROSTAT SL ONE; PLAVIX ONE
[2017-09-02] MEDS ORDERED: MORPHINE IV ONE (01:37)
[2017-09-02] MEDS ORDERED: ZOFRAN IV ONE (01:38)
[2017-09-02 01:59] LABS: Anion Gap 21 mmol/L; BUN/Creatinine Ratio 21; Blood Urea Nitrogen 15 mg/dL (7-17); Calcium 8.7 mg/dL (8.4-10.2); Carbon Dioxide 21 mmol/L (22-30); Chloride 100.9 mmol/L (98-107); Glucose 146 mg/dL (65-100); Sodium 139 mmol/L (137-145)
[2017-09-02] MEDS ORDERED: PLAVIX PO ONE (02:01)
[2017-09-02] MEDS ORDERED: NACL 0.9% 1000 ML 1,000 ML IV ONE (02:01)
[2017-09-02] MEDS ORDERED: HEPARIN 10,000 UNITS/10 ML IV ONE (02:01)
[2017-09-02] MEDS ORDERED: NITROSTAT SL ONE (02:06)
[2017-09-02 02:07] LABS: Hematocrit 35.5 % (30.3-42.9); Hemoglobin 11.6 gm/dl (10.1-14.3); Mean Corpuscular HGB Conc 33 % (30-34); Mean Corpuscular Volume 74 fl (79-97); Platelet Count 218 K/mm3 (140-440); Red Blood Count 4.83 M/mm3 (3.65-5.03)
[2017-09-02 02:08] LABS: Mean Corpuscular Hemoglobin 24 pg (28-32); Red Cell Distribution Width 24.3 % (13.2-15.2)
--- NOTE | 2017-09-02 02:09 | Emergency Department Report ---
ED Chest Pain HPI - General Chief Complaint: Chest Pain Stated Complaint: CHEST PAIN Time Seen by Provider: 09/02/17 01:11 Source: patient Mode of arrival: Stretcher Limitations: No Limitations - History of Present Illness Initial Comments: Patient with Chest pain that started around 10 pm at dinner and has not gone away. Has history of DM and HTN. No cath but reports stress test at some point. Time: 22:00 Onset: during rest Pain Location: substernal Pain Radiation: RUE, jaw/teeth Severity: severe Severity scale (0 -10): 10 Quality: tightness, sharp, pressure Consistency: constant Improves With: nothing Worsens With: nothing re: nausea Treatments Prior to Arrival: none - Related Data Previous Rx's Medication Instructions Recorded Last Taken Type Lovastatin [Altoprev] 40 mg PO QPM #30 tab.er.24h 06/24/17 1 Day Ago Rx ~06/27/17 Lisinopril [Zestril TAB] 40 mg PO QDAY #30 tablet 07/13/17 Unknown Rx Metoprolol [Lopressor TAB] 50 mg PO BID #30 tablet 07/13/17 Unknown Rx metFORMIN [Glucophage] 500 mg PO BIDDIAB #60 tablet 07/13/17 Unknown Rx AtorvaSTATin [Lipitor] 40 mg PO QHS #30 tablet 08/14/17 Unknown Rx Clopidogrel [Plavix] 75 mg PO DAILY #30 tablet 08/14/17 Unknown Rx Furosemide [Lasix TAB] 20 mg PO BID #30 tablet 08/14/17 Unknown Rx Lisinopril [Zestril TAB] 40 mg PO QDAY #15 tablet 08/14/17 Unknown Rx Metoprolol [Lopressor TAB] 50 mg PO BID #60 tablet 08/14/17 Unknown Rx Allergies Allergy/AdvReac Type Severity Reaction Status Date / Time aspirin Allergy Swelling Verified 01/01/17 15:09 Heart Score - HEART Score History: Highly suspicious EKG: Significant ST-depression Age: 45-65 Risk factors: 1-2 risk factors Troponin: < normal limit HEART Score: 6 ED Review of Systems ROS: Stated complaint: CHEST PAIN Other details as noted in HPI Constitutional: denies: chills, fever Eyes: denies: eye pain, eye discharge, vision change ENT: denies: ear pain, throat pain Respiratory: denies: cough, shortness of breath, wheezing Cardiovascular: chest pain. denies: palpitations Endocrine: no symptoms reported Gastrointestinal: denies: abdominal pain, nausea, diarrhea Genitourinary: denies: urgency, dysuria, discharge Musculoskeletal: denies: back pain, joint swelling, arthralgia Skin: denies: rash, lesions Neurological: denies: headache, weakness, paresthesias Psychiatric: denies: anxiety, depression Hematological/Lymphatic: denies: easy bleeding, easy bruising ED Past Medical Hx - Past Medical History Previous Medical History?: Yes Hx Hypertension: Yes Hx CVA: Yes (2014, acute basal ganglia stroke on mri 10/2016) Hx Heart Attack/AMI: No Hx Congestive Heart Failure: Yes (EF 15% on echo 07/2016) Hx Diabetes: Yes Hx Deep Vein Thrombosis: No Hx Pulmonary Embolism: Yes (January 2015) Hx GERD: No Hx Liver Disease: No Hx Renal Disease: No Hx Sickle Cell Disease: No Hx Arthritis: No Hx Headaches / Migraines: No Hx Seizures: No Hx Kidney Stones: Yes Hx Psychiatric Treatment: No Hx Asthma: Yes Hx COPD: No Hx Tuberculosis: No Hx Dementia: No Hx HIV: No Additional medical history: murmur. blood clot removal from brain, hx of CVA ( june,) - Surgical History Past Surgical History?: Yes Hx Coronary Stent: No Hx Open Heart Surgery: No Hx Pacemaker: No Hx Internal Defibrillator: No Hx Cholecystectomy: Yes Hx Appendectomy: No Hx Breast Surgery: No Additional Surgical History: tubal ligation - Social History Smoking Status: Never Smoker Substance Use Type: None - Medications Home Medications: Home Medications Medication Instructions Recorded Confirmed Last Taken Type Lovastatin [Altoprev] 40 mg PO QPM #30 tab.er.24h 06/24/17 06/28/17 1 Day Ago Rx ~06/27/17 Lisinopril [Zestril TAB] 40 mg PO QDAY #30 tablet 07/13/17 Unknown Rx Metoprolol [Lopressor TAB] 50 mg PO BID #30 tablet 07/13/17 Unknown Rx metFORMIN [Glucophage] 500 mg PO BIDDIAB #60 tablet 07/13/17 Unknown Rx AtorvaSTATin [Lipitor] 40 mg PO QHS #30 tablet 08/14/17 Unknown Rx Clopidogrel [Plavix] 75 mg PO DAILY #30 tablet 08/14/17 Unknown Rx Furosemide [Lasix TAB] 20 mg PO BID #30 tablet 08/14/17 Unknown Rx Lisinopril [Zestril TAB] 40 mg PO QDAY #15 tablet 08/14/17 Unknown Rx Metoprolol [Lopressor TAB] 50 mg PO BID #60 tablet 08/14/17 Unknown Rx ED Physical Exam - General Limitations: No Limitations General appearance: alert, anxious - Head Head exam: Present: atraumatic, normocephalic - Eye Eye exam: Present: normal appearance - ENT ENT exam: Present: mucous membranes moist - Neck Neck exam: Present: normal inspection - Respiratory Respiratory exam: Present: normal lung sounds bilaterally. Absent: respiratory distress - Cardiovascular Cardiovascular Exam: Present: regular rate, normal rhythm, other (Palpable chest pain). Absent: systolic murmur, diastolic murmur, rubs, gallop - GI/Abdominal GI/Abdominal exam: Present: soft, normal bowel sounds - Extremities Exam Extremities exam: Present: normal inspection - Back Exam Back exam: Present: normal inspection - Neurological Exam Neurological exam: Present: alert, oriented X3 - Psychiatric Psychiatric exam: Present: normal affect, normal mood - Skin Skin exam: Present: warm, dry, intact, normal color. Absent: rash ED Course Vital Signs 09/02/17 00:40 Temperature 98.0 F Pulse Rate 93 H Respiratory 20 Rate Blood Pressure 157/109 O2 Sat by Pulse 100 Oximetry SAMANTA score - Samanta Score Age > 65: (0) No Aspirin use within the Past 7 Days: (0) No 3 or more CAD Risk Factors: (1) Yes 2 or more Angina events in past 24 hrs: (1) Yes Known CAD with more than 50% Stenosis: (0) No Elevated Cardiac Markers: (0) No ST Deviation Greater than 0.5mm: (0) No SAMANTA Score: 2 ED Medical Decision Making - Lab Data Result diagrams: 09/02/17 02:15 09/02/17 01:03 Labs pending. - EKG Data -: EKG Interpreted by Me EKG shows normal: sinus rhythm, ST-T waves Rate: normal - EKG Data Interpretation: acute PR (Initial EKG at 1 pm had wanding baseline but concern for STEMI. After pain meds given and patient could be still EKG 01:51 showed STEMI II, III, aVF.) 09/02/17 02:17 Initially EKG showed wavering baseline and patient would not be still. We gave her morphine and repeated EKG. Exam prior to morphine was consistent with costochondritis as palpable pain. Also her pain radiated to the right arm with some jaw pain. After second EKG was done we called Dr. Reynolds and he activated the cath team. - Radiology Data Radiology results: pending - Medical Decision Making After discussion with Dr. Munoz, patient will be sent to radiographer cardiac catheterization for immediate cath. Nitro, morphine, metoprolol, oxygen, heparin 4000 unit bolus with drip of 12 units/hr, and plavix 600 mg was given. D/W patient after heparin started and she reports some relief. I walked with the patient to cath labs around 02:[address] Munoz stated that the stress echo 2 months ago showed EF of 15% and that she had had a CVA. He asked me to call the hospitalist to admit the patient. I spoke with Dr. Wiggins around 02:54 and she accepted the patient but was concerned that we were processing the patient without definitely knowing the results of the cath. Critical care attestation.: If time is entered above; I have spent that time in minutes in the direct care of this critically ill patient, excluding procedure time. ED Disposition Clinical Impression: STEMI (ST elevation myocardial infarction) Qualifiers: Involved coronary artery: left circumflex coronary artery Qualified Code(s): I21.21 - ST elevation (STEMI) myocardial infarction involving left circumflex coronary artery Disposition: 09 OP ADMIT IP TO THIS HOSP Is pt being admited?: Yes Does the pt Need Aspirin: No Condition: Serious Time of Disposition: 02:23
[2017-09-02 02:37] LABS: Hematocrit 33.2 % (30.3-42.9); Hemoglobin 11.1 gm/dl (10.1-14.3)
[2017-09-02] MEDS ORDERED: HEPARIN/NS 5000 UNIT/500ML(CATH LAB) 500 ML IR ONE (02:44)
[2017-09-02] MEDS ORDERED: HEPARIN 10,000 UNITS/10 ML ONE ×2 (02:45→03:16)
[2017-09-02] MEDS ORDERED: XYLOCAINE 2% INFILTRATI ONE (02:46)
[2017-09-02] MEDS ORDERED: NITROGLYCERIN SYRINGE 3 ML ONE (02:46)
[2017-09-02] MEDS ORDERED: CALAN ONE (02:46)
[2017-09-02 02:48] LABS: INR 1.99 (0.87-1.13)
[2017-09-02] MEDS ORDERED: VERSED ONE (02:57)
[2017-09-02] MEDS ORDERED: SUBLIMAZE ONE (02:57)
[2017-09-02 03:10] LABS: Partial Thromboplastin Time 236.9 Sec. (24.2-36.6)
--- NOTE | 2017-09-02 03:17 | XRay Report ---
FINAL REPORT EXAM: XR CHEST 1V AP HISTORY: Chest pain COMPARISON: CT chest from June 2017. FINDINGS: Frontal view(s) of the chest obtained. Mild to moderate cardiac enlargement. Shallow inspiration.. No gross consolidation or effusion. No pneumothorax. IMPRESSION: Stable mild to moderate cardiac enlargement. Shallow inspiration. Lungs are grossly clear.
[2017-09-02 03:22] LABS: Anion Gap 17 mmol/L; BUN/Creatinine Ratio 23; Blood Urea Nitrogen 14 mg/dL (7-17); Calcium 8.8 mg/dL (8.4-10.2); Carbon Dioxide 22 mmol/L (22-30); Chloride 102.5 mmol/L (98-107); Creatine Kinase 60 units/L (30-135); Creatine Kinase MB 3.7 ng/mL (0.0-4.0); Glucose 165 mg/dL (65-100); Sodium 137 mmol/L (137-145)
[2017-09-02] MEDS ORDERED: ULTRAM PO PRN (04:05)
[2017-09-02] MEDS ORDERED: ZESTRIL PO ONE (04:11)
[2017-09-02] MEDS ORDERED: DULCOLAX PR PRN (05:00)
[2017-09-02] MEDS ORDERED: ZOFRAN IV PRN (05:00)
[2017-09-02] MEDS ORDERED: TYLENOL PO PRN (05:00)
[2017-09-02] MEDS ORDERED: MILK OF MAGNESIA PO PRN (05:00)
--- NOTE | 2017-09-02 05:03 | History and Physical Report ---
History of Present Illness Date of examination: 09/02/17 History of present illness: 47 -year-old woman in a history of hypertension, CHF, hyperlipidemia, history of PE comes emergency room with complaints of chest pain which started at 10pm last night on left chest . The pain is sharp constant, intensity 7/10, radiating to the right arm. Admits to nausea vomiting, shortness of breath, diaphoresis palpitation. She was a code STEMI, arsenio to optical laboratory manager which showeed a clot to the distal RCA. The patient has been off her coumadin for "some time" now Review Of Systems: Constitutional: no weight loss Ears, eyes, nose, mouth and throat: no nasal congestion, no nasal discharge, no sinus pressure, blurry vision, diplopia Neck: No neck pain or rigidity. Cardiovascular: no orthopnea Respiratory: No cough Gastrointestinal: abdominal pain, hematochezia Genitourinary : no dysuria, frequency , hematuria Musculoskeletal: no muscle ache Integumentary: no rash, no pruritis Neurological: no parathesias, focal weakness Endocrine: no cold or heat intolerance, no polyuria or polydipsia Hematologic/Lymphatic: no easy bruising, no easy bleeding, no gland swelling Allergic/Immunologic: no urticaria, no angioedema. PAST MEDICAL HISTORY:hypertension, CHF, hyperlipidemia, history of PE PAST SURGICAL HISTORY: Tubal ligation SOCIAL HISTORY: Denies alcohol, tobacco, drugs FAMILY HISTORY: Coronary artery disease Medications and Allergies Allergies Allergy/AdvReac Type Severity Reaction Status Date / Time aspirin Allergy Swelling Verified 01/01/17 15:09 Home Medications Medication Instructions Recorded Confirmed Last Taken Type Lovastatin [Altoprev] 40 mg PO QPM #30 tab.er.24h 06/24/17 06/28/17 1 Day Ago Rx ~06/27/17 Lisinopril [Zestril TAB] 40 mg PO QDAY #30 tablet 07/13/17 Unknown Rx Metoprolol [Lopressor TAB] 50 mg PO BID #30 tablet 07/13/17 Unknown Rx metFORMIN [Glucophage] 500 mg PO BIDDIAB #60 tablet 07/13/17 Unknown Rx AtorvaSTATin [Lipitor] 40 mg PO QHS #30 tablet 08/14/17 Unknown Rx Clopidogrel [Plavix] 75 mg PO DAILY #30 tablet 08/14/17 Unknown Rx Furosemide [Lasix TAB] 20 mg PO BID #30 tablet 08/14/17 Unknown Rx Lisinopril [Zestril TAB] 40 mg PO QDAY #15 tablet 08/14/17 Unknown Rx Metoprolol [Lopressor TAB] 50 mg PO BID #60 tablet 08/14/17 Unknown Rx Active Meds: Active Medications Acetaminophen (Tylenol) 650 mg PO Q4H PRN PRN Reason: Pain MILD(1-3)/Fever >100.5/KANG Atorvastatin Calcium (Lipitor) 40 mg PO QHS ALTON Bisacodyl (Dulcolax) 10 mg [place] QDAY PRN PRN Reason: Constipation unrelieved by MOM Clopidogrel Bisulfate (Plavix) 75 mg PO QDAY [facility] Heparin Sodium/Sodium Chloride (Heparin/ 0.45% Nacl-25,000 Unit/500 Ml) 25,000 unit in 500 mls @ 20 mls/hr IV TITRATE ALTON; 1,000 UNITS/HR PRN Reason: Protocol Sodium Chloride (Nacl 0.9% 1000 Ml) 1,000 mls @ 42 mls/hr IV DIRECT ALTON Magnesium Hydroxide (Milk Of Magnesia) 30 ml PO Q4H PRN PRN Reason: Constipation Metoprolol Tartrate (Lopressor) 50 mg PO BID [facility] Stop: 09/12/17 09:59 Ondansetron HCl (Zofran) 4 mg IV Q8H PRN PRN Reason: N/V unrelieved by Reglan Tramadol HCl (Ultram) 50 mg PO Q4H PRN PRN Reason: Pain, Mild (1-3) Exam - Physical Exam Narrative exam: Gen. appearance: Patient lying in bed in no acute distress HEENT: Normocephalic/atraumatic, pupils equal round reactive to light, extra alkaline movement intact, no scleral icterus, no JVD or thyromegaly or nodule, neck is supple, mucous membrane moist, no erythema or exudate Heart: S1-S2, regular rate and rhythm Lungs: Clear to auscultation bilateral breathing comfortable Abdomen: Positive bowel sounds, nontender, nondistended, no organomegaly Extremities: +edema, cyanosis, clubbing Neuro:: Oriented 3 , cranial nerves II-12 intact,slurred speech, left hemiparesis Skin: No rash, nodules, warm dry - Constitutional Vitals: Temp Pulse Resp BP Pulse Ox 98.6 F 81 27 H 146/103 97 09/02/17 02:01 09/02/17 02:30 09/02/17 02:30 09/02/17 02:30 09/02/17 02:30 Results - Labs CBC & Chem 7: 09/02/17 02:15 09/02/17 02:15 Labs: Abnormal lab results 09/02/17 09/02/17 09/02/17 Range/Units 01:03 01:03 02:15 MCV 74 L (79-97) fl MCH 24 L (28-32) pg RDW 24.3 H (13.2-15.2) % PT (12.2-14.9) Sec. INR (0.87-1.13) APTT (24.2-36.6) Sec. Carbon Dioxide 21 L (22-30) mmol/L Creatinine 0.6 L (0.7-1.2) mg/dL Glucose 146 H 165 H (65-100) mg/dL CK-MB (CK-2) Rel Index 6.1 H (0-4) 09/02/17 Range/Units 02:15 MCV (79-97) fl MCH (28-32) pg RDW (13.2-15.2) % PT 23.8 H (12.2-14.9) Sec. INR 1.99 H (0.87-1.13) APTT 236.9 H* (24.2-36.6) Sec. Carbon Dioxide (22-30) mmol/L Creatinine (0.7-1.2) mg/dL Glucose (65-100) mg/dL CK-MB (CK-2) Rel Index (0-4) - Imaging and Cardiology EKG: image reviewed Chest x-ray: image reviewed Assessment and Plan Assessment Acute on chronic Pulmonary emboli Hypertension CHF, stable Diabetes type 2 Hyperlipidemia Plan Admit to medicine Continue heparin drip, restart coumadin Restart other appropiate outpatient medications Check fingersticks and initiate insulin sliding scale DVT prophylaxis initiated
--- NOTE | 2017-09-02 05:42 | Cardiac Catherization Report ---
CARDIAC CATHETERIZATION AND CORONARY INTERVENTION REPORT PROCEDURES: Included: 1. Left heart catheterization. 2. Balloon angioplasty of the PDA and LV branch of the RCA, probable embolic disease. The patient is a 47-year-old white female with history of hypertension, diabetes mellitus, known dilated cardiomyopathy was evaluated in 06/2017 with an echocardiogram which showed ejection fraction around 20% along with normal myocardial perfusion imaging. He also has a history of PE in the past, on anticoagulation, history of stroke and removal of thrombus in the past in 2014, also MRI done in 2017 showed new stroke. Presently, presented with chest pain, with EKG changes with mild ST elevations in II, III and aVF with ST depressions, which are mild than the other leads. Because of chest pain and EKG changes, she was brought to the catheterization laboratory on an emergency basis as a part of the STEMI protocol. The patient was taken to the catheterization laboratory on an emergency basis. Her radial pulse was weak. Hence, the right groin was prepared with Betadine solution and sterile drapes were applied. Local anesthesia was achieved using 2% Xylocaine. Right femoral artery puncture was made using 5-Romanian micropuncture needle. Subsequently, a 5-Romanian sheath was introduced. A 5-Romanian multipurpose catheter was used to obtain the left ventriculogram done in COULTER projection and JL3.5 catheter was used to obtain the angiograms of the left coronary artery and JR4 catheter was used to obtain the angiograms of the right coronary artery. 1. Cardiac catheterization findings included aortic pressure of 121/90, left ventricular pressure of 121/27. No gradient across the aortic valve. Estimated ejection fraction of 20-25%. 2. Left ventriculogram done in COULTER projection showed moderately dilated left ventricle with severe diffuse hypokinesis. Ejection fraction 20-25%. 3. Left coronary artery arises normally from left coronary cusp. Left main, LAD curving around the apex and its branches, circumflex artery and its branches are angiographically smooth and normal. 3. Right coronary artery dominant vessel is angiographically smooth and normal except for cutoff in the mid part of the PDA and mid part of the LV branch with no visualization of the distal vessel. These findings are suggestive of embolus to PDA and LV branch. Rest of the RCA is angiographically smooth and normal. FINAL IMPRESSION: Probable emboli to the distal PDA and LV branch of the RCA with rest of the coronaries being angiographically smooth and normal. Dilated left ventricle with diffuse hypokinesis, ejection fraction 20-25%. Considering the chest pain and EKG changes, we will try to intervene on the PDA and LV branches. Coronary intervention of the PDA and LV branches. This included balloon angioplasty. The patient has indwelling 5-Romanian sheath in the right groin, which was changed to 6-Romanian sheath. The patient's ACT was noted to be low, hence 3000 units of heparin given; however, INR was elevated to 1.9. After giving heparin, the 6-Romanian JR4 guiding catheter was advanced and engaged the right coronary artery. Angiogram showed previous findings, namely occluded mid PDA and LV branches with cut-off. A 0.014 inch [place] XT guidewire was advanced into the PDA, which was into the very distal part of the PDA. Lesion was dilated with 2.00 x 15 mm Mini Trek balloon few times up to 13 atmospheres. However, there is no significant improvement in the SAMANTA flow. The patient has SAMANTA 0 flow pre and post-procedure. Similarly, subsequently guidewire was advanced into the LV branch and lesion was dilated with the same balloon 2.0 x 15 mm Mini Trek. Even after multiple dilations, there was no significant change in the SAMANTA 3 flow. It was felt that the patient's main problem is embolus and thrombus and considering the very small caliber of the distal vessel less than 2 mm, it was felt she is not a candidate for thrombectomy. Considering with no good results with balloon angioplasty in spite of multiple dilations, it was felt the patient can be continued on anticoagulation for treating her thrombus. The patient cannot take aspirin. The patient is already anticoagulated with INR being 1.9 with warfarin for her pulmonary embolus. Considering the above, the patient will be continued on IV heparin and will be monitored in CCU. At the end of the procedure, the patient is not having any chest pain. The patient's chest pain completely resolved. At this time, the patient appears to have embolic phenomenon to the small vessels namely distal part of the PDA and LV branches with attempted balloon angioplasty, but with no change in the SAMANTA flow. She will be continued on anticoagulation. The patient has underlying severe dilated cardiomyopathy with essentially normal coronary anatomy. Sheath will be removed few hours later. The patient tolerated the procedure well. No untoward complications were noted. JOB# [id number] BETZAIDA/DAVID BARKER
[2017-09-02] MEDS: HEPARIN/ 0.45% NACL-25,000 UNIT/500 ML 25,000 UNIT/500 ML BAG IV SCH ×2 (05:45→22:20)
[2017-09-02] MEDS ORDERED: D50W (25GM) Syringe IV PRN (05:58)
[2017-09-02 06:04] LABS: Hematocrit 33.9 % (30.3-42.9); Hemoglobin 11.1 gm/dl (10.1-14.3)
[2017-09-02 06:15] LABS: INR 1.84 (0.87-1.13)
[2017-09-02 06:31] LABS: Creatine Kinase MB 14.1 ng/mL (0.0-4.0)
[2017-09-02] MEDS: MORPHINE IV PRN (06:50)
[2017-09-02] MEDS: NOVOLOG SUB-Q SCH ×3 (07:30→16:20)
[2017-09-02] MEDS: NACL 0.9% 1000 ML 1,000 ML IV SCH ×2 (07:35→18:36)
[2017-09-02 09:38] LABS: Creatine Kinase MB 28.7 ng/mL (0.0-4.0)
--- NOTE | 2017-09-02 09:38 | Consultation ---
CARDIOLOGY CONSULTATION HISTORY OF PRESENT ILLNESS: A 47-year-old female with history of dilated cardiomyopathy, history of CVA in 2014 with acute basal ganglia stroke on MRI in 10/2016 and diagnosis of pulmonary embolism in 01/2015, started having chest pain around 10 o'clock on the night of admission. The pain is in the anterior chest pain radiating to the right arm and EKG showed mild ST elevations in II, III, aVF. Because of her chest pain and EKG changes, she was taken to the catheterization laboratory on an emergency basis. Cardiac catheterization showed dilated left ventricle with ejection fraction around 20-25%, essentially normal coronary anatomy with RCA being dominant vessel. All the coronary anatomy is normal except for cutoff of mid PDA and mid part of the LV branch of the RCA suggesting these are embolic phenomenon. Considering the chest pain and EKG changes, attempt was made to do balloon angioplasty with partial success, but still there is no SAMANTA 3 flow at the end of the procedure. The patient is already on anticoagulation with Coumadin receiving IV heparin. Considering patient's etiology being emboli to the coronary arteries, we will continue anticoagulation. The patient tolerated the procedure well. The patient has sheath in right groin will be removed in the morning. PHYSICAL EXAMINATION: GENERAL: The patient at the end of the procedure, is without chest pain, no shortness of breath. HEENT: Conjunctivae pink. Sclerae anicteric. NECK: Supple, no JVD. HEART: Regular, probably S4 and S3. LUNGS: Clear. ABDOMEN: Benign. EXTREMITIES: Without edema. NEUROLOGIC: Alert, awake. LABORATORY DATA: Showed INR of 1.99 with PT of 23.8. Potassium of 4.0, BUN of 14 and creatinine of 0.6. Total creatine was 60 with MB of 3.7. Troponin T is less than 0.010. FINAL IMPRESSION: 1. Acute chest pain, probably secondary to small emboli to the PDA and LV branch of the RCA with rest of the coronaries is being normal with dilated LV. Source of embolus is not clear at this time, may be dilated LV. The patient is already on anticoagulation, will continue the same. 2. History of cerebrovascular accident in 06/2015 with history of blood clot removal from the brain. 3. Diabetes mellitus. The patient was known to have dilated cardiomyopathy in the past with ejection fraction of 15% and Lexiscan nuclear imaging in 2016. The patient also has a diagnosis of acute basal ganglia stroke on MRI in 10/2016. The patient had a history of pulmonary embolism in 01/2015. CURRENT MEDICATIONS: Included lisinopril 40 mg a day, metoprolol 50 mg b.i.d., metformin 500 mg b.i.d., atorvastatin 40 mg a day, Plavix 75 mg a day, furosemide 20 mg b.i.d., lisinopril 40 mg a day. Apparently, she cannot take ASPIRIN BEING ALLERGIC to it. PLAN: At this time is to continue anticoagulation with heparin. Continue her previous medications. The patient claim she is taking warfarin. We will get an echocardiogram for LV function and for evaluation of thrombi. The patient's chest pain improved at the time of procedure. At this time, patient appears to have small embolic phenomena to the PDA and LV branch of the dominant RCA with balloon angioplasty. Success was only partial with still no SAMANTA 3 flow distally. Considering the small caliber of these vessels, no further attempt was made and considering the small size of the vessel, patient is not a candidate for thrombectomy either by catheter or AngioJet. The patient is pain free at the time of ending the procedure. The patient will be monitored in CCU. JOB# [id number] BETZAIDA/DAVID BARKER
[2017-09-02] MEDS ORDERED: ZESTRIL PO SCH (10:00)
[2017-09-02] MEDS: LASIX PO SCH ×2 (10:22→22:38)
[2017-09-02] MEDS: LOPRESSOR PO SCH ×2 (10:22→22:38)
--- NOTE | 2017-09-02 10:36 | Progress Note ---
<KEANU WHELAN - Last Filed: 09/02/17 10:38> Assessment and Plan Assessment: Acute chest pain - currently resolved; probably secondary to small emboli in the PDA and LV branch of the RCA with rest of coronaries being normal with dilated LV Dilated NICMP - EF 20-25% Abnormal EKG - mild ST elevations in inferior leads H/o CVA in 06/2015 with history of blood clot removal from the brain DM H/o systemic anticoagulation - pt was taking coumadin prior to admission with INR 1.99 on admission ASA allergy Plan: Pt s/p LHC this AM with attempt to do balloon angioplasty with partial success, SAMANTA 3 flow at end of procedure, small caliber vessels. Obtain echo. Cont current medical management. Continue anticoagulation with heparin. Recommend hematology consultation per primary. D/w Dr. Newell. Order LifeVest. Assessment and plan reviewed with pt at bedside. The patient has been seen in conjunction with Dr. Reynolds who agrees with the assessment and plan of care. Subjective Date of service: 09/02/17 Principal diagnosis: chest pain Interval history: Pt resting comfortably in bed, no current cardiac complaints. venous sheath in place via right groin, site c/d/i with no evidence of bleeding or hematoma. Objective Last Vital Signs Temp 98.6 F 09/02/17 02:01 Pulse 98 H 09/02/17 10:22 Resp 24 09/02/17 08:48 BP 147/93 09/02/17 10:22 Pulse Ox 97 09/02/17 08:48 - Physical Examination General: No Apparent Distress HEENT: Positive: PERRL, Normocephaly, Mucus Membranes Moist Neck: Positive: neck supple, trachea midline Cardiac: Positive: Reg Rate and Rhythm, S1/S2 Lungs: Positive: clear to auscultation Neuro: Positive: Grossly Intact, Cranial Nerve 2-12 Intact Abdomen: Positive: Soft. Negative: Tender Incision: Cardiac Cath Site (right femoral, c/d/i) Musculoskeletal: No Fluid Collection, No Pain, Normal Range of Motion Extremities: Absent: edema - Labs and Meds Cardiac Enzymes 09/02/17 09/02/17 09/02/17 Range/Units 02:15 05:45 08:16 CK-MB (CK-2) 3.7 14.1 H 28.7 H (0.0-4.0) ng/mL Coagulation 09/02/17 09/02/17 Range/Units 02:15 05:45 PT 23.8 H 22.3 H (12.2-14.9) Sec. INR 1.99 H 1.84 H (0.87-1.13) APTT 236.9 H* 189.0 H* (24.2-36.6) Sec. Lipids 09/02/17 Range/Units 05:45 Triglycerides 53 (2-149) mg/dL Cholesterol 66 (50-199) mg/dL HDL Cholesterol 23 L (40-59) mg/dL Cholesterol/HDL Ratio 2.86 % CBC 09/02/17 09/02/17 09/02/17 Range/Units 01:03 02:15 05:45 WBC 6.0 (4.5-11.0) K/mm3 RBC 4.83 (3.65-5.03) M/mm3 Hgb 11.6 11.1 11.1 (10.1-14.3) gm/dl Hct 35.5 33.2 33.9 (30.3-42.9) % Plt Count 218 232 249 (140-440) K/mm3 Lymph # Wrecker Operator Clare # Wrecker Operator Eos # Wrecker Operator Baso # Wrecker Operator Comprehensive Metabolic Panel 09/02/17 09/02/17 Range/Units 01:03 02:15 Sodium 139 137 (137-145) mmol/L Potassium 4.0 4.0 (3.6-5.0) mmol/L Chloride 100.9 102.5 (98-107) mmol/L Carbon Dioxide 21 L 22 (22-30) mmol/L BUN 15 14 (7-17) mg/dL Creatinine 0.7 0.6 L (0.7-1.2) mg/dL Glucose 146 H 165 H (65-100) mg/dL Calcium 8.7 8.8 (8.4-10.2) mg/dL - Imaging and Cardiology EKG: image reviewed Echo: pending Cardiac cath: report reviewed - Telemetry EKG Rhythm: Sinus Rhythm <IZABELLA REYNOLDS R - Last Filed: 09/02/17 11:00> Subjective Interval history: Patient had balloon angioplasty of mid PDA/LV branches,suggestive of embolic occlusion,balloon angioplasty of both lesions was attempted,but only minimal reperfusion of these small distall branches.Would continue anticoagulation with heparin,and warfarin.patient may benefit from hematological evaluation considering hx. of PE,hx. of embolic stroke and presently coronary emboli. Objective Vital Signs Temp Pulse Resp Resp BP Pulse Ox 09/02/17 10:35 96 H 09/02/17 10:30 100 H 25 H 136/100 97 09/02/17 10:22 98 H 147/93 09/02/17 10:21 96 H 23 147/93 97 09/02/17 10:11 97 H 24 147/93 97 09/02/17 10:00 93 H 24 147/93 97 09/02/17 09:51 95 H 24 135/103 98 09/02/17 09:41 96 H 23 135/103 98 09/02/17 09:30 95 H 24 135/103 98 09/02/17 09:21 93 H 24 155/102 98 09/02/17 09:11 96 H 23 155/102 98 09/02/17 09:00 96 H 24 155/102 97 09/02/17 08:51 98 H 27 H 140/100 98 09/02/17 08:48 98 H 24 97 09/02/17 08:30 95 H 24 139/110 98 09/02/17 08:20 94 H 24 139/110 98 09/02/17 08:10 95 H 24 141/109 97 09/02/17 08:00 94 H 25 H 140/100 96 09/02/17 07:50 92 H 24 140/100 97 09/02/17 07:40 95 H 23 133/98 97 09/02/17 07:30 94 H 22 133/99 97 09/02/17 07:20 93 H 23 133/99 96 09/02/17 07:10 92 H 26 H 130/109 97 09/02/17 07:00 90 25 H 125/102 97 09/02/17 06:50 98 H 21 135/100 99 09/02/17 06:45 29 H 09/02/17 06:40 92 H 23 124/94 96 09/02/17 06:30 91 H 22 124/94 97 09/02/17 06:20 91 H 24 126/103 95 09/02/17 06:10 92 H 23 126/103 95 09/02/17 06:00 92 H 23 149/104 96 09/02/17 05:50 90 23 149/104 97 09/02/17 05:40 89 22 131/107 97 09/02/17 05:30 146/108 93 09/02/17 05:29 146/108 96 09/02/17 02:30 81 27 H 146/103 97 09/02/17 02:15 101 H 25 H 153/98 100 09/02/17 02:01 98.6 F 88 23 137/100 99 09/02/17 01:45 88 20 137/100 99 09/02/17 01:35 137/100 09/02/17 00:40 98.0 F 93 H 20 157/109 100 - Labs and Meds Cardiac Enzymes 09/02/17 09/02/17 09/02/17 Range/Units 02:15 05:45 08:16 CK-MB (CK-2) 3.7 14.1 H 28.7 H (0.0-4.0) ng/mL Coagulation 09/02/17 09/02/17 Range/Units 02:15 05:45 PT 23.8 H 22.3 H (12.2-14.9) Sec. INR 1.99 H 1.84 H (0.87-1.13) APTT 236.9 H* 189.0 H* (24.2-36.6) Sec. Lipids 09/02/17 Range/Units 05:45 Triglycerides 53 (2-149) mg/dL Cholesterol 66 (50-199) mg/dL HDL Cholesterol 23 L (40-59) mg/dL Cholesterol/HDL Ratio 2.86 % CBC 09/02/17 09/02/17 09/02/17 Range/Units 01:03 02:15 05:45 WBC 6.0 (4.5-11.0) K/mm3 RBC 4.83 (3.65-5.03) M/mm3 Hgb 11.6 11.1 11.1 (10.1-14.3) gm/dl Hct 35.5 33.2 33.9 (30.3-42.9) % Plt Count 218 232 249 (140-440) K/mm3 Lymph # Wrecker Operator Clare # Wrecker Operator Eos # Wrecker Operator Baso # Wrecker Operator Comprehensive Metabolic Panel 09/02/17 09/02/17 Range/Units 01:03 02:15 Sodium 139 137 (137-145) mmol/L Potassium 4.0 4.0 (3.6-5.0) mmol/L Chloride 100.9 102.5 (98-107) mmol/L Carbon Dioxide 21 L 22 (22-30) mmol/L BUN 15 14 (7-17) mg/dL Creatinine 0.7 0.6 L (0.7-1.2) mg/dL Glucose 146 H 165 H (65-100) mg/dL Calcium 8.7 8.8 (8.4-10.2) mg/dL
--- NOTE | 2017-09-02 11:11 | Consultation ---
History of Present Illness Consult date: 09/02/17 Requesting physician: JESUS PEREZ Reason for consult: pulmonary embolism History of present illness: PULMONARY/CCM CONSULT NOTE (Full dictation # [id number] &[id number]) Please see dictated notes for full details Medications and Allergies Allergies Allergy/AdvReac Type Severity Reaction Status Date / Time aspirin Allergy Swelling Verified 01/01/17 15:09 Home Medications Medication Instructions Recorded Confirmed Last Taken Type Lovastatin [Altoprev] 40 mg PO QPM #30 tab.er.24h 06/24/17 06/28/17 1 Day Ago Rx ~06/27/17 Lisinopril [Zestril TAB] 40 mg PO QDAY #30 tablet 07/13/17 Unknown Rx Metoprolol [Lopressor TAB] 50 mg PO BID #30 tablet 07/13/17 Unknown Rx metFORMIN [Glucophage] 500 mg PO BIDDIAB #60 tablet 07/13/17 Unknown Rx AtorvaSTATin [Lipitor] 40 mg PO QHS #30 tablet 08/14/17 Unknown Rx Clopidogrel [Plavix] 75 mg PO DAILY #30 tablet 08/14/17 Unknown Rx Furosemide [Lasix TAB] 20 mg PO BID #30 tablet 08/14/17 Unknown Rx Lisinopril [Zestril TAB] 40 mg PO QDAY #15 tablet 08/14/17 Unknown Rx Metoprolol [Lopressor TAB] 50 mg PO BID #60 tablet 08/14/17 Unknown Rx Active Meds: Active Medications Acetaminophen (Tylenol) 650 mg PO Q4H PRN PRN Reason: Pain MILD(1-3)/Fever >100.5/KANG Atorvastatin Calcium (Lipitor) 40 mg PO QHS ALTON Bisacodyl (Dulcolax) 10 mg [place] QDAY PRN PRN Reason: Constipation unrelieved by MOM Clopidogrel Bisulfate (Plavix) 75 mg PO QDAY [facility] Dextrose (D50w (25gm) Syringe) 50 ml IV PRN PRN PRN Reason: Hypoglycemia Furosemide (Lasix) 20 mg PO BID ALTON Last Admin: 09/02/17 10:22 Dose: 20 mg Heparin Sodium/Sodium Chloride (Heparin/ 0.45% Nacl-25,000 Unit/500 Ml) 25,000 unit in 500 mls @ 20 mls/hr IV TITRATE ALTON; 1,000 UNITS/HR PRN Reason: Protocol Last Admin: 09/02/17 05:45 Dose: 1,000 units/hr, 20 mls/hr Sodium Chloride (Nacl 0.9% 1000 Ml) 1,000 mls @ 42 mls/hr IV DIRECT ALTON Last Admin: 09/02/17 07:35 Dose: 42 mls/hr Insulin Aspart (Novolog) 0 units SUB-Q ACHS ALTON PRN Reason: Protocol Last Admin: 09/02/17 07:30 Dose: Not Given Magnesium Hydroxide (Milk Of Magnesia) 30 ml PO Q4H PRN PRN Reason: Constipation Metoprolol Tartrate (Lopressor) 50 mg PO BID ALTON Stop: 09/12/17 09:59 Last Admin: 09/02/17 10:22 Dose: 50 mg Morphine Sulfate (Morphine) 2 mg IV Q4H PRN PRN Reason: Pain, Moderate (4-6) Last Admin: 09/02/17 06:50 Dose: 2 mg Ondansetron HCl (Zofran) 4 mg IV Q8H PRN PRN Reason: N/V unrelieved by Yuridia Last Admin: 09/02/17 06:50 Dose: 4 mg Physical Examination Vital signs: Vital Signs Temp Pulse Resp BP Pulse Ox 98.0 F 93 H 20 157/109 100 09/02/17 00:40 09/02/17 00:40 09/02/17 00:40 09/02/17 00:40 09/02/17 00:40 Results - Laboratory Findings CBC and BMP: 09/02/17 05:45 09/02/17 02:15 PT/INR, D-dimer PT 22.3 Sec. (12.2-14.9) H 09/02/17 05:45 INR 1.84 (0.87-1.13) H 09/02/17 05:45 Abnormal lab findings: Abnormal Labs 09/02/17 09/02/17 09/02/17 01:03 01:03 02:15 MCV 74 L MCH 24 L RDW 24.3 H PT INR APTT Activated Clotting Time Carbon Dioxide 21 L Creatinine 0.6 L Glucose 146 H 165 H Total Creatine Kinase CK-MB (CK-2) CK-MB (CK-2) Rel Index 6.1 H Troponin T LDL Cholesterol Direct HDL Cholesterol 09/02/17 09/02/17 09/02/17 02:15 03:24 05:45 MCV MCH RDW PT 23.8 H INR 1.99 H APTT 236.9 H* Activated Clotting Time 147 H Carbon Dioxide Creatinine Glucose Total Creatine Kinase CK-MB (CK-2) 14.1 H CK-MB (CK-2) Rel Index 12.9 H Troponin T 0.171 H* D LDL Cholesterol Direct 33 L HDL Cholesterol 23 L 09/02/17 09/02/17 05:45 08:16 MCV MCH RDW PT 22.3 H INR 1.84 H APTT 189.0 H* Activated Clotting Time Carbon Dioxide Creatinine Glucose Total Creatine Kinase 181 H CK-MB (CK-2) 28.7 H CK-MB (CK-2) Rel Index 15.8 H Troponin T 0.316 H* D LDL Cholesterol Direct HDL Cholesterol
[2017-09-02 13:47] LABS: Reticulocyte % 1.65 % (0.78-2.58)
--- NOTE | 2017-09-02 15:37 | Event Note ---
Date: 09/02/17 Pt seen and examined. Admitted this am with chest pain. s/p cardiac cath showed small emboli in the PDA and LV branch of the RCA with rest of coronaries being normal with dilated LV. Will cont current mx and plan as dictated in H and P. will also consult hematology.
[2017-09-02] MEDS ORDERED: COUMADIN PO SCH ×2 (17:00)
[2017-09-02] MEDS: PEPCID PO SCH (17:19)
[2017-09-03] MEDS: NOVOLOG SUB-Q SCH ×2 (00:10→11:55)
--- NOTE | 2017-09-03 01:35 | Consultation ---
REASON FOR CONSULTATION: Hypercoagulable state. HISTORY OF PRESENT ILLNESS: The patient is a 47-year-old female who was admitted to the hospital with chest pains. She had chest pains, which were radiating from the right arm. She was taken to the laboratory technician and was found to have a clot in the distal RCA. The patient has had pulmonary emboli in the past in fact was on Coumadin for a long time. The note says that she has been off Coumadin, but the patient apparently has been on Coumadin. She was not able to give a good history as to if anybody was checking her blood work or not, but her INR on admission was 1.99. Because of history of PE and now with embolic coronary artery embolus, hematology consult was called. She is currently on Coumadin. It is difficult to get the whole history at this time as to her family history etc., which I will get at the next visit that she has since the patient is currently " PHYSICAL EXAMINATION: GENERAL: The patient is drowsy. She is undergoing echocardiogram right now. CHEST: Anteriorly is clear. Abdomen: Soft. EXTREMITIES: Has no clubbing, cyanosis, or edema. LABORATORY DATA: The patient's hemoglobin 11.6, platelets 218, white count 6.0. MCV 74. ASSESSMENT: 1. History of pulmonary embolism now with coronary artery embolus. 2. Previous history of embolic stroke. 3. Previous history of pulmonary embolus. PLAN: At this time, we will do hypercoagulable workup. I agree with heparin. The patient had been on Coumadin, but will have to be switched to another medication possibly Eliquis once she is stable. The patient is anemic with microcytosis. I will order anemia workup also. JOB# [id number] HANS/DAVID
[2017-09-03] MEDS: MORPHINE IV PRN (02:59)
[2017-09-03 03:41] LABS: Hematocrit 35.1 % (30.3-42.9); Hemoglobin 11.5 gm/dl (10.1-14.3); Mean Corpuscular HGB Conc 33 % (30-34); Mean Corpuscular Hemoglobin 24 pg (28-32); Mean Corpuscular Volume 74 fl (79-97); Platelet Count 223 K/mm3 (140-440); Red Blood Count 4.76 M/mm3 (3.65-5.03); Red Cell Distribution Width 23.8 % (13.2-15.2); White Blood Count 6.5 K/mm3 (4.5-11.0)
[2017-09-03 03:42] LABS: Basophils % (Auto) 0.3 % (0.0-1.8)
[2017-09-03 03:53] LABS: Anion Gap 20 mmol/L; BUN/Creatinine Ratio 22; Blood Urea Nitrogen 13 mg/dL (7-17); Calcium 8.6 mg/dL (8.4-10.2); Carbon Dioxide 20 mmol/L (22-30); Chloride 99.6 mmol/L (98-107); Glucose 104 mg/dL (65-100); Sodium 135 mmol/L (137-145)
[2017-09-03 04:00] LABS: Potassium 4.9 mmol/L (3.6-5.0)
--- NOTE | 2017-09-03 04:31 | Consultation ---
PULMONARY AND CRITICAL CARE CONSULTATION CONSULTING PHYSICIAN: Dr. Wiggins. REASON FOR CONSULTATION: Critical care. CHIEF COMPLAINT AND HISTORY OF PRESENT ILLNESS: The patient is a 47-year-old female with past medical history significant amongst other things for a diagnosis of congestive heart failure, also history of venous thromboembolic phenomenon, repeat pulmonary emboli history in the past, came into the Emergency Room complaining of acute chest pain, it began the night before presentation, it was sharp, it was constant, it was about a 7/10, radiating to the right. She had nausea and vomiting associated with it. In association with it, she had shortness of breath, dyspnea on exertion, diaphoresis. A code STEMI was called. She was taken to the asset availability leader and amongst other things, she was found to have a clot to the distal RCA. She admits to being off her Coumadin for some time now secondary to inability to get the medication according to her. She was brought into the Critical Care Unit after the evaluation. When I stopped by to see her, she was resting in bed. A 2D echocardiogram was in the process of being completed. She denied any fevers or chills. Now with regards to her tobacco use or abuse history, she denies any tobacco use or abuse. This really is as much of the history of presentation as I have. PAST MEDICAL HISTORY: Hypertension, congestive heart failure, hyperlipidemia, history of pulmonary embolism. She is unclear of the timing of her events, but she said this happened more than once. PAST SURGICAL HISTORY: She has had a tubal ligation. MEDICATIONS: She was on at the time I stopped by to see her were reviewed. Pertinent medications included Lipitor 40 mg p.o. at bedtime, Plavix 75 mg p.o. daily, Lasix 20 mg p.o. b.i.d. She was on a heparin drip on the ____ PE protocol, insulin via sliding scale, Lopressor 50 mg p.o. b.i.d., morphine 2 mg IV q. 4 hours p.r.n. moderate pain, Zofran 4 mg IV q. 8 hours p.r.n. nausea and vomiting. ALLERGIES: ASPIRIN. Nature of this allergy is unknown. DIET: Slightly obese. Denies significant weight loss or gain in the preceding few weeks to months. FAMILY AND SOCIAL HISTORY: Lives in the community. Denies current alcohol, tobacco, or illicit drug use or abuse. There is a family history of coronary artery disease. REVIEW OF SYSTEMS: She denies any loss of consciousness. No new onset seizures. No new onset focal weakness. No gross hematochezia or melena. No gross hematuria or dysuria. Complete 13 review of systems obtained. Pertinent positives and/or negatives as in body of history above, otherwise noncontributory. PHYSICAL EXAMINATION: VITAL SIGNS: At presentation, she was afebrile, temperature 98.0, pulse 93, respiratory rate was 20, blood pressure 157/109, oxygen sats 100%, inspired oxygen concentration was not recorded. At the time I saw her, she was on 2 liters nasal cannula, 100% O2 sat. GENERAL: Well-built, female, normocephalic, atraumatic, lying flat in bed. This sheath follow Vas-Cath had just been pulled, talking to me in full sentences with an anxious look on her face, in mild respiratory distress. HEAD, EYES, EARS, NOSE AND THROAT: She is anicteric, no conjunctival erythema. Grossly, no palpable lymph nodes in the supraclavicular or submandibular lymph node chains. Oropharynx is a Mallampati #3 oropharynx. Oropharynx is moist. No gross palpable thyromegaly. LUNGS: Auscultation of both lung phillip, bilateral rhonchi, no wheezing. HEART: Heart sounds 1 and 2 are heard at the time of my evaluation, regular rate and rhythm. ABDOMEN: Soft. Bowel sounds are positive, nontender. No palpable hepatosplenomegaly. It is protuberant. EXTREMITIES: Without overt digital clubbing, cyanosis, or pedal edema. Dorsalis pedal pulses are palpable bilaterally. HEENT: Pupils are equal, round, about 3 mm, reactive to light. Extraocular muscle movements are intact. She moves all 4 extremities spontaneously. Her mood is slightly depressed. Affect is anxious. LABORATORY DATA: From my review are as follows: White cell count 6000, hemoglobin 11.1, hematocrit 33.2, platelet count 232. INR was 1.99. Serum sodium 137, potassium 4.0, chloride 103, bicarbonate 22, BUN 14, creatinine 0.6, glucose was 165. Cardiac enzymes were reviewed at presentation and within normal limits. LDL cholesterol calculated at 33. No microbiology studies. Chest x-ray has been reviewed, which shows gross cardiomegaly, slight if any increase in interstitial markings, no overt pulmonary edema, slightly rotated to the left suggestion though of a left small pleural effusion. No gross pneumothorax. No gross bony fractures. EKG was reviewed. EKG at presentation showed ST elevations in the inferior leads; however, otherwise normal sinus rhythm. ASSESSMENT AND PLAN: 1. Acute coronary syndrome. 2. Non-ST elevation myocardial infarction based on criteria. 3. Suspected embolic occlusion to the RCA without requirement of stent placement. 4. Congestive heart failure without acute exacerbation. 5. Medication noncompliance. 6. History of hypertension. 7. Obesity. 8. Venous thromboembolic phenomenon, history of pulmonary emboli with more than one episode. PLAN: 1. Continue IV heparin for acute coronary syndrome and pulmonary emboli treatment. 2. Case discussed with case management. We will resume anticoagulation with Coumadin and she has been counseled to be compliant with her medications. Hopefully, she should be able to get assistance with Coumadin. 3. Begin GI prophylaxis with Pepcid especially in this patient who is currently fully anticoagulated. 4. Wean off supplemental oxygen, keeping sats greater than or equal to about 94%. 5. Continue disease modifying therapy with beta-blockers and other DMARDs per Cardiology. 6. Continue antiplatelet therapy. 7. Continue antilipid therapy. 8. I will try and get more information as to whether this is her first acute PE or she has had multiple events like she says. 9. I am not certain that she has not smoked before and despite her history and she has been counseled to certainly not apple picker smoking if she has not smoked before and certainly not to return to smoking if she has smoked before tobacco I mean. She is going to be fully anticoagulated. She is on GI prophylaxis. Flu and pneumonia vaccination will be per protocol. Thank you very much for the consult. Hopefully, she can be transferred to the telemetry floor. At this point, the sheath has been pulled and we will watch her for a couple of hours, mobilize her. If there is no significant bleeding, she will be transferred to the medical floor. DICTATION ENDS HERE JOB# [id number] CINDY/DAVID BARKER
[2017-09-03 07:30] LABS: INR 1.78 (0.87-1.13)
--- NOTE | 2017-09-03 09:27 | Hem/Onc Progress Note ---
Assessment and Plan Patient question again today. She states she was not on Coumadin when she came here because she could not afford it. She's trying to get disability insurance. At this time she had thrombosis while not on anticoagulation although her INR was 1.9 when she came. I feel that we will have to switch her anticoagulant and I will switch her to eliquis for better protection. hypercoag workup is being done. Anemia workup shows iron deficiency. We will monitor. May need by mouth iron Subjective Date of service: 09/03/17 Interval history: Patient feels better. Was transferred to the floor. Denies any active bleeding. Objective - Constitutional Vitals: Last Vital Signs Temp 98.0 F 09/03/17 04:11 Pulse 58 L 09/03/17 04:11 Resp 18 09/03/17 04:11 BP 136/87 09/03/17 04:11 Pulse Ox 95 09/03/17 04:11 Performance status: 3-limited selfcare - Neck Neck: supple - Respiratory Respiratory: bilateral: diminished - Cardiovascular Rhythm: regular Extremities: No edema - Labs Lab Results: Laboratory Results - last 24 hr 09/02/17 09/02/17 09/02/17 03:24 07:46 08:16 WBC RBC Hgb Hct MCV MCH MCHC RDW Plt Count Lymph % (Auto) [place] % (Auto) Eos % (Auto) Baso % (Auto) Lymph # [place] # Eos # Baso # Seg Neutrophils % Seg Neutrophils # Percent Retic PT INR Activated Clotting Time 147 H Heparin Anti-Xa Level Sodium Potassium Chloride Carbon Dioxide Anion Gap BUN Creatinine Estimated GFR BUN/Creatinine Ratio Glucose POC Glucose 131 H Calcium Iron TIBC % Saturation Transferrin Ferritin Total Creatine Kinase 181 H CK-MB (CK-2) 28.7 H CK-MB (CK-2) Rel Index 15.8 H Troponin T 0.316 H* D Vitamin B12 Folate 09/02/17 09/02/17 09/02/17 10:11 11:34 13:38 WBC RBC Hgb Hct MCV MCH MCHC RDW Plt Count Lymph % (Auto) [place] % (Auto) Eos % (Auto) Baso % (Auto) Lymph # [place] # Eos # Baso # Seg Neutrophils % Seg Neutrophils # Percent Retic 1.65 PT INR Activated Clotting Time 114 Heparin Anti-Xa Level Sodium Potassium Chloride Carbon Dioxide Anion Gap BUN Creatinine Estimated GFR BUN/Creatinine Ratio Glucose POC Glucose 138 H Calcium Iron TIBC % Saturation Transferrin Ferritin Total Creatine Kinase CK-MB (CK-2) CK-MB (CK-2) Rel Index Troponin T Vitamin B12 Folate 09/02/17 09/02/17 09/02/17 13:38 13:38 13:38 WBC RBC Hgb Hct MCV MCH MCHC RDW Plt Count Lymph % (Auto) [place] % (Auto) Eos % (Auto) Baso % (Auto) Lymph # [place] # Eos # Baso # Seg Neutrophils % Seg Neutrophils # Percent Retic PT INR Activated Clotting Time Heparin Anti-Xa Level Sodium Potassium Chloride Carbon Dioxide Anion Gap BUN Creatinine Estimated GFR BUN/Creatinine Ratio Glucose POC Glucose Calcium Iron 30 L TIBC 385 % Saturation 7.79 Transferrin 344 Ferritin 33.2 Total Creatine Kinase CK-MB (CK-2) CK-MB (CK-2) Rel Index Troponin T Vitamin B12 953.0 H Folate 09/02/17 09/02/17 09/02/17 13:38 16:32 22:42 WBC RBC Hgb Hct MCV MCH MCHC RDW Plt Count Lymph % (Auto) [place] % (Auto) Eos % (Auto) Baso % (Auto) Lymph # [place] # Eos # Baso # Seg Neutrophils % Seg Neutrophils # Percent Retic PT INR Activated Clotting Time Heparin Anti-Xa Level 0.10 L Sodium Potassium Chloride Carbon Dioxide Anion Gap BUN Creatinine Estimated GFR BUN/Creatinine Ratio Glucose POC Glucose 131 H Calcium Iron TIBC % Saturation Transferrin Ferritin Total Creatine Kinase CK-MB (CK-2) CK-MB (CK-2) Rel Index Troponin T Vitamin B12 Folate 19.58 09/03/17 09/03/17 09/03/17 00:13 03:25 03:25 WBC 6.5 RBC 4.76 Hgb 11.5 Hct 35.1 MCV 74 L MCH 24 L MCHC 33 RDW 23.8 H Plt Count 223 Lymph % (Auto) 23.8 [place] % (Auto) 14.7 H Eos % (Auto) 1.0 Baso % (Auto) 0.3 Lymph # 1.6 [place] # 1.0 H Eos # 0.1 Baso # 0.0 Seg Neutrophils % 60.2 Seg Neutrophils # 3.9 Percent Retic PT INR Activated Clotting Time Heparin Anti-Xa Level Sodium 135 L Potassium 4.9 D Chloride 99.6 Carbon Dioxide 20 L Anion Gap 20 BUN 13 Creatinine 0.6 L Estimated GFR > 60 BUN/Creatinine Ratio 22 Glucose 104 H POC Glucose 149 H Calcium 8.6 Iron TIBC % Saturation Transferrin Ferritin Total Creatine Kinase CK-MB (CK-2) CK-MB (CK-2) Rel Index Troponin T Vitamin B12 Folate 09/03/17 09/03/17 06:49 06:49 WBC RBC Hgb Hct MCV MCH MCHC RDW Plt Count Lymph % (Auto) [place] % (Auto) Eos % (Auto) Baso % (Auto) Lymph # [place] # Eos # Baso # Seg Neutrophils % Seg Neutrophils # Percent Retic PT 21.7 H INR 1.78 H Activated Clotting Time Heparin Anti-Xa Level 0.18 L Sodium Potassium Chloride Carbon Dioxide Anion Gap BUN Creatinine Estimated GFR BUN/Creatinine Ratio Glucose POC Glucose Calcium Iron TIBC % Saturation Transferrin Ferritin Total Creatine Kinase CK-MB (CK-2) CK-MB (CK-2) Rel Index Troponin T Vitamin B12 Folate
[2017-09-03] MEDS ORDERED: ELIQUIS PO SCH (10:00)
[2017-09-03] MEDS ORDERED: PLAVIX PO SCH (10:00)
--- NOTE | 2017-09-03 10:36 | Progress Note ---
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 Hematology following. Pt converted to Eliquis. Hypercoag w/u in progress. Currently stable cardiac status. Cont current cardiac medical management. Pt may discharge home from cardiology standpoint. Follow up in our [place] office with Dr. Reynolds on 09/15/2017 @ 1:00PM. Follow up in our [place] office with Dr. Reyna on 09/22/2017 @ 1:00PM. Assessment and plan reviewed with pt at bedside. The patient has been seen in conjunction with Dr. Reynolds who agrees with the assessment and plan of care. Subjective Date of service: 09/03/17 Principal diagnosis: chest pain Interval history: Pt resting comfortably in bed, no current cardiac complaints. right dejon [facility] site c/d/i with no evidence of bleeding or hematoma. VSS. Telemetry reviewed - pt with several short runs of NSVT (4-6 beats) overnight. Objective Last Vital Signs Temp 97.8 F 09/03/17 08:21 Pulse 62 09/03/17 08:21 Resp 18 09/03/17 08:21 BP 123/86 09/03/17 08:21 Pulse Ox 98 09/03/17 08:21 - Physical Examination General: No Apparent Distress HEENT: Positive: PERRL, Normocephaly, Mucus Membranes Moist Neck: Positive: neck supple, trachea midline Cardiac: Positive: Reg Rate and Rhythm, S1/S2 Lungs: Positive: clear to auscultation Neuro: Positive: Grossly Intact, Cranial Nerve 2-12 Intact Abdomen: Positive: Soft. Negative: Tender Incision: Cardiac Cath Site (right femoral, c/d/i) Musculoskeletal: No Fluid Collection, No Pain, Normal Range of Motion Extremities: Absent: edema - Labs and Meds Coagulation 09/03/17 Range/Units 06:49 PT 21.7 H (12.2-14.9) Sec. INR 1.78 H (0.87-1.13) CBC 09/03/17 Range/Units 03:25 WBC 6.5 (4.5-11.0) K/mm3 RBC 4.76 (3.65-5.03) M/mm3 Hgb 11.5 (10.1-14.3) gm/dl Hct 35.1 (30.3-42.9) % Plt Count 223 (140-440) K/mm3 Lymph # 1.6 (1.2-5.4) K/mm3 [place] # 1.0 H (0.0-0.8) K/mm3 Eos # 0.1 (0.0-0.4) K/mm3 Baso # 0.0 (0.0-0.1) K/mm3 Comprehensive Metabolic Panel 09/03/17 Range/Units 03:25 Sodium 135 L (137-145) mmol/L Potassium 4.9 D (3.6-5.0) mmol/L Chloride 99.6 (98-107) mmol/L Carbon Dioxide 20 L (22-30) mmol/L BUN 13 (7-17) mg/dL Creatinine 0.6 L (0.7-1.2) mg/dL Glucose 104 H (65-100) mg/dL Calcium 8.6 (8.4-10.2) mg/dL - Imaging and Cardiology EKG: image reviewed Echo: report reviewed Cardiac cath: report reviewed - Telemetry EKG Rhythm: Sinus Rhythm
[2017-09-03] MEDS: LASIX PO SCH (10:55)
[2017-09-03] MEDS: LOPRESSOR PO SCH (10:55)
[2017-09-03] MEDS: PEPCID PO SCH (10:56)
--- NOTE | 2017-09-03 11:32 | Discharge Summary ---
Providers - Providers Date of Admission: 09/02/17 05:00 Date of discharge: 09/03/17 Attending physician: SANDRA BRANHAM 09/02/17 02:29 Consult to Physician [CONS] Stat Consulting Provider: IZABELLA MONTENEGRO Reason For Exam: STEMI Place consult to:: Dr. Montenegro Notified:: via his phone Phone number called:: his phone Was contact made?: Yes If yes, spoke with:: Dr. Montenegro Time called:: 01:56 09/02/17 04:05 Consult to Cardiac Rehabilitation [CONS] Routine Reason For Exam: Cardiac Rehab Evaluation 09/02/17 05:00 Consult to Physician [CONS] Routine Consulting Provider: HALI ALVAREZ Reason For Exam: cc Place consult to:: Dr. Delgado Notified:: Yes Phone number called:: [phone] Was contact made?: Yes If yes, spoke with:: Dr. Alvarez Time called:: 08:44 09/02/17 09:31 Consult to Case Management [CONS] Routine Services Needed at Discharge: Smokehouse Operator Notified:: Darlene Was contact made?: Yes Time called:: 09:34 Additional Physician Instructions: Damien stated that she has not been able to afford her blood pressure and coumadin meds. Stated she last took them around 2016. Please evaluate for financial assistance. 09/02/17 12:04 Consult to Physician [CONS] Routine Consulting Provider: PONCHO PHILIPPE Reason For Exam: hypercoag w/u Place consult to:: Dr. Rodríguez office Notified:: Yes Phone number called:: [phone] Was contact made?: Yes If yes, spoke with:: Janki Time called:: 13:16 09/02/17 12:06 Consult to Physician [CONS] Routine Consulting Provider: SANDRA BRANHAM Reason For Exam: recurrent blood clots Place consult to:: dr Philippe Notified:: Yes Phone number called:: [phone] Was contact made?: Yes If yes, spoke with:: Janki Man called:: 13:16 Primary care physician: BONIFACIO ARMSTRONG Hospitalization Condition: Serious Hospital course: This is a 47 -year-old woman in a history of hypertension, CHF, hyperlipidemia, history of PE suppose to be on coumadin but noncompliant with medications due to financial issue came to the emergency room with complaints of chest pain which started at 10pm after dinner on the left side of her chest. Initially her EKG showed wavering baseline and patient would not be still. She was given morphine and repeated EKG which showed STEMI II, III, aVF. After second EKG was done ER physician called Dr. Montenegro and he activated the cath team. cardiac cath showed small emboli in the PDA and LV branch of the RCA with rest of coronaries being normal with dilated LV. 2D Echo obtained which showed EF 25- 30%, LV moderately dilated, severe global hypokinesis of LV, restrictive diastolic filling pattern, LA moderate to severely dilated, RV mild to moderately dilated, RV systolic function moderately reduced, mod AR, mod MR, mod to severe TR, RVSP 40mmHg, mild pulm HTN, minimal pericardial effusion, bilateral pleural effusion. Hematology was consulted and Patient was converted to Eliquis. Hypercoag w/u in progress and she will further f/u with Dr. Lexy mendez. Currently patient stable for discharge and cleared by cardiology. 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 After pain meds given aspatient could be still EKG at 01:51 showed STEMI II, III, aVF.) Disposition: DC-01 TO HOME OR SELFCARE Time spent for discharge: 32 minutes Core Measure Documentation - Palliative Care Palliative Care/ Comfort Measures: Not Applicable - Core Measures Any of the following diagnoses?: acute CT - Acute CT Discharge Requirements Aspirin at discharge: Yes OLGA LIDIA/ARB for LVSD if EF <40%: Yes Beta ashley at discharge: Yes Statin for LDL = or >100 mg/dl on DC: Yes Exam - Constitutional Vitals: Temp Pulse Resp BP Pulse Ox 97.8 F 62 18 123/86 98 09/03/17 08:21 09/03/17 10:55 09/03/17 08:21 09/03/17 10:55 09/03/17 08:21 General appearance: Present: no acute distress, well-nourished - EENT Eyes: Present: PERRL ENT: hearing intact, clear oral mucosa - Neck Neck: Present: supple, normal ROM - Respiratory Respiratory effort: normal Respiratory: bilateral: CTA - Cardiovascular Heart Sounds: Present: S1 & S2. Absent: rub, click - Extremities Extremities: pulses symmetrical, No edema Peripheral Pulses: within normal limits - Abdominal General gastrointestinal: Present: soft, non-tender, non-distended, normal bowel sounds - Integumentary Integumentary: Present: clear, warm, dry - Musculoskeletal Musculoskeletal: gait normal, strength equal bilaterally - Psychiatric Psychiatric: appropriate mood/affect, intact judgment & insight - Neurologic Neurologic: CNII-XII intact, moves all extremities Plan Activity: advance as tolerated Weight Bearing Status: Weight Bear as Tolerated Diet: low fat, low salt Additional Instructions: Follow up in [place] office with Dr. Montenegro on @ 1:00PM. Follow up in [place] office with Dr. Reyna on 09/22/2017 @ 1:00PM. f/u with Dr. Philippe's office in one to two weeks Follow up with: BONIFACIO ARMSTRONG MD [Primary Care Provider] - 7 Days Forms: Warfarin Discharge Instruction Prescriptions: Apixaban [Eliquis] 5 mg PO Q12HR #14 tablet Apixaban [Eliquis] 10 mg PO Q12HR #60 tablet Clopidogrel [Plavix] 75 mg PO DAILY #30 tablet Furosemide [Lasix TAB] 20 mg PO BID #60 tablet Lovastatin [Altoprev] 40 mg PO QPM #30 tab.er.24h metFORMIN [Glucophage] 500 mg PO BIDDIAB #60 tablet Metoprolol [Lopressor TAB] 50 mg PO BID #60 tablet Other Discharge Orders: XR chest 1V ap Location: Determined By Patient
[2017-09-03 14:15] VITALS: BP 113/79
[2017-09-05 14:10] LABS: Protein S, Free 76 % normal (50-147); Protein S, Total 64 % (70-140)
[2017-09-10] MEDS ORDERED: ELIQUIS PO SCH (10:00)
== END 2017-09-03 16:36 | disposition home or self-care (01) | DRG 251 ==
LOC: ED 00:29 → CATH 04:54 → CC1 05:00 → 4A 17:49
PROVIDERS: ADMIT Internal Medicine; ATTEND Internal Medicine
PROC: 4A023N7 Measurement of Cardiac Sampling and Pressure, Left Heart, Percutaneous Approach (ICD-10-PCS; principal; 2017-09-02)
PROC: 02713ZZ Dilation of Coronary Artery, Two Arteries, Percutaneous Approach (ICD-10-PCS; 2017-09-02)
PROC: B2111ZZ Fluoroscopy of Multiple Coronary Arteries using Low Osmolar Contrast (ICD-10-PCS; 2017-09-02)
PROC: B2151ZZ Fluoroscopy of Left Heart using Low Osmolar Contrast (ICD-10-PCS; 2017-09-02)
DX: I21.21 ST elevation (STEMI) myocardial infarction involving left circumflex coronary artery (principal); I42.9 Cardiomyopathy, unspecified; Q25.0 Patent ductus arteriosus; I47.1 Supraventricular tachycardia; I31.3 Pericardial effusion (noninflammatory); E11.9 Type 2 diabetes mellitus without complications; I50.9 Heart failure, unspecified; I11.0 Hypertensive heart disease with heart failure; E78.5 Hyperlipidemia, unspecified; D50.9 Iron deficiency anemia, unspecified; I08.3 Combined rheumatic disorders of mitral, aortic and tricuspid valves; I27.20 Pulmonary hypertension, unspecified; Z86.73 Personal history of transient ischemic attack (TIA), and cerebral infarction without residual deficits; Z79.84 Long term (current) use of oral hypoglycemic drugs; Z90.49 Acquired absence of other specified parts of digestive tract
CPT/HCPCS: 36415; 71010; 80048; 80061; 82550; 82553; 82607; 82728; 82747; 82962; 83516; 83550; 84484; 85014; 85018; 85025; 85045; 85049; 85210; 85220; 85301; 85305; 85347; 85520; 85610; 85613; 85730; 86850; 86900; 86901; 92920; 93005; 93010; 93306; 93458; 94760; 96374; 96375; A9270-GY; C1725; C1769; C1887; C1894; J1644; J2250; J2270; J2405; J3010; J7030; Q9967

== ENCOUNTER 2017-09-15 22:07 | Inpatient (IN) | payer OTHER ==
[2017-09-15] MEDS ORDERED: ASPIRIN PO ONE (22:35)
[2017-09-15 23:16] LABS: Basophils % (Auto) 0.4 % (0.0-1.8); Eosinophils % (Auto) 0.9 % (0.0-4.3); Hematocrit 33.7 % (30.3-42.9); Hemoglobin 10.6 gm/dl (10.1-14.3); Lymphocytes # (Auto) 1.9 K/mm3 (1.2-5.4); Lymphocytes % (Auto) 35.1 % (13.4-35.0); Mean Corpuscular HGB Conc 32 % (30-34); Mean Corpuscular Volume 74 fl (79-97); Monocytes # (Auto) 0.5 K/mm3 (0.0-0.8); Monocytes % (Auto) 9.2 % (0.0-7.3); Platelet Count 241 K/mm3 (140-440); Red Blood Count 4.59 M/mm3 (3.65-5.03)
[2017-09-15 23:20] LABS: INR 1.7 (0.87-1.13)
[2017-09-15 23:21] LABS: Mean Corpuscular Hemoglobin 23 pg (28-32); Red Cell Distribution Width 23.2 % (13.2-15.2)
[2017-09-15 23:27] LABS: BUN/Creatinine Ratio 20; Blood Urea Nitrogen 12 mg/dL (7-17); Calcium 8.5 mg/dL (8.4-10.2); Hemolysis Index 3
--- NOTE | 2017-09-16 00:22 | XRay Report ---
FINAL REPORT PROCEDURE: AP and lateral chest x-ray TECHNIQUE: AP and lateral chest radiographs were obtained. CPT 11331 HISTORY: cpSOB, chest pain in the middle of chest that goes down left arm, just started today. COMPARISON: Prior chest x-ray 09/02/2017 FINDINGS: The heart remains diffusely enlarged. The pulmonary vasculature is not distended. No evidence of pulmonary edema. There is mild blunting of the left lateral and left posterior costophrenic angle suggesting small left effusion. Small patchy alveolar densities present in the infrahilar regions bilaterally.. Lungs otherwise are clear. No acute bony abnormalities are identified. IMPRESSION: Stable cardiomegaly. Small left pleural effusion appears to be present. Small amount of patchy alveolar density right and left infrahilar region suggesting a small amount of atelectasis. Subsegmental infiltrate needs clinical exclusion..
[2017-09-16 01:53] LABS: Chol/HDL Ratio 4.05 %; HDL Cholesterol 18 mg/dL (40-59); LDL Cholesterol,Direct 43 mg/dL (50-130)
[2017-09-16] MEDS ORDERED: LASIX IV ONE (07:04)
[2017-09-16] MEDS ORDERED: NITRO-BID 2% TP ONE (07:04)
--- NOTE | 2017-09-16 07:26 | Emergency Department Report ---
ED Chest Pain HPI - General Chief Complaint: Chest Pain Stated Complaint: CHEST PAIN Time Seen by Provider: 09/16/17 06:44 Source: patient, EMS, old records reviewed Mode of arrival: Ambulatory Limitations: Physical Limitation, Other - History of Present Illness Initial Comments: 47-year-old female with a past medical asthma, CHF, CVA, DVT, PE, KS presents to the hospital with complaints of chest pain and shortness of breath 6 days. Patient has been out of her metoprolol, metformin, and Plavix but is taking her other medications including Lasix and Eliquis. Patient states the medications were too expensive. Patient experiences chest heaviness and shortness of breath mostly when she is trying to sleep. Positive associated orthopnea, PND, abdominal and leg edema. Previous medical record reviewed. Patient presented to the ER on September [address] elevation KS in the inferior leads and was found to have a occluded mid PDA and LV branch with cut off. It was felt that this was secondary to embolus and thrombus and considering very small caliber of distal vessels she was not a candidate for thrombectomy. Continued anticoagulation was recommended. EF 20-25% - Related Data Previous Rx's Medication Instructions Recorded Last Taken Type Apixaban [Eliquis] 5 mg PO Q12HR #14 tablet 09/03/17 Unknown Rx Apixaban [Eliquis] 10 mg PO Q12HR #60 tablet 09/03/17 Unknown Rx Clopidogrel [Plavix] 75 mg PO DAILY #30 tablet 09/03/17 Unknown Rx Furosemide [Lasix TAB] 20 mg PO BID #60 tablet 09/03/17 Unknown Rx Lovastatin [Altoprev] 40 mg PO QPM #30 tab.er.24h 09/03/17 Unknown Rx Metoprolol [Lopressor TAB] 50 mg PO BID #60 tablet 09/03/17 Unknown Rx metFORMIN [Glucophage] 500 mg PO BIDDIAB #60 tablet 09/03/17 Unknown Rx Allergies Allergy/AdvReac Type Severity Reaction Status Date / Time aspirin Allergy Swelling Verified 01/01/17 15:09 Heart Score - HEART Score History: Slightly suspicious EKG: Non-specific Age: 45-65 Risk factors: > 3 risk factors or hx of atherosclerotic disease Troponin: 1-3x normal limit HEART Score: 5 ED Review of Systems ROS: Stated complaint: CHEST PAIN Other details as noted in HPI Comment: All other systems reviewed and negative Other: Constitutional: No fevers chills Eyes: No eye pain visual changes ENT: No ear pain or throat pain Neck: Denies pain Respiratory: As per HPI Cardiovascular: Denies palpitations, syncope GI: Denies abdominal pain, nausea, vomiting, diarrhea : Denies dysuria Musculoskeletal: Denies back pain Skin: Denies rash, lesions, erythema Neurologic: Denies headache, numbness, weakness Psychiatric: Denies suicidal ideation, hallucinations ED Past Medical Hx - Past Medical History Hx Hypertension: Yes Hx CVA: Yes (2014, acute basal ganglia stroke on mri 10/2016) Hx Heart Attack/AMI: Yes Hx Congestive Heart Failure: Yes Hx Diabetes: Yes Hx Deep Vein Thrombosis: Yes Hx Pulmonary Embolism: Yes (January 2015) Hx GERD: No Hx Liver Disease: No Hx Renal Disease: No Hx Sickle Cell Disease: No Hx Arthritis: No Hx Headaches / Migraines: No Hx Seizures: No Hx Kidney Stones: Yes Hx Psychiatric Treatment: No Hx Asthma: Yes Hx COPD: No Hx Tuberculosis: No Hx Dementia: No Hx HIV: No Additional medical history: murmur. blood clot removal from brain, hx of CVA ( june,) - Surgical History Hx Coronary Stent: No Hx Open Heart Surgery: No Hx Pacemaker: No Hx Internal Defibrillator: No Hx Cholecystectomy: Yes Hx Appendectomy: No Hx Breast Surgery: No Additional Surgical History: tubal ligation - Social History Smoking Status: Never Smoker Substance Use Type: None - Medications Home Medications: Home Medications Medication Instructions Recorded Confirmed Last Taken Type Apixaban [Eliquis] 5 mg PO Q12HR #14 tablet 09/03/17 Unknown Rx Apixaban [Eliquis] 10 mg PO Q12HR #60 tablet 09/03/17 Unknown Rx Clopidogrel [Plavix] 75 mg PO DAILY #30 tablet 09/03/17 Unknown Rx Furosemide [Lasix TAB] 20 mg PO BID #60 tablet 09/03/17 Unknown Rx Lovastatin [Altoprev] 40 mg PO QPM #30 tab.er.24h 09/03/17 Unknown Rx Metoprolol [Lopressor TAB] 50 mg PO BID #60 tablet 09/03/17 Unknown Rx metFORMIN [Glucophage] 500 mg PO BIDDIAB #60 tablet 09/03/17 Unknown Rx ED Physical Exam - General Limitations: Physical Limitation, Other - Other Other exam information: General: No limitations, patient is alert in no acute distress Head exam: Atraumatic, normocephalic Eyes exam: Normal appearance, pupils equal reactive to light, extraocular movements intact ENT: Moist mucous membrane, normal oropharynx Neck exam: Normal inspection, full range of motion, no meningismus nontender Respiratory exam: Clear to auscultation bilateral, no wheezes, rales, crackles Cardiovascular: Normal rate and rhythm Abdomen: Soft, abdominal distention, nontender, with normal bowel sounds, no rebound, or guarding Extremity: Full range of motion normal inspection no deformity, 1+ pitting lower extremity edema Back: Normal Inspection, full range of motion, no tenderness Neurologic: Alert, oriented x3, cranial nerves intact, no motor or sensory deficit Psychiatric: normal affect, normal mood Skin: Warm, dry, intact ED Course Vital Signs 09/15/17 09/15/17 09/16/17 22:19 22:31 05:46 Temperature 97.2 F L 97.2 F L Pulse Rate 104 H 100 H 101 H Respiratory 18 24 14 Rate Blood Pressure 150/124 150/124 Blood Pressure [Left] O2 Sat by Pulse 99 100 100 Oximetry 09/16/17 09/16/17 09/16/17 06:00 06:16 06:30 Temperature Pulse Rate 102 H 97 H 99 H Respiratory 33 H 15 24 Rate Blood Pressure 157/118 157/118 166/119 Blood Pressure [Left] O2 Sat by Pulse 97 97 99 Oximetry 09/16/17 09/16/17 06:38 07:37 Temperature 97.5 F L Pulse Rate 107 H Respiratory 20 24 Rate Blood Pressure Blood Pressure 154/124 [Left] O2 Sat by Pulse 97 98 Oximetry - Reevaluation(s) Reevaluation #1: 09/16/17 07:42 Lasix and nitroglycerin paste initiated in the ED SAMANTA score - Samanta Score Age > 65: (0) No Aspirin use within the Past 7 Days: (0) No 3 or more CAD Risk Factors: (1) Yes 2 or more Angina events in past 24 hrs: (1) Yes Known CAD with more than 50% Stenosis: (0) No Elevated Cardiac Markers: (1) Yes ST Deviation Greater than 0.5mm: (0) No SAMANTA Score: 3 ED Medical Decision Making - Lab Data Result diagrams: 09/15/17 22:50 09/15/17 22:50 Lab Results 09/15/17 09/15/17 09/15/17 Range/Units 22:50 22:50 22:50 WBC 5.4 (4.5-11.0) K/mm3 RBC 4.59 (3.65-5.03) M/mm3 Hgb 10.6 (10.1-14.3) gm/dl Hct 33.7 (30.3-42.9) % MCV 74 L (79-97) fl MCH 23 L (28-32) pg MCHC 32 (30-34) % RDW 23.2 H (13.2-15.2) % Plt Count 241 (140-440) K/mm3 Lymph % (Auto) 35.1 H (13.4-35.0) % [place] % (Auto) 9.2 H (0.0-7.3) % Eos % (Auto) 0.9 (0.0-4.3) % Baso % (Auto) 0.4 (0.0-1.8) % Lymph # 1.9 (1.2-5.4) K/mm3 [place] # 0.5 (0.0-0.8) K/mm3 Eos # 0.0 (0.0-0.4) K/mm3 Baso # 0.0 (0.0-0.1) K/mm3 Seg Neutrophils % 54.4 (40.0-70.0) % Seg Neutrophils # 3.0 (1.8-7.7) K/mm3 PT 20.9 H (12.2-14.9) Sec. INR 1.70 H (0.87-1.13) Sodium 138 (137-145) mmol/L Potassium 4.1 (3.6-5.0) mmol/L Chloride 99.9 (98-107) mmol/L Carbon Dioxide 23 (22-30) mmol/L Anion Gap 19 mmol/L BUN 12 (7-17) mg/dL Creatinine 0.6 L (0.7-1.2) mg/dL Estimated GFR > 60 ml/min BUN/Creatinine Ratio 20 % Glucose 117 H (65-100) mg/dL Calcium 8.5 (8.4-10.2) mg/dL Troponin T 0.157 H* (0.00-0.029) ng/mL Triglycerides 60 (2-149) mg/dL Cholesterol 73 (50-199) mg/dL LDL Cholesterol Direct 43 L (50-130) mg/dL HDL Cholesterol 18 L (40-59) mg/dL Cholesterol/HDL Ratio 4.05 % 09/16/17 09/16/17 Range/Units 01:14 04:10 WBC (4.5-11.0) K/mm3 RBC (3.65-5.03) M/mm3 Hgb (10.1-14.3) gm/dl Hct (30.3-42.9) % MCV (79-97) fl MCH (28-32) pg MCHC (30-34) % RDW (13.2-15.2) % Plt Count (140-440) K/mm3 Lymph % (Auto) (13.4-35.0) % [place] % (Auto) (0.0-7.3) % Eos % (Auto) (0.0-4.3) % Baso % (Auto) (0.0-1.8) % Lymph # (1.2-5.4) K/mm3 [place] # (0.0-0.8) K/mm3 Eos # (0.0-0.4) K/mm3 Baso # (0.0-0.1) K/mm3 Seg Neutrophils % (40.0-70.0) % Seg Neutrophils # (1.8-7.7) K/mm3 PT (12.2-14.9) Sec. INR (0.87-1.13) Sodium (137-145) mmol/L Potassium (3.6-5.0) mmol/L Chloride (98-107) mmol/L Carbon Dioxide (22-30) mmol/L Anion Gap mmol/L BUN (7-17) mg/dL Creatinine (0.7-1.2) mg/dL Estimated GFR ml/min BUN/Creatinine Ratio % Glucose (65-100) mg/dL Calcium (8.4-10.2) mg/dL Troponin T 0.157 H* 0.144 H* (0.00-0.029) ng/mL Triglycerides (2-149) mg/dL Cholesterol (50-199) mg/dL LDL Cholesterol Direct (50-130) mg/dL HDL Cholesterol (40-59) mg/dL Cholesterol/HDL Ratio % - EKG Data -: EKG Interpreted by Me (previous anterior infarct) EKG shows normal: sinus rhythm, axis (45), QRS complexes (77), ST-T waves (flat and inverted lateral T waves. Lactic inferior T waves. No ST elevation KS) Rate: normal - EKG Data When compared to previous EKG there are: changes noted (previous EKG shows ST elevation KS in inferior leads) - Radiology Data Radiology results: report reviewed Chest x-ray: Stable cardiomegaly. Small left pleural effusion appears to be present. Small amount up S rehabilitation C right and left infrahilar region suggesting a small amount of atelectasis. Subsegmental infiltrate needs clinical exclusion. - Medical Decision Making Plan to admit patient to the hospital for worsening dyspnea secondary to heart failure. I think infiltrate/pneumonia less likely given clinical picture. Troponin likely chronically elevated and has remained relatively stable on repeat lab draw pain - Differential Diagnosis KS, stable angina, CHF, PE, effusion Critical Care Time: No Critical care attestation.: If time is entered above; I have spent that time in minutes in the direct care of this critically ill patient, excluding procedure time. ED Disposition Clinical Impression: CHF exacerbation, Noncompliance with medication regimen, Troponin level elevated, Pleural effusion, History of pulmonary embolism, Current use of prison anticoagulation, Diabetes, Hypertension, Chest pain Disposition: -09 OP ADMIT IP TO THIS HOSP Is pt being admited?: Yes Condition: Stable Instructions: Diabetes Mellitus Type 2 in Adults (ED), Hypertension (ED), Chest Pain (ED) Time of Disposition: 07:31 (Dr Chew/ [place])
[2017-09-16] MEDS ORDERED: D50W (25GM) Syringe IV PRN (07:58)
[2017-09-16] MEDS ORDERED: LOPRESSOR ONE (11:03)
[2017-09-16] MEDS ORDERED: PLAVIX ONE (11:03)
--- NOTE | 2017-09-16 11:10 | Consultation ---
History of Present Illness Consult date: 09/16/17 Requesting physician: WINNIE TENORIO Consult reason: chest pain History of present illness: Pt is a 47 YO female with a past medical history significant for STEMI 2016 probably secondary to small emboli in the PDA and LV branch of the RCA with rest of coronaries being normal with dilated LV, dilated NICMP (EF 20-25%) , CVA in 06/2015 with history of blood clot removal from the brain, PE, anticoagulated with Eliquis, DM, ASA allergy. She has been seen by our practice on prior hospitalization but has not been compliant with OP follow up. She presented with c/o chest pain, SOB, orthopnea, BLE edema and abdominal swelling since yesterday AM. She describes her chest pain as an intermittent, nonexertional, nonradiating sharp pain which travels from the right side of her chest to the left side of her chest. She denies any palpitations, n/v, diaphoresis, dizziness or syncope. Of note, patient presented to the ER on 09/[address] elevation IL in the inferior leads and was found to have a occluded mid PDA and LV branch. It was felt that her STEMI was probably secondary to embolus and thrombus and considering very small caliber of distal vessels she was not a candidate for thrombectomy. Continued anticoagulation was recommended. Pt was discharged home on 09/03/2017. Following discharge, pt reports that she was unable to get her medications filled because she could not afford them. She has not been taking her metoprolol, metformin, Plavix and lasix but reports that she has been taking Eliquis - she states that she was able to get a free 30 day supply of Eliquis from a coupon card. Past History Past Medical History: acute IL, diabetes, pulmonary embolism, stroke Social history: denies: smoking, alcohol abuse, prescription drug abuse Medications and Allergies Allergies Allergy/AdvReac Type Severity Reaction Status Date / Time aspirin Allergy Swelling Verified 01/01/17 15:09 Home Medications Medication Instructions Recorded Confirmed Last Taken Type Apixaban [Eliquis] 5 mg PO Q12HR #14 tablet 09/03/17 09/16/17 Unknown Rx Apixaban [Eliquis] 10 mg PO Q12HR #60 tablet 09/03/17 09/16/17 Unknown Rx Clopidogrel [Plavix] 75 mg PO DAILY #30 tablet 09/03/17 09/16/17 Unknown Rx Furosemide [Lasix TAB] 20 mg PO BID #60 tablet 09/03/17 09/16/17 Unknown Rx Lovastatin [Altoprev] 40 mg PO QPM #30 tab.er.24h 09/03/17 09/16/17 Unknown Rx Metoprolol [Lopressor TAB] 50 mg PO BID #60 tablet 09/03/17 09/16/17 Unknown Rx metFORMIN [Glucophage] 500 mg PO BIDDIAB #60 tablet 09/03/17 09/16/17 Unknown Rx Active Meds: Active Medications Apixaban (Eliquis) 10 mg PO Q12HR [place] PRN Reason: Protocol Clopidogrel Bisulfate (Plavix) 75 mg PO DAILY [facility] Dextrose (D50w (25gm) Syringe) 50 ml IV PRN PRN PRN Reason: Hypoglycemia Furosemide (Lasix) 40 mg IV 0600,1800 [facility] Insulin Aspart (Novolog) 0 units SUB-Q ACHS [place] PRN Reason: Protocol Metoprolol Tartrate (Lopressor) 50 mg PO BID [place] Pravastatin Sodium (Pravachol) 40 mg PO QHS [facility] Review of Systems Constitutional: no weight loss, no weight gain, no fever, no chills, no sweats Ears, nose, mouth and throat: no ear pain, no nose pain, no sinus pressure, no sinus pain Cardiovascular: chest pain, orthopnea, edema, shortness of breath, dyspnea on exertion, paroxysmal nocturnal dyspnea, leg edema, decreased exercise tolerance , no palpitations, no rapid/irregular heart beat, no syncope, no lightheadedness Respiratory: shortness of breath, dyspnea on exertion, no cough, no congestion, no wheezing, no pain on inspiration Gastrointestinal: other (abdominal swelling), no abdominal pain, no nausea, no vomiting, no diarrhea, no constipation, no change in bowel habits Genitourinary Female: no pelvic pain, no flank pain, no dysuria, no urinary frequency, no urgency Musculoskeletal: no neck stiffness, no neck pain Integumentary: no rash Neurological: no head injury, no paralysis, no weakness, no parathesias, no numbness, no tingling, no seizures, no syncope Psychiatric: no anxiety Endocrine: no cold intolerance, no heat intolerance Hematologic/Lymphatic: no easy bruising, no easy bleeding, no lymphadenopathy Allergic/Immunologic: no urticaria, no wheezing, no persistent infections Physical Examination Vital Signs Temp Pulse Resp BP Pulse Ox 97.2 F L 104 H 18 150/124 99 09/15/17 22:19 09/15/17 22:19 09/15/17 22:19 09/15/17 22:19 09/15/17 22:19 General appearance: no acute distress HEENT: Positive: PERRL, Normocephaly, Mucus Membranes Moist Neck: Positive: neck supple, trachea midline Cardiac: Positive: Reg Rate and Rhythm, S1/S2, Systolic Murmur Lungs: Positive: Decreased Breath Sounds, Rales (fine bibasilar) Neuro: Positive: Grossly Intact Abdomen: Positive: Active Bowel Sounds, Distended Skin: Positive: Clear. Negative: Rash Musculoskeletal: No Pain, Normal Range of Motion Extremities: Present: +1 Edema (BLE) Results 09/15/17 22:50 09/15/17 22:50 Coagulation 09/15/17 Range/Units 22:50 PT 20.9 H (12.2-14.9) Sec. INR 1.70 H (0.87-1.13) Lipids 09/15/17 Range/Units 22:50 Triglycerides 60 (2-149) mg/dL Cholesterol 73 (50-199) mg/dL HDL Cholesterol 18 L (40-59) mg/dL Cholesterol/HDL Ratio 4.05 % CBC 09/15/17 Range/Units 22:50 WBC 5.4 (4.5-11.0) K/mm3 RBC 4.59 (3.65-5.03) M/mm3 Hgb 10.6 (10.1-14.3) gm/dl Hct 33.7 (30.3-42.9) % Plt Count 241 (140-440) K/mm3 Lymph # 1.9 (1.2-5.4) K/mm3 [place] # 0.5 (0.0-0.8) K/mm3 Eos # 0.0 (0.0-0.4) K/mm3 Baso # 0.0 (0.0-0.1) K/mm3 Comprehensive Metabolic Panel 09/15/17 Range/Units 22:50 Sodium 138 (137-145) mmol/L Potassium 4.1 (3.6-5.0) mmol/L Chloride 99.9 (98-107) mmol/L Carbon Dioxide 23 (22-30) mmol/L BUN 12 (7-17) mg/dL Creatinine 0.6 L (0.7-1.2) mg/dL Glucose 117 H (65-100) mg/dL Calcium 8.5 (8.4-10.2) mg/dL - Imaging and Cardiology Echo: report reviewed (09/02/2017: EF 25-30%, LV moderately dilated, severe global hypokinesis of LV, restrictive diastolic filling pattern, LA moderate to severely dilated, RV mild to moderately dilated, RV systolic function moderately reduced, mod AR, mod MR, mod to severe TR, RVSP 40mmHg, mild pulm HTN , minimal pericardial effusion, bilateral pleural effusion. ) Cardiac cath: report reviewed (09/02/2017: moderately dilated LV with severe diffuse hypokinesis, EF 20-25%, probable emboli to the distal PDA and LV branch of the RCA with rest of coronaries being smooth and normal ith attempt to do balloon angioplasty with partial success, SAMANTA 3 flow at end of procedure, small caliber vessels. 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 H/o CVA in 06/2015 with history of blood clot removal from the brain H/o PE DM ASA allergy NSVT Mod AR / Mod MR / Mod to severe TR, Mild pulm HTN with RVSP 40mmHg H/o noncompliance with OP follow up and medication regimen Plan: Agree with current medical management. Cont to trend Bret and cont serial EKGs. Assessment and plan reviewed with pt at bedside. The patient has been seen in conjunction with Dr. Gonzaels who agrees with the assessment and plan of care.
[2017-09-16] MEDS: LOPRESSOR PO SCH ×2 (11:32→23:08)
[2017-09-16] MEDS: ELIQUIS PO SCH ×2 (11:32→23:10)
[2017-09-16] MEDS: PLAVIX PO SCH (11:33)
[2017-09-16 14:31] LABS: Creatine Kinase MB 1.5 ng/mL (0.0-4.0)
[2017-09-16] MEDS: NOVOLOG SUB-Q SCH ×3 (15:21→23:10)
--- NOTE | 2017-09-16 15:48 | History and Physical Report ---
History of Present Illness Date of examination: 09/16/17 Date of admission: 09/16/17 07:50 Chief complaint: SOB and CP History of present illness: Patient is a 47 yo woman with history of [id number] diabetes mellitus , dyslipidemia, hypertension, coronary artery disease and 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 It was felt that her STEMI was probably secondary to embolus/ thrombus and considering very small caliber of distal vessels she was not a candidate for thromboectomy. Continued anticoagulation was recommended who presents with sob x 6 days and substernal intermittent, mid nonradiating 6 out of 10 chest pains described as someone stepping on her chest without aggravating or relieving factors. Following discharge, pt reports that she was unable to get her medications filled because she could not afford them. She has not been taking her metoprolol, metformin, Plavix and lasix but reports that she has been taking Eliquis - she states that she was able to get a free 30 day supply of Eliquis from a coupon card. Past Medical History: No medical history, other (as HPI, severe mitral regurgitation by echocardiogram on 12/02/2014) Past Surgical History: Cholecystectomy (she says she did not have her gallbladder removed but they just cut her and took out stones but abdominal ultrasound shows absent gallbladder so she is a little bit confused with the surgery she had), Other (tubal ligation) Social history: other (positive secondhand smoke). denies: smoking, alcohol abuse, prescription drug abuse, IV drug use Family history: CAD (many family members from a heart attack but they were not in their 50s or 60s), stroke (grandfather) ROS: Constitutional: no weight loss, no weight gain, no chills, no sweats, no fatigue, no weakness, no poor appetite Ears, nose, mouth and throat: no deferred, no ear pain, no decreased hearing, no sinus pressure, no bleeding gums, no dental pain, no mouth pain, no hoarseness, no sore throat, no swelling in mouth, no post-nasal drip, no headache, no vertigo, no pain front of neck, no neck lump Cardiovascular: abnormal Respiratory: sob Gastrointestinal: no nausea, no diarrhea, no constipation, no hematemesis, no hematochezia, no loss of appetite, no early satiety, no indigestion, no dyspepsia/bloating Genitourinary Male: no flank pain, no discharge, no urinary hesitancy, no nocturia Rectal: no incontinence, no bleeding, no itching, no discharge Musculoskeletal: no neck stiffness, no shooting arm pain, no arm numbness/ tingling, no shooting leg pain, no leg numbness/tingling, no atrophy, no limitation of motion, no fractures, no loss of height, no prior amputations, no arthritis Integumentary: no depigmentation, no dryness, no unusual bruising Neurological: no weakness, no tingling, no syncope, no vertigo, no migraines, no aphasia, no change in mentation, no changes in smell/taste, no balance difficulties, no double vision, no burning pain, no paralysis Psychiatric: hypersomnia, change in libido, irritability, no anxiety, no memory loss, no sleep disturbances, no change in appetite, no disorientation, no hallucinations, no paranoia, no hopelessness, no anxiety attacks, no confusion Endocrine: no cold intolerance, no polyphagia, no polydipsia, no polyuria, no nocturia, no proptosis, no palpatations, no high blood sugars, no low blood sugars, no fatigue Hematologic/Lymphatic: no easy bruising, no lymphedema Allergic/Immunologic: no urticaria, no allergic rhinitis, no anaphylaxis Past History Past Medical History: acute RI, diabetes, pulmonary embolism, stroke Social history: denies: smoking, alcohol abuse, prescription drug abuse Medications and Allergies Allergies Allergy/AdvReac Type Severity Reaction Status Date / Time aspirin Allergy Swelling Verified 01/01/17 15:09 Home Medications Medication Instructions Recorded Confirmed Last Taken Type Apixaban [Eliquis] 5 mg PO Q12HR #14 tablet 09/03/17 09/16/17 Unknown Rx Apixaban [Eliquis] 10 mg PO Q12HR #60 tablet 09/03/17 09/16/17 Unknown Rx Clopidogrel [Plavix] 75 mg PO DAILY #30 tablet 09/03/17 09/16/17 Unknown Rx Furosemide [Lasix TAB] 20 mg PO BID #60 tablet 09/03/17 09/16/17 Unknown Rx Lovastatin [Altoprev] 40 mg PO QPM #30 tab.er.24h 09/03/17 09/16/17 Unknown Rx Metoprolol [Lopressor TAB] 50 mg PO BID #60 tablet 09/03/17 09/16/17 Unknown Rx metFORMIN [Glucophage] 500 mg PO BIDDIAB #60 tablet 09/03/17 09/16/17 Unknown Rx Active Meds: Active Medications Apixaban (Eliquis) 10 mg PO Q12HR [facility] PRN Reason: Protocol Last Admin: 09/16/17 11:32 Dose: 10 mg Clopidogrel Bisulfate (Plavix) 75 mg PO DAILY [facility] Last Admin: 09/16/17 11:33 Dose: 75 mg Dextrose (D50w (25gm) Syringe) 50 ml IV PRN PRN PRN Reason: Hypoglycemia Furosemide (Lasix) 40 mg IV 0600,1800 [facility] Insulin Aspart (Novolog) 0 units SUB-Q ACHS [facility] PRN Reason: Protocol Last Admin: 09/16/17 15:21 Dose: Not Given Metoprolol Tartrate (Lopressor) 50 mg PO BID [facility] Last Admin: 09/16/17 11:32 Dose: 50 mg Pravastatin Sodium (Pravachol) 40 mg PO QHS [facility] Exam - Constitutional Vitals: Temp Pulse Resp BP Pulse Ox 98.2 F 100 H 22 156/105 98 09/16/17 11:15 09/16/17 11:32 09/16/17 11:15 09/16/17 11:32 09/16/17 11:15 Results - Labs CBC & Chem 7: 09/15/17 22:50 09/15/17 22:50 Labs: Abnormal lab results 09/15/17 09/15/17 09/15/17 Range/Units 22:50 22:50 22:50 MCV 74 L (79-97) fl MCH 23 L (28-32) pg RDW 23.2 H (13.2-15.2) % Lymph % (Auto) 35.1 H (13.4-35.0) % [place] % (Auto) 9.2 H (0.0-7.3) % PT 20.9 H (12.2-14.9) Sec. INR 1.70 H (0.87-1.13) Creatinine 0.6 L (0.7-1.2) mg/dL Glucose 117 H (65-100) mg/dL Troponin T 0.157 H* (0.00-0.029) ng/mL LDL Cholesterol Direct 43 L (50-130) mg/dL HDL Cholesterol 18 L (40-59) mg/dL 09/16/17 09/16/17 09/16/17 Range/Units 01:14 04:10 13:40 MCV (79-97) fl MCH (28-32) pg RDW (13.2-15.2) % Lymph % (Auto) (13.4-35.0) % [place] % (Auto) (0.0-7.3) % PT (12.2-14.9) Sec. INR (0.87-1.13) Creatinine (0.7-1.2) mg/dL Glucose (65-100) mg/dL Troponin T 0.157 H* 0.144 H* 0.132 H* (0.00-0.029) ng/mL LDL Cholesterol Direct (50-130) mg/dL HDL Cholesterol (40-59) mg/dL Assessment and Plan Patient is a 47 yo woman with history of [id number] diabetes mellitus , dyslipidemia, hypertension, coronary artery disease and 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 It was felt that her STEMI was probably secondary to embolus/ thrombus and considering very small caliber of distal vessels she was not a candidate for thromboectomy. Continued anticoagulation was recommended who presents with sob x 6 days and substernal intermittent, mid nonradiating 6 out of 10 chest pains described as someone stepping on her chest without aggravating or relieving factors. Following discharge, pt reports that she was unable to get her medications filled because she could not afford them. She has not been taking her metoprolol, metformin, Plavix and lasix but reports that she has been taking Eliquis - she states that she was able to get a free 30 day supply of Eliquis from a coupon card. Echo: report reviewed (09/02/2017: EF 25-30%, LV moderately dilated, severe global hypokinesis of LV, restrictive diastolic filling pattern, LA moderate to severely dilated, RV mild to moderately dilated, RV systolic function moderately reduced, mod AR, mod MR, mod to severe TR, RVSP 40mmHg, mild pulm HTN , minimal pericardial effusion, bilateral pleural effusion. ) Cardiac cath: report reviewed (09/02/2017: moderately dilated LV with severe diffuse hypokinesis, EF 20-25%, probable emboli to the distal PDA and LV branch of the RCA with rest of coronaries being smooth and normal ith attempt to do balloon angioplasty with partial success, SAMANTA 3 flow at end of procedure, small caliber vessels. ) EKG: report reviewed, image reviewed -Acute combined systolic and diastolic biventricular heart failure: iv diuretics -Severe Non-compliance: counseling done. -Dilated NICMP - EF 25-30%; pt scheduled to follow up for OP EP consultation to evaluate for AICD candidacy -Chest pain, atypical - ECG with no acute ischemic changes -Elevated troponin - flat and decreased from most recent set on last admission -H/o STEMI 09/02/2017 - secondary to small emboli in the PDA and LV branch of the RCA with rest of coronaries being normal, s/p LHC with attempt to do balloon angioplasty with partial success, SAMANTA 3 flow at end of procedure, no thrombectomy due to small caliber vessels. 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
[2017-09-16] MEDS ORDERED: TYLENOL PO PRN (16:51)
[2017-09-16] MEDS ORDERED: NORCO 10/325 PO PRN (16:51)
[2017-09-16] MEDS ORDERED: MORPHINE IV PRN (16:51)
[2017-09-16] MEDS: LASIX IV SCH (17:20)
[2017-09-16] MEDS: NORCO 5/325 PO PRN (17:21)
[2017-09-16] MEDS ORDERED: NON-FORMULARY (Lovastatin [Altoprev] 40 MG) PO SCH (18:00)
[2017-09-16] MEDS: PRAVACHOL PO SCH (23:08)
[2017-09-17] MEDS: LASIX IV SCH ×2 (05:55→17:33)
[2017-09-17 06:47] LABS: Hematocrit 31.5 % (30.3-42.9); Hemoglobin 10.4 gm/dl (10.1-14.3); Mean Corpuscular HGB Conc 33 % (30-34); Mean Corpuscular Volume 72 fl (79-97); Platelet Count 218 K/mm3 (140-440); Red Blood Count 4.38 M/mm3 (3.65-5.03)
[2017-09-17 06:48] LABS: Mean Corpuscular Hemoglobin 24 pg (28-32)
[2017-09-17 06:49] LABS: Red Cell Distribution Width 22.9 % (13.2-15.2)
[2017-09-17 07:00] LABS: BUN/Creatinine Ratio 22; Blood Urea Nitrogen 13 mg/dL (7-17); Hemolysis Index 1
[2017-09-17] MEDS: NOVOLOG SUB-Q SCH ×4 (07:32→23:10)
[2017-09-17] MEDS: LOPRESSOR PO SCH ×2 (09:12→22:03)
[2017-09-17] MEDS: PLAVIX PO SCH (09:12)
[2017-09-17] MEDS: ELIQUIS PO SCH ×2 (09:12→22:03)
--- NOTE | 2017-09-17 12:27 | Progress Note ---
Assessment and Plan Assessment and plan: Patient is a 47 yo woman with history of [id number] diabetes mellitus , dyslipidemia, hypertension, coronary artery disease and 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 It was felt that her STEMI was probably secondary to embolus/ thrombus and considering very small caliber of distal vessels she was not a candidate for thromboectomy. Continued anticoagulation was recommended who presents with sob x 6 days and substernal intermittent, mid nonradiating 6 out of 10 chest pains described as someone stepping on her chest without aggravating or relieving factors. Following discharge, pt reports that she was unable to get her medications filled because she could not afford them. She has not been taking her metoprolol, metformin, Plavix and lasix but reports that she has been taking Eliquis - she states that she was able to get a free 30 day supply of Eliquis from a coupon card. Echo: report reviewed (09/02/2017: EF 25-30%, LV moderately dilated, severe global hypokinesis of LV, restrictive diastolic filling pattern, LA moderate to severely dilated, RV mild to moderately dilated, RV systolic function moderately reduced, mod AR, mod MR, mod to severe TR, RVSP 40mmHg, mild pulm HTN , minimal pericardial effusion, bilateral pleural effusion. ) Cardiac cath: report reviewed (09/02/2017: moderately dilated LV with severe diffuse hypokinesis, EF 20-25%, probable emboli to the distal PDA and LV branch of the RCA with rest of coronaries being smooth and normal ith attempt to do balloon angioplasty with partial success, SAMANTA 3 flow at end of procedure, small caliber vessels. ) EKG: report reviewed, image reviewed -Acute combined systolic and diastolic biventricular heart failure: iv diuretics -Severe Non-compliance: counseling done. -Dilated NICMP - EF 25-30%; pt scheduled to follow up for OP EP consultation to evaluate for AICD candidacy -Chest pain, atypical - ECG with no acute ischemic changes -Elevated troponin - flat and decreased from most recent set on last admission -H/o STEMI 09/02/2017 - secondary to small emboli in the PDA and LV branch of the RCA with rest of coronaries being normal, s/p LHC with attempt to do balloon angioplasty with partial success, SAMANTA 3 flow at end of procedure, no thrombectomy due to small caliber vessels. 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 Follow-up on current diagnosis. Overnight uneventful. Patient denies any chest pain, nausea/vomiting or severe headaches. Imaging, nursing note, chart, labs and old chart reviewed. Discussed with patient. Shortness breath and edema improving. Hospitalist Physical - Physical exam Narrative exam: GEN: WDWN, NAD, AWAKE, ALERT, ORIENTATED 3 HEENT: NCAT, EOMI, PERRL, OP Clear NECK: supple, no adenopathy, no thyromegaly, positive JVD CVS/HEART: RRR, NORMAL S1S2, pulses present bilaterally CHEST/LUNGS: bibasal crackles Symmetrical chest expansion, good air entry bilaterally GI/Abdomen: soft, NTND, good bowel sounds, no guarding or rebound, anasarca, flanks /Bladder: no suprapubic tenderness, no CVA or paraspinal tenderness EXT/Skin: Pitting leg edema MSK: FROM x 4 Neuro: CN 2-12 grossly intact, no new focal deficits Psych: calm - Constitutional Vitals: Temp Pulse Resp BP Pulse Ox 97.8 F 67 24 132/87 99 09/17/17 11:23 09/17/17 11:23 09/17/17 11:23 09/17/17 11:23 09/17/17 11:23 General appearance: Present: no acute distress Results - Labs CBC & Chem 7: 09/17/17 05:57 09/17/17 05:57 Labs: Laboratory Last Values WBC 4.3 K/mm3 (4.5-11.0) L 09/17/17 05:57 RBC 4.38 M/mm3 (3.65-5.03) 09/17/17 05:57 Hgb 10.4 gm/dl (10.1-14.3) 09/17/17 05:57 Hct 31.5 % (30.3-42.9) 09/17/17 05:57 MCV 72 fl (79-97) L 09/17/17 05:57 MCH 24 pg (28-32) L 09/17/17 05:57 MCHC 33 % (30-34) 09/17/17 05:57 RDW 22.9 % (13.2-15.2) H 09/17/17 05:57 Plt Count 218 K/mm3 (140-440) 09/17/17 05:57 Lymph % (Auto) 35.1 % (13.4-35.0) H 09/15/17 22:50 [place] % (Auto) 9.2 % (0.0-7.3) H 09/15/17 22:50 Eos % (Auto) 0.9 % (0.0-4.3) 09/15/17 22:50 Baso % (Auto) 0.4 % (0.0-1.8) 09/15/17 22:50 Lymph # 1.9 K/mm3 (1.2-5.4) 09/15/17 22:50 [place] # 0.5 K/mm3 (0.0-0.8) 09/15/17 22:50 Eos # 0.0 K/mm3 (0.0-0.4) 09/15/17 22:50 Baso # 0.0 K/mm3 (0.0-0.1) 09/15/17 22:50 Seg Neutrophils % 54.4 % (40.0-70.0) 09/15/17 22:50 Seg Neutrophils # 3.0 K/mm3 (1.8-7.7) 09/15/17 22:50 PT 20.9 Sec. (12.2-14.9) H 09/15/17 22:50 INR 1.70 (0.87-1.13) H 09/15/17 22:50 Sodium 139 mmol/L (137-145) 09/17/17 05:57 Potassium 3.4 mmol/L (3.6-5.0) L 09/17/17 05:57 Chloride 100.2 mmol/L (98-107) 09/17/17 05:57 Carbon Dioxide 24 mmol/L (22-30) 09/17/17 05:57 Anion Gap 18 mmol/L 09/17/17 05:57 BUN 13 mg/dL (7-17) 09/17/17 05:57 Creatinine 0.6 mg/dL (0.7-1.2) L 09/17/17 05:57 Estimated GFR > 60 ml/min 09/17/17 05:57 BUN/Creatinine Ratio 22 % 09/17/17 05:57 Glucose 106 mg/dL (65-100) H 09/17/17 05:57 POC Glucose 114 (70-105) H 09/17/17 11:27 Calcium 8.0 mg/dL (8.4-10.2) L 09/17/17 05:57 Total Creatine Kinase 56 units/L (30-135) 09/16/17 13:40 CK-MB (CK-2) 1.5 ng/mL (0.0-4.0) 09/16/17 13:40 CK-MB (CK-2) Rel Index 2.6 (0-4) 09/16/17 13:40 Troponin T 0.117 ng/mL (0.00-0.029) H* 09/16/17 19:27 Triglycerides 60 mg/dL (2-149) 09/15/17 22:50 Cholesterol 73 mg/dL (50-199) 09/15/17 22:50 LDL Cholesterol Direct 43 mg/dL (50-130) L 09/15/17 22:50 HDL Cholesterol 18 mg/dL (40-59) L 09/15/17 22:50 Cholesterol/HDL Ratio 4.05 % 09/15/17 22:50 TSH 2.990 mlU/mL (0.270-4.200) 09/17/17 05:57
--- NOTE | 2017-09-17 12:31 | Progress Note ---
Assessment and Plan Assessment: Acute combined systolic and diastolic biventricular heart failure Dilated NICMP - EF 25-30%; pt scheduled to follow up for OP EP consultation to evaluate for AICD candidacy Chest pain, atypical - ECG with no acute ischemic changes Elevated troponin - flat and decreased from most recent set on last admission H/o STEMI 09/02/2017 - secondary to small emboli in the PDA and LV branch of the RCA with rest of coronaries being normal, s/p LHC with attempt to do balloon angioplasty with partial success, SAMANTA 3 flow at end of procedure, no thrombectomy due to small caliber vessels. 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 Assessment and plan reviewed with pt at bedside. The patient has been seen in conjunction with Dr. Gonzales who agrees with the assessment and plan of care. Subjective Date of service: 09/17/17 Principal diagnosis: HF Interval history: Pt resting comfortably in bed, states SOB improving. Objective Last Vital Signs Temp 97.8 F 09/17/17 11:23 Pulse 67 09/17/17 11:23 Resp 24 09/17/17 11:23 BP 132/87 09/17/17 11:23 Pulse Ox 99 09/17/17 11:23 - Physical Examination General: No Apparent Distress HEENT: Positive: PERRL, Normocephaly, Mucus Membranes Moist Neck: Positive: neck supple, trachea midline Cardiac: Positive: Reg Rate and Rhythm, S1/S2 Lungs: Positive: Rales (bibasilar ) Neuro: Positive: Grossly Intact Abdomen: Positive: Active Bowel Sounds, Distended Skin: Positive: Clear. Negative: Rash Musculoskeletal: No Pain, Normal Range of Motion Extremities: Present: +1 Edema (BLE) - Labs and Meds Cardiac Enzymes 09/16/17 Range/Units 13:40 CK-MB (CK-2) 1.5 (0.0-4.0) ng/mL CBC 09/17/17 Range/Units 05:57 WBC 4.3 L (4.5-11.0) K/mm3 RBC 4.38 (3.65-5.03) M/mm3 Hgb 10.4 (10.1-14.3) gm/dl Hct 31.5 (30.3-42.9) % Plt Count 218 (140-440) K/mm3 Comprehensive Metabolic Panel 09/17/17 Range/Units 05:57 Sodium 139 (137-145) mmol/L Potassium 3.4 L (3.6-5.0) mmol/L Chloride 100.2 (98-107) mmol/L Carbon Dioxide 24 (22-30) mmol/L BUN 13 (7-17) mg/dL Creatinine 0.6 L (0.7-1.2) mg/dL Glucose 106 H (65-100) mg/dL Calcium 8.0 L (8.4-10.2) mg/dL - Imaging and Cardiology EKG: report reviewed, image reviewed Echo: report reviewed (09/02/2017: EF 25-30%, LV moderately dilated, severe global hypokinesis of LV, restrictive diastolic filling pattern, LA moderate to severely dilated, RV mild to moderately dilated, RV systolic function moderately reduced, mod AR, mod MR, mod to severe TR, RVSP 40mmHg, mild pulm HTN , minimal pericardial effusion, bilateral pleural effusion. ) Cardiac cath: report reviewed (09/02/2017: moderately dilated LV with severe diffuse hypokinesis, EF 20-25%, probable emboli to the distal PDA and LV branch of the RCA with rest of coronaries being smooth and normal ith attempt to do balloon angioplasty with partial success, SAMANTA 3 flow at end of procedure, small caliber vessels. ) - EKG Sinus rhythms and dysrhythmias: sinus rhythm Myocardial infarction: anterior SD (old age or i
[2017-09-17] MEDS: NORCO 5/325 PO PRN (16:46)
[2017-09-17] MEDS: PRAVACHOL PO SCH (22:03)
[2017-09-18] MEDS ORDERED: ZOFRAN IV PRN (03:27)
[2017-09-18 06:31] LABS: Hematocrit 32.8 % (30.3-42.9); Hemoglobin 10.9 gm/dl (10.1-14.3); Mean Corpuscular HGB Conc 33 % (30-34); Mean Corpuscular Volume 72 fl (79-97); Platelet Count 230 K/mm3 (140-440); Red Blood Count 4.56 M/mm3 (3.65-5.03)
[2017-09-18 06:32] LABS: Mean Corpuscular Hemoglobin 24 pg (28-32); Red Cell Distribution Width 22.6 % (13.2-15.2)
[2017-09-18] MEDS: LASIX IV SCH ×2 (06:55→17:19)
[2017-09-18 07:20] LABS: BUN/Creatinine Ratio 21; Blood Urea Nitrogen 15 mg/dL (7-17); Calcium 8.4 mg/dL (8.4-10.2); Hemolysis Index 38
[2017-09-18] MEDS: NOVOLOG SUB-Q SCH ×4 (09:35→22:31)
[2017-09-18] MEDS: ELIQUIS PO SCH ×2 (09:36→22:30)
[2017-09-18] MEDS: PLAVIX PO SCH (09:36)
[2017-09-18] MEDS: LOPRESSOR PO SCH ×2 (09:36→22:30)
--- NOTE | 2017-09-18 12:47 | Progress Note ---
Assessment and Plan Acute combined systolic and diastolic biventricular heart failure Dilated NICMP - EF 25-30%; pt scheduled to follow up for OP EP consultation to evaluate for AICD candidacy Chest pain, atypical - ECG with no acute ischemic changes Elevated troponin - flat and decreased from most recent set on last admission H/o STEMI 09/02/2017 - secondary to small emboli in the PDA and LV branch of the RCA with rest of coronaries being normal, s/p LHC with attempt to do balloon angioplasty with partial success, SAMANTA 3 flow at end of procedure, no thrombectomy due to small caliber vessels. 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 Continue current management. - Patient Problems (1) Anticoagulant long-term use Current Visit: Yes Status: Acute (2) CHF exacerbation Current Visit: Yes Status: Acute (3) HTN (hypertension) Current Visit: Yes Status: Acute Subjective Principal diagnosis: HF Interval history: Patient is feeling some better today. Dyspnea is improving. No chest pain Objective Vital Signs Temp Pulse Resp BP BP Pulse Ox 09/18/17 11:59 97.8 F 57 L 20 123/71 100 09/18/17 10:00 57 L 09/18/17 08:38 97.5 F L 54 L 18 124/101 98 09/18/17 05:11 98.1 F 70 20 133/92 99 09/18/17 04:00 68 09/18/17 00:11 97.9 F 68 18 138/91 96 09/17/17 22:03 64 139/85 09/17/17 20:09 97.7 F 64 20 139/85 100 09/17/17 20:00 69 - Physical Examination General: No Apparent Distress HEENT: Positive: PERRL, Normocephaly, Mucus Membranes Moist Neck: Positive: neck supple, trachea midline Cardiac: Positive: Regular Rate Lungs: Positive: Decreased Breath Sounds (in both bases however appears to be improving.) Neuro: Positive: Grossly Intact Abdomen: Positive: Active Bowel Sounds, Distended Skin: Positive: Clear. Negative: Rash Musculoskeletal: No Pain, Normal Range of Motion Extremities: Present: +1 Edema (BLE) - Labs and Meds CBC 09/18/17 Range/Units 06:03 WBC 4.7 (4.5-11.0) K/mm3 RBC 4.56 (3.65-5.03) M/mm3 Hgb 10.9 (10.1-14.3) gm/dl Hct 32.8 (30.3-42.9) % Plt Count 230 (140-440) K/mm3 Comprehensive Metabolic Panel 09/18/17 Range/Units 06:03 Sodium 140 (137-145) mmol/L Potassium 3.9 (3.6-5.0) mmol/L Chloride 99.4 (98-107) mmol/L Carbon Dioxide 23 (22-30) mmol/L BUN 15 (7-17) mg/dL Creatinine 0.7 (0.7-1.2) mg/dL Glucose 97 (65-100) mg/dL Calcium 8.4 (8.4-10.2) mg/dL - Imaging and Cardiology EKG: report reviewed, image reviewed Echo: report reviewed (09/02/2017: EF 25-30%, LV moderately dilated, severe global hypokinesis of LV, restrictive diastolic filling pattern, LA moderate to severely dilated, RV mild to moderately dilated, RV systolic function moderately reduced, mod AR, mod MR, mod to severe TR, RVSP 40mmHg, mild pulm HTN , minimal pericardial effusion, bilateral pleural effusion. ) Cardiac cath: report reviewed (09/02/2017: moderately dilated LV with severe diffuse hypokinesis, EF 20-25%, probable emboli to the distal PDA and LV branch of the RCA with rest of coronaries being smooth and normal ith attempt to do balloon angioplasty with partial success, SAMANTA 3 flow at end of procedure, small caliber vessels. ) - EKG Sinus rhythms and dysrhythmias: sinus rhythm Myocardial infarction: anterior CT (old age or i
--- NOTE | 2017-09-18 15:23 | Progress Note ---
Assessment and Plan Assessment and plan: Patient is a 47 yo woman with history of fla-efqtysw-zeeigsdxg diabetes mellitus , dyslipidemia, hypertension, coronary artery disease and 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 It was felt that her STEMI was probably secondary to embolus/ thrombus and considering very small caliber of distal vessels she was not a candidate for thromboectomy. Continued anticoagulation was recommended who presents with sob x 6 days and substernal intermittent, mid nonradiating 6 out of 10 chest pains described as someone stepping on her chest without aggravating or relieving factors. Following discharge, pt reports that she was unable to get her medications filled because she could not afford them. She has not been taking her metoprolol, metformin, Plavix and lasix but reports that she has been taking Eliquis - she states that she was able to get a free 30 day supply of Eliquis from a coupon card. Echo: report reviewed (09/02/2017: EF 25-30%, LV moderately dilated, severe global hypokinesis of LV, restrictive diastolic filling pattern, LA moderate to severely dilated, RV mild to moderately dilated, RV systolic function moderately reduced, mod AR, mod MR, mod to severe TR, RVSP 40mmHg, mild pulm HTN , minimal pericardial effusion, bilateral pleural effusion. ) Cardiac cath: report reviewed (09/02/2017: moderately dilated LV with severe diffuse hypokinesis, EF 20-25%, probable emboli to the distal PDA and LV branch of the RCA with rest of coronaries being smooth and normal ith attempt to do balloon angioplasty with partial success, SAMANTA 3 flow at end of procedure, small caliber vessels. ) EKG: report reviewed, image reviewed -Acute combined systolic and diastolic biventricular heart failure: iv diuretics -Severe Non-compliance: counseling done. -Dilated NICMP - EF 25-30%; pt scheduled to follow up for OP EP consultation to evaluate for AICD candidacy -Chest pain, atypical - ECG with no acute ischemic changes -Elevated troponin - flat and decreased from most recent set on last admission -H/o STEMI 09/02/2017 - secondary to small emboli in the PDA and LV branch of the RCA with rest of coronaries being normal, s/p LHC with attempt to do balloon angioplasty with partial success, SAMANTA 3 flow at end of procedure, no thrombectomy due to small caliber vessels. 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 Follow-up on current diagnosis. Overnight uneventful. Patient denies any chest pain, nausea/vomiting or severe headaches. Imaging, nursing note, chart, labs and old chart reviewed. Discussed with patient. Shortness breath and edema improving. Hospitalist Physical - Physical exam Narrative exam: GEN: WDWN, NAD, AWAKE, ALERT, ORIENTATED 3 HEENT: NCAT, EOMI, PERRL, OP Clear NECK: supple, no adenopathy, no thyromegaly, positive JVD CVS/HEART: RRR, NORMAL S1S2, pulses present bilaterally CHEST/LUNGS: bibasal crackles Symmetrical chest expansion, good air entry bilaterally GI/Abdomen: soft, NTND, good bowel sounds, no guarding or rebound, anasarca, flanks /Bladder: no suprapubic tenderness, no CVA or paraspinal tenderness EXT/Skin: Pitting leg edema MSK: FROM x 4 Neuro: CN 2-12 grossly intact, no new focal deficits Psych: calm - Constitutional Vitals: Temp Pulse Resp BP Pulse Ox 97.8 F 57 L 20 123/71 100 09/18/17 11:59 09/18/17 11:59 09/18/17 11:59 09/18/17 11:59 09/18/17 11:59 General appearance: Present: no acute distress Results - Labs CBC & Chem 7: 09/18/17 06:03 09/18/17 06:03 Labs: Laboratory Last Values WBC 4.7 K/mm3 (4.5-11.0) 09/18/17 06:03 RBC 4.56 M/mm3 (3.65-5.03) 09/18/17 06:03 Hgb 10.9 gm/dl (10.1-14.3) 09/18/17 06:03 Hct 32.8 % (30.3-42.9) 09/18/17 06:03 MCV 72 fl (79-97) L 09/18/17 06:03 MCH 24 pg (28-32) L 09/18/17 06:03 MCHC 33 % (30-34) 09/18/17 06:03 RDW 22.6 % (13.2-15.2) H 09/18/17 06:03 Plt Count 230 K/mm3 (140-440) 09/18/17 06:03 Lymph % (Auto) 35.1 % (13.4-35.0) H 09/15/17 22:50 [place] % (Auto) 9.2 % (0.0-7.3) H 09/15/17 22:50 Eos % (Auto) 0.9 % (0.0-4.3) 09/15/17 22:50 Baso % (Auto) 0.4 % (0.0-1.8) 09/15/17 22:50 Lymph # 1.9 K/mm3 (1.2-5.4) 09/15/17 22:50 [place] # 0.5 K/mm3 (0.0-0.8) 09/15/17 22:50 Eos # 0.0 K/mm3 (0.0-0.4) 09/15/17 22:50 Baso # 0.0 K/mm3 (0.0-0.1) 09/15/17 22:50 Seg Neutrophils % 54.4 % (40.0-70.0) 09/15/17 22:50 Seg Neutrophils # 3.0 K/mm3 (1.8-7.7) 09/15/17 22:50 PT 20.9 Sec. (12.2-14.9) H 09/15/17 22:50 INR 1.70 (0.87-1.13) H 09/15/17 22:50 Sodium 140 mmol/L (137-145) 09/18/17 06:03 Potassium 3.9 mmol/L (3.6-5.0) 09/18/17 06:03 Chloride 99.4 mmol/L (98-107) 09/18/17 06:03 Carbon Dioxide 23 mmol/L (22-30) 09/18/17 06:03 Anion Gap 22 mmol/L 09/18/17 06:03 BUN 15 mg/dL (7-17) 09/18/17 06:03 Creatinine 0.7 mg/dL (0.7-1.2) 09/18/17 06:03 Estimated GFR > 60 ml/min 09/18/17 06:03 BUN/Creatinine Ratio 21 % 09/18/17 06:03 Glucose 97 mg/dL (65-100) 09/18/17 06:03 POC Glucose 148 (70-105) H 09/18/17 00:19 Calcium 8.4 mg/dL (8.4-10.2) 09/18/17 06:03 Total Creatine Kinase 56 units/L (30-135) 09/16/17 13:40 CK-MB (CK-2) 1.5 ng/mL (0.0-4.0) 09/16/17 13:40 CK-MB (CK-2) Rel Index 2.6 (0-4) 09/16/17 13:40 Troponin T 0.117 ng/mL (0.00-0.029) H* 09/16/17 19:27 Triglycerides 60 mg/dL (2-149) 09/15/17 22:50 Cholesterol 73 mg/dL (50-199) 09/15/17 22:50 LDL Cholesterol Direct 43 mg/dL (50-130) L 09/15/17 22:50 HDL Cholesterol 18 mg/dL (40-59) L 09/15/17 22:50 Cholesterol/HDL Ratio 4.05 % 09/15/17 22:50 TSH 2.990 mlU/mL (0.270-4.200) 09/17/17 05:57
[2017-09-18] MEDS: PRAVACHOL PO SCH (22:30)
[2017-09-19 07:33] LABS: Hematocrit 33.7 % (30.3-42.9); Hemoglobin 11.1 gm/dl (10.1-14.3); Mean Corpuscular HGB Conc 33 % (30-34); Mean Corpuscular Volume 73 fl (79-97); Platelet Count 239 K/mm3 (140-440); Red Blood Count 4.64 M/mm3 (3.65-5.03)
[2017-09-19 07:34] LABS: Mean Corpuscular Hemoglobin 24 pg (28-32); Red Cell Distribution Width 22.5 % (13.2-15.2)
[2017-09-19 07:43] LABS: BUN/Creatinine Ratio 23; Blood Urea Nitrogen 16 mg/dL (7-17); Calcium 8.5 mg/dL (8.4-10.2); Hemolysis Index 70
[2017-09-19] MEDS: NOVOLOG SUB-Q SCH ×4 (08:42→22:00)
[2017-09-19] MEDS: PLAVIX PO SCH (09:40)
[2017-09-19] MEDS: ELIQUIS PO SCH ×2 (09:40→22:12)
[2017-09-19] MEDS: LOPRESSOR PO SCH ×2 (09:40→22:12)
[2017-09-19] MEDS: LASIX IV SCH ×2 (09:40→22:12)
--- NOTE | 2017-09-19 14:25 | Progress Note ---
Assessment and Plan Acute combined systolic and diastolic biventricular heart failure Dilated NICMP - EF 25-30%; pt scheduled to follow up for OP EP consultation to evaluate for AICD candidacy Chest pain, atypical - ECG with no acute ischemic changes Elevated troponin - flat and decreased from most recent set on last admission H/o STEMI 09/02/2017 - secondary to small emboli in the PDA and LV branch of the RCA with rest of coronaries being normal, s/p LHC with attempt to do balloon angioplasty with partial success, SAMANTA 3 flow at end of procedure, no thrombectomy due to small caliber vessels. 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 Continue current management. - Patient Problems (1) Anticoagulant long-term use Current Visit: Yes Status: Acute (2) CHF exacerbation Current Visit: Yes Status: Acute (3) HTN (hypertension) Current Visit: Yes Status: Acute Subjective Date of service: 09/19/17 Principal diagnosis: HF Interval history: Patient is feeling some better today. Dyspnea is improving. No chest pain Objective Vital Signs Temp Pulse Resp BP BP Pulse Ox 09/19/17 12:18 98.2 F 71 18 137/83 94 09/19/17 09:02 57 L 09/19/17 08:13 98.3 F 56 L 20 121/70 99 09/19/17 04:32 97.1 F L 09/19/17 04:28 57 L 20 126/79 100 09/19/17 01:01 56 L 99 09/19/17 01:00 98.3 F 56 L 18 109/70 99 09/18/17 22:30 73 125/81 09/18/17 22:00 64 09/18/17 20:28 98.5 F 73 20 125/81 99 09/18/17 17:15 97.6 F 58 L 18 131/81 100 09/18/17 16:31 97.6 F 54 L 18 131/81 99 - Physical Examination General: No Apparent Distress HEENT: Positive: PERRL, Normocephaly, Mucus Membranes Moist Neck: Positive: neck supple, trachea midline Cardiac: Positive: Regular Rate Lungs: Positive: clear to auscultation Neuro: Positive: Grossly Intact Abdomen: Positive: Soft, Active Bowel Sounds, Distended Skin: Positive: Clear. Negative: Rash Musculoskeletal: No Pain, Normal Range of Motion Extremities: Present: Other (minimal edema present much improved) - Labs and Meds CBC 09/19/17 Range/Units 06:51 WBC 4.4 L (4.5-11.0) K/mm3 RBC 4.64 (3.65-5.03) M/mm3 Hgb 11.1 (10.1-14.3) gm/dl Hct 33.7 (30.3-42.9) % Plt Count 239 (140-440) K/mm3 Comprehensive Metabolic Panel 09/19/17 Range/Units 06:51 Sodium 139 (137-145) mmol/L Potassium 4.1 (3.6-5.0) mmol/L Chloride 96.1 L (98-107) mmol/L Carbon Dioxide 29 (22-30) mmol/L BUN 16 (7-17) mg/dL Creatinine 0.7 (0.7-1.2) mg/dL Glucose 121 H (65-100) mg/dL Calcium 8.5 (8.4-10.2) mg/dL - Imaging and Cardiology EKG: report reviewed, image reviewed Echo: report reviewed (09/02/2017: EF 25-30%, LV moderately dilated, severe global hypokinesis of LV, restrictive diastolic filling pattern, LA moderate to severely dilated, RV mild to moderately dilated, RV systolic function moderately reduced, mod AR, mod MR, mod to severe TR, RVSP 40mmHg, mild pulm HTN , minimal pericardial effusion, bilateral pleural effusion. ) Cardiac cath: report reviewed (09/02/2017: moderately dilated LV with severe diffuse hypokinesis, EF 20-25%, probable emboli to the distal PDA and LV branch of the RCA with rest of coronaries being smooth and normal ith attempt to do balloon angioplasty with partial success, SAMANTA 3 flow at end of procedure, small caliber vessels. ) - EKG Sinus rhythms and dysrhythmias: sinus rhythm Myocardial infarction: anterior RI (old age or i
[2017-09-19] MEDS ORDERED: MIRALAX 3350 PO PRN (15:42)
--- NOTE | 2017-09-19 16:24 | Progress Note ---
Assessment and Plan Assessment and plan: Patient is a 47 yo woman with history of [id number] diabetes mellitus , dyslipidemia, hypertension, coronary artery disease and 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 It was felt that her STEMI was probably secondary to embolus/ thrombus and considering very small caliber of distal vessels she was not a candidate for thromboectomy. Continued anticoagulation was recommended who presents with sob x 6 days and substernal intermittent, mid nonradiating 6 out of 10 chest pains described as someone stepping on her chest without aggravating or relieving factors. Following discharge, pt reports that she was unable to get her medications filled because she could not afford them. She has not been taking her metoprolol, metformin, Plavix and lasix but reports that she has been taking Eliquis - she states that she was able to get a free 30 day supply of Eliquis from a coupon card. Echo: report reviewed (09/02/2017: EF 25-30%, LV moderately dilated, severe global hypokinesis of LV, restrictive diastolic filling pattern, LA moderate to severely dilated, RV mild to moderately dilated, RV systolic function moderately reduced, mod AR, mod MR, mod to severe TR, RVSP 40mmHg, mild pulm HTN , minimal pericardial effusion, bilateral pleural effusion. ) Cardiac cath: report reviewed (09/02/2017: moderately dilated LV with severe diffuse hypokinesis, EF 20-25%, probable emboli to the distal PDA and LV branch of the RCA with rest of coronaries being smooth and normal ith attempt to do balloon angioplasty with partial success, SAMANTA 3 flow at end of procedure, small caliber vessels. ) EKG: report reviewed, image reviewed -Acute combined systolic and diastolic biventricular heart failure: iv diuretics -Severe Non-compliance: counseling done. -Dilated NICMP - EF 25-30%; pt scheduled to follow up for OP EP consultation to evaluate for AICD candidacy -Chest pain, atypical - ECG with no acute ischemic changes -Elevated troponin - flat and decreased from most recent set on last admission -H/o STEMI 09/02/2017 - secondary to small emboli in the PDA and LV branch of the RCA with rest of coronaries being normal, s/p LHC with attempt to do balloon angioplasty with partial success, SAMANTA 3 flow at end of procedure, no thrombectomy due to small caliber vessels. 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 Montano, possible d/c soon History Interval history: Patient was seen and examined. Follow-up on current diagnosis. Overnight uneventful. Patient denies any chest pain, nausea/vomiting or severe headaches. Imaging, nursing note, chart, labs and old chart reviewed. Discussed with patient. Shortness breath and edema improving. Hospitalist Physical - Physical exam Narrative exam: GEN: WDWN, NAD, AWAKE, ALERT, ORIENTATED 3 HEENT: NCAT, EOMI, PERRL, OP Clear NECK: supple, no adenopathy, no thyromegaly, positive JVD CVS/HEART: RRR, NORMAL S1S2, pulses present bilaterally CHEST/LUNGS: bibasal crackles Symmetrical chest expansion, good air entry bilaterally GI/Abdomen: soft, NTND, good bowel sounds, no guarding or rebound, anasarca, flanks /Bladder: no suprapubic tenderness, no CVA or paraspinal tenderness EXT/Skin: Pitting leg edema MSK: FROM x 4 Neuro: CN 2-12 grossly intact, no new focal deficits Psych: calm - Constitutional Vitals: Temp Pulse Resp BP Pulse Ox 98.2 F 71 18 137/83 94 09/19/17 12:18 09/19/17 12:18 09/19/17 12:18 09/19/17 12:18 09/19/17 12:18 General appearance: Present: no acute distress Results - Labs CBC & Chem 7: 09/19/17 06:51 09/19/17 06:51 Labs: Laboratory Last Values WBC 4.4 K/mm3 (4.5-11.0) L 09/19/17 06:51 RBC 4.64 M/mm3 (3.65-5.03) 09/19/17 06:51 Hgb 11.1 gm/dl (10.1-14.3) 09/19/17 06:51 Hct 33.7 % (30.3-42.9) 09/19/17 06:51 MCV 73 fl (79-97) L 09/19/17 06:51 MCH 24 pg (28-32) L 09/19/17 06:51 MCHC 33 % (30-34) 09/19/17 06:51 RDW 22.5 % (13.2-15.2) H 09/19/17 06:51 Plt Count 239 K/mm3 (140-440) 09/19/17 06:51 Lymph % (Auto) 35.1 % (13.4-35.0) H 09/15/17 22:50 [place] % (Auto) 9.2 % (0.0-7.3) H 09/15/17 22:50 Eos % (Auto) 0.9 % (0.0-4.3) 09/15/17 22:50 Baso % (Auto) 0.4 % (0.0-1.8) 09/15/17 22:50 Lymph # 1.9 K/mm3 (1.2-5.4) 09/15/17 22:50 [place] # 0.5 K/mm3 (0.0-0.8) 09/15/17 22:50 Eos # 0.0 K/mm3 (0.0-0.4) 09/15/17 22:50 Baso # 0.0 K/mm3 (0.0-0.1) 09/15/17 22:50 Seg Neutrophils % 54.4 % (40.0-70.0) 09/15/17 22:50 Seg Neutrophils # 3.0 K/mm3 (1.8-7.7) 09/15/17 22:50 PT 20.9 Sec. (12.2-14.9) H 09/15/17 22:50 INR 1.70 (0.87-1.13) H 09/15/17 22:50 Sodium 139 mmol/L (137-145) 09/19/17 06:51 Potassium 4.1 mmol/L (3.6-5.0) 09/19/17 06:51 Chloride 96.1 mmol/L (98-107) L 09/19/17 06:51 Carbon Dioxide 29 mmol/L (22-30) 09/19/17 06:51 Anion Gap 18 mmol/L 09/19/17 06:51 BUN 16 mg/dL (7-17) 09/19/17 06:51 Creatinine 0.7 mg/dL (0.7-1.2) 09/19/17 06:51 Estimated GFR > 60 ml/min 09/19/17 06:51 BUN/Creatinine Ratio 23 % 09/19/17 06:51 Glucose 121 mg/dL (65-100) H 09/19/17 06:51 POC Glucose 120 (70-105) H 09/19/17 12:26 Calcium 8.5 mg/dL (8.4-10.2) 09/19/17 06:51 Total Creatine Kinase 56 units/L (30-135) 09/16/17 13:40 CK-MB (CK-2) 1.5 ng/mL (0.0-4.0) 09/16/17 13:40 CK-MB (CK-2) Rel Index 2.6 (0-4) 09/16/17 13:40 Troponin T 0.117 ng/mL (0.00-0.029) H* 09/16/17 19:27 Triglycerides 60 mg/dL (2-149) 09/15/17 22:50 Cholesterol 73 mg/dL (50-199) 09/15/17 22:50 LDL Cholesterol Direct 43 mg/dL (50-130) L 09/15/17 22:50 HDL Cholesterol 18 mg/dL (40-59) L 09/15/17 22:50 Cholesterol/HDL Ratio 4.05 % 09/15/17 22:50 TSH 2.990 mlU/mL (0.270-4.200) 09/17/17 05:57
[2017-09-19] MEDS: PRAVACHOL PO SCH (22:12)
[2017-09-20] MEDS: LASIX IV SCH (06:40)
[2017-09-20 06:52] LABS: BUN/Creatinine Ratio 23; Blood Urea Nitrogen 16 mg/dL (7-17); Calcium 8.3 mg/dL (8.4-10.2); Hematocrit 31.9 % (30.3-42.9); Hemoglobin 10.5 gm/dl (10.1-14.3); Hemolysis Index 6; Mean Corpuscular HGB Conc 33 % (30-34); Mean Corpuscular Volume 72 fl (79-97); Platelet Count 226 K/mm3 (140-440); Red Blood Count 4.44 M/mm3 (3.65-5.03)
[2017-09-20 07:19] LABS: Mean Corpuscular Hemoglobin 24 pg (28-32); Red Cell Distribution Width 22.7 % (13.2-15.2)
[2017-09-20] MEDS: NOVOLOG SUB-Q SCH ×2 (08:52→12:47)
[2017-09-20] MEDS ORDERED: K-DUR PO ONE (09:06)
[2017-09-20] MEDS ORDERED: MAGNESIUM SULFATE 2GM/50ML 2 GM/50 ML BAG IV ONE (09:06)
[2017-09-20] MEDS: LOPRESSOR PO SCH (10:51)
[2017-09-20] MEDS: ELIQUIS PO SCH (10:51)
[2017-09-20] MEDS: PLAVIX PO SCH (10:51)
[2017-09-20 12:15] VITALS: BP 109/70
--- NOTE | 2017-09-20 13:38 | Progress Note ---
Assessment and Plan Acute combined systolic and diastolic biventricular heart failure Dilated NICMP - EF 25-30%; pt scheduled to follow up for OP EP consultation to evaluate for AICD candidacy Chest pain, atypical - ECG with no acute ischemic changes Elevated troponin - flat and decreased from most recent set on last admission H/o STEMI 09/02/2017 - secondary to small emboli in the PDA and LV branch of the RCA with rest of coronaries being normal, s/p LHC with attempt to do balloon angioplasty with partial success, SAMANTA 3 flow at end of procedure, no thrombectomy due to small caliber vessels. 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 Continue current management. Discussed with Dr. Rod. Patient is probably close to baseline. Discharge planning per Dr. Chew. - Patient Problems (1) Anticoagulant long-term use Current Visit: Yes Status: Acute (2) CHF exacerbation Current Visit: Yes Status: Acute (3) HTN (hypertension) Current Visit: Yes Status: Acute Subjective Date of service: 09/20/17 Principal diagnosis: HF Interval history: Patient is feeling better today. Dyspnea is improving. No chest pain Objective Vital Signs Temp Pulse Resp BP Pulse Ox 09/20/17 11:54 98.0 F 59 L 18 109/70 99 09/20/17 10:00 51 L 09/20/17 07:59 52 L 18 119/74 100 09/20/17 04:24 97.7 F 55 L 18 121/72 100 09/19/17 23:55 97.5 F L 58 L 18 164/93 93 09/19/17 22:00 64 09/19/17 19:59 98.3 F 61 18 117/93 100 09/19/17 16:55 98.0 F 63 20 125/88 100 - Physical Examination General: No Apparent Distress HEENT: Positive: PERRL, Normocephaly, Mucus Membranes Moist Neck: Positive: neck supple, trachea midline Cardiac: Positive: Reg Rate and Rhythm Lungs: Positive: clear to auscultation Neuro: Positive: Grossly Intact Abdomen: Positive: Soft, Active Bowel Sounds, Distended Skin: Positive: Clear. Negative: Rash Musculoskeletal: No Pain, Normal Range of Motion Extremities: Present: Other (minimal edema present much improved) - Labs and Meds CBC 09/20/17 Range/Units 06:01 WBC 4.8 (4.5-11.0) K/mm3 RBC 4.44 (3.65-5.03) M/mm3 Hgb 10.5 (10.1-14.3) gm/dl Hct 31.9 (30.3-42.9) % Plt Count 226 (140-440) K/mm3 Comprehensive Metabolic Panel 09/20/17 Range/Units 06:01 Sodium 140 (137-145) mmol/L Potassium 3.4 L (3.6-5.0) mmol/L Chloride 96.5 L (98-107) mmol/L Carbon Dioxide 31 H (22-30) mmol/L BUN 16 (7-17) mg/dL Creatinine 0.7 (0.7-1.2) mg/dL Glucose 94 (65-100) mg/dL Calcium 8.3 L (8.4-10.2) mg/dL - Imaging and Cardiology EKG: report reviewed, image reviewed Echo: report reviewed (09/02/2017: EF 25-30%, LV moderately dilated, severe global hypokinesis of LV, restrictive diastolic filling pattern, LA moderate to severely dilated, RV mild to moderately dilated, RV systolic function moderately reduced, mod AR, mod MR, mod to severe TR, RVSP 40mmHg, mild pulm HTN , minimal pericardial effusion, bilateral pleural effusion. ) Cardiac cath: report reviewed (09/02/2017: moderately dilated LV with severe diffuse hypokinesis, EF 20-25%, probable emboli to the distal PDA and LV branch of the RCA with rest of coronaries being smooth and normal ith attempt to do balloon angioplasty with partial success, SAMANTA 3 flow at end of procedure, small caliber vessels. ) - EKG Sinus rhythms and dysrhythmias: sinus rhythm Myocardial infarction: anterior [place] (old age or i
--- NOTE | 2017-09-20 14:39 | Discharge Summary ---
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 It was felt that her STEMI was probably secondary to embolus/ thrombus and considering very small caliber of distal vessels she was not a candidate for thromboectomy. Continued anticoagulation was recommended who presents with sob x 6 days and substernal intermittent, mid nonradiating 6 out of 10 chest pains described as someone stepping on her chest without aggravating or relieving factors. Following discharge, pt reports that she was unable to get her medications filled because she could not afford them. She has not been taking her metoprolol, metformin, Plavix and lasix but reports that she has been taking Eliquis - she states that she was able to get a free 30 day supply of Eliquis from a coupon card. Echo: report reviewed (09/02/2017: EF 25-30%, LV moderately dilated, severe global hypokinesis of LV, restrictive diastolic filling pattern, LA moderate to severely dilated, RV mild to moderately dilated, RV systolic function moderately reduced, mod AR, mod MR, mod to severe TR, RVSP 40mmHg, mild pulm HTN , minimal pericardial effusion, bilateral pleural effusion. ) Cardiac cath: report reviewed (09/02/2017: moderately dilated LV with severe diffuse hypokinesis, EF 20-25%, probable emboli to the distal PDA and LV branch of the RCA with rest of coronaries being smooth and normal ith attempt to do balloon angioplasty with partial success, SAMANTA 3 flow at end of procedure, small caliber vessels. ) EKG: report reviewed, image reviewed -Acute combined systolic and diastolic biventricular heart failure: iv diuretics -Severe Non-compliance: counseling done. -Dilated NICMP - EF 25-30%; pt scheduled to follow up for OP EP consultation to evaluate for AICD candidacy -Chest pain, atypical - ECG with no acute ischemic changes -Elevated troponin - flat and decreased from most recent set on last admission -H/o STEMI 09/02/2017 - secondary to small emboli in the PDA and LV branch of the RCA with rest of coronaries being normal, s/p LHC with attempt to do balloon angioplasty with partial success, SAMANTA 3 flow at end of procedure, no thrombectomy due to small caliber vessels. 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 Montano, possible d/c soon 09/20/2017: d/w Dr. Ish Montano, as follows: "Acute combined systolic and diastolic biventricular heart failure Dilated NICMP - EF 25-30%; pt scheduled to follow up for OP EP consultation to evaluate for AICD candidacy Chest pain, atypical - ECG with no acute ischemic changes Elevated troponin - flat and decreased from most recent set on last admission H/o STEMI 09/02/2017 - secondary to small emboli in the PDA and LV branch of the RCA with rest of coronaries being normal, s/p LHC with attempt to do balloon angioplasty with partial success, SAMANTA 3 flow at end of procedure, no thrombectomy due to small caliber vessels. 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 Continue current management. Discussed with Dr. Rod. Patient is probably close to baseline. Discharge planning per Dr. Tenorio." Disposition: DC-01 TO HOME OR SELFCARE Time spent for discharge: 35 minutes Core Measure Documentation - Palliative Care Palliative Care/ Comfort Measures: Not Applicable - Core Measures Any of the following diagnoses?: heart failure - VTE Discharge Requirements Deep Vein Thrombosis/Pulmonary Embolism Present on Admission: No Has pt received <5 days of overlap therapy or INR<2.0: No Anticoagulant overlap therapy prescribed at discharge: No Contraindication No Overlap Therapy order at DC: Not Indicated - Heart Failure Discharge Requirements OLGA LIDIA/ARB for LVSD if EF <40%: Yes Beta ashley at discharge: Yes Exam - Physical Exam Narrative exam: GEN: WDWN, NAD, AWAKE, ALERT, ORIENTATED 3 HEENT: NCAT, EOMI, PERRL, OP Clear NECK: supple, no adenopathy, no thyromegaly, positive JVD CVS/HEART: RRR, NORMAL S1S2, pulses present bilaterally CHEST/LUNGS: bibasal crackles Symmetrical chest expansion, good air entry bilaterally GI/Abdomen: soft, NTND, good bowel sounds, no guarding or rebound, anasarca, flanks /Bladder: no suprapubic tenderness, no CVA or paraspinal tenderness EXT/Skin: Pitting leg edema MSK: FROM x 4 Neuro: CN 2-12 grossly intact, no new focal deficits Psych: calm - Constitutional Vitals: Temp Pulse Resp BP Pulse Ox 98.0 F 59 L 18 109/70 99 09/20/17 11:54 09/20/17 11:54 09/20/17 11:54 09/20/17 11:54 09/20/17 11:54 Plan Activity: other (no strenous activity until cleared by Cardiology) Diet: low salt Special Instructions: record daily BP diary Additional Instructions: STARTED very small dose of Lisinopril, Check blood pressure daily and call Environmental Lawyer if systolic blood pressure (top number) is less than 90 or greater than 180 Follow up with: PRIMARY CAREMD [Primary Care Provider] - 7 Days IZABELLA MONTENEGRO MD [Staff Physician] - 7 Days Prescriptions: Furosemide [Lasix TAB] 20 mg PO BID #30 day HYDROcodone/APAP 5-325 [Warren 5-325 mg TAB] 1 each PO Q4H PRN #30 tablet PRN Reason: Pain , Severe (7-10) Lisinopril [Zestril TAB] 2.5 mg PO QDAY #30 tab
== END 2017-09-20 18:35 | disposition home or self-care (01) | DRG 281 ==
LOC: ED 22:07 → 4A 09-16 07:50
PROVIDERS: ADMIT Internal Medicine; ATTEND Internal Medicine
DX: I11.0 Hypertensive heart disease with heart failure (principal); I21.19 ST elevation (STEMI) myocardial infarction involving other coronary artery of inferior wall; I47.2 Ventricular tachycardia; I42.0 Dilated cardiomyopathy; J45.909 Unspecified asthma, uncomplicated; I27.20 Pulmonary hypertension, unspecified; I08.3 Combined rheumatic disorders of mitral, aortic and tricuspid valves; I50.43 Acute on chronic combined systolic (congestive) and diastolic (congestive) heart failure; I50.82 Biventricular heart failure; E11.9 Type 2 diabetes mellitus without complications; Z86.73 Personal history of transient ischemic attack (TIA), and cerebral infarction without residual deficits; Z86.711 Personal history of pulmonary embolism; Z79.01 Long term (current) use of anticoagulants; Z88.6 Allergy status to analgesic agent; Z79.899 Other long term (current) drug therapy; Z91.14 Patient's other noncompliance with medication regimen; Z86.718 Personal history of other venous thrombosis and embolism; Z87.442 Personal history of urinary calculi; Z90.49 Acquired absence of other specified parts of digestive tract; Z98.51 Tubal ligation status; Z71.89 Other specified counseling
CPT/HCPCS: 36415; 71020; 80048; 80061; 82550; 82553; 82962; 83735; 84443; 84484; 85025; 85027; 85610; 93005; 93010; 96374; A9270-GY; J1940; J2405; J3475

== ENCOUNTER 2017-10-24 23:38 | Inpatient (IN) | payer OTHER ==
--- NOTE | 2017-10-25 00:51 | Emergency Department Report ---
ED General Adult HPI - General Chief complaint: Chest Pain Stated complaint: CP/NAUSEA/DIZZY Time Seen by Provider: 10/25/17 00:17 Source: patient, EMS Mode of arrival: Stretcher Limitations: Physical Limitation - History of Present Illness Initial comments: This is a 47-year-old female with multiple visits to the emergency room who had a STEMI in August 2017 and returns to the emergency room today for chief complaint of chest pain described as stabbing, nausea with no vomiting, dizziness with the whole room spinning, and vaginal discharge and itching. She states that these symptoms started today. She denies fever she admits to weakness. She also admits to history of diabetes hypertension COPD CHF liver disease with alcohol use disorder in the past. -: Gradual, days(s) (1) Location: chest, pelvis Radiation: non-radiation Quality: stabbing Consistency: intermittent Improves with: none Worsens with: none Associated Symptoms: chest pain, cough, shortness of breath, weakness, other ( nausea) Treatments Prior to Arrival: none - Related Data Previous Rx's Medication Instructions Recorded Last Taken Type Apixaban [Eliquis] 5 mg PO Q12HR #14 tablet 09/03/17 Unknown Rx Apixaban [Eliquis] 10 mg PO Q12HR #60 tablet 09/03/17 Unknown Rx Clopidogrel [Plavix] 75 mg PO DAILY #30 tablet 09/03/17 Unknown Rx Lovastatin [Altoprev] 40 mg PO QPM #30 tab.er.24h 09/03/17 Unknown Rx Metoprolol [Lopressor TAB] 50 mg PO BID #60 tablet 09/03/17 Unknown Rx metFORMIN [Glucophage] 500 mg PO BIDDIAB #60 tablet 09/03/17 Unknown Rx Furosemide [Lasix TAB] 20 mg PO BID #30 day 09/20/17 Unknown Rx HYDROcodone/APAP 5-325 [Parnell 1 each PO Q4H PRN #30 tablet 09/20/17 Unknown Rx 5-325 mg TAB] Lisinopril [Zestril TAB] 2.5 mg PO QDAY #30 tab 09/20/17 Unknown Rx Allergies Allergy/AdvReac Type Severity Reaction Status Date / Time aspirin Allergy Swelling Verified 01/01/17 15:09 ED Review of Systems ROS: Stated complaint: CP/NAUSEA/DIZZY Other details as noted in HPI Comment: All other systems reviewed and negative Constitutional: no symptoms reported, see HPI Eyes: as per HPI ENT: as per HPI Respiratory: see HPI Cardiovascular: as per HPI Endocrine: see HPI Gastrointestinal: as per HPI Genitourinary: as per HPI Musculoskeletal: as per HPI Skin: as per HPI Neurological: as per HPI Psychiatric: as per HPI Hematological/Lymphatic: as per HPI ED Past Medical Hx - Past Medical History Hx Hypertension: Yes Hx CVA: Yes (2014, acute basal ganglia stroke on mri 10/2016) Hx Heart Attack/AMI: Yes Hx Congestive Heart Failure: Yes Hx Diabetes: Yes Hx Deep Vein Thrombosis: Yes Hx Pulmonary Embolism: Yes (January 2015) Hx GERD: No Hx Liver Disease: No Hx Renal Disease: No Hx Sickle Cell Disease: No Hx Arthritis: No Hx Headaches / Migraines: No Hx Seizures: No Hx Kidney Stones: Yes Hx Psychiatric Treatment: No Hx Asthma: Yes Hx COPD: No Hx Tuberculosis: No Hx Dementia: No Hx HIV: No Additional medical history: murmur. blood clot removal from brain, hx of CVA ( june,) - Surgical History Hx Coronary Stent: No Hx Open Heart Surgery: No Hx Pacemaker: No Hx Internal Defibrillator: No Hx Cholecystectomy: Yes Hx Appendectomy: No Hx Breast Surgery: No Additional Surgical History: tubal ligation - Social History Smoking Status: Former Smoker Substance Use Type: None - Medications Home Medications: Home Medications Medication Instructions Recorded Confirmed Last Taken Type Apixaban [Eliquis] 5 mg PO Q12HR #14 tablet 09/03/17 09/16/17 Unknown Rx Apixaban [Eliquis] 10 mg PO Q12HR #60 tablet 09/03/17 09/16/17 Unknown Rx Clopidogrel [Plavix] 75 mg PO DAILY #30 tablet 09/03/17 09/16/17 Unknown Rx Lovastatin [Altoprev] 40 mg PO QPM #30 tab.er.24h 09/03/17 09/16/17 Unknown Rx Metoprolol [Lopressor TAB] 50 mg PO BID #60 tablet 09/03/17 09/16/17 Unknown Rx metFORMIN [Glucophage] 500 mg PO BIDDIAB #60 tablet 09/03/17 09/16/17 Unknown Rx Furosemide [Lasix TAB] 20 mg PO BID #30 day 09/20/17 Unknown Rx HYDROcodone/APAP 5-325 [Parnell 1 each PO Q4H PRN #30 tablet 09/20/17 Unknown Rx 5-325 mg TAB] Lisinopril [Zestril TAB] 2.5 mg PO QDAY #30 tab 09/20/17 Unknown Rx ED Physical Exam - General Limitations: No Limitations General appearance: alert, in no apparent distress, anxious - Head Head exam: Present: atraumatic - Eye Eye exam: Present: normal appearance, PERRL - ENT ENT exam: Present: normal exam - Neck Neck exam: Present: normal inspection - Respiratory Respiratory exam: Present: normal lung sounds bilaterally - Cardiovascular Cardiovascular Exam: Present: normal rhythm, tachycardia, normal heart sounds - GI/Abdominal GI/Abdominal exam: Present: soft, tenderness (suprapubic), normal bowel sounds. Absent: guarding, rebound, rigid - Rectal Rectal exam: Present: deferred - External exam: Present: normal external exam Speculum exam: Present: vaginal discharge, cervical discharge Bi-manual exam: Present: cervical motion tendernes - Extremities Exam Extremities exam: Present: normal inspection, full ROM - Back Exam Back exam: Present: normal inspection - Neurological Exam Neurological exam: Present: alert, oriented X3, CN II-XII intact, normal gait - Psychiatric Psychiatric exam: Present: normal affect - Skin Skin exam: Present: warm, dry, intact ED Course Vital Signs 10/25/17 00:22 Temperature 98.2 F Pulse Rate 105 H Respiratory 24 Rate Blood Pressure 159/111 O2 Sat by Pulse 99 Oximetry - Reevaluation(s) Reevaluation #1: 10/25/17 01:51 The patient has numerous complaints tonight. Due to the physical exam findings and the litany of complaints, we will go ahead and admit the patient for suspected PID and chest pain. Some of the labs are still pending. I did speak to the hospitalist who was kind enough to accept the admission. We'll proceed with bridge orders. ED Medical Decision Making - Lab Data Result diagrams: 10/25/17 01:12 Critical care attestation.: If time is entered above; I have spent that time in minutes in the direct care of this critically ill patient, excluding procedure time. ED Disposition Clinical Impression: Acute chest pain, Shortness of breath, Pelvic inflammatory disease (PID) Disposition: OP ADMIT IP TO THIS HOSP Is pt being admited?: Yes Condition: Stable Referrals: BONIFACIO ARMSTRONG MD [Primary Care Provider] - 3-5 Days
[2017-10-25] MEDS ORDERED: ZOFRAN IV ONE (00:53)
[2017-10-25 01:30] LABS: Basophils % (Auto) 0.7 % (0.0-1.8); Eosinophils # (Auto) 0.1 K/mm3 (0.0-0.4); Hematocrit 34.7 % (30.3-42.9); Hemoglobin 11.4 gm/dl (10.1-14.3); Lymphocytes # (Auto) 1.7 K/mm3 (1.2-5.4); Lymphocytes % (Auto) 30.7 % (13.4-35.0); Mean Corpuscular HGB Conc 33 % (30-34); Mean Corpuscular Volume 70 fl (79-97); Monocytes # (Auto) 0.5 K/mm3 (0.0-0.8); Monocytes % (Auto) 8.7 % (0.0-7.3); Platelet Count 218 K/mm3 (140-440); Red Blood Count 4.95 M/mm3 (3.65-5.03)
--- NOTE | 2017-10-25 01:31 | XRay Report ---
FINAL REPORT EXAM: XR CHEST 1V AP HISTORY: Chest Pain TECHNIQUE: A portable semi-upright view of the chest was obtained. Comparison is made to the study of 09/15/2017. FINDINGS: The cardiac silhouette remains markedly enlarged. With this is due to cardiomegaly with the possibility of pericardial fluid is uncertain. There is non specific airspace disease in the left lung base. A small left-sided effusion cannot be excluded. The lungs are not congested. The right lung is clear. There are EKG leads overlying the chest wall. The skeletal structures are well-maintained. IMPRESSION: Enlargement of the cardiac silhouette as described. Whether this is related to cardiomegaly or pericardial effusion is uncertain. Patchy airspace disease in the left lower lobe. Possible small left-sided effusion.
[2017-10-25 01:32] LABS: Bilirubin,Urine NEG (Negative); Blood,Urine NEG (Negative); Color,Urine Amber (Yellow); Hyaline Casts,Urine 1 /LPF; Mucus,Urine FEW /HPF; Nitrite,Urine NEG (Negative)
[2017-10-25 01:35] LABS: Mean Corpuscular Hemoglobin 23 pg (28-32); Red Cell Distribution Width 21.5 % (13.2-15.2)
[2017-10-25 01:39] LABS: INR 1.45 (0.87-1.13)
[2017-10-25 01:40] LABS: Amphetamine Screen,Urine PRESUMPTIVE NEGATIVE; Benzodiazepines Screen,Urine PRESUMPTIVE NEGATIVE; Cannabinoid Screen,Urine PRESUMPTIVE NEGATIVE; Cocaine Screen,Urine PRESUMPTIVE NEGATIVE; Methadone Screen,Urine PRESUMPTIVE NEGATIVE; Opiate Screen,Urine PRESUMPTIVE NEGATIVE
[2017-10-25 01:40] LABS: Partial Thromboplastin Time 33.1 Sec. (24.2-36.6)
[2017-10-25 01:53] LABS: Alanine Aminotransferase 5 units/L (7-56); BUN/Creatinine Ratio 18; Blood Urea Nitrogen 11 mg/dL (7-17); Calcium 8.7 mg/dL (8.4-10.2); Hemolysis Index 1; Lipase 62 units/L (13-60)
--- NOTE | 2017-10-25 02:48 | Cat Scan Report ---
FINAL REPORT PROCEDURE: CT ABDOMEN PELVIS W CON TECHNIQUE: Computerized axial tomography of the abdomen and pelvis was performed after the IV injection of iodinated nonionic contrast. HISTORY: ABD PAIN, VAGINAL DISCHARGE, HX PID COMPARISON: 09/04/2016 FINDINGS: Visualized lower thorax: No significant abnormality. Liver: There is fatty infiltration of the liver. The liver is slightly enlarged but stable.. Spleen: Normal size and attenuation. Gallbladder and biliary system: The gallbladder is absent. No dilatation of the biliary ductal system. Pancreas: Normal. Adrenals: Normal. Kidneys: Normal. GI tract: Stomach is normal. The small bowel has a normal caliber. No obstruction is seen. The colon has a normal appearance. Moderate fecal debris in the colon is noted. The appendix is not clearly visualized. There is moderate ascites identified within the abdomen and pelvis.. Lymph nodes and mesentery: Normal. Vasculature: Normal. Bladder: Normal. Reproductive organs: Normal. Peritoneum: No free fluid. Musculoskeletal structures: No significant abnormality. Other: There is diffuse anasarca of the soft tissues.. IMPRESSION: There is no evidence of intestinal or urinary tract obstruction. No ileus or enteritis. The liver is enlarged with fatty infiltration. Moderate ascites.
[2017-10-25] MEDS ORDERED: MORPHINE ONE (04:07)
[2017-10-25] MEDS ORDERED: MORPHINE IV ONE (04:10)
[2017-10-25] MEDS ORDERED: NORCO 5/325 PO PRN (07:31)
--- NOTE | 2017-10-25 07:31 | Event Note ---
Date: 10/25/17 See dictated H/p in reports Chest pain Htn CVA T2dm HLD
[2017-10-25] MEDS ORDERED: MORPHINE IV PRN (07:33)
[2017-10-25] MEDS ORDERED: MILK OF MAGNESIA PO PRN (07:33)
[2017-10-25] MEDS ORDERED: DILAUDID IV PRN (07:33)
[2017-10-25] MEDS ORDERED: ZOFRAN IV PRN (07:33)
[2017-10-25] MEDS ORDERED: TYLENOL PO PRN (07:33)
[2017-10-25] MEDS: GLUCOPHAGE PO SCH ×2 (08:00→17:40)
--- NOTE | 2017-10-25 09:19 | History and Physical Report ---
CHIEF COMPLAINT: 1. Left-sided chest pain since yesterday. 2. Vaginal discharge and itching. HISTORY OF PRESENT ILLNESS: The patient is a 47-year-old female with recent STEMI in August 2017 comes in for left-sided chest pain recurrence. Feels that the chest pain is the same as when she has a STEMI. Nausea present. No vomiting. Also, dizziness present. No palpitations. No shortness of breath. The patient also has vaginal discharge and itching for the last one week. No fever, no chills. No shortness of breath. The patient has history of diabetes, hypertension, and CHF. PAST MEDICAL HISTORY: As mentioned, hypertension, CHF, hyperlipidemia, type 2 diabetes, chronic pain. CURRENT MEDICATIONS: Eliquis 10 mg q.12h., Plavix 75 mg once a day, lovastatin 40 mg once a day, metoprolol 50 mg twice a day, metformin 500 mg twice a day, Lasix 20 mg twice a day, hydrocodone 5/325 mg q.4h. p.r.n., lisinopril 2.5 mg daily. PAST MEDICAL HISTORY: As mentioned. Cerebrovascular accident, acute basal ganglia stroke in October 2016, congestive heart failure, diabetes, pulmonary embolism and deep vein thrombosis in the past. Also, blood clot removed from the brain. History of CVA. SOCIAL HISTORY: Former smoker. Stopped smoking. PAST SURGICAL HISTORY: Cholecystectomy and tubal ligation. FAMILY HISTORY: Significant for hypertension. CURRENT MEDICATIONS: As mentioned on the chart. REVIEW OF SYSTEMS: Significant for left-sided chest pain, which is intermittent in nature for the last 3-4 days and also vaginal discharge. Otherwise, review of systems is essentially negative. PHYSICAL EXAMINATION: GENERAL: Middle-aged female, cooperative during examination. VITAL SIGNS: Blood pressure is 159/111 and 141/92, temperature is 98.2, pulse is 105, respirations are 24, sats are 99%. HEENT: Unremarkable. Pupils equal and reactive. NECK: Supple, no lymphadenopathy, no thyromegaly. LUNGS: Clear to auscultation and percussion. Good air entry. CARDIOVASCULAR: S1, S2 heard. No gallop, no murmur, no rub. Apical impulse in left fifth intercostal space and midclavicular line. ABDOMEN: Soft and benign. No hepatosplenomegaly. No guarding, no rigidity. Hernial orifices are normal. EXTREMITIES: Good pedal pulses. No pedal edema. CENTRAL NERVOUS SYSTEM: Alert and oriented x 4, nonfocal exam. LABORATORY DATA: Significant for white count of 5700. D-dimer of 3332. BNP of 2975. Drug screen was negative. Potassium slightly low at 3.4. BUN and creatinine 11 and 0.6. EKG shows sinus tachycardia, PVCs. Nonspecific T-wave changes. Chest x-ray, no infiltrates. ASSESSMENT AND PLAN: 1. Chest pain, rule out myocardial infarction. Chest pain protocol. Serial cardiac enzymes and Lexiscan as soon as possible. Also, Cardiology consult if necessary. 2. Hypertension. Continue antihypertensives. 3. Pelvic inflammatory disease. The patient initiated on Rocephin and doxycycline. Also, Flagyl. 4. Type 2 diabetes. Coverage. 5. Hyperlipidemia. Continue statins. 6. Deep venous thrombosis prophylaxis. The patient already on Eliquis. No need for Lovenox. JOB# [id number] VSM/NTS
--- NOTE | 2017-10-25 09:25 | Consultation ---
History of Present Illness Consult date: 10/25/17 Requesting physician: AUGUSTO HUBBARD Consult reason: chest pain History of present illness: This is a 47-year-old female with history of known coronary disease had embolism with percutaneous balloon angioplasty of the distal PDA and PLV done in August 2017 patient was found to have moderate severe LV dysfunction with moderate severe tricuspid regurgitation mild pulmonary hypertension mild aortic regurgitation mild mitral regurgitation patient was seen by oncology and in view of recurrent DVT and Coumadin not being adequately controlled patient was placed on elquis. Patient was discharged on appropriate cardiac medications. Patient comes back to the ED with chest pain right side going to the left nonexertional. Patient states prior to this has chronic left leg weakness but did not have chest pain with activity. Patient denies any nausea no vomiting fever or flulike symptoms. Patient is chest pain is not aggravated by activity or inspiration. Patient's cardiac enzymes have been negative. And left coronary system was patent on previous cath. Past History Past Medical History: CAD (embolic pulled of the PDA and PLV), DVT (DVT and PE) , stroke (embolic), other Past Surgical History: No surgical history Social history: denies: no significant social history, smoking, alcohol abuse, prescription drug abuse Family history: denies: no significant family history Medications and Allergies Allergies Allergy/AdvReac Type Severity Reaction Status Date / Time aspirin Allergy Swelling Verified 01/01/17 15:09 Home Medications Medication Instructions Recorded Confirmed Last Taken Type Apixaban [Eliquis] 5 mg PO Q12HR #14 tablet 09/03/17 10/25/17 Unknown Rx Apixaban [Eliquis] 10 mg PO Q12HR #60 tablet 09/03/17 10/25/17 Unknown Rx Clopidogrel [Plavix] 75 mg PO DAILY #30 tablet 09/03/17 10/25/17 Unknown Rx Lovastatin [Altoprev] 40 mg PO QPM #30 tab.er.24h 09/03/17 10/25/17 Unknown Rx Metoprolol [Lopressor TAB] 50 mg PO BID #60 tablet 09/03/17 10/25/17 Unknown Rx metFORMIN [Glucophage] 500 mg PO BIDDIAB #60 tablet 09/03/17 10/25/17 Unknown Rx Furosemide [Lasix TAB] 20 mg PO BID #30 day 09/20/17 10/25/17 Unknown Rx HYDROcodone/APAP 5-325 [[place] 1 each PO Q4H PRN #30 tablet 09/20/17 10/25/17 Unknown Rx 5-325 mg TAB] Lisinopril [Zestril TAB] 2.5 mg PO QDAY #30 tab 09/20/17 10/25/17 Unknown Rx Active Meds: Active Medications Acetaminophen (Tylenol) 650 mg PO Q4H PRN PRN Reason: Pain MILD(1-3)/Fever >100.5/KANG Acetaminophen/Hydrocodone Bitart ([place] 5/325) 1 each PO Q4H PRN PRN Reason: Pain , Severe (7-10) Apixaban (Eliquis) 10 mg PO Q12HR [place] PRN Reason: Protocol Atorvastatin Calcium (Lipitor) 40 mg PO QHS [place] Bisacodyl (Dulcolax) 10 mg [place] QDAY PRN PRN Reason: Constipation unrelieved by MOM Clopidogrel Bisulfate (Plavix) 75 mg PO QDAY [place] Famotidine (Pepcid) 20 mg PO BID AL[place] Furosemide (Lasix) 20 mg PO 0600,1800 PENDING SALE TO [facility] Hydromorphone HCl (Dilaudid) 0.5 mg IV Q3H PRN PRN Reason: Pain , Severe (7-10) Ceftriaxone Sodium 2 gm/ (Sodium Chloride) 20 mls @ 20 mls/10 min IV Q24HR [place] PRN Reason: Protocol Doxycycline Hyclate 200 mg/ (Sodium Chloride) 250 mls @ 250 mls/hr IV Q12HR [place] PRN Reason: Protocol Insulin Aspart (Novolog) 0 units SUB-Q ACHS [place] PRN Reason: Protocol Isosorbide Mononitrate (Imdur) 30 mg PO QDAY [place] Lisinopril (Zestril) 2.5 mg PO QDAY [place] Magnesium Hydroxide (Milk Of Magnesia) 30 ml PO Q4H PRN PRN Reason: Constipation Metformin HCl (Glucophage) 500 mg PO BIDDIAB [place] Metoprolol Tartrate (Lopressor) 50 mg PO BID [place] Metronidazole (Flagyl) 2,000 mg PO ONCE ONE Stop: 10/25/17 10:01 Miscellaneous Medication (Lovastatin [Altoprev]) 40 mg PO QPM PENDING SALE TO [facility] Morphine Sulfate (Morphine) 2 mg IV Q4H PRN PRN Reason: Pain, Moderate (4-6) Ondansetron HCl (Zofran) 4 mg IV Q8H PRN PRN Reason: N/V unrelieved by Reglan Potassium Chloride (K-Dur) 40 meq PO ONCE ONE Stop: 10/25/17 10:01 Zolpidem Tartrate (Ambien) 5 mg PO QHS PRN PRN Reason: Insomnia Review of Systems All systems: negative (as per the H&P) Physical Examination Vital Signs Temp Pulse Resp BP Pulse Ox 98.2 F 105 H 24 159/111 99 10/25/17 00:22 10/25/17 00:22 10/25/17 00:22 10/25/17 00:22 10/25/17 00:22 General appearance: no acute distress, well-nourished HEENT: Positive: PERRL, Mucus Membranes Moist Neck: Positive: neck supple, trachea midline Cardiac: Positive: Reg Rate and Rhythm, S1/S2. Negative: Audible Murmur Lungs: Positive: clear to auscultation, Normal Breath Sounds Neuro: Positive: Grossly Intact, Other (left leg weakness) Abdomen: Positive: Soft, Active Bowel Sounds. Negative: Tender, Distended Female genitourinary: deferred Skin: Positive: Clear Incision: Cardiac Cath Site Musculoskeletal: No Pain, Normal Range of Motion, other (left leg weakness) Extremities: Present: normal. Absent: edema Results 10/25/17 01:12 10/25/17 01:12 Cardiac Enzymes 10/25/17 Range/Units 01:12 AST 12 (5-40) units/L Coagulation 10/25/17 Range/Units 01:12 PT 18.4 H (12.2-14.9) Sec. INR 1.45 H (0.87-1.13) APTT 33.1 (24.2-36.6) Sec. CBC 10/25/17 Range/Units 01:12 WBC 5.7 (4.5-11.0) K/mm3 RBC 4.95 (3.65-5.03) M/mm3 Hgb 11.4 (10.1-14.3) gm/dl Hct 34.7 (30.3-42.9) % Plt Count 218 (140-440) K/mm3 Lymph # 1.7 (1.2-5.4) K/mm3 [place] # 0.5 (0.0-0.8) K/mm3 Eos # 0.1 (0.0-0.4) K/mm3 Baso # 0.0 (0.0-0.1) K/mm3 Comprehensive Metabolic Panel 10/25/17 Range/Units 01:12 Sodium 138 (137-145) mmol/L Potassium 3.4 L (3.6-5.0) mmol/L Chloride 96.9 L (98-107) mmol/L Carbon Dioxide 25 (22-30) mmol/L BUN 11 (7-17) mg/dL Creatinine 0.6 L (0.7-1.2) mg/dL Glucose 105 H (65-100) mg/dL Calcium 8.7 (8.4-10.2) mg/dL AST 12 (5-40) units/L ALT 5 L (7-56) units/L Alkaline Phosphatase 107 (35-129) units/L Total Protein 7.1 (6.3-8.2) g/dL Albumin 4.0 (3.9-5) g/dL - Imaging and Cardiology Echo: report reviewed (ef 25-30% moderate severe tricuspid regurgitation mild hypertension and mild AI) Cardiac cath: report reviewed (left main patent LAD patent circumflex patent RCA patent is still PDA and PLV were occluded unsuccessful poba with moderate severe LV dysfunction) EKG interpretations - Telemetry EKG Rhythm: Sinus Rhythm (normal sinus rhythm no ST elevations noted with VPC) Assessment and Plan Chest pain atypical negative cardiac enzymes 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 We'll treat the patient medically at this time
[2017-10-25] MEDS ORDERED: FLAGYL PO ONE (10:00)
[2017-10-25] MEDS ORDERED: DULCOLAX PR PRN (10:00)
[2017-10-25] MEDS ORDERED: FLAGYL 500 MG/100 ML 500 MG/100 ML BAG IV SCH (10:00)
[2017-10-25] MEDS ORDERED: NON-FORMULARY (Lisinopril [Zestril Tab] 2.5 MG) PO SCH (10:00)
[2017-10-25] MEDS ORDERED: K-DUR PO ONE (10:00)
[2017-10-25] MEDS ORDERED: ELIQUIS PO SCH (10:00)
[2017-10-25] MEDS: IMDUR PO SCH (11:13)
[2017-10-25] MEDS: ZESTRIL PO SCH (11:14)
[2017-10-25] MEDS: PLAVIX PO SCH (11:15)
[2017-10-25] MEDS: ELIQUIS PO SCH ×2 (11:16→23:10)
[2017-10-25] MEDS: LOPRESSOR PO SCH ×2 (11:16→23:11)
[2017-10-25] MEDS: PEPCID PO SCH ×2 (11:16→23:12)
[2017-10-25] MEDS: cefTRIAXone 2 GM in NACL 0.9% 20 ML IV SCH (11:17)
[2017-10-25] MEDS: DOXYCYCLINE HYCLATE 200 MG in NACL 0.9% 250ML 250 ML IV SCH ×2 (11:20→23:10)
[2017-10-25] MEDS: NOVOLOG SUB-Q SCH ×3 (13:03→23:11)
[2017-10-25] MEDS: LASIX PO SCH ×2 (13:03→18:11)
--- NOTE | 2017-10-25 14:44 | Event Note ---
Date: 10/25/17 Patient was seen and evaluated this morning, cardiology was consulted and recommended no cardiac workup at this time given her recent cardiac workup. Patient was supposed to be on Eliquis but patient said she isn't sure if she is taking Eliquis. Patient said her son is the one who is buying her medications and I called him to verify but he didn't picking machine operator his phone. Consulted case management. D-dimer was elevated and patient is not on anticoagulation so I ordered a CT angiogram of the chest.
[2017-10-25] MEDS ORDERED: NON-FORMULARY (Lovastatin [Altoprev] 40 MG) PO SCH (18:00)
[2017-10-25] MEDS ORDERED: PRAVACHOL PO SCH (22:00)
[2017-10-25] MEDS ORDERED: AMBIEN PO PRN (22:00)
[2017-10-26] MEDS: LASIX PO SCH (06:17)
[2017-10-26 07:01] LABS: Basophils % (Auto) 0.6 % (0.0-1.8); Eosinophils # (Auto) 0.1 K/mm3 (0.0-0.4); Eosinophils % (Auto) 1.4 % (0.0-4.3); Hematocrit 30.5 % (30.3-42.9); Hemoglobin 9.8 gm/dl (10.1-14.3); Lymphocytes # (Auto) 1.3 K/mm3 (1.2-5.4); Lymphocytes % (Auto) 34.6 % (13.4-35.0); Mean Corpuscular HGB Conc 32 % (30-34); Monocytes # (Auto) 0.5 K/mm3 (0.0-0.8); Platelet Count 208 K/mm3 (140-440); Red Blood Count 4.38 M/mm3 (3.65-5.03)
[2017-10-26 07:08] LABS: Mean Corpuscular Hemoglobin 22 pg (28-32); Mean Corpuscular Volume 70 fl (79-97); Red Cell Distribution Width 21.6 % (13.2-15.2)
[2017-10-26 07:15] LABS: Albumin 3.3 g/dL (3.9-5); BUN/Creatinine Ratio 16; Blood Urea Nitrogen 13 mg/dL (7-17); Calcium 8.3 mg/dL (8.4-10.2); Hemolysis Index 0
[2017-10-26 07:27] LABS: Alanine Aminotransferase < 5 units/L (7-56)
[2017-10-26] MEDS: NOVOLOG SUB-Q SCH ×2 (07:30→12:44)
[2017-10-26] MEDS: GLUCOPHAGE PO SCH (08:00)
--- NOTE | 2017-10-26 09:24 | Progress Note ---
Assessment and Plan Assessment: Chest pain atypical negative cardiac enzymes CAD Embolic disease History of PE and DVT History of stroke with left-sided weakness Hypertension Hyperlipidemia Plan: Recommended in view of negative cardiac enzymes and no EKG changes and patient is currently chest pain-free will continue current dose medication clarify current dose of anticoagulation patient is not a candidate for aspirin secondary to allergy. We'll treat the patient medically at this time Pt for chest CTA today to r/o PE in setting or elevated DDimer. Pending chest CTA is negative for PE, pt may discharge home from cardiology standpoint. Follow up in our [place] office with Dr. Reynolds on 11/08/2017 @ 1:30PM. The patient has been seen in conjunction with Dr. Esposito who agrees with the assessment and plan of care. Subjective Date of service: 10/26/17 Principal diagnosis: cp Interval history: pt resting comfortably in bed, no current cardiac complaints. reports intermittent atypical chest pain overnight. for chest CTA today. Objective Last Vital Signs Temp 97.4 F L 10/26/17 07:34 Pulse 64 10/26/17 07:34 Resp 20 10/26/17 07:34 BP 131/80 10/26/17 07:34 Pulse Ox 100 10/26/17 07:34 - Physical Examination General: No Apparent Distress HEENT: Positive: PERRL, Mucus Membranes Moist Neck: Positive: neck supple, trachea midline Cardiac: Positive: Reg Rate and Rhythm, S1/S2 Lungs: Positive: clear to auscultation Neuro: Positive: Grossly Intact, Other (left leg weakness) Abdomen: Positive: Soft, Active Bowel Sounds. Negative: Tender, Distended Skin: Positive: Clear Incision: Cardiac Cath Site Musculoskeletal: No Pain, Normal Range of Motion, other (left leg weakness) Extremities: Present: normal. Absent: edema - Labs and Meds Cardiac Enzymes 10/26/17 Range/Units 06:32 AST 10 (5-40) units/L CBC 10/26/17 Range/Units 06:32 WBC 3.8 L (4.5-11.0) K/mm3 RBC 4.38 (3.65-5.03) M/mm3 Hgb 9.8 L (10.1-14.3) gm/dl Hct 30.5 (30.3-42.9) % Plt Count 208 (140-440) K/mm3 Lymph # 1.3 (1.2-5.4) K/mm3 [place] # 0.5 (0.0-0.8) K/mm3 Eos # 0.1 (0.0-0.4) K/mm3 Baso # 0.0 (0.0-0.1) K/mm3 Comprehensive Metabolic Panel 10/26/17 Range/Units 06:32 Sodium 136 L (137-145) mmol/L Potassium 4.0 (3.6-5.0) mmol/L Chloride 100.0 (98-107) mmol/L Carbon Dioxide 28 (22-30) mmol/L BUN 13 (7-17) mg/dL Creatinine 0.8 (0.7-1.2) mg/dL Glucose 76 (65-100) mg/dL Calcium 8.3 L (8.4-10.2) mg/dL AST 10 (5-40) units/L ALT < 5 L (7-56) units/L Alkaline Phosphatase 74 (35-129) units/L Total Protein 6.2 L (6.3-8.2) g/dL Albumin 3.3 L (3.9-5) g/dL - Imaging and Cardiology Echo: report reviewed (ef 25-30% moderate severe tricuspid regurgitation mild hypertension and mild AI) Cardiac cath: report reviewed (left main patent LAD patent circumflex patent RCA patent is still PDA and PLV were occluded unsuccessful poba with moderate severe LV dysfunction)
--- NOTE | 2017-10-26 11:14 | Cat Scan Report ---
CTA CHEST: HISTORY: chest pain. COMPARISON: none. TECHNIQUE: Helical CT in 1.25mm intervals following IV contrast. Pulmonary embolus protocol. Sagittal and coronal reformatted images. Rotational MIP images. FINDINGS: Contrast bolus is satisfactory. No pulmonary embolus is identified. Thyroid gland: Normal. Tracheobronchial tree: Normal. Esophagus: Normal. Heart: Mild cardiomegaly. Pericardium: Small pericardial effusion. No pericardial nodularity. Mediastinum: Normal. Lung [place]: normal. Pleural Spaces: Small bilateral layering pleural effusions are identified measuring up to 1 cm in thickness. Musculoskeletal: No bony abnormality. There is diffuse subcutaneous edema suggesting CHF or anasarca. Moderate ascites is identified in the upper abdomen. IMPRESSION: No evidence for pulmonary embolus. Mild CHF/fluid overload. Ascites.
--- NOTE | 2017-10-26 11:34 | Discharge Summary ---
Providers - Providers Date of Admission: 10/25/17 01:53 Attending physician: SANDRA BRANHAM 10/25/17 20:00 Consult to PICC Line RN [CONS] Routine Reason For Exam: place 20g int for CTA. Type Line:: Midline 10/26/17 09:07 Consult to Dietitian/Nutrition [CONS] Routine Physician Instructions: Reason For Exam: Reason for Consult: Malnutrition Primary care physician: BONIFACIO ARMSTRONG Hospitalization Condition: Stable Core Measure Documentation - Palliative Care Palliative Care/ Comfort Measures: Not Applicable Exam - Constitutional Vitals: Temp Pulse Resp BP Pulse Ox 97.4 F L 64 20 131/80 100 10/26/17 07:34 10/26/17 07:34 10/26/17 07:34 10/26/17 07:34 10/26/17 07:34 Plan Follow up with: BONIFACIO ARMSTRONG MD [Primary Care Provider] - 3-5 Days Prescriptions: Apixaban [Eliquis] 10 mg PO Q12HR #60 tablet
[2017-10-26] MEDS: cefTRIAXone 2 GM in NACL 0.9% 20 ML IV SCH (11:51)
[2017-10-26] MEDS: ZESTRIL PO SCH (11:52)
[2017-10-26] MEDS: PLAVIX PO SCH (11:55)
[2017-10-26] MEDS: IMDUR PO SCH (11:55)
[2017-10-26] MEDS: ELIQUIS PO SCH (11:56)
[2017-10-26] MEDS: PEPCID PO SCH (11:56)
[2017-10-26] MEDS: LOPRESSOR PO SCH (11:57)
[2017-10-26] MEDS: DOXYCYCLINE HYCLATE 200 MG in NACL 0.9% 250ML 250 ML IV SCH (12:44)
[2017-10-26 17:50] VITALS: BP 131/93
[2017-10-26] MEDS ORDERED: VIBRAMYCIN PO SCH (22:00)
== END 2017-10-26 18:00 | disposition home or self-care (01) | DRG 313 ==
LOC: ED 23:38 → 3A 10-25 01:53
PROVIDERS: ADMIT Internal Medicine; ATTEND Internal Medicine
DX: R07.89 Other chest pain (principal); N73.9 Female pelvic inflammatory disease, unspecified; Z88.6 Allergy status to analgesic agent; Z79.899 Other long term (current) drug therapy; Z86.73 Personal history of transient ischemic attack (TIA), and cerebral infarction without residual deficits; Z86.711 Personal history of pulmonary embolism; E11.9 Type 2 diabetes mellitus without complications; I25.2 Old myocardial infarction; Z86.718 Personal history of other venous thrombosis and embolism; Z98.51 Tubal ligation status; J45.909 Unspecified asthma, uncomplicated; Z87.891 Personal history of nicotine dependence; N20.0 Calculus of kidney; Z90.49 Acquired absence of other specified parts of digestive tract; Z82.49 Family history of ischemic heart disease and other diseases of the circulatory system; I25.10 Atherosclerotic heart disease of native coronary artery without angina pectoris
CPT/HCPCS: 36415; 71045; 71275; 74177; 80053; 80307; 81001; 82962; 83690; 83880; 84484; 85025; 85379; 85610; 85730; 87210; 87591; 93005; 93010; 96374; 96375; A9270-GY; J0696; J2270; J2405; J7050; Q9967

== ENCOUNTER 2017-11-25 15:09 | Emergency (ER) | payer SELFPAY ==
[2017-11-25] MEDS ORDERED: ASPIRIN PO ONE (15:26)
[2017-11-25 15:39] LABS: Basophils % (Auto) 0.4 % (0.0-1.8); Eosinophils % (Auto) 0.4 % (0.0-4.3); Hematocrit 37.6 % (30.3-42.9); Hemoglobin 12.1 gm/dl (10.1-14.3); Lymphocytes # (Auto) 1.5 K/mm3 (1.2-5.4); Lymphocytes % (Auto) 27.9 % (13.4-35.0); Mean Corpuscular HGB Conc 32 % (30-34); Monocytes # (Auto) 0.5 K/mm3 (0.0-0.8); Monocytes % (Auto) 9.8 % (0.0-7.3); Platelet Count 210 K/mm3 (140-440); Red Blood Count 5.46 M/mm3 (3.65-5.03)
[2017-11-25 15:53] LABS: BUN/Creatinine Ratio 19; Blood Urea Nitrogen 13 mg/dL (7-17); Calcium 8.6 mg/dL (8.4-10.2); Hemolysis Index 4
[2017-11-25 15:56] LABS: Mean Corpuscular Hemoglobin 22 pg (28-32); Mean Corpuscular Volume 69 fl (79-97); Red Cell Distribution Width 22.3 % (13.2-15.2)
[2017-11-25] MEDS ORDERED: LASIX IV ONE (16:31)
--- NOTE | 2017-11-25 16:31 | Emergency Department Report ---
HPI - General Chief Complaint: Chest Pain Time Seen by Provider: 11/25/17 16:30 - HPI HPI: presents to the ED with chest pain chest pain, onset 1 day prior to evaluation while at rest, Location: mid chest Radiation: none, Severity now (0-10): 2, Severity at worst (0-10): 8 Duration: 5 minutes characterized as: sharp. The pain is relieved with aspirin, Patient denies exertional pain, patient denies pleuritic pain. Patient denies associated symptoms, such as nausea/vomiting, no diaphoresis, no shortness of breath. Patient with history of CHF has been without her Lasix for the past couple of days. Complaining of mild leg swelling, mild shortness of breath. ED Past Medical Hx - Past Medical History Hx Hypertension: Yes Hx CVA: Yes (2014, acute basal ganglia stroke on mri 10/2016) Hx Heart Attack/AMI: Yes Hx Congestive Heart Failure: Yes Hx Diabetes: Yes Hx Deep Vein Thrombosis: Yes Hx Pulmonary Embolism: Yes (January 2015) Hx GERD: No Hx Liver Disease: No Hx Renal Disease: No Hx Sickle Cell Disease: No Hx Arthritis: No Hx Headaches / Migraines: No Hx Seizures: No Hx Kidney Stones: Yes Hx Psychiatric Treatment: No Hx Asthma: Yes Hx COPD: No Hx Tuberculosis: No Hx Dementia: No Hx HIV: No Additional medical history: murmur. blood clot removal from brain, hx of CVA ( june,) - Surgical History Hx Coronary Stent: No Hx Open Heart Surgery: No Hx Pacemaker: No Hx Internal Defibrillator: No Hx Cholecystectomy: Yes Hx Appendectomy: No Hx Breast Surgery: No Additional Surgical History: tubal ligation - Social History Smoking Status: Never Smoker - Medications Home Medications: Home Medications Medication Instructions Recorded Confirmed Last Taken Type Apixaban [Eliquis] 5 mg PO Q12HR #14 tablet 09/03/17 10/25/17 Unknown Rx Clopidogrel [Plavix] 75 mg PO DAILY #30 tablet 09/03/17 10/25/17 Unknown Rx Lovastatin [Altoprev] 40 mg PO QPM #30 tab.er.24h 09/03/17 10/25/17 Unknown Rx Metoprolol [Lopressor TAB] 50 mg PO BID #60 tablet 09/03/17 10/25/17 Unknown Rx metFORMIN [Glucophage] 500 mg PO BIDDIAB #60 tablet 09/03/17 10/25/17 Unknown Rx HYDROcodone/APAP 5-325 [[place] 1 each PO Q4H PRN #30 tablet 09/20/17 10/25/17 Unknown Rx 5-325 mg TAB] Lisinopril [Zestril TAB] 2.5 mg PO QDAY #30 tab 09/20/17 10/25/17 Unknown Rx Apixaban [Eliquis] 10 mg PO Q12HR #60 tablet 10/26/17 Unknown Rx AtorvaSTATin [Lipitor] 40 mg PO QHS tablet 10/26/17 Unknown Rx Clopidogrel [Plavix] 75 mg PO QDAY tablet 10/26/17 Unknown Rx Lisinopril [Zestril TAB] 2.5 mg PO QDAY tablet 10/26/17 Unknown Rx Furosemide [Lasix TAB] 20 mg PO BID #30 day 11/25/17 Unknown Rx ED Review of Systems ROS: Stated complaint: CHEST PAIN Other details as noted in HPI Comment: All other systems reviewed and negative Cardiovascular: chest pain, dyspnea on exertion Gastrointestinal: denies: abdominal pain, nausea, vomiting Physical Exam - Physical Exam Vital Signs: Vital Signs 11/25/17 11/25/17 11/25/17 15:14 16:19 16:20 Temperature 98.6 F 98.4 F Pulse Rate 111 H 105 H Respiratory 18 28 H 28 H Rate Blood Pressure 160/116 Blood Pressure 162/117 [Left] O2 Sat by Pulse 94 99 99 Oximetry Physical Exam: Gen. alert and oriented 3 in no distress Head atraumatic normocephalic Eyes PERR LA EOMI Chest regular rate and rhythm normal S1-S2 lungs clear bilaterally Abdomen soft nondistended Back no point tenderness paravertebral tenderness Neuro no focal deficit. Psych normal mood. Extremity: One plus edema bilaterally Neck vascular: Mild JVD bilaterally, ED Course Vital Signs 11/25/17 11/25/17 11/25/17 15:14 16:19 16:20 Temperature 98.6 F 98.4 F Pulse Rate 111 H 105 H Respiratory 18 28 H 28 H Rate Blood Pressure 160/116 Blood Pressure 162/117 [Left] O2 Sat by Pulse 94 99 99 Oximetry ED Medical Decision Making - Lab Data Result diagrams: 11/25/17 15:29 11/25/17 15:29 Critical care attestation.: If time is entered above; I have spent that time in minutes in the direct care of this critically ill patient, excluding procedure time. ED Disposition Clinical Impression: Chronic systolic (congestive) heart failure Disposition: DC-01 TO HOME OR SELFCARE Is pt being admited?: No Does the pt Need Aspirin: No Condition: Stable Prescriptions: Furosemide [Lasix TAB] 20 mg PO BID #30 day Referrals: PRIMARY CARE, [Primary Care Provider] - 3-5 Days
--- NOTE | 2017-11-25 17:25 | XRay Report ---
FINAL REPORT EXAM: XR CHEST 1V AP HISTORY: chest pain TECHNIQUE: Single portable chest PRIORS: Comparison is dated October 25, 2017 FINDINGS: There is mild cardiac enlargement. No focal pulmonary infiltrate identified. No pleural fluid collection seen. The pulmonary vasculature is unremarkable. IMPRESSION: Mild cardiomegaly No acute pulmonary findings
[2017-11-25 20:29] VITALS: BP 145/94
== END 2017-11-25 20:30 | disposition home or self-care (01) ==
LOC: ED 15:09
DX: I11.0 Hypertensive heart disease with heart failure (principal); I50.9 Heart failure, unspecified; E11.9 Type 2 diabetes mellitus without complications; Z86.73 Personal history of transient ischemic attack (TIA), and cerebral infarction without residual deficits; J45.909 Unspecified asthma, uncomplicated; Z86.711 Personal history of pulmonary embolism; Z90.49 Acquired absence of other specified parts of digestive tract; Z98.51 Tubal ligation status; Z88.6 Allergy status to analgesic agent
CPT/HCPCS: 36415; 71045; 80048; 83880; 84484; 85025; 93005; 93010; 96374; 99284; J1940

== ENCOUNTER 2017-12-06 15:56 | Inpatient (IN) | payer SELFPAY ==
[2017-12-06] MEDS ORDERED: ASPIRIN PO ONE (17:41)
[2017-12-06] MEDS ORDERED: SUBLIMAZE IV ONE (18:11)
[2017-12-06] MEDS ORDERED: NITROSTAT SL PRN (18:11)
[2017-12-06] MEDS ORDERED: LASIX IV ONE (18:11)
--- NOTE | 2017-12-06 18:13 | Emergency Department Report ---
ED General Adult HPI - General Chief complaint: Chest Pain Stated complaint: CHEST PAIN/SOB Time Seen by Provider: 12/06/17 18:01 Source: patient, EMS (ems notes not available at time of chart dictation), RN notes reviewed, old records reviewed Mode of arrival: Wheelchair Limitations: Physical Limitation - History of Present Illness Initial comments: This is a 47-year-old female. The patient has a past medical history of stroke , residual left-sided weakness, DVT, pulmonary embolus, had a cardiac catheterization at this hospital August 2017, which suggested "probable emboli to the distant PDA and LV branch of the RCA with rest of the coronaries being normal and smooth. Dilated left ventricle with hypokinesis, ejection fraction 20-25%." Patient reports that she is not compliant with his systemic anticoagulation, eliquis, and she also reports that she is not able to afford her congestive heart failure medication. She presents to the ER with chest pain, bilateral lower extremity swelling, shortness of mandeep t ath.the symptoms have present for one week. The chest pain radiates to the right arm. It is constant. It does not have exacerbating or relieving factors. There is no hematemesis or bright red blood per rectum. -: Gradual Location: chest, right, upper extremity Quality: aching Consistency: constant Improves with: none Worsens with: none Associated Symptoms: chest pain, malaise, nausea/vomiting, shortness of breath, weakness. denies: confusion, cough, diaphoresis, fever/chills, headaches, loss of appetite, syncope - Related Data Previous Rx's Medication Instructions Recorded Last Taken Type Clopidogrel [Plavix] 75 mg PO DAILY #30 tablet 09/03/17 Unknown Rx Metoprolol [Lopressor TAB] 50 mg PO BID #60 tablet 09/03/17 Unknown Rx metFORMIN [Glucophage] 500 mg PO BIDDIAB #60 tablet 09/03/17 Unknown Rx Apixaban [Eliquis] 10 mg PO Q12HR #60 tablet 10/26/17 Unknown Rx AtorvaSTATin [Lipitor] 40 mg PO QHS tablet 10/26/17 Unknown Rx Lisinopril [Zestril TAB] 2.5 mg PO QDAY tablet 10/26/17 Unknown Rx Furosemide [Lasix TAB] 20 mg PO BID #30 day 11/25/17 Unknown Rx Allergies Allergy/AdvReac Type Severity Reaction Status Date / Time aspirin Allergy Swelling Verified 01/01/17 15:09 ED Review of Systems ROS: Stated complaint: CHEST PAIN/SOB Other details as noted in HPI Comment: All other systems reviewed and negative ED Past Medical Hx - Past Medical History Hx Hypertension: Yes Hx CVA: Yes (2014, acute basal ganglia stroke on mri 10/2016) Hx Heart Attack/AMI: Yes Hx Congestive Heart Failure: Yes Hx Diabetes: Yes Hx Deep Vein Thrombosis: Yes Hx Pulmonary Embolism: Yes (January 2015) Hx GERD: No Hx Liver Disease: No Hx Renal Disease: No Hx Sickle Cell Disease: No Hx Arthritis: No Hx Headaches / Migraines: No Hx Seizures: No Hx Kidney Stones: Yes Hx Psychiatric Treatment: No Hx Asthma: Yes Hx COPD: No Hx Tuberculosis: No Hx Dementia: No Hx HIV: No Additional medical history: murmur. blood clot removal from brain, hx of CVA ( june,) - Surgical History Hx Coronary Stent: No Hx Open Heart Surgery: No Hx Pacemaker: No Hx Internal Defibrillator: No Hx Cholecystectomy: Yes Hx Appendectomy: No Hx Breast Surgery: No Additional Surgical History: tubal ligation - Social History Smoking Status: Never Smoker Substance Use Type: None - Medications Home Medications: Home Medications Medication Instructions Recorded Confirmed Last Taken Type Clopidogrel [Plavix] 75 mg PO DAILY #30 tablet 09/03/17 12/06/17 Unknown Rx Metoprolol [Lopressor TAB] 50 mg PO BID #60 tablet 09/03/17 12/06/17 Unknown Rx metFORMIN [Glucophage] 500 mg PO BIDDIAB #60 tablet 09/03/17 12/06/17 Unknown Rx Apixaban [Eliquis] 10 mg PO Q12HR #60 tablet 10/26/17 12/06/17 Unknown Rx AtorvaSTATin [Lipitor] 40 mg PO QHS tablet 10/26/17 12/06/17 Unknown Rx Lisinopril [Zestril TAB] 2.5 mg PO QDAY tablet 10/26/17 12/06/17 Unknown Rx Furosemide [Lasix TAB] 20 mg PO BID #30 day 11/25/17 12/06/17 Unknown Rx ED Physical Exam - General Limitations: Physical Limitation General appearance: alert, in no apparent distress - Head Head exam: Present: atraumatic, normocephalic - Eye Eye exam: Present: normal appearance, EOMI. Absent: nystagmus - ENT ENT exam: Present: normal exam, normal orophraynx, mucous membranes moist, normal external ear exam - Neck Neck exam: Present: normal inspection, full ROM - Respiratory Respiratory exam: Present: decreased breath sounds. Absent: respiratory distress - Cardiovascular Cardiovascular Exam: Present: normal rhythm, tachycardia, normal heart sounds. Absent: systolic murmur, diastolic murmur, rubs, gallop - GI/Abdominal GI/Abdominal exam: Present: soft, distended, tenderness, normal bowel sounds, other (diffuse anasarca is noted in the abdominal wall). Absent: guarding, rebound, rigid, pulsatile mass - Extremities Exam Extremities exam: Present: normal inspection, full ROM (intact range of motion right upper extremity, right lower extremity. Chronically decreased range of motion left upper, left lower secondary to stroke), normal capillary refill, pedal edema, calf tenderness, other (there is 3+ pitting edema in the bilateral lower extremities. The compartments are soft. 2+ pulses noted in the bilateral upper and lower extremities.) - Back Exam Back exam: Present: normal inspection, full ROM. Absent: paraspinal tenderness , vertebral tenderness - Neurological Exam Neurological exam: Present: alert, oriented X3, motor sensory deficit (chronic weakness, 3 out of 5 strength left upper, left lower extremity) - Psychiatric Psychiatric exam: Present: anxious - Skin Skin exam: Present: warm, dry, intact, normal color. Absent: rash ED Course Vital Signs 12/06/17 12/06/17 17:23 18:41 Temperature 97.5 F L Pulse Rate 110 H Respiratory 26 H 19 Rate Blood Pressure 142/104 O2 Sat by Pulse 100 100 Oximetry - Reevaluation(s) Reevaluation #1: 12/06/17 19:43 The Hospital physician, Dr. Blevins accepts the patient to the medical service ED Medical Decision Making - Lab Data Result diagrams: 12/06/17 18:01 12/06/17 18:01 Vital Signs 12/06/17 17:23 Temperature 97.5 F L Pulse Rate 110 H Respiratory 26 H Rate Blood Pressure 142/104 O2 Sat by Pulse 100 Oximetry Lab Results 12/06/17 12/06/17 12/06/17 Range/Units 18:01 18:01 18:01 WBC 5.5 (4.5-11.0) K/mm3 RBC 4.97 (3.65-5.03) M/mm3 Hgb 10.7 (10.1-14.3) gm/dl Hct 33.9 (30.3-42.9) % MCV 68 L (79-97) fl MCH 22 L (28-32) pg MCHC 32 (30-34) % RDW 22.8 H (13.2-15.2) % Plt Count 242 (140-440) K/mm3 Lymph % (Auto) 29.2 (13.4-35.0) % [place] % (Auto) 11.2 H (0.0-7.3) % Eos % (Auto) 0.4 (0.0-4.3) % Baso % (Auto) 0.4 (0.0-1.8) % Lymph # 1.6 (1.2-5.4) K/mm3 [place] # 0.6 (0.0-0.8) K/mm3 Eos # 0.0 (0.0-0.4) K/mm3 Baso # 0.0 (0.0-0.1) K/mm3 Seg Neutrophils % 58.8 (40.0-70.0) % Seg Neutrophils # 3.2 (1.8-7.7) K/mm3 PT (12.2-14.9) Sec. INR (0.87-1.13) APTT (24.2-36.6) Sec. Sodium 137 (137-145) mmol/L Potassium 4.2 (3.6-5.0) mmol/L Chloride 100.0 (98-107) mmol/L Carbon Dioxide 24 (22-30) mmol/L Anion Gap 17 mmol/L BUN 15 (7-17) mg/dL Creatinine 0.7 (0.7-1.2) mg/dL Estimated GFR > 60 ml/min BUN/Creatinine Ratio 21 % Glucose 89 (65-100) mg/dL Calcium 8.6 (8.4-10.2) mg/dL Troponin T < 0.010 (0.00-0.029) ng/mL NT-Pro-B Natriuret Pep 2176 H (0-450) pg/mL 12/06/17 Range/Units 18:16 WBC (4.5-11.0) K/mm3 RBC (3.65-5.03) M/mm3 Hgb (10.1-14.3) gm/dl Hct (30.3-42.9) % MCV (79-97) fl MCH (28-32) pg MCHC (30-34) % RDW (13.2-15.2) % Plt Count (140-440) K/mm3 Lymph % (Auto) (13.4-35.0) % [place] % (Auto) (0.0-7.3) % Eos % (Auto) (0.0-4.3) % Baso % (Auto) (0.0-1.8) % Lymph # (1.2-5.4) K/mm3 [place] # (0.0-0.8) K/mm3 Eos # (0.0-0.4) K/mm3 Baso # (0.0-0.1) K/mm3 Seg Neutrophils % (40.0-70.0) % Seg Neutrophils # (1.8-7.7) K/mm3 PT 20.3 H (12.2-14.9) Sec. INR 1.63 H (0.87-1.13) APTT 34.4 (24.2-36.6) Sec. Sodium (137-145) mmol/L Potassium (3.6-5.0) mmol/L Chloride (98-107) mmol/L Carbon Dioxide (22-30) mmol/L Anion Gap mmol/L BUN (7-17) mg/dL Creatinine (0.7-1.2) mg/dL Estimated GFR ml/min BUN/Creatinine Ratio % Glucose (65-100) mg/dL Calcium (8.4-10.2) mg/dL Troponin T (0.00-0.029) ng/mL NT-Pro-B Natriuret Pep (0-450) pg/mL - EKG Data -: EKG Interpreted by Me Rate: tachycardia - EKG Data When compared to previous EKG there are: no significant change 12/06/17 19:03 Normal sinus tachycardia, 107 bpm, normal axis, borderline intervals, low voltage, poor R-wave progression, not consistent with STEMI, appears unchanged from prior EKG from 11/25/2017. - Radiology Data Radiology results: pending, image reviewed interpreted by me: X-ray the chest: No acute disease, cardiomegaly, possible mild pulmonary vascular congestion - Medical Decision Making Differential diagnosis, including but not limited to: Congestive heart failure, pulmonary embolus, acute coronary syndrome, volume overload Assessment and plan: 47-year-old female who is reportedly noncompliant with her anticoagulation, moderate risk by well's criteria given poor mobility, recent hospital admissions, will be empirically started on Lovenox and Lasix. She is allergic to aspirin and will therefore be given Plavix. Has mar signs of congestive heart failure and volume overload, including lower extremity edema and abdominal anasarca. She is saturating well protecting her airway does not require BiPAP therapy, I appreciated that the patient has recently had 2 negative CAT scans of her chest , but given the aforementioned historical findings, poor compliance, poor outpatient follow-up, we will obtain CT scan of the chest. Patient will require admission. Critical care attestation.: If time is entered above; I have spent that time in minutes in the direct care of this critically ill patient, excluding procedure time. ED Disposition Clinical Impression: Shortness of breath, Chest pain, Non-compliant behavior, Cardiomyopathy, Noncompliance w/medication treatment due to intermit use of medication, Nonischemic cardiomyopathy, Anasarca, CHF exacerbation Disposition: OP ADMIT IP TO THIS HOSP Is pt being admited?: Yes Condition: Fair Instructions: Chest Pain (ED)
[2017-12-06 18:26] LABS: Basophils % (Auto) 0.4 % (0.0-1.8); Eosinophils % (Auto) 0.4 % (0.0-4.3); Hematocrit 33.9 % (30.3-42.9); Hemoglobin 10.7 gm/dl (10.1-14.3); Lymphocytes # (Auto) 1.6 K/mm3 (1.2-5.4); Lymphocytes % (Auto) 29.2 % (13.4-35.0); Mean Corpuscular HGB Conc 32 % (30-34); Monocytes # (Auto) 0.6 K/mm3 (0.0-0.8); Monocytes % (Auto) 11.2 % (0.0-7.3); Platelet Count 242 K/mm3 (140-440); Red Blood Count 4.97 M/mm3 (3.65-5.03)
[2017-12-06 18:29] LABS: Mean Corpuscular Hemoglobin 22 pg (28-32); Mean Corpuscular Volume 68 fl (79-97); Red Cell Distribution Width 22.8 % (13.2-15.2)
[2017-12-06 18:37] LABS: INR 1.63 (0.87-1.13)
[2017-12-06 18:38] LABS: Partial Thromboplastin Time 34.4 Sec. (24.2-36.6)
[2017-12-06 18:49] LABS: BUN/Creatinine Ratio 21; Blood Urea Nitrogen 15 mg/dL (7-17); Calcium 8.6 mg/dL (8.4-10.2); Hemolysis Index 2
[2017-12-06] MEDS ORDERED: PLAVIX PO ONE (19:05)
[2017-12-06] MEDS ORDERED: LOVENOX SUB-Q ONE ×2 (19:05→20:13)
--- NOTE | 2017-12-06 20:07 | XRay Report ---
FINAL REPORT PROCEDURE: XR CHEST 1V AP TECHNIQUE: Chest radiograph anteroposterior view. CPT 54369 HISTORY: Chest pain COMPARISON: 11/25/2017 FINDINGS: Heart: Prominent cardiac silhouette Mediastinum/Vessels: Normal. Lungs/Pleural space: No infiltrate, effusion, or pneumothorax. Bony thorax: No acute osseous abnormality. Life support devices: None. IMPRESSION: Prominent cardiac silhouette. No pulmonary infiltrates are seen
[2017-12-06] MEDS ORDERED: PLAVIX ONE (20:13)
--- NOTE | 2017-12-06 20:54 | Cat Scan Report ---
FINAL REPORT EXAM: CT ANGIO CHEST HISTORY: cp sob TECHNIQUE: CT chest CT angiogram with reconstructions PRIORS: None. FINDINGS: There is no evidence of filling defect within the central pulmonary vasculature to suggest the presence of acute pulmonary embolus. No evidence of mediastinal pathologic lymph node enlargement There is reflux of contrast into the IVC and hepatic veins suggestive of right heart failure. There are small to moderate layering bilateral pleural effusions There is marked ascites seen in the visualized portion of the upper abdomen. IMPRESSION: Negative. No CT evidence of acute pulmonary embolus Bilateral pleural effusions Findings suggestive right heart failure Ascites seen in the visualized upper abdomen
[2017-12-06] MEDS ORDERED: ZOFRAN IV PRN (22:00)
[2017-12-07 00:42] LABS: Creatine Kinase MB 1.6 ng/mL (0.0-4.0)
[2017-12-07] MEDS ORDERED: APRESOLINE IV ONE (01:18)
[2017-12-07] MEDS: NITRO-BID 2% TP SCH ×4 (06:30→18:58)
[2017-12-07 07:13] LABS: Creatine Kinase MB 1.4 ng/mL (0.0-4.0)
[2017-12-07] MEDS ORDERED: MOTRIN PO PRN (08:54)
--- NOTE | 2017-12-07 09:10 | History and Physical Report ---
CHIEF COMPLAINT: Chest pain and increased shortness of breath. HISTORY OF PRESENT ILLNESS: The patient is a 47-year-old female with past history of cerebrovascular accident with left-sided weakness, pulmonary embolism, and DVT who presented with chest pain that was affecting the precordial area radiating to the right. There was also a history of associated shortness of breath. The patient also reported this in association with nausea and vomiting, but denied history of cough, denied history of fever and chills. Also the patient noted that abdomen is swollen and also reported swelling in the ankle and was evaluated in the Emergency Room. PAST MEDICAL HISTORY: Pertinent for hypertension, cerebrovascular accident, coronary artery disease status post myocardial infarction, congestive heart failure, diabetes mellitus, deep vein thrombosis, pulmonary embolism. Also the patient has past history of kidney stones, asthma, heart murmur. PAST SURGICAL HISTORY: Pertinent for cholecystectomy, tubal ligation, and clot removal from the brain. FAMILY HISTORY: Noncontributory. SOCIAL HISTORY: The patient does not smoke, does not drink alcohol, and does not use illicit drugs. MEDICATIONS: The patient is on Plavix 75 mg by mouth daily, metoprolol 50 mg by mouth twice daily, metformin 500 mg by mouth twice daily, apixaban or Eliquis 10 mg by mouth twice daily, atorvastatin or Lipitor 40 mg by mouth at bedtime, lisinopril 2.5 mg by mouth daily, and furosemide or Lasix 20 mg by mouth twice daily. ALLERGIES: The patient is allergic to ASPIRIN. REVIEW OF SYSTEMS: CONSTITUTIONAL: There is no fever, no chills, no diaphoresis. HEENT: There is no headache or sore throat. CARDIOVASCULAR: Chest pain present no orthopnea. RESPIRATORY: Shortness of breath present. There is cough. GASTROINTESTINAL: Abdominal swelling noted. There is no nausea, no vomiting, no diarrhea or constipation. NEUROLOGICAL: There is no numbness, no dizziness, no altered mental status. MUSCULOSKELETAL: There is no joint pain or swelling. DERMATOLOGICAL: There is no skin rash or itching. GENITOURINARY: There is no dysuria, hematuria, or flank pain. Rest of system review is normal. PHYSICAL EXAMINATION: GENERAL: At the time of exam, the patient was found to be alert, oriented x 3, not in acute distress. VITAL SIGNS: Show temperature of 97.6 degrees Fahrenheit, pulse of 104, respiration 18, blood pressure 150/110, O2 sat of 100% on room air. HEENT: Shows pupils to be equal, round, and reactive to light and accommodation. Extraocular muscles are intact. NECK: Supple with no JVD or carotid bruit. CARDIOVASCULAR SYSTEM: Shows first and second heart sounds with no gallops or murmur. RESPIRATORY SYSTEM: Shows good air entry on both sides of the lungs with bibasilar rales. GASTROINTESTINAL SYSTEM: Shows abdomen to be large, nontender with no organomegaly. This is in the presence of fluid noted in the abdomen. NEUROLOGICAL SYSTEM: Shows no focal deficit. MUSCULOSKELETAL SYSTEM: Shows ankle swelling. DERMATOLOGICAL SYSTEM: Shows no skin rash. GENITOURINARY SYSTEM: Showing no costovertebral angle tenderness. PERTINENT LABORATORY AND IMAGING STUDIES: The patient has CBC done with normal white count, normal hemoglobin, and normal hematocrit with low MCV of 68. CBC with differential was unremarkable. Coagulation studies show elevated INR of 1.6 and high PT of 20.3. The patient's chemistry was unremarkable except for elevated brain natriuretic peptide of 2176. Troponin level came back normal. The patient's EKG did not show any acute STT findings. The patient had CT angiogram of the chest done that shows no CT evidence of acute pulmonary embolism. There is finding of bilateral pleural effusion and finding suggestive of right heart failure with ascites seen in the upper abdomen. Also, the patient had a chest x-ray done that shows prominent to cardiac silhouette with no pulmonary infiltrates seen. DIAGNOSES: 1. Chest pain. 2. Congestive heart failure exacerbation. 3. Ascites. PLAN: The patient will be admitted to medical floor on telemetry. We have complete echocardiogram done in the morning. The patient will have Cardiology consult with Dr. Montano. She will remain n.p.o. for possible intervention by the Cardiology. The patient will have cardiac enzymes involving troponin, total CK and CK-MB, check q. 6 hours x 2 more levels and will be on Tylenol 650 mg by mouth every 4 hours for fever and headache and will be on IV Lasix 40 mg daily for treatment of congestive heart failure as well as ascites. The patient will be on IV morphine 2 mg every 3 hours as needed for pain and will be nitro paste 1 inch at bedtime or q.i.d. as well as sublingual nitroglycerin 0.4 mg every 5 minutes as needed for breakthrough chest pain. The patient will be on IV Zofran 4 mg every 6 hours as needed for nausea and vomiting and will be on oxygen via nasal cannula 2 liters per minute. The patient will have Lexiscan stress test done in the morning because of chest pain and when the patient starts taking orally, will be placed back on home medications that include apixaban, atorvastatin, clopidogrel, lisinopril, metformin, and metoprolol. [facility]# [id number] OCN/NTS
--- NOTE | 2017-12-07 09:22 | Progress Note ---
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: Commence iv diuresis, ACEI, BB - Dilated NICMP - EF 25-30%; on 10/26/17 - Elevated troponin - flat and decreased from most recent set on last admission - H/o STEMI 09/02/2017 - secondary to small emboli in the PDA and LV branch of the RCA with rest of coronaries being normal, - H/o CVA in 06/2015 with history of blood clot removal from the brain - H/o PE - DM - ASA allergy - NSVT - Mod AR / Mod MR / Mod to severe TR, - Mild pulm HTN with RVSP 40mmHg - H/o noncompliance with OP follow up and medication regimen - DVT prophylaxis: Lovenox Subjective Date of service: 12/07/17 Principal diagnosis: chest pain, SOB Interval history: Pt seen and examined. Still having shortness of breath. Denies any fever. Reviewed laboratory and radiological data Objective - Constitutional Vitals: Vital Signs - 12hr 12/06/17 12/06/17 12/06/17 21:28 22:00 23:43 Temperature 97.6 F Pulse Rate 104 H 104 H Respiratory 22 22 18 Rate Blood Pressure 150/110 Blood Pressure [Left] O2 Sat by Pulse 100 100 Oximetry 12/07/17 12/07/17 12/07/17 00:51 04:33 05:31 Temperature 98.3 F Pulse Rate 109 H 100 H 104 H Respiratory 22 18 Rate Blood Pressure 138/100 Blood Pressure 150/107 [Left] O2 Sat by Pulse 99 Oximetry General appearance: Present: no acute distress, well-nourished - EENT Eyes: PERRL, EOM intact - Neck Neck: supple, normal ROM - Respiratory Respiratory effort: normal Respiratory: bilateral: CTA - Cardiovascular Rhythm: regular Heart Sounds: Present: S1 & S2. Absent: gallop, rub Extremities: pulses intact, No edema, normal color, Full ROM - Gastrointestinal General gastrointestinal: Present: soft, non-tender, non-distended, normal bowel sounds - Integumentary Integumentary: clear, warm, dry - Musculoskeletal Musculoskeletal: 1, strength equal bilaterally - Neurologic Neurologic: moves all extremities - Psychiatric Psychiatric: memory intact, appropriate mood/affect, intact judgment & insight - Labs CBC & Chem 7: 12/06/17 18:01 12/06/17 18:01 Labs: Abnormal lab results 12/06/17 12/06/17 12/06/17 Range/Units 18:01 18:01 18:16 MCV 68 L (79-97) fl MCH 22 L (28-32) pg RDW 22.8 H (13.2-15.2) % [place] % (Auto) 11.2 H (0.0-7.3) % PT 20.3 H (12.2-14.9) Sec. INR 1.63 H (0.87-1.13) POC Glucose (70-105) NT-Pro-B Natriuret Pep 2176 H (0-450) pg/mL 12/06/17 Range/Units 23:09 MCV (79-97) fl MCH (28-32) pg RDW (13.2-15.2) % [place] % (Auto) (0.0-7.3) % PT (12.2-14.9) Sec. INR (0.87-1.13) POC Glucose 149 H (70-105) NT-Pro-B Natriuret Pep (0-450) pg/mL
[2017-12-07] MEDS: LASIX IV SCH (10:00)
[2017-12-07] MEDS: COREG PO SCH ×2 (11:26→21:55)
--- NOTE | 2017-12-07 14:20 | Consultation ---
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 She has been seen by our practice on prior hospitalization but has not been compliant with OP follow up. She presented with c/o chest pain, SOB, orthopnea, BLE swelling and abdominal swelling for one week prior to arrival. She describes her chest pain as an intermittent, nonexertional, nonradiating sharp pain.Pt denies any chest pain on evaluation. She denies any palpitations, n/v, diaphoresis, dizziness or syncope. She admits that she has not been compliant with her Eliquis or HF medications. Echo done 08/2017 showed EF 25-30%, severe global hypokinesis of LV, restrictive filling pattern, LA mod to severely dilated, RV mild to mod dilated , RV systolic function mod reduced, mod AR, mod MR, mod to severe TR, mild pulm HTN with RVSP 40mmHg, minimal pericardial effusion, bilat pleural effusion, mild dilatation of ascending aorta. Pt with h/o STEMI 09/02/2017 - secondary to small emboli in the PDA and LV branch of the RCA with rest of coronaries being normal, s/p LHC with attempt to do balloon angioplasty with partial success, SAMANTA 3 flow at end of procedure , no thrombectomy due to small caliber vessels. Past History Past Medical History: acute RI, CAD, diabetes, heart failure, pulmonary embolism , stroke, other (embolic disease) Medications and Allergies Allergies Allergy/AdvReac Type Severity Reaction Status Date / Time aspirin Allergy Swelling Verified 01/01/17 15:09 Home Medications Medication Instructions Recorded Confirmed Last Taken Type Clopidogrel [Plavix] 75 mg PO DAILY #30 tablet 09/03/17 12/06/17 Unknown Rx Metoprolol [Lopressor TAB] 50 mg PO BID #60 tablet 09/03/17 12/06/17 Unknown Rx metFORMIN [Glucophage] 500 mg PO BIDDIAB #60 tablet 09/03/17 12/06/17 Unknown Rx Apixaban [Eliquis] 10 mg PO Q12HR #60 tablet 10/26/17 12/06/17 Unknown Rx AtorvaSTATin [Lipitor] 40 mg PO QHS tablet 10/26/17 12/06/17 Unknown Rx Lisinopril [Zestril TAB] 2.5 mg PO QDAY tablet 10/26/17 12/06/17 Unknown Rx Furosemide [Lasix TAB] 20 mg PO BID #30 day 11/25/17 12/06/17 Unknown Rx Active Meds: Active Medications Acetaminophen (Tylenol) 650 mg PO Q4H PRN PRN Reason: For Pain/Fever/Headache Carvedilol (Coreg) 12.5 mg PO BID [facility] Last Admin: 12/07/17 11:26 Dose: 12.5 mg Furosemide (Lasix) 40 mg IV QDAY [facility] Last Admin: 12/07/17 10:00 Dose: 40 mg Ibuprofen (Motrin) 600 mg PO Q8H PRN PRN Reason: Pain, Mild (1-3) Last Admin: 12/07/17 11:08 Dose: 600 mg Morphine Sulfate (Morphine) 2 mg IV Q3H PRN PRN Reason: Pain, Moderate (4-6) Nitroglycerin (Nitrostat) 0.4 mg SL .Q5MIN PRN PRN Reason: Chest Pain Nitroglycerin (Nitro-Bid 2%) 1 inch TP QIDNTG [facility]; Protocol Last Admin: 12/07/17 11:30 Dose: 1 inch Ondansetron HCl (Zofran) 4 mg IV Q6H PRN PRN Reason: Nausea And Vomiting Review of Systems Constitutional: no fever, no chills Ears, nose, mouth and throat: no ear pain, no nose pain Cardiovascular: chest pain, orthopnea, edema, shortness of breath, dyspnea on exertion, paroxysmal nocturnal dyspnea, leg edema, decreased exercise tolerance , no palpitations, no rapid/irregular heart beat, no syncope, no lightheadedness Respiratory: shortness of breath, dyspnea on exertion, no cough, no congestion, no wheezing, no pain on inspiration Gastrointestinal: other (abdominal swelling ), no nausea, no vomiting, no diarrhea, no constipation, no change in bowel habits Genitourinary Female: no pelvic pain, no flank pain, no dysuria, no urinary frequency, no urgency Musculoskeletal: no neck stiffness, no neck pain, no shooting arm pain, no arm numbness/tingling, no low back pain, no shooting leg pain, no leg numbness/ tingling, no redness of joints Integumentary: no rash, no pruritis, no redness, no sores, no wounds Neurological: no head injury, no paralysis, no weakness, no parathesias, no numbness, no tingling, no seizures, no syncope Psychiatric: no anxiety Endocrine: no cold intolerance, no heat intolerance Hematologic/Lymphatic: no easy bruising, no easy bleeding, no lymphadenopathy Allergic/Immunologic: no urticaria, no wheezing, no persistent infections Physical Examination Vital Signs Temp Pulse Resp BP Pulse Ox 97.5 F L 110 H 26 H 142/104 100 12/06/17 17:23 12/06/17 17:23 12/06/17 17:23 12/06/17 17:23 12/06/17 17:23 General appearance: no acute distress HEENT: Positive: PERRL, Normocephaly, Mucus Membranes Moist Cardiac: Positive: Reg Rate and Rhythm, S1/S2, Systolic Murmur Lungs: Positive: Decreased Breath Sounds Neuro: Positive: Grossly Intact Abdomen: Positive: Ascites Skin: Negative: Rash Musculoskeletal: No Pain, Normal Range of Motion Extremities: Present: +1 Edema (BLE ) Results 12/06/17 18:01 12/06/17 18:01 Cardiac Enzymes 12/06/17 12/07/17 Range/Units 23:21 06:35 CK-MB (CK-2) 1.6 1.4 (0.0-4.0) ng/mL Coagulation 12/06/17 Range/Units 18:16 PT 20.3 H (12.2-14.9) Sec. INR 1.63 H (0.87-1.13) APTT 34.4 (24.2-36.6) Sec. CBC 12/06/17 Range/Units 18:01 WBC 5.5 (4.5-11.0) K/mm3 RBC 4.97 (3.65-5.03) M/mm3 Hgb 10.7 (10.1-14.3) gm/dl Hct 33.9 (30.3-42.9) % Plt Count 242 (140-440) K/mm3 Lymph # 1.6 (1.2-5.4) K/mm3 [place] # 0.6 (0.0-0.8) K/mm3 Eos # 0.0 (0.0-0.4) K/mm3 Baso # 0.0 (0.0-0.1) K/mm3 Comprehensive Metabolic Panel 12/06/17 Range/Units 18:01 Sodium 137 (137-145) mmol/L Potassium 4.2 (3.6-5.0) mmol/L Chloride 100.0 (98-107) mmol/L Carbon Dioxide 24 (22-30) mmol/L BUN 15 (7-17) mg/dL Creatinine 0.7 (0.7-1.2) mg/dL Glucose 89 (65-100) mg/dL Calcium 8.6 (8.4-10.2) mg/dL - Imaging and Cardiology Echo: report reviewed (08/2017 showed EF 25-30%, severe global hypokinesis of LV , restrictive filling pattern, LA mod to severely dilated, RV mild to mod dilated, RV systolic function mod reduced, mod AR, mod MR, mod to severe TR, mild pulm HTN with RVSP 40mmHg, minimal pericardial effusion, bilat pleural effusion, mild dilatation of ascending aorta. ) Cardiac cath: report reviewed (h/o STEMI 09/02/2017 - secondary to small emboli in the PDA and LV branch of the RCA with rest of coronaries being normal, s/p LHC with attempt to do balloon angioplasty with partial success, SAMANTA 3 flow at end of procedure, no thrombectomy due to small caliber vessels. 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 H/o CVA in 06/2015 with history of blood clot removal from the brain H/o PE & DVT Embolic disease Ascites - abdomen/pelvis CT 10/2017 showed moderate ascites with fatty infiltration of liver DM ASA allergy NSVT Mod AR / Mod MR / Mod to severe TR, Mild pulm HTN with RVSP 40mmHg H/o noncompliance with OP follow up and medication regimen Plan: Recommended in view of negative cardiac enzymes and no EKG changes and patient is currently chest pain-free will continue medical therapy, including Plavix, lipitor, coreg, lisinopril, IV lasix, aldactone. No ASA in setting of true ASA allergy. Also, recommend continuation of Eliquis per primary. Pt with significant amount of ascites which may be contributing to her symptoms. Consider GI consultation per primary. The patient has been seen in conjunction with Dr. Gonzales who agrees with the assessment and plan of care.
[2017-12-07] MEDS: TYLENOL PO PRN (18:46)
[2017-12-08] MEDS: TYLENOL PO PRN ×2 (00:18→16:55)
[2017-12-08] MEDS: NITRO-BID 2% TP SCH ×4 (06:30→18:13)
--- NOTE | 2017-12-08 08:40 | Progress Note ---
Assessment and Plan - Chest pain, atypical - ECG with no acute ischemic changes. We'll continue with aspirin, beta blockers, acei and nitroglycerin. - Acute combined systolic and diastolic biventricular heart failure: Commence iv diuresis, ACEI, BB - Dilated NICMP - EF 25-30%; on 10/26/17 Strict input and output charts, daily weights , John, beta blockers, fluid restriction to 1.5 L per day. - Elevated troponin - flat and decreased from most recent set on last admission - H/o STEMI 09/02/2017 - secondary to small emboli in the PDA and LV branch of the RCA with rest of coronaries being normal, - H/o CVA in 06/2015 with history of blood clot removal from the brain - H/o PE - DM - ASA allergy - NSVT - Mod AR / Mod MR / Mod to severe TR, - Mild pulm HTN with RVSP 40mmHg - H/o noncompliance with OP follow up and medication regimen - DVT prophylaxis: Lovenox Disposition: We'll continue with IV diuresis, reevaluate tomorrow with a chest x -ray I specifically have a shortness of breath. If symptoms and clinically patient improved with discharge tomorrow. Discussed extensively with the patient 's niece and sister regarding compliance with electrophysiological level elevation for AICD placement on discharge. Subjective Date of service: 12/08/17 Principal diagnosis: chest pain, SOB Interval history: Pt seen and examined. Still having shortness of breath. Denies any fever. Reviewed laboratory and radiological data. Discussed with pt's Niece in the room Objective - Constitutional Vitals: Vital Signs - 12hr 12/07/17 12/07/17 12/08/17 21:55 22:00 00:13 Temperature 97.4 F L Pulse Rate 85 72 Pulse Rate [ 69 Right Dorsalis Pedis] Respiratory 18 22 Rate Respiratory 18 Rate [Chest] Blood Pressure 132/85 127/90 O2 Sat by Pulse 97 99 Oximetry 12/08/17 12/08/17 12/08/17 00:18 01:18 04:00 Temperature Pulse Rate 88 Pulse Rate [ Right Dorsalis Pedis] Respiratory 17 18 Rate Respiratory Rate [Chest] Blood Pressure O2 Sat by Pulse Oximetry 12/08/17 12/08/17 04:51 07:24 Temperature 97.5 F L 97.8 F Pulse Rate 68 71 Pulse Rate [ Right Dorsalis Pedis] Respiratory 20 19 Rate Respiratory Rate [Chest] Blood Pressure 110/74 128/92 O2 Sat by Pulse 99 95 Oximetry General appearance: Present: no acute distress, well-nourished - EENT Eyes: PERRL, EOM intact Ears: bilateral: normal - Neck Neck: supple, normal ROM - Respiratory Respiratory effort: normal Respiratory: bilateral: diminished - Cardiovascular Rhythm: regular Heart Sounds: Present: S1 & S2. Absent: gallop, rub Extremities: pulses intact, No edema, normal color, Full ROM - Gastrointestinal General gastrointestinal: Present: soft, non-tender, non-distended, normal bowel sounds - Integumentary Integumentary: clear, warm, dry - Musculoskeletal Musculoskeletal: 1, strength equal bilaterally - Neurologic Neurologic: moves all extremities - Psychiatric Psychiatric: appropriate mood/affect, intact judgment & insight - Labs CBC & Chem 7: 12/06/17 18:01 12/08/17 10:15 Labs: Abnormal lab results 12/07/17 Range/Units 21:50 POC Glucose 113 H (70-105)
[2017-12-08] MEDS: LASIX IV SCH (10:43)
[2017-12-08] MEDS: PLAVIX PO SCH (10:44)
[2017-12-08] MEDS: COREG PO SCH ×2 (10:44→22:10)
[2017-12-08] MEDS: ALDACTONE PO SCH (10:44)
[2017-12-08] MEDS: ZESTRIL PO SCH (10:45)
--- NOTE | 2017-12-08 10:52 | Progress Note ---
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 H/o CVA in 06/2015 with history of blood clot removal from the brain H/o PE & DVT Embolic disease Ascites - abdomen/pelvis CT 10/2017 showed moderate ascites with fatty infiltration of liver DM ASA allergy NSVT Mod AR / Mod MR / Mod to severe TR, Mild pulm HTN with RVSP 40mmHg H/o noncompliance with OP follow up and medication regimen Plan: Recommended in view of negative cardiac enzymes and no EKG changes and patient is currently chest pain-free will continue medical therapy, including Plavix, lipitor, coreg, lisinopril, IV lasix, aldactone. No ASA in setting of true ASA allergy. Also, recommend continuation of Eliquis per primary. Pt with significant amount of ascites which may be contributing to her symptoms. Consider GI consultation per primary. The patient has been seen in conjunction with Dr. Gonzales who agrees with the assessment and plan of care. Subjective Date of service: 12/08/17 Principal diagnosis: chest pain, SOB Interval history: pt sleeping, easily awakened. no complaints of cp. still c/o SOB and abdominal distention. Objective Last Vital Signs Temp 97.8 F 12/08/17 09:29 Pulse 75 12/08/17 09:29 Resp 19 12/08/17 09:29 BP 128/92 12/08/17 09:29 Pulse Ox 91 12/08/17 09:29 - Physical Examination General: No Apparent Distress HEENT: Positive: PERRL, Normocephaly, Mucus Membranes Moist Cardiac: Positive: Reg Rate and Rhythm, S1/S2 Lungs: Positive: Decreased Breath Sounds Neuro: Positive: Grossly Intact Abdomen: Positive: Ascites Skin: Negative: Rash Musculoskeletal: No Pain, Normal Range of Motion Extremities: Present: +1 Edema (BLE ) - Imaging and Cardiology EKG: report reviewed, image reviewed Echo: report reviewed (08/2017 showed EF 25-30%, severe global hypokinesis of LV , restrictive filling pattern, LA mod to severely dilated, RV mild to mod dilated, RV systolic function mod reduced, mod AR, mod MR, mod to severe TR, mild pulm HTN with RVSP 40mmHg, minimal pericardial effusion, bilat pleural effusion, mild dilatation of ascending aorta. ) Cardiac cath: report reviewed (h/o STEMI 09/02/2017 - secondary to small emboli in the PDA and LV branch of the RCA with rest of coronaries being normal, s/p LHC with attempt to do balloon angioplasty with partial success, SAMANTA 3 flow at end of procedure, no thrombectomy due to small caliber vessels. ) - Telemetry EKG Rhythm: Sinus Rhythm - EKG Sinus rhythms and dysrhythmias: sinus tachycardia Repolarization changes or abnormalities: nonspecific abnormality, ST segment, and/or T wave
[2017-12-08 10:54] LABS: BUN/Creatinine Ratio 25; Blood Urea Nitrogen 15 mg/dL (7-17); Calcium 8.2 mg/dL (8.4-10.2); Hemolysis Index 97
--- NOTE | 2017-12-08 19:16 | XRay Report ---
FINAL REPORT EXAM: XR CHEST 1V AP HISTORY: shortness of breath TECHNIQUE: Single AP chest PRIORS: Comparison is dated December 06, 2017 FINDINGS: There is mild cardiac enlargement. No focal pulmonary infiltrate identified. No pleural fluid collection seen. The pulmonary vasculature is unremarkable. IMPRESSION: Mild cardiomegaly No acute pulmonary findings
[2017-12-08] MEDS: MORPHINE IV PRN (19:27)
[2017-12-09] MEDS: MORPHINE IV PRN (04:08)
[2017-12-09] MEDS: NITRO-BID 2% TP SCH ×3 (06:13→15:08)
[2017-12-09 11:17] LABS: Albumin 3.6 g/dL (3.9-5); Bilirubin,Direct 0.7 mg/dL (0-0.2)
--- NOTE | 2017-12-09 11:40 | Progress Note ---
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 H/o CVA in 06/2015 with history of blood clot removal from the brain H/o PE & DVT Embolic disease Ascites - abdomen/pelvis CT 10/2017 showed moderate ascites with fatty infiltration of liver DM ASA allergy NSVT Mod AR / Mod MR / Mod to severe TR, Mild pulm HTN with RVSP 40mmHg H/o noncompliance with OP follow up and medication regimen Plan: Pt was scheduled for paracentesis per primary. However, paracentesis not performed as pt is on Plavix. If paracentesis desired, okay to hold plavix from cardiology standpoint and would recommend holding plavix for 5-7 days prior to procedure. Convert IV lasix to PO lasix 20mg BID. Cont lipitor, plavix, coreg, lisinopril, aldactone. Recommend continuation of Eliquis per primary. Recommend OP GI consultation per primary. Currently stable cardiac status. Pt may discharge home from cardiology standpoint. Plan for AICD candidacy as OP. Pt chronically declines LifeVest. Follow up in our [place] office with Latesha Mcginnis NP, on 12/14/2017 @ 1:30PM. The patient has been seen in conjunction with Dr. Gonzales who agrees with the assessment and plan of care. Subjective Date of service: 12/09/17 Principal diagnosis: chest pain, SOB Interval history: pt sleeping, easily awakened. lying flat comfortably in bed. states SOB improved. Objective Last Vital Signs Temp 97.4 F L 12/09/17 07:21 Pulse 80 12/09/17 07:21 Resp 20 12/09/17 07:21 BP 122/79 12/09/17 07:21 Pulse Ox 97 12/09/17 07:21 - Physical Examination General: No Apparent Distress HEENT: Positive: PERRL, Normocephaly, Mucus Membranes Moist Neck: Positive: neck supple, trachea midline Cardiac: Positive: Reg Rate and Rhythm, S1/S2 Lungs: Positive: clear to auscultation Neuro: Positive: Grossly Intact Abdomen: Positive: Ascites Skin: Negative: Rash Musculoskeletal: No Pain, Normal Range of Motion Extremities: Absent: edema - Labs and Meds Cardiac Enzymes 12/09/17 Range/Units 09:58 AST 15 (5-40) units/L Comprehensive Metabolic Panel 12/09/17 Range/Units 09:58 Direct Bilirubin 0.7 H (0-0.2) mg/dL Indirect Bilirubin 1.7 mg/dL AST 15 (5-40) units/L ALT 7 (7-56) units/L Alkaline Phosphatase 101 (35-129) units/L Total Protein 6.7 (6.3-8.2) g/dL Albumin 3.6 L (3.9-5) g/dL - Imaging and Cardiology EKG: report reviewed, image reviewed Echo: report reviewed (08/2017 showed EF 25-30%, severe global hypokinesis of LV , restrictive filling pattern, LA mod to severely dilated, RV mild to mod dilated, RV systolic function mod reduced, mod AR, mod MR, mod to severe TR, mild pulm HTN with RVSP 40mmHg, minimal pericardial effusion, bilat pleural effusion, mild dilatation of ascending aorta. ) Cardiac cath: report reviewed (h/o STEMI 09/02/2017 - secondary to small emboli in the PDA and LV branch of the RCA with rest of coronaries being normal, s/p LHC with attempt to do balloon angioplasty with partial success, SAMANTA 3 flow at end of procedure, no thrombectomy due to small caliber vessels. ) - Telemetry EKG Rhythm: Sinus Rhythm - EKG Sinus rhythms and dysrhythmias: sinus tachycardia Repolarization changes or abnormalities: nonspecific abnormality, ST segment, and/or T wave
[2017-12-09] MEDS: ZESTRIL PO SCH (11:48)
[2017-12-09] MEDS: COREG PO SCH (11:48)
[2017-12-09] MEDS: ALDACTONE PO SCH (11:49)
[2017-12-09] MEDS: PLAVIX PO SCH (11:50)
--- NOTE | 2017-12-09 13:38 | Discharge Summary ---
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 H/o CVA in 06/2015 with history of blood clot removal from the brain H/o PE & DVT Embolic disease Ascites - abdomen/pelvis CT 10/2017 showed moderate ascites with fatty infiltration of liver DM ASA allergy NSVT Mod AR / Mod MR / Mod to severe TR, Mild pulm HTN with RVSP 40mmHg H/o noncompliance with OP follow up and medication regimen Plan: Pt was scheduled for paracentesis per primary. However, paracentesis not performed as pt is on Plavix. If paracentesis desired, okay to hold plavix from cardiology standpoint and would recommend holding plavix for 5-7 days prior to procedure. Convert IV lasix to PO lasix 20mg BID. Cont lipitor, plavix, coreg, lisinopril, aldactone. Recommend continuation of Eliquis per primary. Recommend OP GI consultation per primary. Currently stable cardiac status. Pt may discharge home from cardiology standpoint. Plan for AICD candidacy as OP. Pt chronically declines LifeVest. Follow up in our [place] office with Latesha Ocampo NP, on 12/14/2017 @ 1:30PM. The patient has been seen in conjunction with Dr. Gonzales who agrees with the assessment and plan of care. Disposition: DC-01 TO HOME OR SELFCARE Time spent for discharge: 35 mins Core Measure Documentation - Palliative Care Palliative Care/ Comfort Measures: Not Applicable Exam - Constitutional Vitals: Temp Pulse Resp BP Pulse Ox 97.4 F L 80 20 122/79 97 12/09/17 07:21 12/09/17 11:49 12/09/17 07:21 12/09/17 11:49 12/09/17 07:21 Plan Activity: advance as tolerated Diet: low fat, low cholesterol, low salt Special Instructions: record daily weights, record daily BP diary Follow up with: BONIFACIO ARMSTRONG MD [Primary Care Provider] - 7 Days LATESHA OCAMPO NP [Advanced Practice Nurse] - 7 Days (Follow up in our [place] office with Latesha Ocampo NP, on 12/14/2017 @ 1:30PM. [id number], [facility]) Prescriptions: Apixaban [Eliquis] 5 mg PO Q12HR #60 tablet Carvedilol [Coreg] 12.5 mg PO BID #60 tablet Furosemide [Lasix TAB] 20 mg PO BID #30 day Spironolactone [Aldactone] 12.5 mg PO QDAY #30 tablet
--- NOTE | 2017-12-09 14:36 | Ultrasound Report ---
ULTRASOUND ABDOMEN COMPLETE: TECHNIQUE: Transabdominal ultrasound with color Doppler interrogation. HISTORY: Ascites. COMPARISON: 09/07/16. FINDINGS: LIVER: The liver appears normal size and contour. No mass or surface nodularity is appreciated. The IVC and hepatic veins appear dilated consistent with a congested liver. BILIARY SYSTEM: Cholecystectomy. No biliary dilatation. PANCREAS: Normal. SPLEEN: Normal. KIDNEYS: Normal. AORTA/IVC: Normal. ASCITES: There is moderate ascites in all 4 quadrants. IMPRESSION: Congested liver. Moderate ascites. Cholecystectomy.
[2017-12-09 16:12] VITALS: BP 104/80
[2017-12-09] MEDS ORDERED: LASIX PO SCH (18:00)
== END 2017-12-09 18:39 | disposition home or self-care (01) | DRG 292 ==
LOC: ED 15:56 → 4A 19:44
PROVIDERS: ADMIT Internal Medicine; ATTEND Internal Medicine
DX: I11.0 Hypertensive heart disease with heart failure (principal); R18.8 Other ascites; I50.41 Acute combined systolic (congestive) and diastolic (congestive) heart failure; I42.0 Dilated cardiomyopathy; I50.82 Biventricular heart failure; I25.10 Atherosclerotic heart disease of native coronary artery without angina pectoris; I25.2 Old myocardial infarction; Z86.73 Personal history of transient ischemic attack (TIA), and cerebral infarction without residual deficits; Z86.711 Personal history of pulmonary embolism; Z86.718 Personal history of other venous thrombosis and embolism; K76.0 Fatty (change of) liver, not elsewhere classified; E11.9 Type 2 diabetes mellitus without complications; Z88.6 Allergy status to analgesic agent; I08.3 Combined rheumatic disorders of mitral, aortic and tricuspid valves; I27.20 Pulmonary hypertension, unspecified; Z91.14 Patient's other noncompliance with medication regimen; Z87.442 Personal history of urinary calculi; J45.909 Unspecified asthma, uncomplicated; Z90.49 Acquired absence of other specified parts of digestive tract; Z98.51 Tubal ligation status
CPT/HCPCS: 36415; 71045; 71275; 76700; 80048; 80074; 82550; 82553; 82962; 83735; 83880; 84484; 85025; 85610; 85730; 93005; 93010; 93306; 94760; 96372; 96374; 96375; A9270-GY; J0360; J1650; J1940; J2270; J3010; Q9967

== ENCOUNTER 2017-12-20 19:36 | Emergency (ER) | payer OTHER ==
[2017-12-20 21:03] LABS: Basophils % (Auto) 0.4 % (0.0-1.8); Eosinophils % (Auto) 0.6 % (0.0-4.3); Hematocrit 32.6 % (30.3-42.9); Hemoglobin 10.4 gm/dl (10.1-14.3); Lymphocytes # (Auto) 1.4 K/mm3 (1.2-5.4); Lymphocytes % (Auto) 24.8 % (13.4-35.0); Mean Corpuscular HGB Conc 32 % (30-34); Monocytes # (Auto) 0.5 K/mm3 (0.0-0.8); Monocytes % (Auto) 9.1 % (0.0-7.3); Platelet Count 219 K/mm3 (140-440); Red Blood Count 4.68 M/mm3 (3.65-5.03)
[2017-12-20 21:09] LABS: Mean Corpuscular Hemoglobin 22 pg (28-32); Mean Corpuscular Volume 70 fl (79-97); Red Cell Distribution Width 23.8 % (13.2-15.2)
[2017-12-20 21:11] LABS: INR 1.49 (0.87-1.13)
[2017-12-20 21:12] LABS: Partial Thromboplastin Time 34.4 Sec. (24.2-36.6)
[2017-12-20 21:20] LABS: Albumin 4.2 g/dL (3.9-5); Bilirubin,Direct 0.9 mg/dL (0-0.2)
[2017-12-20 21:38] LABS: Alanine Aminotransferase 8 units/L (7-56); Albumin 3.9 g/dL (3.9-5); BUN/Creatinine Ratio 20; Blood Urea Nitrogen 14 mg/dL (7-17); Calcium 8.7 mg/dL (8.4-10.2); Hemolysis Index 10
--- NOTE | 2017-12-20 23:23 | XRay Report ---
FINAL REPORT EXAM: XR CHEST ROUTINE 2V HISTORY: Shortness of breath TECHNIQUE: Single frontal view of the chest PRIORS: Comparison is December 08, 2017 FINDINGS: Cardiac silhouette is enlarged. No focal pulmonary infiltrate identified. No pleural fluid collection seen. The pulmonary vasculature is unremarkable. IMPRESSION: cardiomegaly No acute pulmonary findings
[2017-12-21] MEDS ORDERED: LASIX IV ONE ×2 (08:18→13:00)
[2017-12-21] MEDS ORDERED: XOPENEX IH ONE (08:18)
--- NOTE | 2017-12-21 08:24 | Emergency Department Report ---
ED Chest Pain HPI - General Chief Complaint: Chest Pain Stated Complaint: CHEST PAIN Time Seen by Provider: 12/21/17 08:11 Source: patient, EMS Mode of arrival: Wheelchair Limitations: Physical Limitation - History of Present Illness Initial Comments: 47 yo AA F presents to the emergency department by EMS with complaint of right- sided chest pain with some radiation towards the right arm and shoulder, as well as her shortness of breath. The patient also feels like she has some abdominal distention secondary to swelling as well as some lower extremity swelling. 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 The patient has a history of noncompliance with outpatient follow-up and noncompliance with medication and she admits to continued medication noncompliance including her Eliquis. Patient was recently admitted to the hospital at [facility] for similar symptoms and had a cardio consultation and echocardiogram at that time. Patient lives at home with family and uses a cane for ambulation assistance. No recent travel or sick contacts at home. - Related Data Previous Rx's Medication Instructions Recorded Last Taken Type Clopidogrel [Plavix] 75 mg PO DAILY #30 tablet 09/03/17 Unknown Rx metFORMIN [Glucophage] 500 mg PO BIDDIAB #60 tablet 09/03/17 Unknown Rx AtorvaSTATin [Lipitor] 40 mg PO QHS tablet 10/26/17 Unknown Rx Lisinopril [Zestril TAB] 2.5 mg PO QDAY tablet 10/26/17 Unknown Rx Apixaban [Eliquis] 5 mg PO Q12HR #60 tablet 12/09/17 Unknown Rx Carvedilol [Coreg] 12.5 mg PO BID #60 tablet 12/09/17 Unknown Rx Furosemide [Lasix TAB] 20 mg PO BID #30 day 12/09/17 Unknown Rx Spironolactone [Aldactone] 12.5 mg PO QDAY #30 tablet 12/09/17 Unknown Rx Allergies Allergy/AdvReac Type Severity Reaction Status Date / Time aspirin Allergy Swelling Verified 01/01/17 15:09 Heart Score - HEART Score History: Moderately suspicious EKG: Non-specific Age: 45-65 Risk factors: > 3 risk factors or hx of atherosclerotic disease Troponin: < normal limit HEART Score: 5 - Critical Actions Critical Actions: 4-6 pts:12-16.6% risk of adverse cardiac event. Should be admitted ED Review of Systems ROS: Stated complaint: CHEST PAIN Other details as noted in HPI Comment: All other systems reviewed and negative Constitutional: denies: chills, fever Eyes: denies: eye pain, eye discharge, vision change ENT: denies: ear pain, throat pain Respiratory: shortness of breath. denies: cough, wheezing Cardiovascular: chest pain, edema Gastrointestinal: denies: nausea, vomiting Genitourinary: denies: urgency, dysuria, discharge Musculoskeletal: denies: back pain, joint swelling, arthralgia Skin: denies: rash, lesions Neurological: denies: headache, weakness, paresthesias ED Past Medical Hx - Past Medical History Previous Medical History?: Yes Hx Hypertension: Yes Hx CVA: Yes (2014, acute basal ganglia stroke on mri 10/2016) Hx Heart Attack/AMI: Yes Hx Congestive Heart Failure: Yes Hx Diabetes: Yes Hx Deep Vein Thrombosis: Yes Hx Pulmonary Embolism: Yes (January 2015) Hx GERD: No Hx Liver Disease: Yes (States liver problems not sure what) Hx Renal Disease: No Hx Sickle Cell Disease: No Hx Arthritis: No Hx Headaches / Migraines: No Hx Seizures: No Hx Kidney Stones: Yes Hx Psychiatric Treatment: No Hx Asthma: Yes Hx COPD: No Hx Tuberculosis: No Hx Dementia: No Hx HIV: No Additional medical history: murmur. blood clot removal from brain, hx of CVA ( june,) - Surgical History Past Surgical History?: Yes Hx Coronary Stent: No Hx Open Heart Surgery: No Hx Pacemaker: No Hx Internal Defibrillator: No Hx Cholecystectomy: Yes Hx Appendectomy: No Hx Breast Surgery: No Additional Surgical History: tubal ligation - Social History Smoking Status: Former Smoker - Medications Home Medications: Home Medications Medication Instructions Recorded Confirmed Last Taken Type Clopidogrel [Plavix] 75 mg PO DAILY #30 tablet 09/03/17 12/21/17 Unknown Rx metFORMIN [Glucophage] 500 mg PO BIDDIAB #60 tablet 09/03/17 12/21/17 Unknown Rx AtorvaSTATin [Lipitor] 40 mg PO QHS tablet 10/26/17 12/21/17 Unknown Rx Lisinopril [Zestril TAB] 2.5 mg PO QDAY tablet 10/26/17 12/21/17 Unknown Rx Apixaban [Eliquis] 5 mg PO Q12HR #60 tablet 12/09/17 12/21/17 Unknown Rx Carvedilol [Coreg] 12.5 mg PO BID #60 tablet 12/09/17 12/21/17 Unknown Rx Furosemide [Lasix TAB] 20 mg PO BID #30 day 12/09/17 12/21/17 Unknown Rx Spironolactone [Aldactone] 12.5 mg PO QDAY #30 tablet 12/09/17 12/21/17 Unknown Rx ED Physical Exam - General Limitations: Physical Limitation - Other Other exam information: GENERAL: The patient is well-developed well-nourished. HENT: Normocephalic. Atraumatic. Patient has moist mucous membranes. EYES: Extraocular motions are intact. Pupils equal reactive to light bilaterally. NECK: Supple. Trachea is midline. CHEST/LUNGS: Clear to auscultation. There is no respiratory distress noted. Chest pain is nonreproducible to palpation of the chest wall. HEART/CARDIOVASCULAR: Regular. There is mild tachycardia. There is no murmur. ABDOMEN: Abdomen is soft, nontender. Patient has normal bowel sounds. There is moderate abdominal distention. Fluid is heard with auscultation concerning for ascites. SKIN: There is some 2+ pitting edema of the bilateral lower extremities. Skin is warm and dry. NEURO: The patient is awake, alert, and oriented. The patient is cooperative. The patient has no focal neurologic deficits. The patient has normal speech. MUSCULOSKELETAL: There is no tenderness or deformity. There is no limitation range of motion. There is no evidence of acute injury. ED Course Vital Signs 12/20/17 12/21/17 12/21/17 20:30 08:21 09:08 Temperature 97.8 F Pulse Rate 112 H 105 H Pulse Rate [ 105 H Bilateral Upper Lobe] Respiratory 20 16 Rate Respiratory 18 Rate [Bilateral Upper Lobe] Blood Pressure 152/102 Blood Pressure 141/97 [Left] O2 Sat by Pulse 100 96 Oximetry 12/21/17 09:15 Temperature Pulse Rate Pulse Rate [ 110 H Bilateral Upper Lobe] Respiratory Rate Respiratory 18 Rate [Bilateral Upper Lobe] Blood Pressure Blood Pressure [Left] O2 Sat by Pulse Oximetry FRANCISCO score - Francisco Score Age > 65: (0) No Aspirin use within the Past 7 Days: (0) No 3 or more CAD Risk Factors: (1) Yes 2 or more Angina events in past 24 hrs: (1) Yes Known CAD with more than 50% Stenosis: (0) No Elevated Cardiac Markers: (0) No ST Deviation Greater than 0.5mm: (0) No FRANCISCO Score: 2 ED Medical Decision Making - Lab Data Result diagrams: 12/20/17 20:48 12/20/17 20:48 - EKG Data -: EKG Interpreted by Me EKG shows normal: sinus rhythm, axis, intervals, QRS complexes (low voltage, Q waves to the anterior leads), ST-T waves (nonspecific T waves to the lateral leads) Rate: tachycardia (112 bpm) - EKG Data When compared to previous EKG there are: no significant change Interpretation: unchanged when compared t (12/07/17) - Radiology Data Radiology results: report reviewed, image reviewed interpreted by me: Chest x-ray does not show any acute process. There are no pleural effusions, obvious pneumonia and there is no pneumothorax. EXAM: US ABDOMEN COMPLETE HISTORY: Ascites TECHNIQUE: Ultrasound examination of the abdomen PRIORS: Ultrasound 12/09/[address] 10/25/2017 FINDINGS: The visible portion of the following structures reveal: Liver: No focal lesion.Enlarged with approximate sagittal dimension 20 cm.Nonspecific increased echogenicity of liver parenchyma may reflect fatty infiltration or cirrhosis, given ascites. Gallbladder: Absent. Common bile duct: Normal caliber. Pancreas: No focal abnormality in the visible portion. Right kidney: No hydronephrosis.No solid mass.No definite calculus. Left kidney: No hydronephrosis.No solid mass.No definite calculus. Spleen: No enlargement.No focal lesion. Ascites: Moderate Abdominal aorta: Normal caliber. IVC: Normal caliber. IMPRESSION: Hepatomegaly with increased echogenicity and slightly coarse echotexture. This may be secondary to hepatic steatosis and/or cirrhosis given moderate ascites Surgically absent gallbladder Transcribed By: MEGHAN Dictated By: LUCA NAVAS MD Electronically Authenticated By: LUCA NAVAS MD Signed Date/Time: 12/21/17 1148 LUNG SCAN, VENTILATION AND PERFUSION: History: Short of breath. Technique: 5mci of Tc99m MAA was infused for the perfusion images. 15mci XE 133 gas was inhaled for the ventilatory images. Correlation is made with a chest x-ray dated 12/20/17. Findings: Inhalation of Xenon gas demonstrates a normal distribution of the activity throughout both lungs. The wash out phases show no focal retention of activity. After injection of Technetium 99m macroaggregated albumin gamma camera imaging of the lungs in multiple projections demonstrates normal pulmonary contours with a homogeneous distribution of activity. No focal areas of perfusion deficiency are identified. IMPRESSION: Low probability for pulmonary embolus. Transcribed By: TTR Dictated By: ESTEBAN DENTON JR, MD Electronically Authenticated By: ESTEBAN DENTON JR, MD Signed Date/Time: 12/21/17 1230 - Medical Decision Making This patient with a history of coronary artery disease, cardiomyopathy, previous CVA, previous UT presents with chest pain and short of breath. The patient recently was here for a similar cardiac workup. However this time the patient appears to have some abdominal distention concern for ascites and believe this could be a source of the patient's symptoms. Abdominal ultrasound shows liver cirrhosis with moderate ascites. She did have an elevated d-dimer with noncompliance with her blood thinning medication so a VQ scan was done that was low probability for pulmonary embolus. The patient will be admitted to the hospitalist service for further evaluation and has been accepted by Dr. Smith. - Differential Diagnosis Ascites, UT, PE, CHF Critical Care Time: No Critical care attestation.: If time is entered above; I have spent that time in minutes in the direct care of this critically ill patient, excluding procedure time. ED Disposition Clinical Impression: Shortness of breath, Non-compliant behavior, Chest pain at rest, Systolic and diastolic CHF, acute on chronic Ascites Qualifiers: Ascites type: other type Qualified Code(s): R18.8 - Other ascites Disposition: OP ADMIT IP TO THIS HOSP Is pt being admited?: Yes Condition: Fair Instructions: Chest Pain (ED) Referrals: PRIMARY CARE, [Primary Care Provider] - 3-5 Days Time of Disposition: 12:49
--- NOTE | 2017-12-21 11:54 | Ultrasound Report ---
FINAL REPORT EXAM: US ABDOMEN COMPLETE HISTORY: Ascites TECHNIQUE: Ultrasound examination of the abdomen PRIORS: Ultrasound 12/09/[address] 10/25/2017 FINDINGS: The visible portion of the following structures reveal: Liver: No focal lesion.Enlarged with approximate sagittal dimension 20 cm.Nonspecific increased echogenicity of liver parenchyma may reflect fatty infiltration or cirrhosis, given ascites. Gallbladder: Absent. Common bile duct: Normal caliber. Pancreas: No focal abnormality in the visible portion. Right kidney: No hydronephrosis.No solid mass.No definite calculus. Left kidney: No hydronephrosis.No solid mass.No definite calculus. Spleen: No enlargement.No focal lesion. Ascites: Moderate Abdominal aorta: Normal caliber. IVC: Normal caliber. IMPRESSION: Hepatomegaly with increased echogenicity and slightly coarse echotexture. This may be secondary to hepatic steatosis and/or cirrhosis given moderate ascites Surgically absent gallbladder
--- NOTE | 2017-12-21 12:04 | History and Physical Report ---
History of Present Illness Chief complaint: I ran out of my medicine History of present illness: 47 YO Female with HTN, CVA, CHF, DM, DVT/PE, Asthma presents to ED for evaluation. Pt initially complained of chest pain, but upon further evaluation, and interview-the patient states that she ran out of medication several week ago. PT seen and evaluated in ED and restarted on her medication with improvement in symptoms. Pt medically optimized and back to usual state of health. Pt discharged home after therapeutic anticoagulation. Pt given coupon for eliquis. Pt instructed to f/u pcp within 5 days with blood pressure log, and daily weight. Pt instructed to f/u pcp within 5 days for reevaluation. Past History Past Medical History: diabetes, DVT, heart failure, hypertension, pulmonary embolism, stroke Past Surgical History: Other (tubal ligation) Social history: single. denies: smoking, alcohol abuse, prescription drug abuse Family history: hypertension Medications and Allergies Allergies Allergy/AdvReac Type Severity Reaction Status Date / Time aspirin Allergy Swelling Verified 01/01/17 15:09 Home Medications Medication Instructions Recorded Confirmed Last Taken Type Apixaban [Eliquis] 5 mg PO BID #74 tablet 12/21/17 Unknown Rx AtorvaSTATin [Lipitor] 40 mg PO QHS #30 tablet 12/21/17 Unknown Rx Carvedilol [Coreg] 12.5 mg PO BID #60 tablet 12/21/17 Unknown Rx Clopidogrel [Plavix] 75 mg PO DAILY #30 tablet 12/21/17 Unknown Rx Furosemide [Lasix TAB] 20 mg PO BID #30 day 12/21/17 Unknown Rx Lisinopril [Zestril TAB] 2.5 mg PO QDAY #30 tablet 12/21/17 Unknown Rx Spironolactone [Aldactone] 12.5 mg PO QDAY #30 tablet 12/21/17 Unknown Rx metFORMIN [Glucophage] 500 mg PO BIDDIAB #60 tablet 12/21/17 Unknown Rx Review of Systems Constitutional: other (ran out of medication), no weight loss, no weight gain, no fever, no chills Ears, nose, mouth and throat: no ear pain, no ear discharge, no tinnitis, no decreased hearing, no nose pain, no nasal congestion Breasts: no change in shape, no swelling, no mass Cardiovascular: no chest pain, no orthopnea, no palpitations, no rapid/ irregular heart beat Respiratory: no cough, no cough with sputum, no excessive sputum, no hemoptysis Gastrointestinal: no nausea, no vomiting, no diarrhea, no constipation Genitourinary Female: no pelvic pain, no flank pain, no menorrhagia, no dysuria , no urinary frequency, no urgency Rectal: no pain, no incontinence, no bleeding Musculoskeletal: no neck stiffness, no neck pain, no shooting arm pain, no arm numbness/tingling, no low back pain Integumentary: no rash, no pruritis, no redness, no sores, no wounds, no jaundice Neurological: no transient paralysis, no paralysis, no weakness, no parathesias , no numbness Psychiatric: no anxiety, no memory loss, no change in sleep habits, no sleep disturbances, no insomnia, no hypersomnia Endocrine: no cold intolerance, no heat intolerance, no polyphagia, no excessive thirst, no polydipsia, no polyuria Hematologic/Lymphatic: no easy bruising, no easy bleeding, no lymphadenopathy, no lymphedema Allergic/Immunologic: no urticaria, no allergic rhinitis, no wheezing, no anaphylaxis Exam - Constitutional Vitals: Temp Pulse Resp BP Pulse Ox 97.8 F 110 H 18 141/97 96 12/20/17 20:30 12/21/17 09:15 12/21/17 09:15 12/21/17 08:21 12/21/17 08:21 General appearance: Present: no acute distress, well-nourished - EENT Eyes: Present: PERRL ENT: hearing intact, clear oral mucosa - Neck Neck: Present: supple, normal ROM - Respiratory Respiratory effort: normal Respiratory: bilateral: CTA - Cardiovascular Heart Sounds: Present: S1 & S2. Absent: rub, click - Extremities Extremities: pulses symmetrical, No edema Extremity abnormal: edema Peripheral Pulses: within normal limits - Abdominal General gastrointestinal: Present: soft, non-tender, non-distended, normal bowel sounds Female genitourinary: Present: normal - Integumentary Integumentary: Present: clear, warm, dry - Musculoskeletal Musculoskeletal: gait normal, strength equal bilaterally - Psychiatric Psychiatric: appropriate mood/affect, intact judgment & insight - Neurologic Neurologic: CNII-XII intact, moves all extremities Results - Labs CBC & Chem 7: 12/20/17 20:48 12/20/17 20:48 Labs: Abnormal lab results 12/20/17 12/20/17 12/20/17 Range/Units 20:48 20:48 20:48 MCV 70 L (79-97) fl MCH 22 L (28-32) pg RDW 23.8 H (13.2-15.2) % [place] % (Auto) 9.1 H (0.0-7.3) % PT 18.9 H (12.2-14.9) Sec. INR 1.49 H (0.87-1.13) D-Dimer (0-234) ng/mlDDU Glucose 102 H (65-100) mg/dL Total Bilirubin 2.90 H (0.1-1.2) mg/dL Direct Bilirubin (0-0.2) mg/dL NT-Pro-B Natriuret Pep (0-450) pg/mL 12/20/17 12/20/17 12/21/17 Range/Units 20:48 20:53 09:15 MCV (79-97) fl MCH (28-32) pg RDW (13.2-15.2) % [place] % (Auto) (0.0-7.3) % PT (12.2-14.9) Sec. INR (0.87-1.13) D-Dimer 2921.05 H (0-234) ng/mlDDU Glucose (65-100) mg/dL Total Bilirubin 2.90 H (0.1-1.2) mg/dL Direct Bilirubin 0.9 H (0-0.2) mg/dL NT-Pro-B Natriuret Pep 2575 H (0-450) pg/mL Assessment and Plan - Patient Problems (1) Noncompliance Status: Acute Plan to address problem: Pt counseled regarding noncompliance, Pt prescribed prehospital medication. (2) Chronic systolic (congestive) heart failure Status: Acute Plan to address problem: Cardiac workup negative, VQ scan negative. Pt discharged home, outpatient cardiac f/u for stress test.
--- NOTE | 2017-12-21 12:38 | Nuclear Medicine Report ---
LUNG SCAN, VENTILATION AND PERFUSION: History: Short of breath. Technique: 5mci of Tc99m MAA was infused for the perfusion images. 15mci XE 133 gas was inhaled for the ventilatory images. Correlation is made with a chest x-ray dated 12/20/17. Findings: Inhalation of Xenon gas demonstrates a normal distribution of the activity throughout both lungs. The wash out phases show no focal retention of activity. After injection of Technetium 99m macroaggregated albumin gamma camera imaging of the lungs in multiple projections demonstrates normal pulmonary contours with a homogeneous distribution of activity. No focal areas of perfusion deficiency are identified. IMPRESSION: Low probability for pulmonary embolus.
[2017-12-21] MEDS ORDERED: COREG PO ONE (13:24)
[2017-12-21] MEDS ORDERED: ZESTRIL PO ONE (13:59)
[2017-12-21] MEDS: ELIQUIS PO SCH ×2 (19:10→22:00)
[2017-12-21 19:49] VITALS: BP 117/75
== END 2017-12-22 00:46 | disposition home or self-care (01) ==
LOC: ED 19:36
DX: I50.43 Acute on chronic combined systolic (congestive) and diastolic (congestive) heart failure (principal); I11.0 Hypertensive heart disease with heart failure; R18.8 Other ascites; E11.9 Type 2 diabetes mellitus without complications; J45.909 Unspecified asthma, uncomplicated; I25.2 Old myocardial infarction; K74.60 Unspecified cirrhosis of liver; Z86.718 Personal history of other venous thrombosis and embolism; Z87.442 Personal history of urinary calculi; Z90.49 Acquired absence of other specified parts of digestive tract; Z98.51 Tubal ligation status; Z87.891 Personal history of nicotine dependence; Z88.6 Allergy status to analgesic agent; Z79.84 Long term (current) use of oral hypoglycemic drugs
CPT/HCPCS: 36415; 71046; 80053; 80074; 82140; 83880; 84484; 85025; 85379; 85610; 85730; 93005; 93010; 94640; 96374; 96376; 99285; J1940

== ENCOUNTER 2019-04-25 20:51 | Emergency (ER) | payer MEDICAID ==
[2019-04-25 22:10] VITALS: BP 120/68
--- NOTE | 2019-04-25 22:13 | Event Note ---
ED Screening Note Date of service: 04/25/19 Time: 22:08 ED Screening Note: 49 y/o female comes in for rlq pain today. Admits to Nausea no vomiting LMP 04/03/19. Pain starts in the RLQ and radiates up her abdomen. No urinary sxs. PMH DM. Liver cirrhosis, HTN, SZ disorder and CHF. On Keppra, Metformin, Coreg, Spironlactone. This initial assessment/diagnostic orders/clinical plan/treatment(s) is/are subject to change based on patients health status, clinical progression and re- assessment by fellow clinical providers in the ED. Further treatment and workup at subsequent clinical providers discretion. Patient/guardian urged not to elope from the ED as their condition may be serious if not clinically assessed and managed. Initial orders include:
[2019-04-25 22:59] LABS: Hematocrit 33.6 % (30.3-42.9); Hemoglobin 11.4 gm/dl (10.1-14.3)
[2019-04-25 23:00] LABS: Mean Corpuscular HGB Conc 34 % (30-34); Mean Corpuscular Volume 73 fl (79-97); Platelet Count 269 K/mm3 (140-440); Red Cell Distribution Width 18.9 % (13.2-15.2)
[2019-04-25] MEDS ORDERED: MORPHINE IV ONE (23:07)
[2019-04-25] MEDS ORDERED: NACL 0.9% 1000 ML 1,000 ML IV ONE (23:07)
[2019-04-25] MEDS ORDERED: ZOFRAN IV ONE (23:07)
[2019-04-25 23:18] LABS: Alanine Aminotransferase 9 units/L (7-56); Albumin 3.9 g/dL (3.9-5); BUN/Creatinine Ratio 24; Blood Urea Nitrogen 22 mg/dL (7-17); Calcium 8.5 mg/dL (8.4-10.2); Hemolysis Index 7
[2019-04-26 01:22] LABS: Bilirubin,Urine NEG (Negative); Blood,Urine NEG (Negative); Color,Urine Yellow (Yellow); Protein,Urine <15 mg/dL mg/dL (Negative)
--- NOTE | 2019-04-26 01:24 | Emergency Department Report ---
ED Abdominal Pain HPI - General Chief Complaint: Abdominal Pain Stated Complaint: ABD PAIN Time Seen by Provider: 04/25/19 22:08 Source: patient, EMS Mode of arrival: Ambulatory Limitations: No Limitations - History of Present Illness Initial Comments: Patient is a 49-year-old female with a history of multiple medical problems who presents to the ED with complaint of acute onset persistent severe left flank pain that radiates to the suprapubic area for the last 1 week. Patient also complains of nausea, vomiting and dysuria as well as vaginal discharge. Patient denies fever, chills, diarrhea, dizziness, dysuria, urinary frequency and urgency, vaginal bleeding, shortness of breath, chest pain, headache, change in vision, hematochezia or hematemesis. MD Complaint: abdominal pain -: Sudden, week(s) (1) Location: RLQ Radiation: RLQ, R flank Migration to: no migration Severity: severe Severity scale (0 -10): 8 Quality: cramping, aching, sharp Consistency: constant Improves With: nothing Worsens With: nothing Associated Symptoms: denies other symptoms, nausea, vomiting. denies: diarrhea, fever, chills, constipation, dysuria, hematemesis, hematochezia, melena, anorexia, syncope - Related Data Previous Rx's Medication Instructions Recorded Last Taken Type Apixaban [Eliquis] 5 mg PO BID #74 tablet 12/21/17 Unknown Rx AtorvaSTATin [Lipitor] 40 mg PO QHS #30 tablet 12/21/17 Unknown Rx Carvedilol [Coreg] 12.5 mg PO BID #60 tablet 12/21/17 Unknown Rx Clopidogrel [Plavix] 75 mg PO DAILY #30 tablet 12/21/17 Unknown Rx Furosemide [Lasix TAB] 20 mg PO BID #30 day 12/21/17 Unknown Rx Lisinopril [Zestril TAB] 2.5 mg PO QDAY #30 tablet 12/21/17 Unknown Rx Spironolactone [Aldactone] 12.5 mg PO QDAY #30 tablet 12/21/17 Unknown Rx metFORMIN [Glucophage] 500 mg PO BIDDIAB #60 tablet 12/21/17 Unknown Rx Ondansetron [Zofran Odt] 4 mg PO Q6HR PRN #15 tab.rapdis 04/26/19 Unknown Rx traMADol [Ultram] 50 mg PO Q6HR PRN #15 tablet 04/26/19 Unknown Rx Allergies Allergy/AdvReac Type Severity Reaction Status Date / Time aspirin Allergy Swelling Verified 01/01/17 15:09 furosemide [From Lasix] Allergy Rash Verified 04/25/19 21:01 ED Review of Systems ROS: Stated complaint: ABD PAIN Other details as noted in HPI Constitutional: denies: chills, fever Eyes: denies: eye pain, eye discharge, vision change ENT: denies: ear pain, throat pain Respiratory: denies: cough, shortness of breath, wheezing Cardiovascular: denies: chest pain, palpitations Endocrine: no symptoms reported Gastrointestinal: abdominal pain, nausea, vomiting. denies: diarrhea Genitourinary: denies: urgency, dysuria, discharge Musculoskeletal: denies: back pain, joint swelling, arthralgia Skin: denies: rash, lesions Neurological: denies: headache, weakness, paresthesias Psychiatric: denies: anxiety, depression Hematological/Lymphatic: denies: easy bleeding, easy bruising ED Past Medical Hx - Past Medical History Hx Hypertension: Yes Hx CVA: Yes (2014, acute basal ganglia stroke on mri 10/2016) Hx Heart Attack/AMI: Yes Hx Congestive Heart Failure: Yes Hx Diabetes: Yes Hx Deep Vein Thrombosis: Yes Hx Pulmonary Embolism: Yes (January 2015) Hx GERD: No Hx Liver Disease: Yes (States liver problems not sure what) Hx Renal Disease: No Hx Sickle Cell Disease: No Hx Arthritis: No Hx Headaches / Migraines: No Hx Seizures: No Hx Kidney Stones: Yes Hx Psychiatric Treatment: No Hx Asthma: Yes Hx COPD: No Hx Tuberculosis: No Hx Dementia: No Hx HIV: No Additional medical history: murmur. blood clot removal from brain, hx of CVA (june,) - Surgical History Hx Coronary Stent: No Hx Open Heart Surgery: No Hx Pacemaker: No Hx Internal Defibrillator: No Hx Cholecystectomy: Yes Hx Appendectomy: No Hx Breast Surgery: No Additional Surgical History: tubal ligation - Social History Smoking Status: Current Every Day Smoker Substance Use Type: None - Medications Home Medications: Home Medications Medication Instructions Recorded Confirmed Last Taken Type Apixaban [Eliquis] 5 mg PO BID #74 tablet 12/21/17 Unknown Rx AtorvaSTATin [Lipitor] 40 mg PO QHS #30 tablet 12/21/17 Unknown Rx Carvedilol [Coreg] 12.5 mg PO BID #60 tablet 12/21/17 Unknown Rx Clopidogrel [Plavix] 75 mg PO DAILY #30 tablet 12/21/17 Unknown Rx Furosemide [Lasix TAB] 20 mg PO BID #30 day 12/21/17 Unknown Rx Lisinopril [Zestril TAB] 2.5 mg PO QDAY #30 tablet 12/21/17 Unknown Rx Spironolactone [Aldactone] 12.5 mg PO QDAY #30 tablet 12/21/17 Unknown Rx metFORMIN [Glucophage] 500 mg PO BIDDIAB #60 tablet 12/21/17 Unknown Rx Ondansetron [Zofran Odt] 4 mg PO Q6HR PRN #15 tab.rapdis 04/26/19 Unknown Rx traMADol [Ultram] 50 mg PO Q6HR PRN #15 tablet 04/26/19 Unknown Rx ED Physical Exam - General Limitations: Physical Limitation General appearance: alert, in no apparent distress - Head Head exam: Present: atraumatic, normocephalic, normal inspection - Eye Eye exam: Present: normal appearance, PERRL, EOMI. Absent: scleral icterus, conjunctival injection, nystagmus Pupils: Present: normal accommodation - ENT ENT exam: Present: normal exam, normal orophraynx, mucous membranes moist, TM's normal bilaterally, normal external ear exam - Neck Neck exam: Present: normal inspection, full ROM. Absent: tenderness, meningismus, lymphadenopathy - Respiratory Respiratory exam: Present: normal lung sounds bilaterally. Absent: respiratory distress, wheezes, rhonchi, stridor, chest wall tenderness, accessory muscle use, decreased breath sounds - Cardiovascular Cardiovascular Exam: Present: regular rate, normal rhythm, normal heart sounds. Absent: systolic murmur, diastolic murmur, rubs, gallop - GI/Abdominal GI/Abdominal exam: Present: soft, tenderness (Palpable RLQ tenderness with guarding), guarding, normal bowel sounds. Absent: rebound, hyperactive bowel sounds, hypoactive bowel sounds, organomegaly - Rectal Rectal exam: Present: deferred - Extremities Exam Extremities exam: Present: normal inspection, full ROM, normal capillary refill - Back Exam Back exam: Present: normal inspection, full ROM. Absent: tenderness, CVA tenderness (R), paraspinal tenderness - Neurological Exam Neurological exam: Present: alert, oriented X3, CN II-XII intact, normal gait, reflexes normal - Psychiatric Psychiatric exam: Present: normal affect, normal mood - Skin Skin exam: Present: warm, dry, intact, normal color. Absent: rash ED Course Vital Signs 04/25/19 22:08 Temperature 98.3 F Pulse Rate 60 Blood Pressure 120/68 O2 Sat by Pulse 98 Oximetry - Reevaluation(s) Reevaluation #1: 04/26/19 03:21 This is a 49-year-old female who presented to the ED with the left flank pain that radiates in the lower abdomen with nausea and vomiting. Patient is alert and oriented 3 and is not in distress with normal vital signs. Labs are drawn on patient treated for pain. Abdominal pelvis CT scan without contrast was also ordered. Lab test results were reviewed and are all unremarkable including urinalysis. Abdomen pelvis CT scan shows normal appendix. There is however uterine fibroid identified in this study. There are no ovarian cysts. The rest of exam is unremarkable. On reevaluation, patient's pain is well controlled. Patient was discharged home on medications and advised to follow-up with her primary care physician in 5-7 days for reevaluation or return to the ED immediately if symptoms get worse. 04/26/19 03:23 04/26/19 03:25 ED Medical Decision Making - Lab Data Result diagrams: 04/25/19 22:24 04/25/19 22:24 - Radiology Data Radiology results: report reviewed, image reviewed Findings [facility] [address] [place] [address] Cat Scan Report Signed Patient: RENITA MENDES MR#: [id number] : 1970 Acct:[id number] Age/Sex: 49 / F ADM Date: 04/25/19 Loc: ED Attending Dr: Ordering Physician: DRE CRAWFORD Date of Service: 04/25/19 Procedure(s): CT abdomen pelvis w con Accession Number(s): [id number] cc: DRE CRAWFORD CT of the abdomen and pelvis with contrast INDICATION: Right lower quadrant pain COMPARISON: 10/25/2017 FINDINGS: Lung bases are clear. The liver, spleen, pancreas, adrenal glands and kidneys all appear normal. Gallbladder is been removed. No biliary tree dilation. No fluid or adenopathy in the upper abdomen. CT of the pelvis shows a normal appendix. Uterine fibroids appear to be present. No adnexal masses. No free pelvic fluid. No hernia or bowel obstruction. No significant a bnormality. IMPRESSION: Uterine fibroids. The appendix is normal. No ovarian cysts are seen. Automated exposure control was utilized to diminish radiation dose. Signer Name: Saul Holm MD Signed: 04/26/2019 2:36 AM Workstation Name: [id number] Transcribed By: OLGA Dictated By: Saul Holm MD Electronically Authenticated By: Saul Holm MD Signed Date/Time: 04/26/19 0236 - Medical Decision Making This is a 49-year-old female who presented to the ED with the left flank pain that radiates in the lower abdomen with nausea and vomiting. Patient is alert and oriented 3 and is not in distress with normal vital signs. Labs are drawn on patient treated for pain. Abdominal pelvis CT scan without contrast was also ordered. Lab test results were reviewed and are all unremarkable including urinalysis. Abdomen pelvis CT scan shows normal appendix. There is however uterine fibroid identified in this study. There are no ovarian cysts. The rest of exam is unremarkable. On reevaluation, patient's pain is well controlled. Patient was discharged home on medications and advised to follow-up with her primary care physician in 5-7 days for reevaluation or return to the ED immediately if symptoms get worse. - Differential Diagnosis Abdominal pain, Kidney stones, Uterine fibroids, appendicitis Critical care attestation.: If time is entered above; I have spent that time in minutes in the direct care of this critically ill patient, excluding procedure time. ED Disposition Clinical Impression: Nausea and vomiting in adult Abdominal pain Qualifiers: Abdominal location: right lower quadrant Qualified Code(s): R10.31 - Right lower quadrant pain Uterine fibroid Qualifiers: Uterine leiomyoma location: unspecified location Qualified Code(s): D25.9 - Leiomyoma of uterus, unspecified Disposition: DC-01 TO HOME OR SELFCARE Is pt being admited?: No Does the pt Need Aspirin: No Condition: Stable Instructions: Abdominal Pain (ED), Uterine Fibroids (ED) Additional Instructions: Take medications with food, drink plenty of fluids and follow up with your primary care physician in 5-7 days for reevaluation. Return to the ED immediate ly if symptoms get worse. Prescriptions: traMADol [Ultram] 50 mg PO Q6HR PRN #15 tablet PRN Reason: Pain Ondansetron [Zofran Odt] 4 mg PO Q6HR PRN #15 tab.rapdis PRN Reason: Nausea Referrals: [facility] [Outside] - 3-5 Days Time of Disposition: 01:24 Print Language: KAZAKH
--- NOTE | 2019-04-26 02:41 | Cat Scan Report ---
CT of the abdomen and pelvis with contrast INDICATION: Right lower quadrant pain COMPARISON: 10/25/2017 FINDINGS: Lung bases are clear. The liver, spleen, pancreas, adrenal glands and kidneys all appear no rmal. Gallbladder is been removed. No biliary tree dilation. No fluid or adenopathy in the upper abdo men. CT of the pelvis shows a normal appendix. Uterine fibroids appear to be present. No adnexal masses. N o free pelvic fluid. No hernia or bowel obstruction. No significant abnormality. IMPRESSION: Uterine fibroids. The appendix is normal. No ovarian cysts are seen. Automated exposure control was utilized to diminish radiation dose. Signer Name: Saul Holm MD Signed: 04/26/2019 2:36 AM Workstation Name: [id number]
== END 2019-04-26 03:45 | disposition home or self-care (01) ==
LOC: ED 20:51
DX: D25.9 Leiomyoma of uterus, unspecified (principal); R11.2 Nausea with vomiting, unspecified; I25.2 Old myocardial infarction; I11.0 Hypertensive heart disease with heart failure; I50.9 Heart failure, unspecified; E11.9 Type 2 diabetes mellitus without complications; J45.909 Unspecified asthma, uncomplicated; F17.200 Nicotine dependence, unspecified, uncomplicated; Z98.890 Other specified postprocedural states; Z86.73 Personal history of transient ischemic attack (TIA), and cerebral infarction without residual deficits; Z86.718 Personal history of other venous thrombosis and embolism; Z86.711 Personal history of pulmonary embolism; Z87.442 Personal history of urinary calculi; Z98.51 Tubal ligation status; Z79.899 Other long term (current) drug therapy; Z88.8 Allergy status to other drugs, medicaments and biological substances; Z88.4 Allergy status to anesthetic agent
CPT/HCPCS: 36415; 74177; 80053; 81001; 83690; 85027; 96361; 96374; 96375; 99284; J2270; J2405; J7030

== ENCOUNTER 2019-05-13 12:17 | Emergency (ER) | payer MEDICAID ==
[2019-05-13 13:13] LABS: Bilirubin,Urine NEG (Negative); Blood,Urine LG (Negative); Color,Urine Yellow (Yellow); Mucus,Urine 1+ /HPF; Urobilinogen,Urine < 2.0 mg/dL (<2.0)
[2019-05-13 13:21] LABS: Hematocrit 34.3 % (30.3-42.9); Hemoglobin 11.5 gm/dl (10.1-14.3); Mean Corpuscular HGB Conc 34 % (30-34); Mean Corpuscular Volume 72 fl (79-97); Platelet Count 273 K/mm3 (140-440); Red Blood Count 4.73 M/mm3 (3.65-5.03); Red Cell Distribution Width 19.5 % (13.2-15.2)
[2019-05-13 13:37] LABS: BUN/Creatinine Ratio 14; Blood Urea Nitrogen 10 mg/dL (7-17); Calcium 9.2 mg/dL (8.4-10.2); Hemolysis Index 2
[2019-05-13] MEDS ORDERED: ZOFRAN IV ONE (13:51)
[2019-05-13] MEDS ORDERED: NACL 0.9% 1000 ML 1,000 ML IV ONE (13:51)
--- NOTE | 2019-05-13 13:55 | Emergency Department Report ---
<SHRUTI NAIDU - Last Filed: 05/13/19 18:55> ED Abdominal Pain HPI - General Chief Complaint: Abdominal Pain Stated Complaint: LOWER ABD STOMACH Time Seen by Provider: 05/13/19 12:59 - Related Data Previous Rx's Medication Instructions Recorded Last Taken Type Apixaban [Eliquis] 5 mg PO BID #74 tablet 12/21/17 Unknown Rx AtorvaSTATin [Lipitor] 40 mg PO QHS #30 tablet 12/21/17 Unknown Rx Carvedilol [Coreg] 12.5 mg PO BID #60 tablet 12/21/17 Unknown Rx Clopidogrel [Plavix] 75 mg PO DAILY #30 tablet 12/21/17 Unknown Rx Furosemide [Lasix TAB] 20 mg PO BID #30 day 12/21/17 Unknown Rx Lisinopril [Zestril TAB] 2.5 mg PO QDAY #30 tablet 12/21/17 Unknown Rx Spironolactone [Aldactone] 12.5 mg PO QDAY #30 tablet 12/21/17 Unknown Rx metFORMIN [Glucophage] 500 mg PO BIDDIAB #60 tablet 12/21/17 Unknown Rx Ondansetron [Zofran Odt] 4 mg PO Q6HR PRN #15 tab.rapdis 04/26/19 Unknown Rx traMADol [Ultram] 50 mg PO Q6HR PRN #15 tablet 04/26/19 Unknown Rx levoFLOXacin [Levaquin TAB] 500 mg PO QDAY #7 tablet 05/13/19 Unknown Rx traMADol [Ultram] 50 mg PO Q6HR PRN #12 tablet 05/13/19 Unknown Rx Allergies Allergy/AdvReac Type Severity Reaction Status Date / Time aspirin Allergy Swelling Verified 01/01/17 15:09 furosemide [From Lasix] Allergy Rash Verified 04/25/19 21:01 ED Past Medical Hx - Medications Home Medications: Home Medications Medication Instructions Recorded Confirmed Last Taken Type Apixaban [Eliquis] 5 mg PO BID #74 tablet 12/21/17 Unknown Rx AtorvaSTATin [Lipitor] 40 mg PO QHS #30 tablet 12/21/17 Unknown Rx Carvedilol [Coreg] 12.5 mg PO BID #60 tablet 12/21/17 Unknown Rx Clopidogrel [Plavix] 75 mg PO DAILY #30 tablet 12/21/17 Unknown Rx Furosemide [Lasix TAB] 20 mg PO BID #30 day 12/21/17 Unknown Rx Lisinopril [Zestril TAB] 2.5 mg PO QDAY #30 tablet 12/21/17 Unknown Rx Spironolactone [Aldactone] 12.5 mg PO QDAY #30 tablet 12/21/17 Unknown Rx metFORMIN [Glucophage] 500 mg PO BIDDIAB #60 tablet 12/21/17 Unknown Rx Ondansetron [Zofran Odt] 4 mg PO Q6HR PRN #15 tab.rapdis 04/26/19 Unknown Rx traMADol [Ultram] 50 mg PO Q6HR PRN #15 tablet 04/26/19 Unknown Rx levoFLOXacin [Levaquin TAB] 500 mg PO QDAY #7 tablet 05/13/19 Unknown Rx traMADol [Ultram] 50 mg PO Q6HR PRN #12 tablet 05/13/19 Unknown Rx ED Medical Decision Making - Lab Data Result diagrams: 05/13/19 13:00 05/13/19 13:00 - Radiology Data [facility] [address] [place] [address] Cat Scan Report Signed Patient: RENITA MENDES MR#: [id number] : 1970 Acct:[id number] Age/Sex: 49 / F ADM Date: 05/13/19 Loc: ED Attending Dr: Ordering Physician: COLE DELGADO MD Date of Service: 05/13/19 Procedure(s): CT abdomen pelvis w con Accession Number(s): [id number] cc: COLE DELGADO MD CT ABDOMEN AND PELVIS WITH CONTRAST INDICATION: Generalized abdominal and back pain. COMPARISON: CT of the abdomen and pelvis with contrast from 04/26/2019. TECHNIQUE: Axial, coronal and sagittal CT imaging of The abdomen and pelvis was performed after injection of 100 mL Isovue [address] scans at this location are performed using CT dose reduction for ALARA by means of automated exposure control. FINDINGS: LOWER CHEST: No significant abnormality. LIVER: Subcentimeter hypodensities seen inferiorly along the right hepatic lobe are unchanged and likely represent cysts. No additional significant abnormality. BILIARY: Prior cholecystectomy. No significant abnormality. PANCREAS: No significant abnormality. SPLEEN: No significant abnormality. ADRENALS: No significant abnormality. KIDNEYS AND URETERS: No significant abnormality. GI TRACT: No significant abnormality of the stomach, small bowel or colon. Unremarkable appendix. PERITONEUM: No free fluid. No free air. No fluid collection. LYMPH NODES: No significant adenopathy. VASCULATURE: No significant abnormality. URINARY BLADDER: No significant abnormality. REPRODUCTIVE ORGANS: No significant abnormality. ADDITIONAL FINDINGS: None. SKELETAL SYSTEM: No acute abnormality. Moderate degenerative changes of the spine are most significant at L4-L5. IMPRESSION: 1. No acute abnormality of the abdomen or pelvis. 2. Additional findings as above. Signer Name: Davide Mejia MD Signed: 05/13/2019 5:20 PM Workstation Name: [id number] Transcribed By: SONI Dictated By: Davide Mejia MD Electronically Authenticated By: Davide Mejia MD Signed Date/Time: 05/13/19 1720 - Medical Decision Making CT was relatively unremarkable. Patient does have red blood cells and white blood cells in the urine consistent with a possible early urinary tract infection. Patient will be started on antibiotics and referred to urology for further management. ED Disposition Clinical Impression: UTI (lower urinary tract infection) Acute cystitis Qualifiers: Hematuria presence: with hematuria Qualified Code(s): N30.01 - Acute cystitis with hematuria Disposition: DC-01 TO HOME OR SELFCARE Is pt being admited?: No Does the pt Need Aspirin: No Condition: Stable Instructions: Urinary Tract Infection in Women (ED) Prescriptions: levoFLOXacin [Levaquin TAB] 500 mg PO QDAY #7 tablet traMADol [Ultram] 50 mg PO Q6HR PRN #12 tablet PRN Reason: Pain Referrals: PRIMARY CARE, [Primary Care Provider] - 3-5 Days Time of Disposition: 18:57 <COLE DELGADO - Last Filed: 05/14/19 11:33> ED Abdominal Pain HPI - General Source: patient Mode of arrival: Ambulatory Limitations: No Limitations - History of Present Illness Complaint: abdominal pain -: Gradual (1 day) Location: suprapubic Radiation: none Migration to: no migration Severity: mild Severity scale (0 -10): 2 Quality: aching Consistency: intermittent Improves With: nothing Worsens With: nothing Associated Symptoms: nausea, other (reports some vaginal bleeding and discharge. Reports hx of fibroids). denies: vomiting, diarrhea, fever, chills, constipation, dysuria, hematemesis, hematochezia, melena, hematuria, anorexia, syncope ED Review of Systems ROS: Stated complaint: LOWER ABD STOMACH Other details as noted in HPI Other: GENERAL: No weight change, fatigue, fever, chills, or night sweats SKIN: No changes in skin or hair, no itching, no rashes, no jaundice HEAD: No trauma, headache, or visual changes EYES: No blurriness, tearing, itching, acute visual loss, conjunctival discoloration, or scleral icterus EARS: No hearing loss, tinnitus, vertigo, or earache NOSE: No rhinorrhea, stuffiness, sneezing, itching, or epistaxis MOUTH: No bleeding gums, hoarseness, sore throat, or swelling CARDIAC: No new murmur, chest pain, palpitations, dyspnea on exertion, orthopnea, PND, or edema RESPIRATORY: No shortness of breath, wheeze, cough, sputum production, hemoptysis, pneumonia, asthma, bronchitis, or emphysema GI: Abdominal pain and nausea. No change in appetite, vomiting, dysphagia, diarrhea, constipation, hematemesis, melena, hematochezia URINARY: No frequency, urgency, polyuria, dysuria, hematuria, or incontinence MUSCULOSKELETAL: No muscle weakness, joint stiffness, decrease in range of motion, redness, swelling NEUROLOGIC: No headache, loss of sensation, numbness, tingling, tremors, weakness, paralysis, seizures HEMATOLOGIC: No anemia, easy bruising, bleeding, petechiae, or purpura ENDOCRINE: No hot or cold intolerance, sweating, polyuria, polydipsia or, polyphagia no thyroid problems PSYCHIATRIC: No change in mood, no anxiety, no depression GENITAL: Female: Reports discharge and bleeding. ED Past Medical Hx - Past Medical History Previous Medical History?: Yes Hx Hypertension: Yes Hx CVA: Yes (2014, acute basal ganglia stroke on mri 10/2016) Hx Heart Attack/AMI: Yes Hx Congestive Heart Failure: Yes Hx Diabetes: Yes Hx Deep Vein Thrombosis: Yes Hx Pulmonary Embolism: Yes (January 2015) Hx GERD: No Hx Liver Disease: Yes (States liver problems not sure what) Hx Renal Disease: No Hx Sickle Cell Disease: No Hx Arthritis: No Hx Headaches / Migraines: No Hx Seizures: No Hx Kidney Stones: Yes Hx Psychiatric Treatment: No Hx Asthma: Yes Hx COPD: No Hx Tuberculosis: No Hx Dementia: No Hx HIV: No Additional medical history: murmur. blood clot removal from brain, hx of CVA (june,) - Surgical History Hx Coronary Stent: No Hx Open Heart Surgery: No Hx Pacemaker: No Hx Internal Defibrillator: No Hx Cholecystectomy: Yes Hx Appendectomy: No Hx Breast Surgery: No Additional Surgical History: tubal ligation - Social History Smoking Status: Current Every Day Smoker Substance Use Type: None ED Physical Exam - General Limitations: No Limitations - Other Other exam information: GENERAL: Patient in no acute distress HEAD: Normocephalic, atraumatic EYES: PERRLA, EOM intact, no scleral icterus, no conjunctival hemorrhage, visual phillip and acuity wnl NOSE: No tenderness, discharge, sinus tenderness MOUTH: No erythema, bleeding, exudate HEART: Regular rate and rhythm, no murmur, S1-S2 are auscultated, pulses are symmetric LUNGS: Bilateral breath sounds, No tachypnea, No retractions, No wheezing, rales, rhonchi ABDOMEN: Normal bowel sounds, abdomen soft, no tenderness, no rebound, no guarding, no distention, no masses, no CVA tenderness MUSCULOSKELETAL: Normal joint range of motion, no redness, no swelling, no tenderness NEUROLOGIC: GCS 15, Alert and Oriented x3, Cranial nerves intact, normal sensation, normal strength, normal gait, no cerebellar deficit, NIHSS 0 PSYCHIATRIC: No homicidal or suicidal ideation, no anxiety, no depression, no hallucinations SKIN: Skin is warm and dry, no wounds, no rashes ED Course Vital Signs 05/13/19 05/13/19 12:40 19:18 Temperature 98.4 F Pulse Rate 85 66 Respiratory 18 20 Rate Blood Pressure 164/80 Blood Pressure 191/87 [Right] O2 Sat by Pulse 98 99 Oximetry ED Medical Decision Making - Lab Data Result diagrams: 05/13/19 13:00 05/13/19 13:00 - Medical Decision Making At [address] Naidu updated and agrees to follow up CT result. Critical care attestation.: If time is entered above; I have spent that time in minutes in the direct care of this critically ill patient, excluding procedure time.
[2019-05-13 14:02] LABS: Basophils % (Manual) 0 % (0.0-1.8); Eosinophils % (Manual) 0 % (0.0-4.3); Total Cells Counted 100
[2019-05-13 14:03] LABS: Anisocytosis 1+; Hypochromasia 1+; Target Cells 1+
[2019-05-13] MEDS ORDERED: ROCEPHIN/NS 1 GM/50 ML 1 GM/50 ML BAG IV ONE (14:38)
[2019-05-13 14:50] LABS: Alanine Aminotransferase 5 units/L (7-56); Albumin 4.3 g/dL (3.9-5)
[2019-05-13 14:51] LABS: Bilirubin,Direct < 0.2 mg/dL (0-0.2)
--- NOTE | 2019-05-13 17:25 | Cat Scan Report ---
CT ABDOMEN AND PELVIS WITH CONTRAST INDICATION: Generalized abdominal and back pain. COMPARISON: CT of the abdomen and pelvis with contrast from 04/26/2019. TECHNIQUE: Axial, coronal and sagittal CT imaging of The abdomen and pelvis was performed after inje ction of 100 mL Isovue [address] scans at this location are performed using CT dose reduc tion for ALARA by means of automated exposure control. FINDINGS: LOWER CHEST: No significant abnormality. LIVER: Subcentimeter hypodensities seen inferiorly along the right hepatic lobe are unchanged and lik [place] represent cysts. No additional significant abnormality. BILIARY: Prior cholecystectomy. No significant abnormality. PANCREAS: No significant abnormality. SPLEEN: No significant abnormality. ADRENALS: No significant abnormality. KIDNEYS AND URETERS: No significant abnormality. GI TRACT: No significant abnormality of the stomach, small bowel or colon. Unremarkable appendix. PERITONEUM: No free fluid. No free air. No fluid collection. LYMPH NODES: No significant adenopathy. VASCULATURE: No significant abnormality. URINARY BLADDER: No significant abnormality. REPRODUCTIVE ORGANS: No significant abnormality. ADDITIONAL FINDINGS: None. SKELETAL SYSTEM: No acute abnormality. Moderate degenerative changes of the spine are most significan t at L4-L5. IMPRESSION: 1. No acute abnormality of the abdomen or pelvis. 2. Additional findings as above. Signer Name: Davide Mejia MD Signed: 05/13/2019 5:20 PM Workstation Name: [id number]
[2019-05-13 19:18] VITALS: BP 191/87
== END 2019-05-13 19:20 | disposition home or self-care (01) ==
LOC: ED 12:17
DX: N39.0 Urinary tract infection, site not specified (principal); I11.0 Hypertensive heart disease with heart failure; I50.9 Heart failure, unspecified; I25.2 Old myocardial infarction; J45.909 Unspecified asthma, uncomplicated; F17.200 Nicotine dependence, unspecified, uncomplicated; Z86.711 Personal history of pulmonary embolism; Z86.718 Personal history of other venous thrombosis and embolism; Z86.73 Personal history of transient ischemic attack (TIA), and cerebral infarction without residual deficits; Z98.51 Tubal ligation status
CPT/HCPCS: 36415; 74177; 80048; 80076; 81001; 83690; 85007; 85025; 87086; 96365; 96375; 99284; J0696; J2405; J7030; Q9967

== ENCOUNTER 2021-03-03 23:23 | Emergency (ER) | payer MEDICAID ==
[2021-03-04] MEDS ORDERED: ACETAMINOPHEN 325 MG TAB PO ONE (00:37)
[2021-03-04] MEDS ORDERED: cloNIDine 0.1 MG TAB PO ONE (00:38)
[2021-03-04] MEDS ORDERED: BUTALB/ACETAMINOPHEN/CAFFEINE TAB PO ONE (08:54)
[2021-03-04] MEDS ORDERED: ONDANSETRON 4 MG/2 ML INJ IV ONE (08:54)
[2021-03-04] MEDS ORDERED: levETIRAcetam 1000 MG/NS 0.75% 1,000 MG/100 ML BAG IV ONE (08:56)
--- NOTE | 2021-03-04 09:00 | Emergency Department Report ---
HPI - General Chief Complaint: Headache Time Seen by Provider: 03/04/21 08:47 - HPI HPI: Room 3 The patient is a 51-year-old female present with a chief complaint of seizure. Patient states last night at approximate 17: 00 she had a seizure. Patient has a history of seizures and states she has been compliant with her Keppra. Patient states her last seizure before yesterday occurred approximately 1 year ago. Patient states she still has a headache and feels somewhat dizzy. Patient admits to an episode of nausea vomiting. Patient currently gives her pain a score of 10/10. ED Past Medical Hx - Past Medical History Hx Hypertension: Yes Hx CVA: Yes (2014, acute basal ganglia stroke on mri 10/2016) Hx Heart Attack/AMI: Yes Hx Congestive Heart Failure: Yes Hx Diabetes: Yes Hx Deep Vein Thrombosis: Yes Hx Pulmonary Embolism: Yes (January 2015) Hx Liver Disease: Yes (States liver problems not sure what) Hx Kidney Stones: Yes Hx Asthma: Yes Additional medical history: murmur. blood clot removal from brain, hx of CVA (june,) - Surgical History Hx Cholecystectomy: Yes Additional Surgical History: tubal ligation - Family History Family history: no significant - Social History Smoking Status: Current Every Day Smoker (1 pack/day) Substance Use Type: None (Denies illicit drug use) - Medications Home Medications: Home Medications Medication Instructions Recorded Confirmed Last Taken Type Apixaban [Eliquis] 5 mg PO BID #74 tablet 12/21/17 Unknown Rx AtorvaSTATin [Lipitor] 40 mg PO QHS #30 tablet 12/21/17 Unknown Rx Clopidogrel [Plavix] 75 mg PO DAILY #30 tablet 12/21/17 Unknown Rx Furosemide [Lasix TAB] 20 mg PO BID #30 day 12/21/17 Unknown Rx Spironolactone [Aldactone] 12.5 mg PO QDAY #30 tablet 12/21/17 Unknown Rx carvediloL [Coreg] 12.5 mg PO BID #60 tablet 12/21/17 Unknown Rx lisinopriL [Zestril TAB] 2.5 mg PO QDAY #30 tablet 12/21/17 Unknown Rx metFORMIN [Glucophage] 500 mg PO BIDDIAB #60 tablet 12/21/17 Unknown Rx Ondansetron [Zofran Odt] 4 mg PO Q6HR PRN #15 tab.rapdis 04/26/19 Unknown Rx traMADoL [Ultram] 50 mg PO Q6HR PRN #15 tablet 04/26/19 Unknown Rx levoFLOXacin [Levaquin TAB] 500 mg PO QDAY #7 tablet 05/13/19 Unknown Rx traMADoL [Ultram] 50 mg PO Q6HR PRN #12 tablet 05/13/19 Unknown Rx Butalb/Acetamin/Caff 50-325-40 2 tab PO Q8HR PRN #10 tablet 03/04/21 Unknown Rx [Fioricet 50-325-40] levETIRAcetam [Keppra TAB] 500 mg PO BID 30 Days #60 tablet 03/04/21 Unknown Rx ED Review of Systems ROS: Stated complaint: DIZZINESS Other details as noted in HPI Constitutional: no symptoms reported Eyes: denies: eye pain ENT: denies: throat pain Respiratory: no symptoms reported Cardiovascular: denies: chest pain Endocrine: no symptoms reported Gastrointestinal: nausea, vomiting Genitourinary: denies: dysuria Musculoskeletal: denies: back pain Neurological: headache, other (Lightheadedness) Physical Exam - Physical Exam Vital Signs: Vital Signs 03/04/21 03/04/21 00:19 00:49 Temperature 98.5 F Pulse Rate 119 H Respiratory 18 Rate Blood Pressure 185/115 187/114 O2 Sat by Pulse 99 Oximetry Physical Exam: GENERAL: The patient is well-developed well-nourished female lying on stretcher not appearing to be in acute distress. [] HEENT: Normocephalic. Atraumatic. Extraocular motions are intact. Patient has moist mucous membranes. NECK: Supple. No meningitic signs are noted. Trachea midline CHEST/LUNGS: Clear to auscultation. There is no respiratory distress noted. HEART/CARDIOVASCULAR: Regular. There is no tachycardia. There is no gallop rub or murmur. ABDOMEN: Abdomen is soft, nontender. Patient has normal bowel sounds. There is no abdominal distention. SKIN: There is no rash. There is no edema. There is no diaphoresis. NEURO: The patient is awake, alert, and oriented. The patient is cooperative. The patient has no focal neurologic deficits. The patient has normal speech. Cranial nerves II through XII grossly intact MUSCULOSKELETAL: There is no evidence of acute injury. ED Course Vital Signs 03/04/21 03/04/21 00:19 00:49 Temperature 98.5 F Pulse Rate 119 H Respiratory 18 Rate Blood Pressure 185/115 187/114 O2 Sat by Pulse 99 Oximetry ED Medical Decision Making - Lab Data Result diagrams: 03/04/21 09:03 03/04/21 09:03 - Radiology Data Radiology results: report reviewed (CT head), image reviewed (CT head) [facility] [address] [id number] Cat Scan Report Signed Patient: RENITA JEFFERY MR#: [id number] : 1970 Acct:[id number] Age/Sex: 51 / F ADM Date: 03/03/21 Loc: ED Attending Dr: Ordering Physician: JEANCARLOS JOSHI MD Date of Service: 03/04/21 Procedure(s): CT head/brain wo con Accession Number(s): [id number] cc: JEANCARLOS JOSHI MD CT BRAIN: 03/04/2021 INDICATION / CLINICAL INFORMATION: Seizure, headache dizziness, hy pertension. COMPARISON: 05/23/2019 FINDINGS: BRAIN/INTRACRANIAL STRUCTURES: Unenhanced CT images of the brain were obtained and compared to the prior exam from 05/23/2019. Overall, there is been no change. Extensive chronic encephalomalacia is present in the right hemisphere, in the distribution of the right middle cerebral artery. Underlying diffuse cerebral atrophy and chronic white matter hypoattenuation is present. There is no CT evidence of acute large vessel territory ischemic injury, hemorrhage, or mass. There are no abnormal extra-axial fluid collections. EXTRACRANIAL STRUCTURES: Unremarkable. IMPRESSION: No acute abnormality. Chronic right MCA distribution infarct. Prominent cerebral atrophy and chronic white matter hypoattenuation. No significant change when compared to 05/23/[address] scans at this location are performed using dose reduction to ALARA by means of automated exposure control. Signer Name: Fausto Lackey MD Signed: 03/04/2021 9:35 AM Workstation Name: [id number] Transcribed By: SCOTT Dictated By: Fausto Lackey MD Electronically Authenticated By: Fausto Lackey MD Signed Date/Time: 03/04/21934 DD/ 1 TD/TT: Print Cancel - Differential Diagnosis Seizure, headache, intracranial mass, hypertensive urgency Critical care attestation.: If time is entered above; I have spent that time in minutes in the direct care of this critically ill patient, excluding procedure time. ED Disposition Clinical Impression: Seizure, Headache, Hypomagnesemia Disposition: TO HOME OR SELFCARE Is pt being admited?: No Does the pt Need Aspirin: No Condition: Stable Instructions: Epilepsy, [id number], Hypomagnesemia Additional Instructions: Return to the emergency department should you develop worsening symptoms, inability to tolerate food or liquids, high fever or any other concerns Prescriptions: Butalb/Acetamin/Caff 50-325-40 [Fioricet 50-325-40] 2 tab PO Q8HR PRN #10 tablet PRN Reason: Headache levETIRAcetam [Keppra TAB] 500 mg PO BID 30 Days #60 tablet Referrals: [facility] [Provider Group] - 3-5 Days Time of Disposition: 11:03
[2021-03-04 09:24] LABS: Basophils # (Auto) 0.1 K/mm3 (0.0-0.1); Basophils % (Auto) 0.5 % (0.0-1.8); Eosinophils # (Auto) 1.2 K/mm3 (0.0-0.4); Eosinophils % (Auto) 9.5 % (0.0-4.3); Hematocrit 33.4 % (30.3-42.9); Hemoglobin 11.5 gm/dl (10.1-14.3); Lymphocytes # (Auto) 2.6 K/mm3 (1.2-5.4); Lymphocytes % (Auto) 21.2 % (13.4-35.0); Mean Corpuscular HGB Conc 35 % (30-34); Mean Corpuscular Volume 72 fl (79-97); Monocytes # (Auto) 0.8 K/mm3 (0.0-0.8); Monocytes % (Auto) 6.2 % (0.0-7.3); Platelet Count 228 K/mm3 (140-440); Red Blood Count 4.67 M/mm3 (3.65-5.03); Red Cell Distribution Width 19.1 % (13.2-15.2)
--- NOTE | 2021-03-04 09:39 | Cat Scan Report ---
CT BRAIN: 03/04/2021 INDICATION / CLINICAL INFORMATION: Seizure, headache dizziness, hypertension. COMPARISON: 05/23/2019 FINDINGS: BRAIN/INTRACRANIAL STRUCTURES: Unenhanced CT images of the brain were obtained and compared to the pr ior exam from 05/23/2019. Overall, there is been no change. Extensive chronic encephalomalacia is present in the right hemisphere, in the distribution of the rig ht middle cerebral artery. Underlying diffuse cerebral atrophy and chronic white matter hypoattenuation is present. There is no CT evidence of acute large vessel territory ischemic injury, hemorrhage, or mass. There a re no abnormal extra-axial fluid collections. EXTRACRANIAL STRUCTURES: Unremarkable. IMPRESSION: No acute abnormality. Chronic right MCA distribution infarct. Prominent cerebral atrophy and chronic white matter hypoattenuation. No significant change when compared to 05/23/[address] scans at this location are performed using dose reduction to ALARA by means of automated expos ure control. Signer Name: Fausto Lackey MD Signed: 03/04/2021 9:35 AM Workstation Name: [id number]
[2021-03-04 09:41] LABS: Blood Urea Nitrogen 13 mg/dL (7-17); Calcium 9.4 mg/dL (8.4-10.2); Hemolysis Index 3
[2021-03-04 09:48] LABS: BUN/Creatinine Ratio 19
[2021-03-04] MEDS ORDERED: MAGNESIUM SULFATE 2 GM/50 ML BAG IV ONE (10:59)
[2021-03-04 12:43] VITALS: BP 155/92
== END 2021-03-04 12:44 | disposition home or self-care (01) ==
LOC: ED 23:23
DX: R56.9 Unspecified convulsions (principal); R51.9 Headache, unspecified; E83.42 Hypomagnesemia; I11.0 Hypertensive heart disease with heart failure; I50.9 Heart failure, unspecified; I25.2 Old myocardial infarction; E11.9 Type 2 diabetes mellitus without complications; J45.909 Unspecified asthma, uncomplicated; F17.200 Nicotine dependence, unspecified, uncomplicated; Z86.718 Personal history of other venous thrombosis and embolism; Z86.711 Personal history of pulmonary embolism; Z90.49 Acquired absence of other specified parts of digestive tract; Z98.890 Other specified postprocedural states; Z79.899 Other long term (current) drug therapy; Z88.6 Allergy status to analgesic agent; Z88.8 Allergy status to other drugs, medicaments and biological substances
CPT/HCPCS: 36415; 70450; 80048; 83735; 85025; 96365; 96366; 96375; 99284; J1953; J2405